=== PATIENT | male | born 1950 | race Caucasian/White ===

== ENCOUNTER 2016-09-24 11:54 | Inpatient (IN) ==
[2016-09-24] MEDS ORDERED: ACETAMINOPHEN 325 MG TABLET PO PRN (12:59)
[2016-09-24] MEDS ORDERED: MAGNESIUM HYDROXIDE SUSP 30 ML UDCUP PO PRN (12:59)
[2016-09-24] MEDS ORDERED: ONDANSETRON 4 MG/2 ML VIAL IV PRN (12:59)
--- NOTE | 2016-09-24 12:59 | Internal Med History&Physical ---
Assessment and Plan (1) COPD (chronic obstructive pulmonary disease) Status: Chronic Current Visit: Yes (2) Dyspnea Status: Acute Current Visit: Yes Qualifiers: Dyspnea type: dyspnea on exertion Qualified Code(s): R06.09 - Other forms of dyspnea (3) Hypertension Status: Chronic Current Visit: Yes Qualifiers: Hypertension type: essential hypertension Qualified Code(s): I10 - Essential (primary) hypertension (4) Chronic fatigue Status: Chronic Current Visit: Yes (5) Hyperlipidemia Status: Chronic Current Visit: Yes Qualifiers: Hyperlipidemia type: mixed hyperlipidemia Qualified Code(s): E78.2 - Mixed hyperlipidemia (6) Status post abdominal aortic aneurysm (AAA) repair Status: Chronic Current Visit: No History of Present Illness Chief complaint: shortness of breath; abdominal pain History of present illness: Mr. Otto is a 66 year old male with history of COPD on albuterol rescue inhaler, Stiolto, zyrtec, HTN, smoking history and quit 5 years ago, sinus tachycardia controlled on propranolol, AAA with surgical repair per Dr. Qunin at [place] but has now changed over to Dr. Fowler, chronic fatigue, Vit D deficiency, dyslipidemia, who presented to clinic with persistent shortness of breath. He reports shortness of breath for two years ever since his AAA surgical repair , and has experienced worsening since Thursday. He reports staying in bed over the weekend and has no energy. He denies sweats but feels cold all the time. He also complains of stomach pain/abdominal pain since the surgical repair, and has noticed distention since then. He denies significant alcohol history. An incisor tooth has broken off during the weekend and is inflamed. He does not feel well and will be admitted and worked up for pneumonia. Also, the abdominal pain has become an issue. Home Medications Medication Instructions Recorded Confirmed Type Albuterol Sulfate [Ventolin HFA] 2 puffs PO Q6HR PRN 09/24/16 09/24/16 History Cetirizine Tab [ZyrTEC Tab] 10 mg PO DAILY 09/24/16 09/24/16 History Cyanocobalamin (Vitamin B-12) 1 tablet PO DAILY 09/24/16 09/24/16 History [Vitamin B-12] Meloxicam 7.5 mg PO DAILY 09/24/16 09/24/16 History Omeprazole 40 mg PO DAILY 09/24/16 09/24/16 History Propranolol HCl [Propranolol Tab] 40 mg PO TID 09/24/16 09/24/16 History Ranitidine Tab [Zantac Tab] 150 mg PO DAILY 09/24/16 09/24/16 History Tiotropium Br/Olodaterol HCl 2.5 mcg INH BEDTIME 09/24/16 09/24/16 History [Stiolto Respimat Inhal [place]] amLODIPine [Norvasc] 10 mg PO DAILY 09/24/16 09/24/16 History Allergies Allergy/AdvReac Type Severity Reaction Status Date / Time No Known Allergies Allergy Verified 09/24/16 16:18 Medical,Surgical,& Family Hx - Medical History Cardio: History of: Cardiac Dysrhythmia (sinus tachycardia), Hypertension HEENT: History of: HEENT Problems (sinus drainage; hx nosebleeds) Endocrine: History of: Dyslipidemia Respiratory: History of: COPD, Respiratory Problems (chronic shortness of breath ) Gastrointestinal: History of: GERD - Surgical History Abdominal Surgeries: Surgical HX of: Appendectomy, Colonoscopy (Dr. Alvarado), EGD (dilatation) Additional Surgical History: Bronchoscopy per Dr. Dilip Wyatt; AAA surgical repair per Dr. Quinn - Family History Family History: Reports;: Family Cancer - Social History Smoking Status: Former smoker Frequency of Alcohol Use: Occasionally Type of Drug Use: None Marital Status: Lives With:: Children Functional capacity: independent ambulation - Constitutional Constitutional: Present: fatigue, lethargy - Respiratory Respiratory: Present: cough, dyspnea, dyspnea on exertion - Gastrointestinal Gastrointestinal: Present: abdominal pain, bloating, dyspepsia - Neurological Neurological: Present: dizziness, syncope (history of syncope) Exam - Constitutional General appearance: no acute distress (appears fatigued) - Head Head exam: Present: normocephalic - Eye Eye exam: Present: EOMI - ENT ENT exam: Present: normal oropharynx - Neck Neck exam: Absent: lymphadenopathy - Respiratory Respiratory exam: Present: clear to auscultation bilaterally, decreased breath sounds. Absent: rales, rhonchi, wheezes - Cardiovascular Cardiovascular exam: Present: regular rate and rhythm - GI/Abdominal GI/Abdominal exam: Present: normal bowel sounds, distended, tenderness, soft - Extremities Exam Extremities exam: Absent: edema - Neurological Exam Neurological exam: Present: alert, oriented X3, CN II-XII intact - Psychiatric Psychiatric exam: Present: normal affect, normal mood - Skin Skin exam: Present: warm, dry Results - Diagnostic Findings Procedure: Abdominal x-ray: report reviewed by me, Chest x-ray: image reviewed by me, report reviewed by me
[2016-09-24] MEDS ORDERED: SODIUM CHLORIDE 0.45% 1,000 ML IV SCH (13:00)
--- NOTE | 2016-09-24 16:38 | XRay Report ---
XR chest 2V Indication: Shortness of breath Comparison: None available Findings: The heart and mediastinum are normal in size and configuration. Moderate amount of aorta calcifications present. The pulmonary vascularity is normal in caliber. Lung volumes are increased with prominent bronchial markings. No lung infiltrates, effusions, pneumothorax or other abnormality is demonstrated. Impression: Chronic lung changes. No acute process. PROCEDURE INTERPRETED AT [facility] DEPARTMENT OF RADIOLOGY Final Report Signed by: Dr. Johnie Chacon
--- NOTE | 2016-09-24 16:47 | XRay Report ---
XR abdomen 2V Indication: Abdominal pain Comparison: None available Findings: No free fluid or free air seen. The bowel gas pattern appears within normal limits. Aortic stent graft and calcified iliac arteries are present. No other abnormal calcifications are present. No other abnormality is identified. Impression: No evidence of acute process demonstrated. PROCEDURE INTERPRETED AT [facility] DEPARTMENT OF RADIOLOGY Final Report Signed by: Dr. Johnie Chacon
--- NOTE | 2016-09-24 16:54 | Pulmonology Consult Note ---
Assessment and Plan (1) COPD exacerbation Status: Acute Assessment and plan: The patient has been having worsening shortness of breath and looks like he may have significant COPD. Will review the old records. Will continue with steroids and bronchodilators for now. Current Visit: Yes (2) Status post abdominal aortic aneurysm (AAA) repair Status: Acute Assessment and plan: The patient has had a previous abdominal aortic aneurysm repair. He does have some abdominal discomfort and bloating at present. Current Visit: Yes (3) Hyperlipidemia Status: Acute Assessment and plan: He will continue his present medicines. Current Visit: Yes History of Present Illness Chief complaint: Shortness of breath History of present illness: Mr. Otto is a 66 year old white male that was admitted today to the office because of shortness of breath. He has a history of having COPD and uses bronchodilators at home. He says lately he has been having much more trouble getting around. He has been having trouble coughing secretions at times. He is a former smoker and does have some problems with vascular disease. He said that several years ago we did a therapeutic bronchoscopy at [facility] and he felt better for a while. He is having some chest discomfort from his coughing. He says the secretions at times are very thick. He has not had any definite fever or other systemic symptoms. Allergies Allergy/AdvReac Type Severity Reaction Status Date / Time No Known Allergies Allergy Verified 09/24/16 16:18 - Constitutional Constitutional: Present: fatigue, weakness, weight gain. Absent: chills, fever( s) - EENT Eyes: Absent: loss of vision Ears: Absent: decreased hearing Nose, mouth and throat: Absent: dysphagia, headache(s), sinus pressure - Cardiovascular Cardiovascular: Absent: chest pain with activity, edema, orthopnea, palpitations - Respiratory Respiratory: Present: cough, dyspnea, wheezing, change in phlegm color. Absent : hemoptysis, pain on inspiration - Gastrointestinal Gastrointestinal: Present: abdominal pain. Absent: change in bowel habits, dysphagia, nausea, vomiting - Genitourinary Genitourinary: Absent: difficulty urinating, hematuria, urinary frequency - Musculoskeletal Musculoskeletal: Absent: arthralgias, muscle weakness - Neurological Neurological: Absent: abnormal speech, focal weakness, paresthesias - Psychiatric Psychiatric: Present: anxiety Exam (Pulmonay) H&P - Constitutional General appearance: no acute distress (He looks comfortable sitting up in his bed.), over weight - Head Head exam: Present: normal inspection, normocephalic - Eye Eye exam: Present: EOMI. Absent: scleral icterus Pupils: Present: SERA - ENT ENT exam: Present: normal exam - Neck Neck exam: Present: normal inspection. Absent: lymphadenopathy, thyromegaly - Respiratory Respiratory exam: Present: decreased breath sounds, prolonged expiratory phase, wheezes (He has very minimal wheezing.). Absent: accessory muscle use - Cardiovascular Cardiovascular exam: Present: regular rate and rhythm. Absent: gallop, systolic murmur - GI/Abdominal GI/Abdominal exam: Present: distended, hypoactive bowel sounds, soft. Absent: organomegaly, tenderness - Extremities Exam Extremities exam: Absent: calf tenderness, edema - Neurological Exam Neurological exam: Present: alert, oriented X3, CN II-XII intact. Absent: motor sensory deficit - Psychiatric Psychiatric exam: Present: normal affect - Skin Skin exam: Present: warm, dry Medical,Surgical,& Family Hx - Medical History Cardio: History of: Aneurysm (aortic aneurysm), Cardiovascular Problems (syncope ) Psychological: History of: Depression No history of: Anxiety Disorders, ADHD, Behavior Problems, Bipolar Disorder, Previous Suicide Attempt, Schizophrenia, Violent Behavior, Psychiatric Problems - Surgical History Cardiac Surgeries: Sugical HX of: Cardiac Surgery (aortic aneurysm repair surger ) Neurologic Surgeries: Patient denies: Neurologic Surgery HEENT Surgeries: Patient denies: Thyroid Surgery Abdominal Surgeries: Surgical HX of: Appendectomy Reproductive Surgeries: Patient denies;: Genitourinary Surgery - Social History Smoking Status: Former smoker Frequency of Alcohol Use: None Type of Drug Use: None Results - Diagnostic Findings Procedure: Chest x-ray: image reviewed by me, report reviewed by me (Chest x- ray suggests significant COPD changes.)
[2016-09-24] MEDS: methylPREDNISolone SOD SUC 40 MG/1 ML VIAL IV SCH (17:53)
[2016-09-24] MEDS: PIPERACILLIN/TAZOBACTAM 3,375 MG in SODIUM CHLORIDE 0.9% 100 ML IV SCH (17:54)
[2016-09-24] MEDS ORDERED: KETOROLAC 30 MG/1 ML VIAL IV PRN (18:00)
[2016-09-24 18:15] LABS: Basophils % 0.5 % (0.0-0.8); Eosinophils # 0.7 10*3/uL (0.0-0.87); Eosinophils % 9.2 % (0.00-10.9); Hematocrit 45.3 VOL% (42.0-52.0); Hemoglobin 15.7 GM/DL (14.0-18.0); Immature Granulocytes % 0.4 %; Immature Granulocytes Absolute 0.03 #; Lymphocytes # 2.2 10*3/uL (1.4-4.0); Lymphocytes % 28.9 % (21.2-54.2); Mean Corpuscular HGB Conc 34.7 GM/DL (32-36); Mean Corpuscular Hemoglobin 32 PG (27-34); Mean Corpuscular Volume 91.3 FL (87-102); Mean Platelet Volume 9.6 FL (9.6-12.0); Monocytes # 1.2 10*3/uL (0.11-0.8); Monocytes % 15.4 % (1.7-12.7); Neutrophils # 3.4 10*3/uL (1.4-7.4); Neutrophils % 45.6 % (38.7-73.9); Platelet Count 211 T/CUMM (130-400); Red Blood Count 4.96 MC/CUMM (3.8-5.5); White Blood Count 7.5 T/CUMM (4-12)
[2016-09-24 18:15] LABS: Apearance,Urine Slightly Hazy (Clear); Blood, Urine Negative (Negative); Glucose,Urine (UA) Negative (Negative); Ketones,Urine 5 mg/dL (Negative); Mucus,Urine Few /LPF (Occasional); Nitrite,Urine Negative (Negative); Protein,Urine >=500 MG/DL; RBC,Urine 4 /HPF (0-4); Squamous Epithelial Cell,Urine Occasional /HPF (0-10); Urine Color Amber (Yellow); Urine Specific Gravity 1.029 (1.001-1.035); Urine Urobilinogen < 2.0 EU/DL (0.2-1.0); WBC,Urine 2 /HPF (0-6)
[2016-09-24 18:16] LABS: Bilirubin,Urine Moderate mg/dL (Negative)
[2016-09-24 18:30] LABS: Albumin 3.5 G/DL (3.4-5.0); Bilirubin,Total 0.7 MG/DL (0.2-1.0); Calcium 8.7 MG/DL (8.5-10.1); Magnesium 2.1 MG/DL (1.8-2.4); Osmolality,Calculated 276.8 MOS/KG (273-304); Potassium 3.3 MMOL/L (3.5-5.1); Total Protein 7.1 G/DL (6.4-8.3)
[2016-09-24] MEDS ORDERED: POTASSIUM CHLORIDE 20 MEQ TABLET PO ONE (18:37)
--- NOTE | 2016-09-24 18:49 | CT Report ---
Referring physician: Laila Wyatt Exam: CT brain without contrast Date: September 24, 2016 Comparison: None Reason: Persistent headache The patient is an inpatient who was admitted on September 24, 2016. Technique: Axial images of the head were obtained without the use of contrast. Total DLP was 1103.6 mGy*cm. Findings: There is mild generalized cerebral and cerebellar atrophy/volume loss and probable chronic microvascular ischemic change. No hydrocephalus or midline shift is present. There is no evidence of recent intracranial hemorrhage, abnormal mass effect or an acute infarction. No acute osseous process is seen. There is fluid within the inferior left mastoid air cells. The visualized paranasal sinuses and right mastoid air cells appear clear. Impression: 1. No acute intracranial process is identified. 2. Mild generalized cerebral and cerebellar atrophy/volume loss and probable chronic microvascular ischemic change. 3. There is fluid within the left mastoid air cells, which may reflect mastoiditis. The CT exam was performed using one or more of the following dose reduction techniques: Automated exposure control and adjustment of the mA and/or kV according to patient size. PROCEDURE INTERPRETED AT [facility] DEPARTMENT OF RADIOLOGY Final Report Signed by: Dr. Felicitas Reinoso
[2016-09-24] MEDS: ALBUTEROL/IPRATROPIUM 3 ML NEB RESP TX SCH (19:23)
[2016-09-24] MEDS: SODIUM CHLORIDE 0.9% 1,000 ML IV SCH (19:44)
[2016-09-24] MEDS: FAMOTIDINE 20 MG TABLET PO SCH (22:15)
[2016-09-24] MEDS: PROPRANOLOL 40 MG TABLET PO SCH (22:15)
[2016-09-24] MEDS: POTASSIUM CHLORIDE 20 MEQ TABLET PO SCH (22:16)
[2016-09-24] MEDS: DOCUSATE SODIUM 100 MG CAPSULE PO SCH (22:16)
[2016-09-24] MEDS: ENOXAPARIN 40 MG/0.4 ML SYRINGE SUBCUT SCH (22:17)
[2016-09-25] MEDS: ALBUTEROL/IPRATROPIUM 3 ML NEB RESP TX SCH ×4 (00:43→19:17)
[2016-09-25] MEDS: methylPREDNISolone SOD SUC 40 MG/1 ML VIAL IV SCH ×3 (02:31→17:22)
[2016-09-25] MEDS: PIPERACILLIN/TAZOBACTAM 3,375 MG in SODIUM CHLORIDE 0.9% 100 ML IV SCH ×3 (02:37→17:21)
[2016-09-25 08:08] LABS: Calcium 8.2 MG/DL (8.5-10.1); Osmolality,Calculated 282.8 MOS/KG (273-304); Potassium 4.1 MMOL/L (3.5-5.1); Risk Ratio 5.27; VLDL CHOLESTEROL 22.6 MG/DL
--- NOTE | 2016-09-25 09:01 | Pulmonology Progress Note ---
Pulmonary - PN: Subj Interval history: Patient is a 66-year-old white man that has significant COPD and came in with worsening shortness of breath. He said he feels like he is a little better today. He is starting to cough up thick yellow purulent secretions. He has some abdominal soreness that is probably from coughing. He says he is very hungry today. He is not having any nausea or vomiting or other GI symptoms. He is walking around and feels like his breathing is a little better. His chest x-ray does look like significant COPD. Exam (Progress Note) - Constitutional Vitals: Period Temp Pulse Resp BP Sys/Peace Pulse Ox Last 24 Hr 97.4 F-97.9 F 69-74 16-18 125-130/71-79 97-99 Exam: - Constitutional General appearance: no acute distress (He is walking around and looks reasonably comfortable.) - Head Head exam: Present: normal inspection, normocephalic - Eye Eye exam: Present: EOMI. Absent: scleral icterus Pupils: Present: SERA - ENT ENT exam: Present: normal exam - Neck Neck exam: Present: normal inspection. Absent: lymphadenopathy, thyromegaly - Respiratory Respiratory exam: Present: The patient has very distant breath sounds but he has a fairly quiet chest. He has some minimal rhonchi on forced expiration. He has no signs of consolidation. - Cardiovascular Cardiovascular exam: Present: regular rate and rhythm. Absent: gallop, systolic murmur - GI/Abdominal GI/Abdominal exam: Present: distended, hypoactive bowel sounds, soft. He does not have any tenderness. - Extremities Exam Extremities exam: Absent: calf tenderness, edema - Neurological Exam Neurological exam: Present: alert, oriented X3, CN II-XII intact. Absent: motor sensory deficit - Psychiatric Psychiatric exam: Present: normal affect - Skin Skin exam: Present: warm, dry Results - Labs CBC & BMP: 09/24/16 17:19 09/25/16 07:09 Assessment and Plan (1) COPD exacerbation Status: Acute Assessment and plan: The patient has been having worsening shortness of breath and looks like he may have significant COPD. He is starting to cough up some purulent secretions. He is tolerating his medicines fairly well so far. Current Visit: Yes (2) Status post abdominal aortic aneurysm (AAA) repair Status: Chronic Assessment and plan: The patient has had a previous abdominal aortic aneurysm repair. His abdomen is distended but is not tender. He says he is hungry today. Current Visit: No (3) Hyperlipidemia Status: Chronic Assessment and plan: He will continue his present medicines. Current Visit: Yes Qualifiers: Hyperlipidemia type: mixed hyperlipidemia Qualified Code(s): E78.2 - Mixed hyperlipidemia
--- NOTE | 2016-09-25 09:07 | Gastrointestinal Consult Note ---
Assessment and Plan (1) Abdominal pain Status: Acute Assessment and plan: 09/25-reports of generalized abdominal pain, after AAA repair 2 years ago, with palpation to abdomen or coughing spells. No associated GI symptoms with this. Reports 30 pound unwarranted weight gain. CTA of abdomen findings in May noted to be negative. Obtain endoscopy records from [place]. Plan an addendum to followed by Dr. Gray. Current Visit: Yes History of Present Illness Chief complaint: Abdominal pain History of present illness: Mr. Otto is a 66 year old male who was admitted to the hospital on yesterday as a direct admit from Dr Laila Sharp office with complaints of ongoing abdominal pain as well as SOB. Pt has a history of COPD, HTN and AAA repair by DR Quinn at [facility] 2 years ago. Pt states that following the surgery he initially did well however shortly after this he began having some vague abdominal pain and discomfort. Pt states that the pain is localized to her entire abdomen and is not precipitated by any factors other than coughing and if someone pushes on his stomach. He states he has gained 30 pounds over the last 3 months, all of which he feels is in his abdomen. He has had an increase in bloating after he eats and states he has a large amount of flatus that he cannot control. Pt states there have been no changes in his bowel habits, caliber of stool or reports of melena or hematochezia. He states that he has no fever, chills or night sweats. His appetite nor his food intake have increased per patient to account for the weight gain. Denies any nausea or vomiting associated with this. He does have reflux but takes OTC Prilosec and Zantac which controls his symptoms most of the time. Denies NSAID use. He does have some dysphagia at times to solids and pills and states he has had this dilated in the past at [facility] in which he has seen Dr Alvarado for. He recalls he had a colonoscopy recently as well, presumably at [facility]. He is followed by Dr Fowler post AAA repair now with CTA of abdomen done in May with findings of stable appearance of endovascular stent graft without endoleak as well as 3.9x3.1 cm aneurysm sac with no increase in size. Abdominal xray was negative on yesterday. He also had a negative head CT for some dizziness and headaches he reported. Home Medications Medication Instructions Recorded Confirmed Type Albuterol Sulfate [Ventolin HFA] 2 puffs PO Q6HR PRN 09/24/16 09/24/16 History Cetirizine Tab [ZyrTEC Tab] 10 mg PO DAILY 09/24/16 09/24/16 History Cyanocobalamin (Vitamin B-12) 1 tablet PO DAILY 09/24/16 09/24/16 History [Vitamin B-12] Meloxicam 7.5 mg PO DAILY 09/24/16 09/24/16 History Omeprazole 40 mg PO DAILY 09/24/16 09/24/16 History Propranolol HCl [Propranolol Tab] 40 mg PO TID 09/24/16 09/24/16 History Ranitidine Tab [Zantac Tab] 150 mg PO DAILY 09/24/16 09/24/16 History Tiotropium Br/Olodaterol HCl 2.5 mcg INH BEDTIME 09/24/16 09/24/16 History [Stiolto Respimat Inhal [place]] amLODIPine [Norvasc] 10 mg PO DAILY 09/24/16 09/24/16 History Allergies Allergy/AdvReac Type Severity Reaction Status Date / Time No Known Allergies Allergy Verified 09/24/16 16:18 Medical,Surgical,& Family Hx - Medical History Cardio: History of: Aneurysm (aortic aneurysm), Cardiac Dysrhythmia (sinus tachycardia), Hypertension, Cardiovascular Problems (syncope) Psychological: History of: Depression No history of: Anxiety Disorders, ADHD, Behavior Problems, Bipolar Disorder, Previous Suicide Attempt, Schizophrenia, Violent Behavior, Psychiatric Problems HEENT: History of: HEENT Problems (sinus drainage; hx nosebleeds) Endocrine: History of: Dyslipidemia Respiratory: History of: COPD, Respiratory Problems (chronic shortness of breath ) Gastrointestinal: History of: GERD - Surgical History Cardiac Surgeries: Sugical HX of: Cardiac Surgery (aortic aneurysm repair surger ) Neurologic Surgeries: Patient denies: Neurologic Surgery HEENT Surgeries: Patient denies: Thyroid Surgery Abdominal Surgeries: Surgical HX of: Appendectomy, Colonoscopy (Dr. Alvarado), EGD (dilatation) Reproductive Surgeries: Patient denies;: Genitourinary Surgery - Family History Family History: Reports;: Family Cancer - Social History Smoking Status: Former smoker Frequency of Alcohol Use: Occasionally Type of Drug Use: None 12 point system: reviewed and no additional remarkable complaints except as stated - Constitutional Constitutional: Present: as per HPI - EENT Eyes: Present: as per HPI Ears: Present: as per HPI Nose, mouth and throat: Present: as per HPI, dysphagia - Cardiovascular Cardiovascular: Present: as per HPI, dyspnea - Respiratory Respiratory: Present: as per HPI - Gastrointestinal Gastrointestinal: Present: as per HPI, abdominal pain, bloating, dysphagia - Genitourinary Genitourinary: Present: as per HPI - Musculoskeletal Musculoskeletal: Present: as per HPI - Neurological Neurological: Present: as per HPI - Psychiatric Psychiatric: Present: as per HPI - Endocrine Endocrine: Present: as per HPI - Hematologic/Lymphatic Hematologic/Lymphatic: Present: as per HPI Exam - Constitutional Vitals: Period Temp Pulse Resp BP Sys/Peace Pulse Ox Last 24 Hr 97.4 F-97.9 F 69-74 16-18 125-130/71-79 97-99 General appearance: normal weight, no acute distress - Head Head exam: Present: normal inspection, normocephalic - Eye Eye exam: Present: other (Lids and conjunctive are unremarkable). Absent: scleral icterus - ENT ENT exam: Present: normal exam, normal oropharynx - Neck Neck exam: Present: normal inspection - Respiratory Respiratory exam: Present: clear to auscultation bilaterally. Absent: rales, rhonchi, wheezes - Cardiovascular Cardiovascular exam: Present: regular rate and rhythm. Absent: diastolic murmur , JVD, systolic murmur - GI/Abdominal GI/Abdominal exam: Present: normal bowel sounds, tenderness (With deep palpation ), soft. Absent: ascites, distended, mass, organomegaly - Extremities Exam Extremities exam: Present: normal inspection, full ROM - Back Exam Back exam: Present: normal inspection - Neurological Exam Neurological exam: Present: alert, oriented X3 - Psychiatric Psychiatric exam: Present: normal affect, normal mood - Skin Skin exam: Present: normal color, warm, dry Results - Labs CBC & BMP: 09/24/16 17:19 09/25/16 07:09 Lab Results: I have reviewed the past 24 hour labs - Diagnostic Findings Procedure: Abdominal x-ray: report reviewed by me, Chest x-ray: report reviewed by me
[2016-09-25] MEDS: amLODIPine 10 MG TABLET PO SCH (09:40)
[2016-09-25] MEDS: FAMOTIDINE 20 MG TABLET PO SCH ×2 (09:40→21:57)
[2016-09-25] MEDS: PROPRANOLOL 40 MG TABLET PO SCH ×2 (09:40→21:56)
[2016-09-25] MEDS: DOCUSATE SODIUM 100 MG CAPSULE PO SCH ×2 (09:40→21:56)
[2016-09-25] MEDS: POTASSIUM CHLORIDE 20 MEQ TABLET PO SCH ×2 (09:40→21:56)
[2016-09-25] MEDS ORDERED: GLUCAGON 1 MG VIAL IM PRN (10:33)
[2016-09-25] MEDS ORDERED: DEXTROSE 50% 25 GM/50 ML VIAL IV PRN (10:33)
[2016-09-25] MEDS: CETIRIZINE 10 MG TABLET PO SCH (11:51)
[2016-09-25] MEDS: CYANOCOBALAMIN 500 MCG TABLET PO SCH (11:51)
[2016-09-25] MEDS: INSULIN REGULAR 100 UNIT/ML SUBCUT SCH ×3 (11:52→22:00)
--- NOTE | 2016-09-25 16:33 | Sleep Medicine Consult ---
Assessment and Plan (1) Unspecified sleep apnea Status: Acute Assessment and plan: This patient does have symptoms certainly concerning for sleep apnea. He had evidence of sleep apnea though did not meet criteria for CPAP on his prior study at [facility] sleep center over 2 years ago. We will set him up for outpatient diagnostic sleep study. Thank you for this consult and the opportunity to participate in his care. Current Visit: Yes (2) Hypertension Status: Chronic Assessment and plan: The prevalence rate for obstructive sleep apnea patients with hypertension is 35 %. That rate can be as high as 80% in patients who require 4 or more medications for blood pressure control. Current Visit: Yes Qualifiers: Hypertension type: essential hypertension Qualified Code(s): I10 - Essential (primary) hypertension (3) COPD (chronic obstructive pulmonary disease) Status: Chronic Assessment and plan: Patients with underlying COPD are more likely to have greater propensity for oxygen desaturation and worse respiratory events with sleep apnea. With his sleep disruption and sleepiness, polysomnography is indicated. Current Visit: Yes History of Present Illness Chief complaint: Sleep apnea History of present illness: Mr. Otto is a 66 year old male known to me from previous sleep evaluation in May 2014. He had a negative sleep study at that time with an AHI of 3.9 overall but did have a severe REM component with an AHI of 40 and REM sleep. Patient was admitted with shortness of breath and does have a history of very disturbed sleep. He does snore and awakens from sleep short of breath. He has difficulty maintaining sleep with multiple trips to the bathroom related to urination. He estimates that he gets up 6-8 times to urinate. He also is bothered by discomfort of his legs. He has an [place] sleepiness score of 13. Home Medications Medication Instructions Recorded Confirmed Type Albuterol Sulfate [Ventolin HFA] 2 puffs PO Q6HR PRN 09/24/16 09/24/16 History Cetirizine Tab [ZyrTEC Tab] 10 mg PO DAILY 09/24/16 09/24/16 History Cyanocobalamin (Vitamin B-12) 1 tablet PO DAILY 09/24/16 09/24/16 History [Vitamin B-12] Meloxicam 7.5 mg PO DAILY 09/24/16 09/24/16 History Omeprazole 40 mg PO DAILY 09/24/16 09/24/16 History Propranolol HCl [Propranolol Tab] 40 mg PO TID 09/24/16 09/24/16 History Ranitidine Tab [Zantac Tab] 150 mg PO DAILY 09/24/16 09/24/16 History Tiotropium Br/Olodaterol HCl 2.5 mcg INH BEDTIME 09/24/16 09/24/16 History [Stiolto Respimat Inhal [place]] amLODIPine [Norvasc] 10 mg PO DAILY 09/24/16 09/24/16 History Allergies Allergy/AdvReac Type Severity Reaction Status Date / Time No Known Allergies Allergy Verified 09/24/16 16:18 Review of systems: Notable for exercise intolerance, dyspnea on exertion, and disrupted restless sleep. Exam (Pulmonay) H&P - Constitutional Vitals: Period Temp Pulse Resp BP Sys/Peace Pulse Ox Last 24 Hr 97.2 F-97.9 F 69-79 16-20 125-134/70-79 97-100 Exam: He is alert and responsive in no acute distress. Pupils equal round reactive to light and accommodation. Extraocular movements intact. Oropharynx with a class III Mallampati exam. Neck is 17 inches in circumference. It is supple without adenopathy or thyromegaly. No supraclavicular adenopathy is noted. Chest with good breath sounds and without focal wheeze, rhonchi, or rales. Cardiac exam reveals a regular rhythm without murmur or gallop. Abdomen soft nontender without palpable hepatosplenomegaly or mass. Extremities are without clubbing, cyanosis, or edema. Neurologically, he is grossly intact. He moves all extremities with good strength. Medical,Surgical,& Family Hx - Medical History Cardio: History of: Aneurysm (aortic aneurysm), Cardiac Dysrhythmia (sinus tachycardia), Hypertension, Cardiovascular Problems (syncope) Psychological: History of: Depression No history of: Anxiety Disorders, ADHD, Behavior Problems, Bipolar Disorder, Previous Suicide Attempt, Schizophrenia, Violent Behavior, Psychiatric Problems HEENT: History of: HEENT Problems (sinus drainage; hx nosebleeds) Endocrine: History of: Dyslipidemia Respiratory: History of: COPD, Respiratory Problems (chronic shortness of breath ) Gastrointestinal: History of: GERD - Surgical History Cardiac Surgeries: Sugical HX of: Cardiac Surgery (aortic aneurysm repair surger ) Neurologic Surgeries: Patient denies: Neurologic Surgery HEENT Surgeries: Patient denies: Thyroid Surgery Abdominal Surgeries: Surgical HX of: Appendectomy, Colonoscopy (Dr. Alvarado), EGD (dilatation) Reproductive Surgeries: Patient denies;: Genitourinary Surgery - Family History Family History: Reports;: Family Cancer - Social History Smoking Status: Former smoker Frequency of Alcohol Use: Occasionally Type of Drug Use: None Results - Labs CBC & BMP: 09/24/16 17:19 09/25/16 07:09 Lab Results: I have reviewed the past 24 hour labs
[2016-09-25] MEDS: SODIUM CHLORIDE 0.9% 1,000 ML IV SCH ×2 (17:28→22:01)
--- NOTE | 2016-09-25 18:12 | ECHO Report ---
Fabian Otto Exam Date: 09/25/2016 09:44 Referring Physician: Technologist: Age: 66 Ht (in): 66 Wt (lb): 174 Gender: M Exam Location: [facility] Echo Indications: hyperlipidemia, status AAA, COPD, Dyspnea, chronic Dyspnea, lung disease, R/o pul HTN BP: 128 / 71 HR: 69 Rhythm: Sinus Technical Quality: IMPRESSIONS 1+ left atrial enlargement 2+ concentric LVH Normal LV systolic function with ejection fraction estimated at 60% without segmental wall motion abnormality Aortic sclerosis without stenosis 2-3+ aortic regurgitation with borderline aortic root dilation Trace to 1+ tricuspid regurgitation with RVSP estimated at 10 mmHg plus RAP MEASUREMENTS (Male / Female) Normal Values 2D ECHO LV Diastolic Diameter PLAX 3.6 cm 4.2 - 5.9 / 3.9 - 5.3 cm LV Systolic Diameter PLAX 2.1 cm LV Fractional Shortening PLAX 41.3 % IVS Diastolic Thickness 1.8 cm 0.6 - 1.0 / 0.6 - 0.9 cm IVS Systolic Thickness 2.2 cm LVPW Diastolic Thickness 1.4 cm 0.6 - 1.0 / 0.6 - 0.9 cm LVPW Systolic Thickness 1.9 cm LV Relative Wall Thickness 0.9 RV Internal Dim ED PLAX 2.8 cm LVOT Diameter 2.1 cm Aortic Root Diameter 3.3 cm LA Systolic Diameter LX 4.1 cm 3.0 - 4.0 / 2.7 - 3.8 cm LA Ao Ratio 1.2 DOPPLER TR Peak Velocity 156.0 cm/s TR Peak Gradient 9.7 mmHg FINDINGS Left Ventricle Severely increased septal wall thickness. Mild concentric left ventricular hypertrophy with diastolic dysfunction. Left ventricular ejection fraction is estimated Right Ventricle Normal right ventricular size. Right Atrium Normal right atrial size. Left Atrium Normal left atrial size. Mitral Valve Mildly thickened mitral valve with mild mitral regurgitation. Aortic Valve Aortic valve sclerosis. Mild aortic valve regurgitation. Tricuspid Valve Tricuspid valve sclerosis. Trace to mild tricuspid valve regurgitation. Pulmonic Valve Pulmonic valve sclerosis. Mild pulmonary valve regurgitation. Pericardium No pericardial effusion. Aorta Normal size aortic root and proximal ascending aorta. Reuben Swanson (Electronically Signed) Final Date: 25 Sep 2016 18:10
--- NOTE | 2016-09-25 21:07 | Internal Med Progress Note ---
Assessment and Plan (1) COPD (chronic obstructive pulmonary disease) Status: Chronic Current Visit: Yes (2) Dyspnea Status: Chronic Current Visit: Yes Qualifiers: Dyspnea type: dyspnea on exertion Qualified Code(s): R06.09 - Other forms of dyspnea (3) Hypertension Status: Chronic Current Visit: Yes Qualifiers: Hypertension type: essential hypertension Qualified Code(s): I10 - Essential (primary) hypertension (4) Chronic fatigue Status: Chronic Current Visit: Yes (5) Hyperlipidemia Status: Chronic Current Visit: Yes Qualifiers: Hyperlipidemia type: mixed hyperlipidemia Qualified Code(s): E78.2 - Mixed hyperlipidemia (6) Status post abdominal aortic aneurysm (AAA) repair Status: Chronic Current Visit: No Internal Medicine - PN: Subj Interval history: Mr. Otto is a 66 year old male with history of COPD on albuterol rescue inhaler, Stiolto, zyrtec, HTN, smoking history and quit 5 years ago, sinus tachycardia controlled on propranolol, AAA with surgical repair per Dr. Quinn at [facility] but has now changed over to Dr. Fowler, chronic fatigue, Vit D deficiency, dyslipidemia, who presented to clinic with persistent shortness of breath. He reports shortness of breath for two years ever since his AAA surgical repair , and has experienced worsening since Thursday. He reports staying in bed over the weekend and has no energy. He denies sweats but feels cold all the time. He also complains of stomach pain/abdominal pain since the surgical repair, and has noticed distention since then. He denies significant alcohol history. An incisor tooth has broken off during the weekend and is inflamed. He does not feel well and will be admitted and worked up for pneumonia. Also, the abdominal pain has become an issue. , overall feeling better, but abdomen bothering him. Also, solumedrol induced hyperglycemia. He now has sliding scale coverage with regular insulin. Exam (Progress Note) - Constitutional Vitals: Period Temp Pulse Resp BP Sys/Peace Pulse Ox Last 24 Hr 97.2 F-97.8 F 69-79 16-20 125-134/70-76 97-100 Exam: - Constitutional General appearance: no acute distress - Respiratory Respiratory exam: Present: clear to auscultation bilaterally, decreased breath sounds - Cardiovascular Cardiovascular exam: Present: regular rate and rhythm - GI/Abdominal GI/Abdominal exam: Present: normal bowel sounds, distended, tenderness, soft - Extremities Exam Extremities exam: Absent: edema Results - Labs CBC & BMP: 09/24/16 17:19 09/25/16 07:09
[2016-09-25] MEDS: ENOXAPARIN 40 MG/0.4 ML SYRINGE SUBCUT SCH (21:57)
[2016-09-25] MEDS: SODIUM CHLORIDE 0.45% 1,000 ML IV SCH (21:58)
[2016-09-26] MEDS: ALBUTEROL/IPRATROPIUM 3 ML NEB RESP TX SCH ×4 (01:36→20:15)
[2016-09-26] MEDS: methylPREDNISolone SOD SUC 40 MG/1 ML VIAL IV SCH ×3 (03:19→18:25)
[2016-09-26] MEDS: PIPERACILLIN/TAZOBACTAM 3,375 MG in SODIUM CHLORIDE 0.9% 100 ML IV SCH ×3 (03:19→18:25)
[2016-09-26 06:41] LABS: Basophils % 0.1 % (0.0-0.8); Hematocrit 42.7 VOL% (42.0-52.0); Immature Granulocytes % 0.6 %; Immature Granulocytes Absolute 0.11 #; Lymphocytes # 1.7 10*3/uL (1.4-4.0); Lymphocytes % 9.9 % (21.2-54.2); Mean Corpuscular HGB Conc 35.1 GM/DL (32-36); Mean Corpuscular Hemoglobin 32 PG (27-34); Mean Corpuscular Volume 91.6 FL (87-102); Mean Platelet Volume 9.3 FL (9.6-12.0); Monocytes # 1.5 10*3/uL (0.11-0.8); Monocytes % 8.4 % (1.7-12.7); Neutrophils # 14.2 10*3/uL (1.4-7.4); Platelet Count 233 T/CUMM (130-400); Red Blood Count 4.66 MC/CUMM (3.8-5.5); Red Cell Distribution Width 14.2 % (9.3-17.3); White Blood Count 17.6 T/CUMM (4-12)
[2016-09-26 07:11] LABS: Calcium 8.6 MG/DL (8.5-10.1); Osmolality,Calculated 284.5 MOS/KG (273-304); Potassium 4.4 MMOL/L (3.5-5.1)
--- NOTE | 2016-09-26 08:12 | Ultrasound Report ---
US abdomen Indication: Abdominal swelling and discomfort Comparison: CT abdomen pelvis dated January 30, 2016 Technique: Multiple longitudinal and transverse real-time sonographic images of the abdomen are obtained. Findings: The liver measures 16.4 cm and demonstrates increased echogenicity without focal abnormality on submitted images. Gallbladder is partially contracted with wall thickness appears upper limits of normal. Sonographic [place] sign reportedly negative. The common bile duct measures 0.6 cm in diameter. There is no evidence of intrahepatic ductal dilatation. The right and left kidneys measure 8.4 cm and 10.2 cm, respectively. No evidence of hydronephrosis. Simple appearing cyst within the left kidney measuring up to 3.1 cm. Renal parenchyma is hyperechoic suggestive of medical renal disease. The spleen appears normal in size without focal abnormality. Evaluation of the pancreas limited secondary to bowel gas.. IVC and aorta: Poorly visualized secondary to bowel gas. No evidence of ascites. IMPRESSION: Hepatic steatosis. Left renal cyst. Medical renal disease without evidence of hydronephrosis. Detailed findings as above. PROCEDURE INTERPRETED AT [facility] DEPARTMENT OF RADIOLOGY Final Report Signed by: Dr Cristiano Lao
[2016-09-26] MEDS: CYANOCOBALAMIN 500 MCG TABLET PO SCH (09:09)
[2016-09-26] MEDS: amLODIPine 10 MG TABLET PO SCH (09:09)
[2016-09-26] MEDS: FAMOTIDINE 20 MG TABLET PO SCH ×2 (09:09→20:49)
[2016-09-26] MEDS: PROPRANOLOL 40 MG TABLET PO SCH ×2 (09:09→20:49)
[2016-09-26] MEDS: CETIRIZINE 10 MG TABLET PO SCH (09:09)
[2016-09-26] MEDS: POTASSIUM CHLORIDE 20 MEQ TABLET PO SCH ×2 (09:09→20:49)
[2016-09-26] MEDS: DOCUSATE SODIUM 100 MG CAPSULE PO SCH ×2 (09:09→20:49)
[2016-09-26] MEDS: INSULIN REGULAR 100 UNIT/ML SUBCUT SCH ×4 (09:11→20:49)
--- NOTE | 2016-09-26 09:42 | Gastrointestinal Progress Note ---
Assessment and Plan (1) Abdominal pain Status: Acute Assessment and plan: 09/26-abdominal pain improved, having normal bowel movements and good appetite. Ultrasound results noted. Plan an addendum to follow by Dr. Gray. 09/25-reports of generalized abdominal pain, after AAA repair 2 years ago, with palpation to abdomen or coughing spells. No associated GI symptoms with this. Reports 30 pound unwarranted weight gain. CTA of abdomen findings in May noted to be negative. Obtain endoscopy records from [place]. Plan an addendum to followed by Dr. Gray. Current Visit: Yes Gastroenterology - PN: Subj Interval history: CC: Abdominal pain Patient is seen awake and alert sitting on side of bed eating breakfast with family at bedside. States he is feeling much better today. He is denying any abdominal pain this morning other than with some of his coughing episodes. Denies nausea or vomiting and has a very good appetite with 100% of his diet eaten. He continues to be concerned about the distention of his abdomen. Records from [facility] are still pending this morning. Abdominal ultrasound done this morning shows hepatic steatosis with partially contracted gallbladder with wall thickness in the upper limits of normal without ductal dilatation and a normal common bile duct. No evidence of ascites seen. Abdomen is soft, protuberant with bowel sounds noted. Reports having normal bowel movements yesterday and this morning. Exam (Progress Note) - Constitutional Vitals: Period Temp Pulse Resp BP Sys/Peace Pulse Ox Last 24 Hr 97.2 F-98.1 F 69-80 18-20 125-152/70-79 97-100 - Other Additional findings: General appearance: normal weight, no acute distress - Head Head exam: Present: normal inspection, normocephalic - Eye Eye exam: Present: other (Lids and conjunctive are unremarkable). Absent: scleral icterus - ENT ENT exam: Present: normal exam, normal oropharynx - Neck Neck exam: Present: normal inspection - Respiratory Respiratory exam: Present: clear to auscultation bilaterally. Absent: rales, rhonchi, wheezes - Cardiovascular Cardiovascular exam: Present: regular rate and rhythm. Absent: diastolic murmur , JVD, systolic murmur - GI/Abdominal GI/Abdominal exam: Present: normal bowel sounds, tenderness (With deep palpation ), soft. Absent: ascites, distended, mass, organomegaly - Extremities Exam Extremities exam: Present: normal inspection, full ROM - Back Exam Back exam: Present: normal inspection - Neurological Exam Neurological exam: Present: alert, oriented X3 - Psychiatric Psychiatric exam: Present: normal affect, normal mood - Skin Skin exam: Present: normal color, warm, dry Results - Labs CBC & BMP: 09/26/16 06:12 09/26/16 06:12 Lab Results: I have reviewed the past 24 hour labs - Diagnostic Findings Procedure: Ultrasound: report reviewed by me
--- NOTE | 2016-09-26 10:58 | Pulmonology Progress Note ---
Pulmonary - PN: Subj Interval history: Patient is a 66-year-old white man that has significant COPD and came in with worsening shortness of breath. He said he feels like he is a little better today. He is starting to cough up thick yellow purulent secretions. He has some abdominal soreness that is probably from coughing. He says he is feeling a little better and his abdomen is better. He is still coughing up some thick secretions. His breathing seems to be a little better. Overall he is slowly improving. Exam (Progress Note) - Constitutional Vitals: Period Temp Pulse Resp BP Sys/Peace Pulse Ox Last 24 Hr 97.2 F-98.1 F 69-80 18-20 125-152/70-79 97-100 Exam: - Constitutional General appearance: no acute distress (He is walking around and looks reasonably comfortable.) - Head Head exam: Present: normal inspection, normocephalic - Eye Eye exam: Present: EOMI. Absent: scleral icterus Pupils: Present: SERA - ENT ENT exam: Present: normal exam - Neck Neck exam: Present: normal inspection. Absent: lymphadenopathy, thyromegaly - Respiratory Respiratory exam: Present: The patient has very distant breath sounds but he has a fairly quiet chest. He really does not move much air and is hard to hear much wheezing at present. He does seem to be breathing comfortably. - Cardiovascular Cardiovascular exam: Present: regular rate and rhythm. Absent: gallop, systolic murmur - GI/Abdominal GI/Abdominal exam: Present: distended, hypoactive bowel sounds, soft. He does not have any tenderness. His abdomen is feeling better. - Extremities Exam Extremities exam: Absent: calf tenderness, edema - Neurological Exam Neurological exam: Present: alert, oriented X3, CN II-XII intact. Absent: motor sensory deficit - Psychiatric Psychiatric exam: Present: normal affect - Skin Skin exam: Present: warm, dry Results - Labs CBC & BMP: 09/26/16 06:12 09/26/16 06:12 Assessment and Plan (1) COPD exacerbation Status: Acute Assessment and plan: The patient has been having worsening shortness of breath and he has significant COPD with poor air movement. He has some bronchitis and is getting a little better. He thinks he may want to try another therapeutic bronchoscopy. If he is not better over the weekend will try this [place]. He is tolerating his steroids and bronchodilator therapy fairly well. He is getting some antibiotics. Current Visit: Yes (2) Status post abdominal aortic aneurysm (AAA) repair Status: Chronic Assessment and plan: The patient has had a previous abdominal aortic aneurysm repair. His abdomen is distended but is not tender. He is eating well and having bowel movements. The ultrasound of his abdomen is noted. Current Visit: No (3) Hyperlipidemia Status: Chronic Assessment and plan: He will continue his present medicines. He does have some fatty liver. Current Visit: Yes Qualifiers: Hyperlipidemia type: mixed hyperlipidemia Qualified Code(s): E78.2 - Mixed hyperlipidemia
--- NOTE | 2016-09-26 12:18 | Sleep Medicine Progress Note ---
Assessment and Plan (1) Unspecified sleep apnea Status: Acute Assessment and plan: Patient will be set up for outpatient sleep study and follow-up in the sleep clinic. Thank you for this consult. Current Visit: Yes (2) Hypertension Status: Chronic Current Visit: Yes Qualifiers: Hypertension type: essential hypertension Qualified Code(s): I10 - Essential (primary) hypertension (3) COPD (chronic obstructive pulmonary disease) Status: Chronic Current Visit: Yes Sleep Medicine Subjective Interval history: Patient states that he is breathing comfortably. I did review his prior sleep study from [place]. He had a significant REM component to his sleep apnea but had an overall normal AHI. We will set him up for outpatient sleep study after discharge. Exam (Progress Note) - Constitutional Vitals: Period Temp Pulse Resp BP Sys/Peace Pulse Ox Last 24 Hr 97.3 F-98.1 F 69-80 18-20 134-152/70-79 97-100 Exam: He is alert and responsive in no acute distress. Chest with good air movement and no focal wheeze, rhonchi, or rales. Cardiac exam reveals a regular rhythm without murmur or gallop. Abdomen soft nontender without palpable hepatosplenomegaly or mass. Extremities are without clubbing, cyanosis, or edema. Neurologically, he is grossly intact. Results - Labs CBC & BMP: 09/26/16 06:12 09/26/16 06:12 Lab Results: I have reviewed the past 24 hour labs Specialty Discharge - Follow Up or Referrals Follow up with: Kristie Ledezma MD [Physician] - 10/08/16 7:15 pm (SLEEP STUDY)
[2016-09-26] MEDS: SODIUM CHLORIDE 0.45% 1,000 ML IV SCH (12:40)
--- NOTE | 2016-09-26 16:38 | Internal Med Progress Note ---
Assessment and Plan (1) COPD (chronic obstructive pulmonary disease) Status: Chronic Current Visit: Yes (2) Dyspnea Status: Chronic Current Visit: Yes Qualifiers: Dyspnea type: dyspnea on exertion Qualified Code(s): R06.09 - Other forms of dyspnea (3) Hypertension Status: Chronic Current Visit: Yes Qualifiers: Hypertension type: essential hypertension Qualified Code(s): I10 - Essential (primary) hypertension (4) Chronic fatigue Status: Chronic Current Visit: Yes (5) Hyperlipidemia Status: Chronic Current Visit: Yes Qualifiers: Hyperlipidemia type: mixed hyperlipidemia Qualified Code(s): E78.2 - Mixed hyperlipidemia (6) Status post abdominal aortic aneurysm (AAA) repair Status: Chronic Current Visit: No (7) Abdominal pain Status: Acute Current Visit: Yes Qualifiers: Abdominal location: periumbilical Qualified Code(s): R10.33 - Periumbilical pain Internal Medicine - PN: Subj Interval history: Mr. Otto is a 66 year old male with history of COPD on albuterol rescue inhaler, Stiolto, zyrtec, HTN, smoking history and quit 5 years ago, sinus tachycardia controlled on propranolol, AAA with surgical repair per Dr. Quinn at [facility] but has now changed over to Dr. Fowler, chronic fatigue, Vit D deficiency, dyslipidemia, who presented to clinic with persistent shortness of breath. He reports shortness of breath for two years ever since his AAA surgical repair , and has experienced worsening since Thursday. He reports staying in bed over the weekend and has no energy. He denies sweats but feels cold all the time. He also complains of stomach pain/abdominal pain since the surgical repair, and has noticed distention since then. He denies significant alcohol history. An incisor tooth has broken off during the weekend and is inflamed. He does not feel well and will be admitted and worked up for pneumonia. Also, the abdominal pain has become an issue. , overall feeling better, but abdomen bothering him. Also, solumedrol induced hyperglycemia. He now has sliding scale coverage with regular insulin. Thursday, he is feeling better except for abdominal pain. Consulting surgeon to further evaluate. Exam (Progress Note) - Constitutional Vitals: Period Temp Pulse Resp BP Sys/Peace Pulse Ox Last 24 Hr 97.2 F-98.1 F 65-80 18-20 134-152/74-83 97-100 Exam: - Constitutional General appearance: no acute distress - Respiratory Respiratory exam: Present: clear to auscultation bilaterally, decreased breath sounds - Cardiovascular Cardiovascular exam: Present: regular rate and rhythm - GI/Abdominal GI/Abdominal exam: Present: normal bowel sounds, distended, tenderness, soft - Extremities Exam Extremities exam: Absent: edema Results - Labs CBC & BMP: 09/26/16 06:12 09/26/16 06:12 Specialty Discharge - Follow Up or Referrals Follow up with: Kristie Ledezma MD [Physician] - 10/08/16 7:15 pm (SLEEP STUDY)
[2016-09-26] MEDS: ENOXAPARIN 40 MG/0.4 ML SYRINGE SUBCUT SCH (20:49)
[2016-09-27] MEDS: SODIUM CHLORIDE 0.45% 1,000 ML IV SCH ×2 (00:25→14:38)
[2016-09-27] MEDS: ALBUTEROL/IPRATROPIUM 3 ML NEB RESP TX SCH ×4 (00:55→19:17)
[2016-09-27] MEDS: PIPERACILLIN/TAZOBACTAM 3,375 MG in SODIUM CHLORIDE 0.9% 100 ML IV SCH ×3 (02:25→17:23)
[2016-09-27] MEDS: methylPREDNISolone SOD SUC 40 MG/1 ML VIAL IV SCH ×3 (02:26→17:22)
[2016-09-27 07:14] LABS: Basophils % 0.1 % (0.0-0.8); Hematocrit 45.9 VOL% (42.0-52.0); Hemoglobin 15.8 GM/DL (14.0-18.0); Immature Granulocytes % 0.7 %; Lymphocytes # 1.6 10*3/uL (1.4-4.0); Lymphocytes % 11.7 % (21.2-54.2); Mean Corpuscular HGB Conc 34.4 GM/DL (32-36); Mean Corpuscular Hemoglobin 32 PG (27-34); Mean Corpuscular Volume 92.5 FL (87-102); Mean Platelet Volume 9.3 FL (9.6-12.0); Monocytes # 0.3 10*3/uL (0.11-0.8); Monocytes % 2.5 % (1.7-12.7); Neutrophils # 11.4 10*3/uL (1.4-7.4); Platelet Count 243 T/CUMM (130-400); Red Blood Count 4.96 MC/CUMM (3.8-5.5); White Blood Count 13.4 T/CUMM (4-12)
[2016-09-27 07:43] LABS: Albumin 3.7 G/DL (3.4-5.0); Bilirubin,Total 1.1 MG/DL (0.2-1.0); Potassium 4.5 MMOL/L (3.5-5.1); Total Protein 7.6 G/DL (6.4-8.3)
[2016-09-27] MEDS: FAMOTIDINE 20 MG TABLET PO SCH ×2 (10:11→20:34)
[2016-09-27] MEDS: CETIRIZINE 10 MG TABLET PO SCH (10:11)
[2016-09-27] MEDS: PROPRANOLOL 40 MG TABLET PO SCH ×2 (10:11→20:34)
[2016-09-27] MEDS: DOCUSATE SODIUM 100 MG CAPSULE PO SCH ×2 (10:11→20:34)
[2016-09-27] MEDS: INSULIN REGULAR 100 UNIT/ML SUBCUT SCH ×4 (10:11→20:34)
[2016-09-27] MEDS: amLODIPine 10 MG TABLET PO SCH (10:11)
[2016-09-27] MEDS: POTASSIUM CHLORIDE 20 MEQ TABLET PO SCH ×2 (10:11→20:34)
[2016-09-27] MEDS: CYANOCOBALAMIN 500 MCG TABLET PO SCH (10:11)
--- NOTE | 2016-09-27 15:57 | Internal Med Progress Note ---
Assessment and Plan (1) COPD (chronic obstructive pulmonary disease) Status: Chronic Current Visit: Yes (2) Dyspnea Status: Chronic Current Visit: Yes Qualifiers: Dyspnea type: dyspnea on exertion Qualified Code(s): R06.09 - Other forms of dyspnea (3) Hypertension Status: Chronic Current Visit: Yes Qualifiers: Hypertension type: essential hypertension Qualified Code(s): I10 - Essential (primary) hypertension (4) Chronic fatigue Problem details: improved Status: Chronic Current Visit: Yes (5) Status post abdominal aortic aneurysm (AAA) repair Status: Chronic Current Visit: No (6) Abdominal pain Problem details: abdominal gas Status: Chronic Current Visit: Yes Qualifiers: Abdominal location: periumbilical Qualified Code(s): R10.33 - Periumbilical pain Internal Medicine - PN: Subj Interval history: Mr. Otto is a 66 year old male with history of COPD on albuterol rescue inhaler, Stiolto, zyrtec, HTN, smoking history and quit 5 years ago, sinus tachycardia controlled on propranolol, AAA with surgical repair per Dr. Quinn at [facility] but has now changed over to Dr. Fowler, chronic fatigue, Vit D deficiency, dyslipidemia, who presented to clinic with persistent shortness of breath. He reports shortness of breath for two years ever since his AAA surgical repair , and has experienced worsening since Thursday. He reports staying in bed over the weekend and has no energy. He denies sweats but feels cold all the time. He also complains of stomach pain/abdominal pain since the surgical repair, and has noticed distention since then. He denies significant alcohol history. An incisor tooth has broken off during the weekend and is inflamed. He does not feel well and will be admitted and worked up for pneumonia. Also, the abdominal pain has become an issue. , overall feeling better, but abdomen bothering him. Also, solumedrol induced hyperglycemia. He now has sliding scale coverage with regular insulin. Thursday, he is feeling better except for abdominal pain. Consulting surgeon to further evaluate. Thursday, still complaining of abdominal gas pain, but otherwise doing better. Exam (Progress Note) - Constitutional Vitals: Period Temp Pulse Resp BP Sys/Peace Pulse Ox Last 24 Hr 97.2 F-97.7 F 61-79 18-20 123-159/71-87 96-100 Exam: - Constitutional General appearance: no acute distress - Respiratory Respiratory exam: Present: clear to auscultation bilaterally, improved air flow - Cardiovascular Cardiovascular exam: Present: regular rate and rhythm - GI/Abdominal GI/Abdominal exam: Present: normal bowel sounds, distended - Extremities Exam Extremities exam: Absent: edema Results - Labs CBC & BMP: 09/28/16 07:11 09/28/16 07:11 Specialty Discharge - Follow Up or Referrals Follow up with: Kristie Ledezma MD [Physician] - 10/08/16 7:15 pm (SLEEP STUDY)
--- NOTE | 2016-09-27 17:05 | General Surgery Consult Note ---
Assessment and Plan (1) Abdominal pain Status: Acute Assessment and plan: Impression: Intermittent abdominal distention associated with pain Plan: We will check a CT scan with oral contrast to evaluate the bowel. This is a patient of Dr. Finn's and will get his opinion on Thursday. Current Visit: Yes Qualifiers: Abdominal location: periumbilical Qualified Code(s): R10.33 - Periumbilical pain History of Present Illness Chief complaint: Abdominal distention History of present illness: Mr. Otto is a 66 year old male who underwent EVAR approximately 2 years ago was admitted for pneumonia. Patient states he has had waxing and waning abdominal distention ever since the procedure. He states that if he eats or drinks hardly anything his abdomen will "blow up". He has not had any bloody bowel movements and his bowel movements were soft and normal up until about a week ago when he began to have some diarrhea. He has no nausea or vomiting. He has mild abdominal pain along the lateral border of the rectus muscles bilaterally when he experiences the distention. Previous CTA in May was reviewed and his bowel appeared normal at that time. Of note the SEKOU was occluded as expected. The patient's surgery was done by Dr. Quinn at [facility] and he now follows up with Dr. Finn whom he saw a couple of months ago. He has no evidence of an endoleak. Home Medications Medication Instructions Recorded Confirmed Type Albuterol Sulfate [Ventolin HFA] 2 puffs PO Q6HR PRN 09/24/16 09/24/16 History Cetirizine Tab [ZyrTEC Tab] 10 mg PO DAILY 09/24/16 09/24/16 History Cyanocobalamin (Vitamin B-12) 1 tablet PO DAILY 09/24/16 09/24/16 History [Vitamin B-12] Meloxicam 7.5 mg PO DAILY 09/24/16 09/24/16 History Omeprazole 40 mg PO DAILY 09/24/16 09/24/16 History Propranolol HCl [Propranolol Tab] 40 mg PO TID 09/24/16 09/24/16 History Ranitidine Tab [Zantac Tab] 150 mg PO DAILY 09/24/16 09/24/16 History Tiotropium Br/Olodaterol HCl 2.5 mcg INH BEDTIME 09/24/16 09/24/16 History [Stiolto Respimat Inhal [place]] amLODIPine [Norvasc] 10 mg PO DAILY 09/24/16 09/24/16 History Allergies Allergy/AdvReac Type Severity Reaction Status Date / Time No Known Allergies Allergy Verified 09/24/16 16:18 Medical,Surgical,& Family Hx - Medical History Cardio: History of: Aneurysm (aortic aneurysm), Cardiac Dysrhythmia (sinus tachycardia), Hypertension, Cardiovascular Problems (syncope) Psychological: History of: Depression No history of: Anxiety Disorders, ADHD, Behavior Problems, Bipolar Disorder, Previous Suicide Attempt, Schizophrenia, Violent Behavior, Psychiatric Problems HEENT: History of: HEENT Problems (sinus drainage; hx nosebleeds) Endocrine: History of: Dyslipidemia Respiratory: History of: COPD, Respiratory Problems (chronic shortness of breath ) Gastrointestinal: History of: GERD - Surgical History Cardiac Surgeries: Sugical HX of: Cardiac Surgery (aortic aneurysm repair surger ) Neurologic Surgeries: Patient denies: Neurologic Surgery HEENT Surgeries: Patient denies: Thyroid Surgery Abdominal Surgeries: Surgical HX of: Appendectomy, Colonoscopy (Dr. Alvarado), EGD (dilatation) Reproductive Surgeries: Patient denies;: Genitourinary Surgery - Family History Family History: Reports;: Family Cancer - Social History Smoking Status: Former smoker Frequency of Alcohol Use: Occasionally Type of Drug Use: None 12 point system: reviewed and no additional remarkable complaints except as stated Exam - Constitutional Vitals: Period Temp Pulse Resp BP Sys/Peace Pulse Ox Last 24 Hr 97.3 F-97.7 F 61-79 18-20 123-159/71-87 96-100 General appearance: no acute distress - Head Head exam: Present: normocephalic - Cardiovascular Cardiovascular exam: Present: RRR - GI/Abdominal GI/Abdominal exam: Present: soft (Protuberant abdomen. Difficult to tell if he has actual distention versus his normal body habitus. He says he feels a little bit distended today but that it gets much larger. He is minimally tender laterally on each side.) - Extremities Exam Extremities exam: Present: normal inspection - Back Exam Back exam: Present: normal inspection - Neurological Exam Neurological exam: Present: alert, oriented X3 Speech: Present: normal - Skin Skin exam: Present: normal color Results - Labs CBC & BMP: 09/27/16 06:55 09/27/16 06:55 Lab Results: I have reviewed the past 24 hour labs Specialty Discharge - Follow Up or Referrals Follow up with: Kristie Ledezma MD [Physician] - 10/08/16 7:15 pm (SLEEP STUDY)
--- NOTE | 2016-09-27 18:56 | Pulmonology Progress Note ---
Pulmonary - PN: Subj Interval history: 66-year-old male admitted for COPD exacerbation. Today patient states his breathing is feeling a little bit better. His continued complaint is of abdominal bloating, for which she has been seen by general surgery and will undergo a CT abdomen and pelvis tomorrow morning. No other concerns at this point. Exam (Progress Note) - Constitutional Vitals: Period Temp Pulse Resp BP Sys/Peace Pulse Ox Last 24 Hr 97.3 F-98.0 F 61-79 18-20 123-159/71-87 95-100 General appearance: over weight - Head Head exam: Present: normal inspection - Eye Eye exam: Present: EOMI Pupils: Present: SERA - Respiratory Respiratory exam: Present: clear to auscultation bilaterally. Absent: rales, rhonchi, wheezes - Cardiovascular Cardiovascular exam: Present: regular rate and rhythm - GI/Abdominal GI/Abdominal exam: Present: normal bowel sounds, distended, soft. Absent: guarding, tenderness, rebound - Extremities Exam Extremities exam: Present: normal inspection - Neurological Exam Neurological exam: Present: alert, oriented X3 - Skin Skin exam: Present: warm, dry Results - Labs CBC & BMP: 09/27/16 06:55 09/27/16 06:55 Assessment and Plan (1) COPD exacerbation Status: Acute Assessment and plan: Slow continued improvement; continue current therapy. Current Visit: Yes (2) Abdominal pain Status: Acute Assessment and plan: Patient being evaluated by general surgery with plans for CT abdomen and pelvis tomorrow. Current Visit: Yes Qualifiers: Abdominal location: periumbilical Qualified Code(s): R10.33 - Periumbilical pain (3) Unspecified sleep apnea Status: Acute Assessment and plan: Patient being seen by sleep medicine with plans for outpatient sleep study. Current Visit: Yes Specialty Discharge - Follow Up or Referrals Follow up with: Kristie Ledezma MD [Physician] - 10/08/16 7:15 pm (SLEEP STUDY)
[2016-09-27] MEDS: ENOXAPARIN 40 MG/0.4 ML SYRINGE SUBCUT SCH (20:34)
[2016-09-28] MEDS: ALBUTEROL/IPRATROPIUM 3 ML NEB RESP TX SCH ×4 (01:41→18:48)
[2016-09-28] MEDS: methylPREDNISolone SOD SUC 40 MG/1 ML VIAL IV SCH ×3 (03:10→18:17)
[2016-09-28] MEDS: SODIUM CHLORIDE 0.45% 1,000 ML IV SCH ×2 (05:55→17:54)
[2016-09-28 07:24] LABS: Basophils % 0.2 % (0.0-0.8); Hematocrit 48.4 VOL% (42.0-52.0); Hemoglobin 16.8 GM/DL (14.0-18.0); Immature Granulocytes Absolute 0.27 #; Lymphocytes # 1.8 10*3/uL (1.4-4.0); Lymphocytes % 13.2 % (21.2-54.2); Mean Corpuscular HGB Conc 34.7 GM/DL (32-36); Mean Corpuscular Hemoglobin 32 PG (27-34); Mean Corpuscular Volume 91.3 FL (87-102); Mean Platelet Volume 9.1 FL (9.6-12.0); Monocytes # 0.5 10*3/uL (0.11-0.8); Neutrophils % 80.6 % (38.7-73.9); Platelet Count 276 T/CUMM (130-400); Red Cell Distribution Width 14.1 % (9.3-17.3); White Blood Count 13.7 T/CUMM (4-12)
[2016-09-28 07:50] LABS: Albumin 3.8 G/DL (3.4-5.0); Bilirubin,Total 0.5 MG/DL (0.2-1.0); Calcium 9.3 MG/DL (8.5-10.1); Potassium 4.2 MMOL/L (3.5-5.1); Total Protein 8.2 G/DL (6.4-8.3)
[2016-09-28] MEDS: INSULIN REGULAR 100 UNIT/ML SUBCUT SCH ×4 (07:56→21:52)
[2016-09-28] MEDS: CYANOCOBALAMIN 500 MCG TABLET PO SCH (08:53)
[2016-09-28] MEDS: DOCUSATE SODIUM 100 MG CAPSULE PO SCH ×2 (08:53→21:51)
[2016-09-28] MEDS: INSULIN GLARGINE 100 UNIT/ML SUBCUT SCH (08:53)
[2016-09-28] MEDS: amLODIPine 10 MG TABLET PO SCH (08:53)
[2016-09-28] MEDS: POTASSIUM CHLORIDE 20 MEQ TABLET PO SCH ×2 (08:53→21:51)
[2016-09-28] MEDS: PROPRANOLOL 40 MG TABLET PO SCH ×2 (08:54→21:51)
[2016-09-28] MEDS: CETIRIZINE 10 MG TABLET PO SCH (08:54)
[2016-09-28] MEDS: FAMOTIDINE 20 MG TABLET PO SCH ×2 (08:54→21:50)
[2016-09-28] MEDS ORDERED: PIPERACILLIN/TAZOBACTAM 3,375 MG in SODIUM CHLORIDE 0.9% 100 ML IV SCH (09:00)
--- NOTE | 2016-09-28 09:35 | CT Report ---
CT abdomen pelvis Indication: Abdominal distention Comparison: 30 January 2016 Technique: Axial CT imaging of the abdomen and pelvis is performed without intravenous contrast. Oral contrast was used Findings: Cardiac and lung bases are within normal limits CT abdomen: The liver spleen pancreas and adrenal glands are normal in size and density. No evidence of focal lesion is demonstrated in these solid organs. Kidneys are normal in size. A cyst is present in left kidney similar to previous exams. No evidence of hydronephrosis or nephrolithiasis is seen. Small bowel and colon are slightly prominent diffusely. Otherwise the bowel caliber is normal and no wall thickening or adjacent inflammatory change is seen. No evidence of free fluid or free air is present. Aortic stent graft is present, appears within normal limits for noncontrasted study. CT pelvis: The bowel and bladder appear within normal limits. The pelvic organs show no evidence of abnormality Impression: Slightly prominent small and large bowel diffusely, may indicate enterocolitis. No other acute findings or significant change. This CT exam was performed using one or more the following dose reduction techniques: Automated exposure control, adjustment of the MA and/or KV according to patient size, or use of iterative reconstruction technique. PROCEDURE INTERPRETED AT [facility] DEPARTMENT OF RADIOLOGY Final Report Signed by: Dr. Johnie Chacon
--- NOTE | 2016-09-28 12:13 | General Surgery Progress Note ---
Assessment and Plan (1) Abdominal pain Status: Acute Assessment and plan: Impression: Intermittent abdominal distention associated with pain Plan: CT scan images and report reviewed. Possible mild enterocolitis. No surgical issues. We will have Dr. Finn resume care tomorrow but I do not see any surgical issues at this time. Current Visit: Yes Qualifiers: Abdominal location: periumbilical Qualified Code(s): R10.33 - Periumbilical pain Subjective Patient reports: Present: no new complaints Narrative: No significant changes. Exam - Constitutional Vitals: Period Temp Pulse Resp BP Sys/Peace Pulse Ox Last 24 Hr 96.3 F-98.0 F 61-79 16-20 123-164/76-100 94-100 General appearance: no acute distress - Neck Neck exam: Present: normal inspection - Respiratory Respiratory exam: Present: clear to auscultation bilaterally - Cardiovascular Cardiovascular exam: Present: RRR - GI/Abdominal GI/Abdominal exam: Present: soft (Nontender, protuberant) - Neurological Exam Neurological exam: Present: alert, oriented X3 Speech: Present: normal - Skin Skin exam: Present: normal color Results - Labs CBC & BMP: 09/28/16 07:11 09/28/16 07:11 Lab Results: I have reviewed the past 24 hour labs Specialty Discharge - Follow Up or Referrals Follow up with: Kristie Ledezma MD [Physician] - 10/08/16 7:15 pm (SLEEP STUDY)
[2016-09-28] MEDS ORDERED: SIMETHICONE CHEW 80 MG TABLET PO PRN (13:55)
--- NOTE | 2016-09-28 15:37 | Internal Med Progress Note ---
Assessment and Plan (1) COPD (chronic obstructive pulmonary disease) Status: Chronic Current Visit: Yes (2) Dyspnea Status: Chronic Current Visit: Yes Qualifiers: Dyspnea type: dyspnea on exertion Qualified Code(s): R06.09 - Other forms of dyspnea (3) Hypertension Status: Chronic Current Visit: Yes Qualifiers: Hypertension type: essential hypertension Qualified Code(s): I10 - Essential (primary) hypertension (4) Chronic fatigue Problem details: improved Status: Chronic Current Visit: Yes (5) Status post abdominal aortic aneurysm (AAA) repair Status: Chronic Current Visit: No (6) Abdominal pain Problem details: abdominal gas Status: Chronic Current Visit: Yes Qualifiers: Abdominal location: periumbilical Qualified Code(s): R10.33 - Periumbilical pain Internal Medicine - PN: Subj Interval history: Mr. Otto is a 66 year old male with history of COPD on albuterol rescue inhaler, Stiolto, zyrtec, HTN, smoking history and quit 5 years ago, sinus tachycardia controlled on propranolol, AAA with surgical repair per Dr. Quinn at [facility] but has now changed over to Dr. Fowler, chronic fatigue, Vit D deficiency, dyslipidemia, who presented to clinic with persistent shortness of breath. He reports shortness of breath for two years ever since his AAA surgical repair , and has experienced worsening since Thursday. He reports staying in bed over the weekend and has no energy. He denies sweats but feels cold all the time. He also complains of stomach pain/abdominal pain since the surgical repair, and has noticed distention since then. He denies significant alcohol history. An incisor tooth has broken off during the weekend and is inflamed. He does not feel well and will be admitted and worked up for pneumonia. Also, the abdominal pain has become an issue. , overall feeling better, but abdomen bothering him. Also, solumedrol induced hyperglycemia. He now has sliding scale coverage with regular insulin. Thursday, he is feeling better except for abdominal pain. Consulting surgeon to further evaluate. Thursday, still complaining of abdominal gas pain, but otherwise doing better. Thursday, continues to improve except for abdominal gas. Exam (Progress Note) - Constitutional Vitals: Period Temp Pulse Resp BP Sys/Peace Pulse Ox Last 24 Hr 96.3 F-98.0 F 61-76 16-20 123-164/76-100 94-100 Exam: - Constitutional General appearance: no acute distress - Respiratory Respiratory exam: Present: clear to auscultation bilaterally, improved air flow - Cardiovascular Cardiovascular exam: Present: regular rate and rhythm - GI/Abdominal GI/Abdominal exam: Present: active bowel sounds, distended - Extremities Exam Extremities exam: Absent: edema Results - Labs CBC & BMP: 09/28/16 07:11 09/28/16 07:11 Specialty Discharge - Follow Up or Referrals Follow up with: Kristie Ledezma MD [Physician] - 10/08/16 7:15 pm (SLEEP STUDY)
--- NOTE | 2016-09-28 17:50 | Pulmonology Progress Note ---
Pulmonary - PN: Subj Interval history: 66-year-old male admitted for COPD exacerbation. Today patient states his breathing continues to improve and is almost back to his baseline. His continued complaint is of abdominal bloating, for which she has been seen by general surgery and has undergone a CT abdomen and pelvis showing no need for surgical intervention. No other concerns at this point. Exam (Progress Note) - Constitutional Vitals: Period Temp Pulse Resp BP Sys/Peace Pulse Ox Last 24 Hr 96.3 F-98.0 F 61-76 16-20 135-164/77-100 94-100 General appearance: normal weight - Head Head exam: Present: normal inspection - Eye Eye exam: Present: EOMI Pupils: Present: SERA - Neck Neck exam: Present: normal inspection - Respiratory Respiratory exam: Present: clear to auscultation bilaterally. Absent: accessory muscle use, rales, rhonchi, wheezes - Cardiovascular Cardiovascular exam: Present: regular rate and rhythm - GI/Abdominal GI/Abdominal exam: Present: normal bowel sounds, distended, soft. Absent: tenderness - Extremities Exam Extremities exam: Present: normal inspection - Neurological Exam Neurological exam: Present: alert, oriented X3 - Skin Skin exam: Present: warm, dry Results - Labs CBC & BMP: 09/28/16 07:11 09/28/16 07:11 - Diagnostic Findings Procedure: CT Abdomen and Pelvis: report reviewed by me Assessment and Plan (1) COPD exacerbation Status: Acute Assessment and plan: Significant improvement; continue current therapy. Current Visit: Yes (2) Unspecified sleep apnea Status: Acute Assessment and plan: Patient being seen by sleep medicine with plans for outpatient sleep study. Current Visit: Yes (3) Abdominal pain Status: Acute Current Visit: Yes Qualifiers: Abdominal location: periumbilical Qualified Code(s): R10.33 - Periumbilical pain Specialty Discharge - Follow Up or Referrals Follow up with: Kristie Ledezma MD [Physician] - 10/08/16 7:15 pm (SLEEP STUDY)
[2016-09-28] MEDS: metroNIDAZOLE INJ 250 MG in IV BAG 1 EACH IV SCH (18:55)
[2016-09-28] MEDS: CIPROFLOXACIN 500 MG TABLET PO SCH (21:50)
[2016-09-28] MEDS: ENOXAPARIN 40 MG/0.4 ML SYRINGE SUBCUT SCH (21:51)
[2016-09-29] MEDS: ALBUTEROL/IPRATROPIUM 3 ML NEB RESP TX SCH ×4 (00:32→19:08)
[2016-09-29] MEDS: methylPREDNISolone SOD SUC 40 MG/1 ML VIAL IV SCH ×3 (02:58→17:29)
[2016-09-29] MEDS: metroNIDAZOLE INJ 250 MG in IV BAG 1 EACH IV SCH ×3 (02:58→17:28)
[2016-09-29] MEDS: SODIUM CHLORIDE 0.45% 1,000 ML IV SCH (06:21)
[2016-09-29 07:26] LABS: Basophils % 0.2 % (0.0-0.8); Eosinophils % 0.2 % (0.00-10.9); Hematocrit 45.4 VOL% (42.0-52.0); Hemoglobin 15.9 GM/DL (14.0-18.0); Immature Granulocytes % 2.8 %; Immature Granulocytes Absolute 0.37 #; Lymphocytes # 1.6 10*3/uL (1.4-4.0); Lymphocytes % 12.3 % (21.2-54.2); Mean Corpuscular Hemoglobin 32 PG (27-34); Mean Corpuscular Volume 91.3 FL (87-102); Mean Platelet Volume 9.6 FL (9.6-12.0); Monocytes # 0.7 10*3/uL (0.11-0.8); Monocytes % 5.1 % (1.7-12.7); NRBC # 0.03 10*3/uL; Neutrophils # 10.4 10*3/uL (1.4-7.4); Neutrophils % 79.4 % (38.7-73.9); Platelet Count 188 T/CUMM (130-400); Red Blood Count 4.97 MC/CUMM (3.8-5.5); White Blood Count 13.1 T/CUMM (4-12)
[2016-09-29 07:50] LABS: Calcium 8.8 MG/DL (8.5-10.1); Osmolality,Calculated 278.7 MOS/KG (273-304); Potassium 4.8 MMOL/L (3.5-5.1)
[2016-09-29] MEDS: amLODIPine 10 MG TABLET PO SCH (09:04)
[2016-09-29] MEDS: CIPROFLOXACIN 500 MG TABLET PO SCH ×2 (09:04→20:41)
[2016-09-29] MEDS: CETIRIZINE 10 MG TABLET PO SCH (09:04)
[2016-09-29] MEDS: POTASSIUM CHLORIDE 20 MEQ TABLET PO SCH ×2 (09:04→20:41)
[2016-09-29] MEDS: DOCUSATE SODIUM 100 MG CAPSULE PO SCH ×2 (09:04→20:41)
[2016-09-29] MEDS: FAMOTIDINE 20 MG TABLET PO SCH ×2 (09:04→20:41)
[2016-09-29] MEDS: CYANOCOBALAMIN 500 MCG TABLET PO SCH (09:04)
[2016-09-29] MEDS: PROPRANOLOL 40 MG TABLET PO SCH ×2 (09:04→20:41)
[2016-09-29] MEDS: INSULIN GLARGINE 100 UNIT/ML SUBCUT SCH ×2 (09:04→17:29)
[2016-09-29] MEDS: INSULIN REGULAR 100 UNIT/ML SUBCUT SCH ×4 (09:05→21:24)
--- NOTE | 2016-09-29 09:44 | Pulmonology Progress Note ---
Pulmonary - PN: Subj Interval history: Patient is a 66-year-old white man that has significant COPD and came in with worsening shortness of breath. He said he feels like he is a little better today. He is starting to cough up thick yellow purulent secretions. He says he had a fairly good weekend and is feeling better. He says he still coughing and short of breath however and does want to proceed with a therapeutic bronchoscopy. He says his abdominal pain is better and he is having bowel movements. His CT suggested some possible enterocolitis but otherwise was negative. Overall he has been reasonably stable. Exam (Progress Note) - Constitutional Vitals: Period Temp Pulse Resp BP Sys/Peace Pulse Ox Last 24 Hr 97.3 F-99.4 F 63-91 12-18 119-146/75-87 92-100 Exam: - Constitutional General appearance: no acute distress (He is walking around and looks reasonably comfortable. He is not having any significant distress.) - Head Head exam: Present: normal inspection, normocephalic - Eye Eye exam: Present: EOMI. Absent: scleral icterus Pupils: Present: SERA - ENT ENT exam: Present: normal exam - Neck Neck exam: Present: normal inspection. Absent: lymphadenopathy, thyromegaly - Respiratory Respiratory exam: Present: The patient has very distant breath sounds but he has a fairly quiet chest. He really does not move much air and is hard to hear much wheezing at present. He still has a productive cough. He does seem to be breathing comfortably. - Cardiovascular Cardiovascular exam: Present: regular rate and rhythm. Absent: gallop, systolic murmur - GI/Abdominal GI/Abdominal exam: Present: distended, hypoactive bowel sounds, soft. He does not have any tenderness. His abdomen is feeling better. - Extremities Exam Extremities exam: Absent: calf tenderness, edema - Neurological Exam Neurological exam: Present: alert, oriented X3, CN II-XII intact. Absent: motor sensory deficit - Psychiatric Psychiatric exam: Present: normal affect - Skin Skin exam: Present: warm, dry Results - Labs CBC & BMP: 09/29/16 07:08 09/29/16 07:08 Assessment and Plan (1) COPD exacerbation Status: Acute Assessment and plan: The patient has been having worsening shortness of breath and he has significant COPD with poor air movement. He has some bronchitis and is getting a little better. He feels like he is doing better over the weekend but still has trouble clearing secretions. Will check PFTs and proceed with a therapeutic bronchoscopy tomorrow. Current Visit: Yes (2) Status post abdominal aortic aneurysm (AAA) repair Status: Chronic Assessment and plan: The patient has had a previous abdominal aortic aneurysm repair. His abdomen is distended but is not tender. He is eating well and having bowel movements. His CT of his abdomen was noted. He says he is feeling better. Current Visit: No (3) Hyperlipidemia Status: Chronic Assessment and plan: He will continue his present medicines. He does have some fatty liver. Current Visit: Yes Qualifiers: Hyperlipidemia type: mixed hyperlipidemia Qualified Code(s): E78.2 - Mixed hyperlipidemia Specialty Discharge - Follow Up or Referrals Follow up with: Kristie Ledezma MD [Physician] - 10/08/16 7:15 pm (SLEEP STUDY)
--- NOTE | 2016-09-29 11:36 | Vascular Surgery Consult Note ---
History of Present Illness Chief complaint: abdominal pain post AAA repair History of present illness: Mr. Otto is a 66 year old male Mr. Fabian Otto a 66-year-old man is admitted with exacerbation of COPD but also with abdominal pain. Patient reports a history of abdominal bloating and discomfort particularly postprandial since his aneurysm repair approximately 2 years ago. Significantly this was an endovascular abdominal aortic aneurysm repair so there was no laparotomy or an involvement of the bowel at that time. He does state he had a colonoscopy by Dr. Alvarado approximately 2 years shortly after the end of vascular repair and apparently no findings were noted then. With this admission he has had an abdominal ultrasound and a CT neither of which show any clear-cut pathology but does suggest possible wall thickening of the gallbladder. His liver enzymes are normal. Impression and discussing the symptoms with Mr. Otto I have some concern that this may be biliary dyskinesia or even a mild acalculous cholecystitis. To his knowledge he has not had a HIDA scan I will go ahead and order one just on the possibility that that is the source of a large amount of his abdominal complaints. Home Medications Medication Instructions Recorded Confirmed Type Albuterol Sulfate [Ventolin HFA] 2 puffs PO Q6HR PRN 09/24/16 09/24/16 History Cetirizine Tab [ZyrTEC Tab] 10 mg PO DAILY 09/24/16 09/24/16 History Cyanocobalamin (Vitamin B-12) 1 tablet PO DAILY 09/24/16 09/24/16 History [Vitamin B-12] Meloxicam 7.5 mg PO DAILY 09/24/16 09/24/16 History Omeprazole 40 mg PO DAILY 09/24/16 09/24/16 History Propranolol HCl [Propranolol Tab] 40 mg PO TID 09/24/16 09/24/16 History Ranitidine Tab [Zantac Tab] 150 mg PO DAILY 09/24/16 09/24/16 History Tiotropium Br/Olodaterol HCl 2.5 mcg INH BEDTIME 09/24/16 09/24/16 History [Stiolto Respimat Inhal [place]] amLODIPine [Norvasc] 10 mg PO DAILY 09/24/16 09/24/16 History Allergies Allergy/AdvReac Type Severity Reaction Status Date / Time No Known Allergies Allergy Verified 09/24/16 16:18 Medical,Surgical,& Family Hx - Medical History Cardio: History of: Aneurysm (aortic aneurysm), Cardiac Dysrhythmia (sinus tachycardia), Hypertension, Cardiovascular Problems (syncope) Psychological: History of: Depression No history of: Anxiety Disorders, ADHD, Behavior Problems, Bipolar Disorder, Previous Suicide Attempt, Schizophrenia, Violent Behavior, Psychiatric Problems HEENT: History of: HEENT Problems (sinus drainage; hx nosebleeds) Endocrine: History of: Dyslipidemia Respiratory: History of: COPD, Respiratory Problems (chronic shortness of breath ) Gastrointestinal: History of: GERD - Surgical History Cardiac Surgeries: Sugical HX of: Cardiac Surgery (aortic aneurysm repair surger ) Neurologic Surgeries: Patient denies: Neurologic Surgery HEENT Surgeries: Patient denies: Thyroid Surgery Abdominal Surgeries: Surgical HX of: Appendectomy, Colonoscopy (Dr. Alvarado), EGD (dilatation) Reproductive Surgeries: Patient denies;: Genitourinary Surgery - Family History Family History: Reports;: Family Cancer - Social History Smoking Status: Former smoker Frequency of Alcohol Use: Occasionally Type of Drug Use: None Exam - Constitutional Vitals: Period Temp Pulse Resp BP Sys/Peace Pulse Ox Last 24 Hr 97.6 F-99.4 F 63-91 12-18 119-146/75-87 92-100 Results - Labs CBC & BMP: 09/29/16 07:08 09/29/16 07:08 Specialty Discharge - Follow Up or Referrals Follow up with: Kristie Ledezma MD [Physician] - 10/08/16 7:15 pm (SLEEP STUDY)
--- NOTE | 2016-09-29 14:24 | Nuclear Medicine Report ---
Nuclear medicine hepatobiliary scan Indication: Biliary dyskinesia Findings: The patient was injected with 5.0 mCi of 90 9M technetium Choletec intravenously. There is prompt hepatic uptake and excretion into the biliary system. Gallbladder fills normally. The patient was given 8 oz. of Ensure. Gallbladder ejection fraction is estimated at 81 %. Impression: Normal nuclear medicine hepatobiliary scan. PROCEDURE INTERPRETED AT [facility] DEPARTMENT OF RADIOLOGY Final Report Signed by: Dr. Johnie Chacon
--- NOTE | 2016-09-29 16:55 | Internal Med Progress Note ---
Assessment and Plan (1) COPD (chronic obstructive pulmonary disease) Status: Chronic Current Visit: Yes (2) Dyspnea Status: Chronic Current Visit: Yes Qualifiers: Dyspnea type: dyspnea on exertion Qualified Code(s): R06.09 - Other forms of dyspnea (3) Hypertension Status: Chronic Current Visit: Yes Qualifiers: Hypertension type: essential hypertension Qualified Code(s): I10 - Essential (primary) hypertension (4) Chronic fatigue Problem details: improved Status: Chronic Current Visit: Yes (5) Status post abdominal aortic aneurysm (AAA) repair Status: Chronic Current Visit: No (6) Abdominal pain Problem details: abdominal gas Status: Chronic Current Visit: Yes Qualifiers: Abdominal location: periumbilical Qualified Code(s): R10.33 - Periumbilical pain Internal Medicine - PN: Subj Interval history: Mr. Otto is a 66 year old male with history of COPD on albuterol rescue inhaler, Stiolto, zyrtec, HTN, smoking history and quit 5 years ago, sinus tachycardia controlled on propranolol, AAA with surgical repair per Dr. Quinn at [place] but has now changed over to Dr. Fowler, chronic fatigue, Vit D deficiency, dyslipidemia, who presented to clinic with persistent shortness of breath. He reports shortness of breath for two years ever since his AAA surgical repair , and has experienced worsening since Thursday. He reports staying in bed over the weekend and has no energy. He denies sweats but feels cold all the time. He also complains of stomach pain/abdominal pain since the surgical repair, and has noticed distention since then. He denies significant alcohol history. An incisor tooth has broken off during the weekend and is inflamed. He does not feel well and will be admitted and worked up for pneumonia. Also, the abdominal pain has become an issue. , overall feeling better, but abdomen bothering him. Also, solumedrol induced hyperglycemia. He now has sliding scale coverage with regular insulin. Thursday, he is feeling better except for abdominal pain. Consulting surgeon to further evaluate. Thursday, still complaining of abdominal gas pain, but otherwise doing better. Thursday, continues to improve except for abdominal gas. Thursday, will have bronchoscopy for pulmonary mucus plugs; abdominal workup continuing. Exam (Progress Note) - Constitutional Vitals: Period Temp Pulse Resp BP Sys/Peace Pulse Ox Last 24 Hr 97.6 F-99.4 F 63-91 12-18 119-146/75-87 92-100 Exam: - Constitutional General appearance: no acute distress - Respiratory Respiratory exam: Present: clear to auscultation bilaterally - Cardiovascular Cardiovascular exam: Present: regular rate and rhythm - GI/Abdominal GI/Abdominal exam: Present: active bowel sounds, distended - Extremities Exam Extremities exam: Absent: edema Results - Labs CBC & BMP: 09/30/16 04:18 09/30/16 04:18 Specialty Discharge - Follow Up or Referrals Follow up with: Kristie Ledezma MD [Physician] - 10/08/16 7:15 pm (SLEEP STUDY)
[2016-09-29] MEDS: ENOXAPARIN 40 MG/0.4 ML SYRINGE SUBCUT SCH (20:41)
[2016-09-30] MEDS: ALBUTEROL/IPRATROPIUM 3 ML NEB RESP TX SCH ×4 (00:30→19:12)
[2016-09-30] MEDS: methylPREDNISolone SOD SUC 40 MG/1 ML VIAL IV SCH ×3 (01:21→17:35)
[2016-09-30] MEDS: metroNIDAZOLE INJ 250 MG in IV BAG 1 EACH IV SCH ×3 (01:23→17:35)
[2016-09-30] MEDS: SODIUM CHLORIDE 0.45% 1,000 ML IV SCH ×3 (01:23→16:59)
[2016-09-30 04:57] LABS: Basophils % 0.2 % (0.0-0.8); Hematocrit 41.8 VOL% (42.0-52.0); Hemoglobin 14.4 GM/DL (14.0-18.0); Immature Granulocytes % 2.2 %; Lymphocytes # 1.3 10*3/uL (1.4-4.0); Lymphocytes % 14.4 % (21.2-54.2); Mean Corpuscular HGB Conc 34.4 GM/DL (32-36); Mean Corpuscular Hemoglobin 31 PG (27-34); Mean Corpuscular Volume 91.1 FL (87-102); Mean Platelet Volume 9.6 FL (9.6-12.0); Monocytes # 0.9 10*3/uL (0.11-0.8); Monocytes % 9.3 % (1.7-12.7); Neutrophils # 6.8 10*3/uL (1.4-7.4); Neutrophils % 73.9 % (38.7-73.9); Platelet Count 247 T/CUMM (130-400); Red Blood Count 4.59 MC/CUMM (3.8-5.5); Red Cell Distribution Width 13.8 % (9.3-17.3); White Blood Count 9.2 T/CUMM (4-12)
[2016-09-30 05:24] LABS: Calcium 8.7 MG/DL (8.5-10.1); Osmolality,Calculated 283.7 MOS/KG (273-304); Potassium 4.4 MMOL/L (3.5-5.1)
[2016-09-30] MEDS ORDERED: PROMETHAZINE 25 MG/1 ML VIAL IM ONE (07:00)
[2016-09-30] MEDS ORDERED: MEPERIDINE 50 MG/1 ML VIAL IM ONE (07:00)
[2016-09-30] MEDS ORDERED: MIDAZOLAM 2 MG/2 ML VIAL ONE (07:06)
[2016-09-30] MEDS ORDERED: LIDOCAINE 2% VISCOUS 100 ML BOTTLE SWISH/SPIT ONE (07:30)
[2016-09-30] MEDS ORDERED: LIDOCAINE 1% 20 ML VIAL MISC INJ ONE (07:30)
[2016-09-30] MEDS ORDERED: MIDAZOLAM 2 MG/2 ML VIAL IV ONE (07:30)
[2016-09-30] MEDS ORDERED: LIDOCAINE 4% TOP SOLN 50 ML BOTTLE RESP TX ONE (07:30)
--- NOTE | 2016-09-30 07:36 | Pulmonology Progress Note ---
Pulmonary - PN: Subj Interval history: Patient is a 66-year-old white man that has significant COPD and came in with worsening shortness of breath. He said he feels like he is a little better today. He is starting to cough up thick yellow purulent secretions. He says he had a fairly good weekend and is feeling better. He says he still coughing and short of breath however and does want to proceed with a therapeutic bronchoscopy. He did have fairly good night last night and is breathing a little better. He did have a HIDA scan that was negative. Overall he is doing a little better. Exam (Progress Note) - Constitutional Vitals: Period Temp Pulse Resp BP Sys/Peace Pulse Ox Last 24 Hr 97.5 F-98.0 F 69-79 12-21 129-154/73-92 95-100 Exam: - Constitutional General appearance: no acute distress (He is comfortable and not have any significant distress.) - Head Head exam: Present: normal inspection, normocephalic - Eye Eye exam: Present: EOMI. Absent: scleral icterus Pupils: Present: SERA - ENT ENT exam: Present: normal exam - Neck Neck exam: Present: normal inspection. Absent: lymphadenopathy, thyromegaly - Respiratory Respiratory exam: Present: The patient has very distant breath sounds but he has a fairly quiet chest. He is not having any wheezing at present. - Cardiovascular Cardiovascular exam: Present: regular rate and rhythm. Absent: gallop, systolic murmur - GI/Abdominal GI/Abdominal exam: Present: distended, hypoactive bowel sounds, soft. He does not have any tenderness. His abdomen is feeling better. - Extremities Exam Extremities exam: Absent: calf tenderness, edema - Neurological Exam Neurological exam: Present: alert, oriented X3, CN II-XII intact. Absent: motor sensory deficit - Psychiatric Psychiatric exam: Present: normal affect - Skin Skin exam: Present: warm, dry Results - Labs CBC & BMP: 09/30/16 04:18 09/30/16 04:18 Assessment and Plan (1) COPD exacerbation Status: Acute Assessment and plan: The patient has been having worsening shortness of breath and he has significant COPD with poor air movement. He has some bronchitis and is getting a little better. Yesterday he did PFTs and his FEV1 is 1.18 L or 45% predicted. His PFTs are consistent with marked COPD. Today will do a therapeutic bronchoscopy and clear his airways. Current Visit: Yes (2) Status post abdominal aortic aneurysm (AAA) repair Status: Chronic Assessment and plan: The patient has had a previous abdominal aortic aneurysm repair. His abdomen is distended but is not tender. He is eating well and having bowel movements. His CT of his abdomen was noted. He says he is feeling better. Current Visit: No (3) Hyperlipidemia Status: Chronic Assessment and plan: He will continue his present medicines. He does have some fatty liver. His HIDA scan was negative today. Current Visit: Yes Qualifiers: Hyperlipidemia type: mixed hyperlipidemia Qualified Code(s): E78.2 - Mixed hyperlipidemia Specialty Discharge - Follow Up or Referrals Follow up with: Kristie Ledezma MD [Physician] - 10/08/16 7:15 pm (SLEEP STUDY)
--- NOTE | 2016-09-30 07:39 | Operative Note ---
Date of procedure: 09/30/16 Pre-op diagnosis: COPD with retained secretions Post-op diagnosis: other (Bronchitis with only a minimal amount of plugging.) Procedure: The patient is a 66-year-old who is having difficult time clearing secretions. He has COPD and bronchitis. I bronchoscopy will be done to assess airways and clear airways. Timeout was performed to identify the patient. The patient is in the bronchoscopy lab. Preop: Demerol 50 mg, Phenergan 25 mg IM Anesthesia: Versed 2 mg IVP, topical lidocaine. Procedure: The fiberoptic bronchoscope was passed transnasally through the vocal cords into the lungs. The bronchopulmonary segments were identified and specimens were obtained. Findings: The vocal cords, trachea, and elo are unremarkable. The right upper lobe, right middle lobe, and right lower lobe are open. The left upper lobe, lingula, and left lower lobe are open. There is considerable bronchitis present and some thick white secretions seen bilaterally. There is only small amount of mucus plugging present. There are no endobronchial lesions seen. Both lungs were irrigated with saline and secretions cleared. Washings were sent for culture. Once the airways were cleared, the procedure was stopped. He tolerated the procedure quite well without any problems. Impression: Bronchitis with mild mucous plugging. Plan: We will continue treating COPD Anesthesia: conscious sedation Surgeon / Physician: Kamaljit Wyatt Estimated blood loss: none Specimens: other (Washings were sent for culture) Condition: stable Disposition: floor Results - Labs CBC & BMP: 09/30/16 04:18 09/30/16 04:18 Discharge Plan - Discharge Medications No Action amLODIPine [Norvasc] 10 mg PO DAILY Tiotropium Br/Olodaterol HCl [Stiolto Respimat Inhal [place]] 2.5 mcg INH BEDTIME Ranitidine Tab [Zantac Tab] 150 mg PO DAILY Omeprazole 40 mg PO DAILY Meloxicam 7.5 mg PO DAILY Cetirizine Tab [ZyrTEC Tab] 10 mg PO DAILY Albuterol Sulfate [Ventolin HFA] 2 puffs PO Q6HR PRN PRN Reason: Shortness Of Breath Propranolol HCl [Propranolol Tab] 40 mg PO TID Cyanocobalamin (Vitamin B-12) [Vitamin B-12] 1 tablet PO DAILY - Follow Up or Referral Follow Up: Kristie Ledezma MD [Physician] - 10/08/16 7:15 pm (SLEEP STUDY) - Forms/Instructions
[2016-09-30] MEDS: INSULIN REGULAR 100 UNIT/ML SUBCUT SCH ×4 (08:53→21:47)
[2016-09-30] MEDS: amLODIPine 10 MG TABLET PO SCH (09:13)
[2016-09-30] MEDS: DOCUSATE SODIUM 100 MG CAPSULE PO SCH ×2 (09:13→20:21)
[2016-09-30] MEDS: CETIRIZINE 10 MG TABLET PO SCH (09:13)
[2016-09-30] MEDS: CIPROFLOXACIN 500 MG TABLET PO SCH ×2 (09:13→20:21)
[2016-09-30] MEDS: PROPRANOLOL 40 MG TABLET PO SCH ×2 (09:13→20:21)
[2016-09-30] MEDS: CYANOCOBALAMIN 500 MCG TABLET PO SCH (09:13)
[2016-09-30] MEDS: POTASSIUM CHLORIDE 20 MEQ TABLET PO SCH ×2 (09:13→20:22)
[2016-09-30] MEDS: INSULIN GLARGINE 100 UNIT/ML SUBCUT SCH ×2 (09:13→16:57)
[2016-09-30] MEDS: FAMOTIDINE 20 MG TABLET PO SCH ×2 (09:13→20:22)
--- NOTE | 2016-09-30 16:35 | Event Note ---
Note Mr. Otto's had a scan was indeed normal so it is unlikely that biliary colic is the source of his abdominal complaints. Also cannot see anything in his endovascular aneurysm repair that would be a source of the complaints that he.
--- NOTE | 2016-09-30 19:50 | Internal Med Progress Note ---
Assessment and Plan (1) COPD (chronic obstructive pulmonary disease) Status: Chronic Current Visit: Yes (2) Dyspnea Status: Chronic Current Visit: Yes Qualifiers: Dyspnea type: dyspnea on exertion Qualified Code(s): R06.09 - Other forms of dyspnea (3) Hypertension Status: Chronic Current Visit: Yes Qualifiers: Hypertension type: essential hypertension Qualified Code(s): I10 - Essential (primary) hypertension (4) Chronic fatigue Problem details: improved Status: Chronic Current Visit: Yes (5) Status post abdominal aortic aneurysm (AAA) repair Status: Chronic Current Visit: No (6) Abdominal pain Problem details: abdominal gas Status: Chronic Current Visit: Yes Qualifiers: Abdominal location: periumbilical Qualified Code(s): R10.33 - Periumbilical pain Internal Medicine - PN: Subj Interval history: Mr. Otto is a 66 year old male with history of COPD on albuterol rescue inhaler, Stiolto, zyrtec, HTN, smoking history and quit 5 years ago, sinus tachycardia controlled on propranolol, AAA with surgical repair per Dr. Quinn at [place] but has now changed over to Dr. Fowler, chronic fatigue, Vit D deficiency, dyslipidemia, who presented to clinic with persistent shortness of breath. He reports shortness of breath for two years ever since his AAA surgical repair , and has experienced worsening since Thursday. He reports staying in bed over the weekend and has no energy. He denies sweats but feels cold all the time. He also complains of stomach pain/abdominal pain since the surgical repair, and has noticed distention since then. He denies significant alcohol history. An incisor tooth has broken off during the weekend and is inflamed. He does not feel well and will be admitted and worked up for pneumonia. Also, the abdominal pain has become an issue. , overall feeling better, but abdomen bothering him. Also, solumedrol induced hyperglycemia. He now has sliding scale coverage with regular insulin. Thursday, he is feeling better except for abdominal pain. Consulting surgeon to further evaluate. Thursday, still complaining of abdominal gas pain, but otherwise doing better. Thursday, continues to improve except for abdominal gas. Thursday, will have bronchoscopy for pulmonary mucus plugs; abdominal workup continuing. Thursday, feeling better status post bronchoscopy. Have re-consulted Dr. Gray to further evaluate abdominal gas. Exam (Progress Note) - Constitutional Vitals: Period Temp Pulse Resp BP Sys/Peace Pulse Ox Last 24 Hr 97.4 F-98.0 F 52-75 10-21 111-159/75-92 83-100 Exam: - Constitutional General appearance: no acute distress - Respiratory Respiratory exam: Present: clear to auscultation bilaterally - Cardiovascular Cardiovascular exam: Present: regular rate and rhythm - GI/Abdominal GI/Abdominal exam: Present: active bowel sounds, distended - Extremities Exam Extremities exam: Absent: edema Results - Labs CBC & BMP: 09/30/16 04:18 09/30/16 04:18 Specialty Discharge - Follow Up or Referrals Follow up with: Kristie Ledezma MD [Physician] - 10/08/16 7:15 pm (SLEEP STUDY)
[2016-09-30] MEDS: ENOXAPARIN 40 MG/0.4 ML SYRINGE SUBCUT SCH (20:22)
[2016-10-01] MEDS: ALBUTEROL/IPRATROPIUM 3 ML NEB RESP TX SCH ×4 (00:32→18:59)
[2016-10-01] MEDS: methylPREDNISolone SOD SUC 40 MG/1 ML VIAL IV SCH ×3 (01:02→17:01)
[2016-10-01] MEDS: metroNIDAZOLE INJ 250 MG in IV BAG 1 EACH IV SCH ×3 (01:02→17:01)
[2016-10-01] MEDS: SODIUM CHLORIDE 0.45% 1,000 ML IV SCH ×2 (06:02→21:50)
--- NOTE | 2016-10-01 08:50 | Pulmonology Progress Note ---
Pulmonary - PN: Subj Interval history: Patient is a 66-year-old white man that has significant COPD and came in with worsening shortness of breath. He has been getting treatment for COPD and yesterday had a therapeutic bronchoscopy. He feels like his breathing is much better and is more comfortable. His main problem now is with his GI tract. He is still quite distended but is having some bowel movements. He may need a C scope. His breathing is stable at present Exam (Progress Note) - Constitutional Vitals: Period Temp Pulse Resp BP Sys/Peace Pulse Ox Last 24 Hr 97.4 F-98.7 F 52-78 18-20 111-146/55-85 83-100 Exam: - Constitutional General appearance: no acute distress (He is comfortable and not have any significant distress. He looks like he is breathing better now.) - Head Head exam: Present: normal inspection, normocephalic - Eye Eye exam: Present: EOMI. Absent: scleral icterus Pupils: Present: SERA - ENT ENT exam: Present: normal exam - Neck Neck exam: Present: normal inspection. Absent: lymphadenopathy, thyromegaly - Respiratory Respiratory exam: Present: The patient has very distant breath sounds but he has a fairly quiet chest. He is not having any wheezing at present. I seem to be moving air okay today. - Cardiovascular Cardiovascular exam: Present: regular rate and rhythm. Absent: gallop, systolic murmur - GI/Abdominal GI/Abdominal exam: Present: His abdomen is still very distended but is nontender. - Extremities Exam Extremities exam: Absent: calf tenderness, edema - Neurological Exam Neurological exam: Present: alert, oriented X3, CN II-XII intact. Absent: motor sensory deficit - Psychiatric Psychiatric exam: Present: normal affect - Skin Skin exam: Present: warm, dry Results - Labs CBC & BMP: 09/30/16 04:18 09/30/16 04:18 Assessment and Plan (1) COPD exacerbation Status: Acute Assessment and plan: The patient is doing better today and his breathing is better. He can probably go home and taper steroids as an outpatient. Current Visit: Yes (2) Status post abdominal aortic aneurysm (AAA) repair Status: Chronic Assessment and plan: The patient has had a previous abdominal aortic aneurysm repair. His abdomen is distended but is not tender. He is eating well and having bowel movements. His CT of his abdomen was noted. He may need a C scope at some point. Current Visit: No (3) Hyperlipidemia Status: Chronic Assessment and plan: He will continue his present medicines. He does have some fatty liver. His HIDA scan was negative today. Current Visit: Yes Qualifiers: Hyperlipidemia type: mixed hyperlipidemia Qualified Code(s): E78.2 - Mixed hyperlipidemia Specialty Discharge - Follow Up or Referrals Follow up with: Kristie Ledezma MD [Physician] - 10/08/16 7:15 pm (SLEEP STUDY)
[2016-10-01] MEDS: CIPROFLOXACIN 500 MG TABLET PO SCH ×2 (09:24→21:51)
[2016-10-01] MEDS: POTASSIUM CHLORIDE 20 MEQ TABLET PO SCH ×2 (09:24→21:51)
[2016-10-01] MEDS: CETIRIZINE 10 MG TABLET PO SCH (09:24)
[2016-10-01] MEDS: DOCUSATE SODIUM 100 MG CAPSULE PO SCH ×2 (09:25→21:51)
[2016-10-01] MEDS: FAMOTIDINE 20 MG TABLET PO SCH ×2 (09:25→21:52)
[2016-10-01] MEDS: PROPRANOLOL 40 MG TABLET PO SCH ×2 (09:25→21:52)
[2016-10-01] MEDS: CYANOCOBALAMIN 500 MCG TABLET PO SCH (09:25)
[2016-10-01] MEDS: INSULIN GLARGINE 100 UNIT/ML SUBCUT SCH ×2 (09:25→16:55)
[2016-10-01] MEDS: INSULIN REGULAR 100 UNIT/ML SUBCUT SCH ×4 (09:25→21:51)
[2016-10-01] MEDS: amLODIPine 10 MG TABLET PO SCH (09:25)
--- NOTE | 2016-10-01 13:13 | Gastrointestinal Progress Note ---
<BraxtonsamiMary Anton - Last Filed: 10/01/16 13:10> Assessment and Plan (1) Abdominal pain Problem details: abdominal gas Status: Chronic Assessment and plan: 10/01-Continued abd distention, no c/o pain, N/V per patient. Tolerating diet. Changes in stool noted. No biliary/vascular source of pain noted at this time. Plan and addendum to follow by Dr Gray. 09/26-abdominal pain improved, having normal bowel movements and good appetite. Ultrasound results noted. Plan an addendum to follow by Dr. Gray. 09/25-reports of generalized abdominal pain, after AAA repair 2 years ago, with palpation to abdomen or coughing spells. No associated GI symptoms with this. Reports 30 pound unwarranted weight gain. CTA of abdomen findings in May noted to be negative. Obtain endoscopy records from [place]. Plan an addendum to followed by Dr. Gray. Current Visit: Yes Qualifiers: Abdominal location: periumbilical Qualified Code(s): R10.33 - Periumbilical pain Gastroenterology - PN: Subj Interval history: CC: Abd distention Pt is seen, awake and alert sitting up in bed. He states he feels fairly well but still complains of abdominal distention. He is tolerating his diet well with good intake but states that his stools have changed since admission to a small caliber stool green in color. He denies any rectal bleeding. Denies any abdominal pain, nausea or vomiting. Dr Fowler and Dr Skaggs have both consulted with the patient with no biliary source noted for his abdominal discomfort nor vascular etiology found at this time. Abdomen is soft, protuberant, good bowel sounds noted. ROS: Denies SOB or chest pain Exam (Progress Note) - Constitutional Vitals: Period Temp Pulse Resp BP Sys/Peace Pulse Ox Last 24 Hr 97.4 F-98.7 F 60-78 18-20 111-158/55-91 92-99 General appearance: normal weight, no acute distress - Head Head exam: Present: normal inspection, normocephalic - Eye Eye exam: Present: other (lids and conjunctiva unremarkable). Absent: scleral icterus - ENT ENT exam: Present: normal exam, normal oropharynx - Neck Neck exam: Present: normal inspection - Respiratory Respiratory exam: Present: clear to auscultation bilaterally. Absent: rales, rhonchi, wheezes - Cardiovascular Cardiovascular exam: Present: regular rate and rhythm. Absent: diastolic murmur , JVD, systolic murmur - GI/Abdominal GI/Abdominal exam: Present: normal bowel sounds, distended, soft. Absent: ascites, mass, organomegaly, tenderness - Extremities Exam Extremities exam: Present: normal inspection, full ROM - Back Exam Back exam: Present: normal inspection - Neurological Exam Neurological exam: Present: alert, oriented X3 - Psychiatric Psychiatric exam: Present: normal affect, normal mood - Skin Skin exam: Present: normal color, warm, dry Results - Labs CBC & BMP: 09/30/16 04:18 09/30/16 04:18 Lab Results: I have reviewed the past 24 hour labs Specialty Discharge - Follow Up or Referrals Follow up with: Kristie Ledezma MD [Physician] - 10/08/16 7:15 pm (SLEEP STUDY) <Miguelangel Gray - Last Filed: 10/01/16 13:51> Exam (Progress Note) - Constitutional Vitals: Period Temp Pulse Resp BP Sys/Peace Pulse Ox Last 24 Hr 97.4 F-98.7 F 60-78 18-20 111-158/55-91 98-99 Results - Labs CBC & BMP: 09/30/16 04:18 09/30/16 04:18
[2016-10-01] MEDS ORDERED: POLYETHYLENE GLYCOL POWDER 255 GM BOTTLE PO ONE (17:00)
--- NOTE | 2016-10-01 21:04 | Internal Med Progress Note ---
Assessment and Plan (1) COPD (chronic obstructive pulmonary disease) Status: Chronic Current Visit: Yes (2) Dyspnea Status: Chronic Current Visit: Yes Qualifiers: Dyspnea type: dyspnea on exertion Qualified Code(s): R06.09 - Other forms of dyspnea (3) Hypertension Status: Chronic Current Visit: Yes Qualifiers: Hypertension type: essential hypertension Qualified Code(s): I10 - Essential (primary) hypertension (4) Chronic fatigue Problem details: improved Status: Chronic Current Visit: Yes (5) Status post abdominal aortic aneurysm (AAA) repair Status: Chronic Current Visit: No (6) Abdominal pain Problem details: abdominal gas Status: Chronic Current Visit: Yes Qualifiers: Abdominal location: periumbilical Qualified Code(s): R10.33 - Periumbilical pain Internal Medicine - PN: Subj Interval history: Mr. Otto is a 66 year old male with history of COPD on albuterol rescue inhaler, Stiolto, zyrtec, HTN, smoking history and quit 5 years ago, sinus tachycardia controlled on propranolol, AAA with surgical repair per Dr. Quinn at [place] but has now changed over to Dr. Fowler, chronic fatigue, Vit D deficiency, dyslipidemia, who presented to clinic with persistent shortness of breath. He reports shortness of breath for two years ever since his AAA surgical repair , and has experienced worsening since Thursday. He reports staying in bed over the weekend and has no energy. He denies sweats but feels cold all the time. He also complains of stomach pain/abdominal pain since the surgical repair, and has noticed distention since then. He denies significant alcohol history. An incisor tooth has broken off during the weekend and is inflamed. He does not feel well and will be admitted and worked up for pneumonia. Also, the abdominal pain has become an issue. , overall feeling better, but abdomen bothering him. Also, solumedrol induced hyperglycemia. He now has sliding scale coverage with regular insulin. Thursday, he is feeling better except for abdominal pain. Consulting surgeon to further evaluate. Thursday, still complaining of abdominal gas pain, but otherwise doing better. Thursday, continues to improve except for abdominal gas. Thursday, will have bronchoscopy for pulmonary mucus plugs; abdominal workup continuing. Thursday, feeling better status post bronchoscopy. Have re-consulted Dr. Gray to further evaluate abdominal gas. Thursday, colonoscopy scheduled for tomorrow, which may can decompress abdomen. Unclear etiology of gas production. Exam (Progress Note) - Constitutional Vitals: Period Temp Pulse Resp BP Sys/Peace Pulse Ox Last 24 Hr 97.3 F-97.7 F 58-78 18-20 138-158/81-91 97-99 Exam: - Constitutional General appearance: no acute distress - Respiratory Respiratory exam: Present: clear to auscultation bilaterally - Cardiovascular Cardiovascular exam: Present: regular rate and rhythm - GI/Abdominal GI/Abdominal exam: Present: active bowel sounds, distended - Extremities Exam Extremities exam: Absent: edema Results - Labs CBC & BMP: 09/30/16 04:18 09/30/16 04:18 Specialty Discharge - Follow Up or Referrals Follow up with: Kristie Ledezma MD [Physician] - 10/08/16 7:15 pm (SLEEP STUDY)
[2016-10-01] MEDS: ENOXAPARIN 40 MG/0.4 ML SYRINGE SUBCUT SCH (21:52)
[2016-10-02] MEDS: ALBUTEROL/IPRATROPIUM 3 ML NEB RESP TX SCH ×4 (00:05→20:00)
[2016-10-02] MEDS: methylPREDNISolone SOD SUC 40 MG/1 ML VIAL IV SCH ×3 (02:01→17:24)
[2016-10-02] MEDS: metroNIDAZOLE INJ 250 MG in IV BAG 1 EACH IV SCH ×3 (02:02→17:24)
[2016-10-02 05:08] LABS: Basophils % 0.2 % (0.0-0.8); Hematocrit 44.2 VOL% (42.0-52.0); Hemoglobin 15.4 GM/DL (14.0-18.0); Immature Granulocytes % 2.1 %; Lymphocytes # 1.2 10*3/uL (1.4-4.0); Lymphocytes % 12.6 % (21.2-54.2); Mean Corpuscular HGB Conc 34.8 GM/DL (32-36); Mean Corpuscular Hemoglobin 32 PG (27-34); Mean Corpuscular Volume 91.9 FL (87-102); Mean Platelet Volume 9.3 FL (9.6-12.0); Monocytes # 0.8 10*3/uL (0.11-0.8); Neutrophils # 7.3 10*3/uL (1.4-7.4); Neutrophils % 77.1 % (38.7-73.9); Platelet Count 254 T/CUMM (130-400); Red Blood Count 4.81 MC/CUMM (3.8-5.5); Red Cell Distribution Width 14.1 % (9.3-17.3); White Blood Count 9.4 T/CUMM (4-12)
[2016-10-02 06:29] LABS: Calcium 8.7 MG/DL (8.5-10.1); Osmolality,Calculated 282.5 MOS/KG (273-304); Potassium 4.7 MMOL/L (3.5-5.1)
[2016-10-02] MEDS: INSULIN REGULAR 100 UNIT/ML SUBCUT SCH ×4 (07:30→21:31)
[2016-10-02] MEDS: INSULIN GLARGINE 100 UNIT/ML SUBCUT SCH ×2 (08:00→16:29)
--- NOTE | 2016-10-02 08:42 | Pulmonology Progress Note ---
Pulmonary - PN: Subj Interval history: Patient is a 66-year-old white man that has significant COPD and came in with worsening shortness of breath. He has done fairly well with treatment and his breathing is better. He says he is not coughing much now and feels like his shortness of breath is much better. He has had some GI problems and is going for a colon scope today. After that he can probably go home. Exam (Progress Note) - Constitutional Vitals: Period Temp Pulse Resp BP Sys/Peace Pulse Ox Last 24 Hr 97.3 F-99 F 58-76 16-18 122-167/81-89 94-99 Exam: - Constitutional General appearance: no acute distress (He is comfortable walking around and does not look short of breath now.) - Head Head exam: Present: normal inspection, normocephalic - Eye Eye exam: Present: EOMI. Absent: scleral icterus Pupils: Present: SERA - ENT ENT exam: Present: normal exam - Neck Neck exam: Present: normal inspection. Absent: lymphadenopathy, thyromegaly - Respiratory Respiratory exam: Present: The patient has very distant breath sounds but he did not have any wheezing or rales now. - Cardiovascular Cardiovascular exam: Present: regular rate and rhythm. Absent: gallop, systolic murmur - GI/Abdominal GI/Abdominal exam: Present: His abdomen is still distended but feels softer. He said he did well with the preop yesterday. - Extremities Exam Extremities exam: Absent: calf tenderness, edema - Neurological Exam Neurological exam: Present: alert, oriented X3, CN II-XII intact. Absent: motor sensory deficit - Psychiatric Psychiatric exam: Present: normal affect - Skin Skin exam: Present: warm, dry Results - Labs CBC & BMP: 10/02/16 03:59 10/02/16 03:59 Assessment and Plan (1) COPD exacerbation Status: Acute Assessment and plan: The patient is doing better today and his breathing is better. His lungs sound much clearer. He can probably go home after his colonoscopy. Current Visit: Yes (2) Status post abdominal aortic aneurysm (AAA) repair Status: Chronic Assessment and plan: The patient has had a previous abdominal aortic aneurysm repair. His abdomen is distended but is not tender. He is eating well and having bowel movements. His CT of his abdomen was noted. He is having a C scope today. Current Visit: No (3) Hyperlipidemia Status: Chronic Assessment and plan: He will continue his present medicines. He does have some fatty liver. His HIDA scan was negative today. Current Visit: Yes Qualifiers: Hyperlipidemia type: mixed hyperlipidemia Qualified Code(s): E78.2 - Mixed hyperlipidemia Specialty Discharge - Follow Up or Referrals Follow up with: Kristie Ledezma MD [Physician] - 10/08/16 7:15 pm (SLEEP STUDY)
--- NOTE | 2016-10-02 12:50 | History and Physical Update ---
History and Physical Update - History and Physical H&P was reviewed, the patient examined and there: are no changes in the patients condition since last H&P was completed. - Physical Exam Mental Status: alert and oriented Heart: regular rate and rhythm Lung: clear to auscultation Abdomen: other (Soft, distended, nontender)
--- NOTE | 2016-10-02 13:16 | Operative Note ---
Date of procedure: 10/02/16 Pre-op diagnosis: Colon cancer screening, abdominal swelling Procedure: Procedure note: Colonoscopy with snare polypectomy Physician: Dr. Josh Gray Brief clinical abstract: Patient is a 66-year-old male who is had vague abdominal complaint of swelling. This apparently has been present for several months. He has gained around 30 pounds weight in the last 6 months. Imaging with ultrasound and CT showed no clear etiology for this. Endoscopic findings: After informed consent was obtained, the patient was placed in the left lateral decubitus position. Digital rectal exam was performed with no palpable abnormalities felt. Pediatric videocolonoscope was inserted into the rectum and advanced to the cecum without difficulty. Retroflex view within the cecum was performed back to the level of the hepatic flexure. The endoscope was advanced back to the cecum and on withdrawal colonic mucosa was carefully examined. Bowel prep was of good quality. Withdrawal time was over 6 minutes duration. On withdrawal there was an approximately 5 mm polyp in the mid descending colon removed with snare using coag was current. 2 other similar polyps were noted just distal to this and removed similarly. Another 5-6 mm polyp in the proximal rectum was also removed with snare using coagulation current. There were scattered diverticuli in the left colon. The endoscope was withdrawn in the rectum with retroflex view showing large internal hemorrhoids. The endoscope was then removed. He appeared to tolerate the procedure well. Impression: #1 left colon polyps #2 left colon diverticulosis #3 large internal hemorrhoids Plan: Advance diet. If polyps adenomatous, repeat colonoscopy in 5 years. Anesthesia: MAC Surgeon / Physician: Miguelangel Gray Estimated blood loss: none Specimens: other (Left colon polyps) Condition: stable Disposition: post procedure unit Results - Labs CBC & BMP: 10/02/16 03:59 10/02/16 03:59 Discharge Plan - Discharge Medications No Action amLODIPine [Norvasc] 10 mg PO DAILY Tiotropium Br/Olodaterol HCl [Stiolto Respimat Inhal [place]] 2.5 mcg INH BEDTIME Ranitidine Tab [Zantac Tab] 150 mg PO DAILY Omeprazole 40 mg PO DAILY Meloxicam 7.5 mg PO DAILY Cetirizine Tab [ZyrTEC Tab] 10 mg PO DAILY Albuterol Sulfate [Ventolin HFA] 2 puffs PO Q6HR PRN PRN Reason: Shortness Of Breath Propranolol HCl [Propranolol Tab] 40 mg PO TID Cyanocobalamin (Vitamin B-12) [Vitamin B-12] 1 tablet PO DAILY - Follow Up or Referral Follow Up: Kristie Ledezma MD [Physician] - 10/08/16 7:15 pm (SLEEP STUDY) - Forms/Instructions
--- NOTE | 2016-10-02 13:49 | Anesthesia Post-Op ---
Anesthesia Post OP - Post Ansesthetic Evaluation Patient seen in post op: Yes Resp: within normal limits CV: within normal limits Mental: within normal limits Temp: within normal limits [id number]: within normal limits Nausea and Vomiting: within normal limits Pain: within normal limits
[2016-10-02] MEDS: CYANOCOBALAMIN 500 MCG TABLET PO SCH (14:13)
[2016-10-02] MEDS: FAMOTIDINE 20 MG TABLET PO SCH ×2 (14:13→21:31)
[2016-10-02] MEDS: amLODIPine 10 MG TABLET PO SCH (14:13)
[2016-10-02] MEDS: POTASSIUM CHLORIDE 20 MEQ TABLET PO SCH ×2 (14:13→21:20)
[2016-10-02] MEDS: PROPRANOLOL 40 MG TABLET PO SCH ×2 (14:13→21:20)
[2016-10-02] MEDS: DOCUSATE SODIUM 100 MG CAPSULE PO SCH ×2 (14:13→21:19)
[2016-10-02] MEDS: CIPROFLOXACIN 500 MG TABLET PO SCH ×2 (14:13→21:20)
[2016-10-02] MEDS: CETIRIZINE 10 MG TABLET PO SCH (14:14)
[2016-10-02] MEDS: SODIUM CHLORIDE 0.45% 1,000 ML IV SCH ×2 (14:31→16:09)
[2016-10-02] MEDS ORDERED: SIMETHICONE CHEW 80 MG TABLET PO ONE (17:59)
[2016-10-02] MEDS ORDERED: FLUCONAZOLE INJ 200 MG in PREMIX 1 EACH IV ONE (18:01)
--- NOTE | 2016-10-02 18:28 | Internal Med Progress Note ---
Assessment and Plan (1) COPD (chronic obstructive pulmonary disease) Status: Chronic Current Visit: Yes Qualifiers: COPD type: chronic bronchitis Chronic bronchitis type: mucopurulent Qualified Code(s): J41.1 - Mucopurulent chronic bronchitis (2) Dyspnea Status: Chronic Current Visit: Yes Qualifiers: Dyspnea type: dyspnea on exertion Qualified Code(s): R06.09 - Other forms of dyspnea (3) Hypertension Status: Chronic Current Visit: Yes Qualifiers: Hypertension type: essential hypertension Qualified Code(s): I10 - Essential (primary) hypertension (4) Chronic fatigue Problem details: improved Status: Chronic Current Visit: Yes (5) Status post abdominal aortic aneurysm (AAA) repair Status: Resolved Current Visit: No (6) Abdominal pain Problem details: abdominal gas Status: Chronic Current Visit: Yes Qualifiers: Abdominal location: periumbilical Qualified Code(s): R10.33 - Periumbilical pain Internal Medicine - PN: Subj Interval history: Mr. Otto is a 66 year old male with history of COPD on albuterol rescue inhaler, Stiolto, zyrtec, HTN, smoking history and quit 5 years ago, sinus tachycardia controlled on propranolol, AAA with surgical repair per Dr. Quinn at [place] but has now changed over to Dr. Fowler, chronic fatigue, Vit D deficiency, dyslipidemia, who presented to clinic with persistent shortness of breath. He reports shortness of breath for two years ever since his AAA surgical repair , and has experienced worsening since Thursday. He reports staying in bed over the weekend and has no energy. He denies sweats but feels cold all the time. He also complains of stomach pain/abdominal pain since the surgical repair, and has noticed distention since then. He denies significant alcohol history. An incisor tooth has broken off during the weekend and is inflamed. He has spent the last few days in abdominal gas and pain workup with unremarkable findings. He has history of constipation and felt better after bowel prep for colonoscopy. Polyps were noted on endoscopy. There was minimal decompression of gas. This patient has abdominal obesity as well, and weight loss was discussed. He will be discharged tomorrow after trying probiotic and Gas-x tonight. Exam (Progress Note) - Constitutional Vitals: Period Temp Pulse Resp BP Sys/Peace Pulse Ox Last 24 Hr 97.3 F-99 F 58-78 14-18 122-167/62-094 94-100 Exam: - Constitutional General appearance: no acute distress - Respiratory Respiratory exam: Present: clear to auscultation bilaterally - Cardiovascular Cardiovascular exam: Present: regular rate and rhythm - GI/Abdominal GI/Abdominal exam: Present: active bowel sounds, distended - Extremities Exam Extremities exam: Absent: edema Results - Labs CBC & BMP: 10/02/16 03:59 10/02/16 03:59 Specialty Discharge - Follow Up or Referrals Follow up with: Kristie Ledezma MD [Physician] - 10/08/16 7:15 pm (SLEEP STUDY)
[2016-10-02] MEDS ORDERED: MAGNESIUM CITRATE 300 ML BOTTLE PO ONE (20:20)
[2016-10-02] MEDS: LACTOBACILLUS RHAMNOSUS GG CAPSULE PO SCH (21:20)
[2016-10-02] MEDS: SIMETHICONE CHEW 80 MG TABLET PO SCH (21:20)
[2016-10-02] MEDS: ENOXAPARIN 40 MG/0.4 ML SYRINGE SUBCUT SCH (21:20)
[2016-10-03] MEDS: ALBUTEROL/IPRATROPIUM 3 ML NEB RESP TX SCH ×3 (00:12→13:48)
[2016-10-03] MEDS: metroNIDAZOLE INJ 250 MG in IV BAG 1 EACH IV SCH ×2 (01:55→09:21)
[2016-10-03] MEDS: methylPREDNISolone SOD SUC 40 MG/1 ML VIAL IV SCH ×2 (01:55→09:21)
[2016-10-03] MEDS: SODIUM CHLORIDE 0.45% 1,000 ML IV SCH (05:40)
[2016-10-03] MEDS: INSULIN REGULAR 100 UNIT/ML SUBCUT SCH ×3 (07:55→17:03)
[2016-10-03] MEDS: SIMETHICONE CHEW 80 MG TABLET PO SCH ×3 (08:21→17:04)
[2016-10-03] MEDS: PROPRANOLOL 40 MG TABLET PO SCH (08:21)
[2016-10-03] MEDS: CETIRIZINE 10 MG TABLET PO SCH (08:21)
[2016-10-03] MEDS: POTASSIUM CHLORIDE 20 MEQ TABLET PO SCH (08:21)
[2016-10-03] MEDS: DOCUSATE SODIUM 100 MG CAPSULE PO SCH (08:22)
[2016-10-03] MEDS: CYANOCOBALAMIN 500 MCG TABLET PO SCH (08:22)
[2016-10-03] MEDS: LACTOBACILLUS RHAMNOSUS GG CAPSULE PO SCH (08:22)
[2016-10-03] MEDS: FAMOTIDINE 20 MG TABLET PO SCH (08:22)
[2016-10-03] MEDS: amLODIPine 10 MG TABLET PO SCH (08:22)
[2016-10-03] MEDS: INSULIN GLARGINE 100 UNIT/ML SUBCUT SCH ×2 (08:22→17:04)
[2016-10-03] MEDS: CIPROFLOXACIN 500 MG TABLET PO SCH (08:22)
--- NOTE | 2016-10-03 08:40 | Gastrointestinal Progress Note ---
Assessment and Plan (1) Abdominal pain Problem details: abdominal gas Status: Chronic Assessment and plan: 10/03-C-scope report noted. No c/o pain, N/V. Tolerating diet. Plan and addendum to follow by Dr Gray. 10/01-Continued abd distention, no c/o pain, N/V per patient. Tolerating diet. Changes in stool noted. No biliary/vascular source of pain noted at this time. Plan and addendum to follow by Dr Gray. 09/26-abdominal pain improved, having normal bowel movements and good appetite. Ultrasound results noted. Plan an addendum to follow by Dr. Gray. 09/25-reports of generalized abdominal pain, after AAA repair 2 years ago, with palpation to abdomen or coughing spells. No associated GI symptoms with this. Reports 30 pound unwarranted weight gain. CTA of abdomen findings in May noted to be negative. Obtain endoscopy records from [facility]. Plan an addendum to followed by Dr. Gray. Current Visit: Yes Qualifiers: Abdominal location: periumbilical Qualified Code(s): R10.33 - Periumbilical pain Gastroenterology - PN: Subj Interval history: CC: Abd swelling Pt is seen awake and alert ambulating around room. States he is feeling about the same. He states after the colon prep and clearing out his bowels he felt better but as soon as he ate yesterday afternoon the abdominal swelling returned. He denies any nausea, vomiting or pain. He has a good appetite. His colonoscopy noted with left colon polyps and diverticulosis as well as hemmorhoids. Pathology pending. Abdomen is soft, protuberant. ROS: Denies SOB or chest pain Exam (Progress Note) - Constitutional Vitals: Period Temp Pulse Resp BP Sys/Peace Pulse Ox Last 24 Hr 97.2 F-98.1 F 62-83 14-20 124-156/62-094 94-100 - Other Additional findings: General appearance: normal weight, no acute distress - Head Head exam: Present: normal inspection, normocephalic - Eye Eye exam: Present: other (lids and conjunctiva unremarkable). Absent: scleral icterus - ENT ENT exam: Present: normal exam, normal oropharynx - Neck Neck exam: Present: normal inspection - Respiratory Respiratory exam: Present: clear to auscultation bilaterally. Absent: rales, rhonchi, wheezes - Cardiovascular Cardiovascular exam: Present: regular rate and rhythm. Absent: diastolic murmur , JVD, systolic murmur - GI/Abdominal GI/Abdominal exam: Present: normal bowel sounds, distended, soft. Absent: ascites, mass, organomegaly, tenderness - Extremities Exam Extremities exam: Present: normal inspection, full ROM - Back Exam Back exam: Present: normal inspection - Neurological Exam Neurological exam: Present: alert, oriented X3 - Psychiatric Psychiatric exam: Present: normal affect, normal mood - Skin Skin exam: Present: normal color, warm, dry Results - Labs CBC & BMP: 10/02/16 03:59 10/02/16 03:59 Lab Results: I have reviewed the past 24 hour labs Specialty Discharge - Follow Up or Referrals Follow up with: Kristie Ledezma MD [Physician] - 10/08/16 7:15 pm (SLEEP STUDY)
--- NOTE | 2016-10-03 08:57 | Pulmonology Progress Note ---
Pulmonary - PN: Subj Interval history: Patient is a 66-year-old white man that has significant COPD and came in with worsening shortness of breath. He has cleared up fairly well and his breathing is doing well. He did okay with a colonoscopy yesterday. He still has a little bit of abdominal bloating but otherwise is stable. His breathing overall is much better. Exam (Progress Note) - Constitutional Vitals: Period Temp Pulse Resp BP Sys/Peace Pulse Ox Last 24 Hr 97.2 F-98.1 F 62-83 14-20 124-156/62-094 94-100 Exam: - Constitutional General appearance: no acute distress (He is comfortable walking around and does not look short of breath now. He is getting around well now.) - Head Head exam: Present: normal inspection, normocephalic - Eye Eye exam: Present: EOMI. Absent: scleral icterus Pupils: Present: SERA - ENT ENT exam: Present: normal exam - Neck Neck exam: Present: normal inspection. Absent: lymphadenopathy, thyromegaly - Respiratory Respiratory exam: Present: The patient has very distant breath sounds but he did not have any wheezing or rales now. His lungs still sound reasonably clear. - Cardiovascular Cardiovascular exam: Present: regular rate and rhythm. Absent: gallop, systolic murmur - GI/Abdominal GI/Abdominal exam: Present: His abdomen is still distended but feels softer. He is still having some gas pains. - Extremities Exam Extremities exam: Absent: calf tenderness, edema - Neurological Exam Neurological exam: Present: alert, oriented X3, CN II-XII intact. Absent: motor sensory deficit - Psychiatric Psychiatric exam: Present: normal affect - Skin Skin exam: Present: warm, dry Results - Labs CBC & BMP: 10/02/16 03:59 10/02/16 03:59 Assessment and Plan (1) COPD exacerbation Status: Acute Assessment and plan: The patient is doing better today and his breathing is better. His lungs sound much clearer. He will need to continue with bronchodilator therapy and taper his steroids at home. He can go home from a pulmonary standpoint. We can follow up in the office and check PFTs. Current Visit: Yes (2) Status post abdominal aortic aneurysm (AAA) repair Status: Chronic Assessment and plan: The patient has had a previous abdominal aortic aneurysm repair. His abdomen is distended but is not tender. He is eating well and having bowel movements. His CT of his abdomen was noted. He had some polyps removed yesterday. Overall he is stable. Current Visit: No (3) Hyperlipidemia Status: Chronic Assessment and plan: He will continue his present medicines. He does have some fatty liver. His HIDA scan was negative today. Current Visit: Yes Qualifiers: Hyperlipidemia type: mixed hyperlipidemia Qualified Code(s): E78.2 - Mixed hyperlipidemia Specialty Discharge - Follow Up or Referrals Follow up with: Kristie Ledezma MD [Physician] - 10/08/16 7:15 pm (SLEEP STUDY)
[2016-10-03] MEDS ORDERED: HALOPERIDOL 5 MG/ML AMP ONE (15:55)
--- NOTE | 2016-10-03 16:40 | Discharge Summary ---
Hospital Course - Hospital Course Hospital Course: Mr. Otto is a 66 year old male with history of COPD on albuterol rescue inhaler, Stiolto, zyrtec, HTN, smoking history and quit 5 years ago, sinus tachycardia controlled on propranolol, AAA with surgical repair per Dr. Quinn at [place] but has now changed over to Dr. Fowler, chronic fatigue, Vit D deficiency, dyslipidemia, who presented to clinic with persistent shortness of breath. He reports shortness of breath for two years ever since his AAA surgical repair , and has experienced worsening since Thursday. He reports staying in bed over the weekend and has no energy. He denies sweats but feels cold all the time. He also complains of stomach pain/abdominal pain since the surgical repair, and has noticed distention since then. He denies significant alcohol history. An incisor tooth has broken off during the weekend and is inflamed. He has spent the last few days in abdominal gas and pain workup with unremarkable findings. He has history of constipation and felt better after bowel prep for colonoscopy. Polyps were noted on endoscopy. There was minimal decompression of gas. This patient has abdominal obesity as well, and weight loss was discussed. He will continue Gas-x and probiotic. Discussed avoidance of constipation. Diagnosis - Discharge Diagnosis (1) COPD (chronic obstructive pulmonary disease) Status: Chronic (2) Dyspnea Status: Chronic (3) Hypertension Status: Chronic (4) Chronic fatigue Status: Chronic (5) Abdominal pain Status: Chronic (6) History of constipation Status: Chronic (7) COPD exacerbation Status: Resolved (8) Unspecified sleep apnea Status: Chronic Specialty Discharge - Follow Up or Referrals Follow up with: Kristie Ledezma MD [Physician] - 10/08/16 7:15 pm (SLEEP STUDY) Discharge Plan - Discharge Data Disposition: Disch To Home/Self Care Condition at Discharge: Stable Discharge Diet: low fat, low cholesterol Activity: increase activity as tolerated - Discharge Medications No Action amLODIPine [Norvasc] 10 mg PO DAILY Tiotropium Br/Olodaterol HCl [Stiolto Respimat Inhal [place]] 2.5 mcg INH BEDTIME Ranitidine Tab [Zantac Tab] 150 mg PO DAILY Omeprazole 40 mg PO DAILY Meloxicam 7.5 mg PO DAILY Cetirizine Tab [ZyrTEC Tab] 10 mg PO DAILY Albuterol Sulfate [Ventolin HFA] 2 puffs PO Q6HR PRN PRN Reason: Shortness Of Breath Propranolol HCl [Propranolol Tab] 40 mg PO TID Cyanocobalamin (Vitamin B-12) [Vitamin B-12] 1 tablet PO DAILY - Follow Up or Referral Follow Up: Kristie Ledezma MD [Physician] - 10/08/16 7:15 pm (SLEEP STUDY) Laila Wyatt DO [Primary Care Provider] - Miguelangel Gray MD [Physician] - - Forms/Instructions Instructions: Chronic Obstructive Pulmonary Disease (DC), Dyspnea (GEN) Additional Discharge Instructions: Follow up with Dr. Gray within 2 weeks. Follow up with Dr. Becki Wyatt within 2-3 weeks. Follow up with Dr. Ledezma per appointment already set for outpatient sleep study. Exam - Constitutional Vitals: Period Temp Pulse Resp BP Sys/Peace Pulse Ox Last 24 Hr 97.8 F-98.1 F 67-83 16-20 128-144/70-80 94-100 Exam: - Constitutional General appearance: no acute distress - Respiratory Respiratory exam: Present: clear to auscultation bilaterally - Cardiovascular Cardiovascular exam: Present: regular rate and rhythm - GI/Abdominal GI/Abdominal exam: Present: active bowel sounds, distended - Extremities Exam Extremities exam: Absent: edema Discharge Results Procedures and tests throughout hospitalization: Pending Orders 09/30/16 07:52 AFB Culture/Smears Routine Fungal Culture w/ Prep Routine Labs on day of discharge: Labs from last 24 hours 10/03/16 10/03/16 10/03/16 15:54 11:12 07:09 POC Glucose 157 H 208 H 142 H 10/02/16 10/02/16 19:57 16:08 POC Glucose 201 H 170 H Preliminary micro results at discharge 09/30/16 07:52 Fungal Culture - Preliminary Bronchial Washings Angy albicans DS: Provider Date of admission: 09/24/16 13:38 Primary care physician: Laila Wyatt DO Attending physician on admission: Laila Wyatt DO Consults: 09/24/16 12:59 Consult to Case Mgmt/Social Srvs [CONS] Routine Reason for Case Mgmt/Social Srvs: Discharge Planning Consult Comment: home health; [facility] Consult to Physician [CONS] Routine Comment: persistent abdominal pain since AAA repair Consulting Provider: Miguelangel Gray Person Notified: Wally Date Notified: 09/24/16 Time Notified: 16:27 Consult Notification Comment: left message on Raquel Swenson's am at 1623. 09/24/16 13:07 Consult to Occupational Therapy [CONS] Routine Reason for Occupational Therapy: Weakness Consult to Physical Therapy [CONS] Routine Reason for Physical Therapy: Weakness Consult to Physician [CONS] Routine Comment: persistent shortness of breath Consulting Provider: Kamaljit Wyatt Person Notified: [place] Date Notified: 09/24/16 Time Notified: 16:26 Consult Notification Comment: left message at 1619 with [place] 09/24/16 18:12 Consult to Physician [CONS] Routine Comment: worsening shortness breath; rule out KAMARI Consulting Provider: Kristie Ledezma Person Notified: aware Date Notified: 09/25/16 Time Notified: 11:23 09/26/16 16:24 Consult to Physician [CONS] Routine Comment: abd pain, distention Consulting Provider: Marc Skaggs When should Consulting Provider be notified: Now Person Notified: md aware Date Notified: 09/27/16 Time Notified: 15:30 09/28/16 14:29 Consult to Physician [CONS] Routine Comment: pt known to you Consulting Provider: Conner Fowler When should Consulting Provider be notified: In am Person Notified: BLAYNE Date Notified: 09/29/16 Time Notified: 09:32 Discharging clinician: Laila Wyatt DO Expected date of discharge: 10/03/16
[2016-10-03 16:50] VITALS: BP 129/71
--- NOTE | 2016-10-03 17:04 | Discharge Summary ---
Diagnosis - Discharge Diagnosis (1) COPD (chronic obstructive pulmonary disease) Status: Chronic (2) Dyspnea Status: Chronic (3) Hypertension Status: Chronic (4) Chronic fatigue Status: Chronic (5) Abdominal pain Status: Chronic (6) History of constipation Status: Chronic (7) COPD exacerbation Status: Resolved (8) Unspecified sleep apnea Status: Chronic Specialty Discharge - Follow Up or Referrals Follow up with: Miguelangel Gray MD [Physician] - Kristie Ledezma MD [Physician] - 10/08/16 7:15 pm (SLEEP STUDY) Laila Wyatt DO [Primary Care Provider] - Discharge Plan - Discharge Data Disposition: Disch To Home/Self Care - Discharge Medications New Albuterol/Ipratropium Neb [Duoneb] 3 ml RESP TX RT Q6H #120 Docusate Sodium Cap [Colace Cap] 100 mg PO BID capsule Fluconazole Tab [Diflucan Tab] 100 mg PO DAILY #14 tablet Lactobacillus Rhamnosus GG [Culturelle] 1 capsule PO BID #60 capsule Magnesium Hydroxide Susp [Milk of Magnesia] 30 ml PO DAILY PRN #0 PRN Reason: Constipation Propranolol Tab [Inderal Tab] 40 mg PO BID #60 tablet Simethicone Chew Tab [Mylicon Chew Tab] 80 mg PO QID #120 tablet Acetaminophen Tab [Tylenol Tab] 650 mg PO Q6H PRN #0 tablet PRN Reason: Fever > 100.4 Or Headache Famotidine Tab [Pepcid Tab] 20 mg PO BID #60 tablet Potassium Chloride Cap/Tab [K Dur] 20 meq PO BID #60 tablet Continue amLODIPine [Norvasc] 10 mg PO DAILY Tiotropium Br/Olodaterol HCl [Stiolto Respimat Inhal [place]] 2.5 mcg INH BEDTIME Meloxicam 7.5 mg PO DAILY Cetirizine Tab [ZyrTEC Tab] 10 mg PO DAILY Albuterol Sulfate [Ventolin HFA] 2 puffs PO Q6HR PRN PRN Reason: Shortness Of Breath Cyanocobalamin (Vitamin B-12) [Vitamin B-12] 1 tablet PO DAILY Discontinued Ranitidine Tab [Zantac Tab] 150 mg PO DAILY Omeprazole 40 mg PO DAILY Propranolol HCl [Propranolol Tab] 40 mg PO TID - Follow Up or Referral Follow Up: Miguelangel Gray MD [Physician] - Kristie Ledezma MD [Physician] - 10/08/16 7:15 pm (SLEEP STUDY) Laila Wyatt DO [Primary Care Provider] - - Forms/Instructions Instructions: Constipation (DC), High Fiber Diet (DC), Chronic Obstructive Pulmonary Disease (DC), Dyspnea (GEN) Exam - Constitutional Vitals: Period Temp Pulse Resp BP Sys/Peace Pulse Ox Last 24 Hr 97.8 F-98.6 F 67-83 16-20 128-144/70-80 94-100 Discharge Results Procedures and tests throughout hospitalization: Pending Orders 09/30/16 07:52 AFB Culture/Smears Routine Fungal Culture w/ Prep Routine Labs on day of discharge: Labs from last 24 hours 10/03/16 10/03/16 10/03/16 15:54 11:12 07:09 POC Glucose 157 H 208 H 142 H 10/02/16 19:57 POC Glucose 201 H Preliminary micro results at discharge 09/30/16 07:52 Fungal Culture - Preliminary Bronchial Washings Angy albicans DS: Provider Date of admission: 09/24/16 13:38 Primary care physician: Laila Wyatt DO Attending physician on admission: Laila Wyatt DO Consults: 09/24/16 12:59 Consult to Case Mgmt/Social Srvs [CONS] Routine Reason for Case Mgmt/Social Srvs: Discharge Planning Consult Comment: home health; [facility] Consult to Physician [CONS] Routine Comment: persistent abdominal pain since AAA repair Consulting Provider: Miguelangel Gray Person Notified: Wally Date Notified: 09/24/16 Time Notified: 16:27 Consult Notification Comment: left message on Raquel Messi's am at 1623. 09/24/16 13:07 Consult to Occupational Therapy [CONS] Routine Reason for Occupational Therapy: Weakness Consult to Physical Therapy [CONS] Routine Reason for Physical Therapy: Weakness Consult to Physician [CONS] Routine Comment: persistent shortness of breath Consulting Provider: Kamaljit Wyatt Person Notified: [place] Date Notified: 09/24/16 Time Notified: 16:26 Consult Notification Comment: left message at 1619 with [place] 09/24/16 18:12 Consult to Physician [CONS] Routine Comment: worsening shortness breath; rule out KAMARI Consulting Provider: Kristie Ledezma Person Notified: md fuentes Date Notified: 09/25/16 Time Notified: 11:23 09/26/16 16:24 Consult to Physician [CONS] Routine Comment: abd pain, distention Consulting Provider: Marc Skaggs When should Consulting Provider be notified: Now Person Notified: md fuentes Date Notified: 09/27/16 Time Notified: 15:30 09/28/16 14:29 Consult to Physician [CONS] Routine Comment: pt known to you Consulting Provider: Conner Fowler When should Consulting Provider be notified: In am Person Notified: BLAYNE Date Notified: 09/29/16 Time Notified: 09:32 Discharging clinician: Laila Wyatt DO
[2016-10-03] MEDS ORDERED: FLUCONAZOLE INJ 100 MG in IV BAG 1 EACH IV SCH (18:00)
--- NOTE | 2016-11-03 16:26 | Physician Query Form ---
CLICK EDIT DOCUMENT TO SELECT QUERY ANSWER --> OK --> SIGN Chyna Strong RN Clinical Manufacturing Engineering Intern W) [phone] (f) [phone] [email or web address]: Make your selection(s) from the choices in EACH section by typing an "x" and enter comments in the comment section. Please use your independent medical judgment in providing your response. This request does not imply that any particular answer is desired or expected. CLINICAL INDICATORS: (Providers should not edit this section) Based on documentation of "Complains fo stomach pain / abdominal pain since the surgical repair, and has noticed distention since then." Colonoscopy shows left colon diverticulosis and large internal hemorrhoids. Treated with NS infusion, IV antibiotics, and had Colonoscopy. Based on the above, could you clarify the appropriate diagnosis, if significant , that supports the above abnormalities and additional evaluation, monitoring, and/or treatment rendered: ( ) Abdominal pain due to tubular adenoma ( ) Abdominal pain due to constipation ( ) Abdominal pain due to diverticulitis (x ) Other, please specify: intestinal ulceration ( ) Clinically unable to determine COMMENTS: PLEASE ALSO DOCUMENT RESPONSE IN PROGRESS NOTES AND/OR DISCHARGE SUMMARY Use of terms such as suspected, likely, or probable (associated with a specific diagnosis that is being evaluated, monitored, or treated as if it exists) are acceptable and can be restated in the discharge summary if not ruled out. MTDD
--- NOTE | 2016-11-03 16:29 | Physician Query Form ---
CLICK EDIT DOCUMENT TO SELECT QUERY ANSWER --> OK --> SIGN Chyna Strong RN Clinical [employer] W) [phone] (f) [phone] [email or web address] PROVIDERS: Make your selection(s) from the choices in EACH section by typing an "x" and enter comments in the comment section. Please use your independent medical judgment in providing your response. This request does not imply that any particular answer is desired or expected. CLINICAL INDICATORS: (Providers should not edit this section) Based o documentation of "Chronic COPD" "Acute COPD Exacerbation" "Acute dyspnea " Treated with IV Solu Medrol, IV Antibiotics, Oxygen at 2L/NC. Had bronchoscope and both lungs were irrigated with saline and secretions cleared. Based on the above, could you clarify the appropriate diagnosis, if significant , that supports the above abnormalities and additional evaluation, monitoring, and/or treatment rendered: ( ) Acute COPD with exacerbation ( x) Chronic COPD (x ) Other, please specify: acute exacerbation ( ) Clinically unable to determine COMMENTS: PLEASE ALSO DOCUMENT RESPONSE IN PROGRESS NOTES AND/OR DISCHARGE SUMMARY Use of terms such as suspected, likely, or probable (associated with a specific diagnosis that is being evaluated, monitored, or treated as if it exists) are acceptable and can be restated in the discharge summary if not ruled out. MTDD
== END 2016-10-03 17:40 | disposition home health service (06) | DRG 192 ==
LOC: N.5E 13:38
PROVIDERS: ADMIT Internal Medicine; ATTEND Internal Medicine

== ENCOUNTER 2016-10-22 14:38 | Inpatient (IN) ==
[2016-10-22] MEDS ORDERED: PANTOPRAZOLE 40 MG VIAL IV STA (15:06)
[2016-10-22] MEDS ORDERED: ONDANSETRON 4 MG/2 ML VIAL IV STA (15:06)
[2016-10-22] MEDS ORDERED: HYDROmorphone 2 MG/1 ML VIAL IV STA ×2 (15:06→16:27)
[2016-10-22] MEDS ORDERED: HYDROmorphone 2 MG/1 ML VIAL ONE ×2 (15:27→16:29)
[2016-10-22] MEDS ORDERED: PANTOPRAZOLE 40 MG VIAL IV ONE (15:27)
[2016-10-22] MEDS ORDERED: ONDANSETRON 4 MG/2 ML VIAL ONE (15:27)
[2016-10-22 15:29] LABS: Basophils % 0.2 % (0.0-0.8); Eosinophils # 0.1 10*3/uL (0.0-0.87); Eosinophils % 0.9 % (0.00-10.9); Hematocrit 41.2 VOL% (42.0-52.0); Hemoglobin 14.5 GM/DL (14.0-18.0); Immature Granulocytes Absolute 0.14 #; Lymphocytes # 2.6 10*3/uL (1.4-4.0); Lymphocytes % 18.7 % (21.2-54.2); Mean Corpuscular HGB Conc 35.2 GM/DL (32-36); Mean Corpuscular Hemoglobin 32 PG (27-34); Mean Corpuscular Volume 89.6 FL (87-102); Mean Platelet Volume 8.5 FL (9.6-12.0); Monocytes # 1.1 10*3/uL (0.11-0.8); Neutrophils # 9.7 10*3/uL (1.4-7.4); Neutrophils % 71.2 % (38.7-73.9); Platelet Count 418 T/CUMM (130-400); Red Cell Distribution Width 12.5 % (9.3-17.3); White Blood Count 13.6 T/CUMM (4-12)
[2016-10-22 15:52] LABS: Albumin 3.4 G/DL (3.4-5.0); Bilirubin,Total 0.7 MG/DL (0.2-1.0); Calcium 9.2 MG/DL (8.5-10.1); Magnesium 3.2 MG/DL (1.8-2.4); Potassium 4.4 MMOL/L (3.5-5.1); Total Protein 7.3 G/DL (6.4-8.3)
--- NOTE | 2016-10-22 16:07 | XRay Report ---
Referring Physician: Leonard Crowe Exam: XR chest 1V portable Date: October 22, 2016 at 3:38 PM Reason: Generalized abdominal pain Comparison: Chest 2 views September 24, 2016 Findings: The cardiac silhouette is normal in size. There is minimal scattered scarring within both lungs and emphysema. No focal consolidation, pneumothorax or pleural effusion is identified. No acute osseous process is seen. Impression: Chronic changes are present, but no acute pulmonary process is identified. PROCEDURE INTERPRETED AT [facility] DEPARTMENT OF RADIOLOGY Final Report Signed by: Dr. Felicitas Reinoso
[2016-10-22 16:27] LABS: Apearance,Urine CLEAR (Clear); Bilirubin,Urine Negative (Negative); Blood, Urine Negative (Negative); Glucose,Urine (UA) Negative (Negative); Ketones,Urine 5 mg/dL (Negative); Mucus,Urine Occasional /LPF (Occasional); Nitrite,Urine Negative (Negative); Protein,Urine >=500 MG/DL; RBC,Urine 2 /HPF (0-4); Urine Color Yellow (Yellow); Urine Specific Gravity 1.019 (1.001-1.035); Urine Urobilinogen < 2.0 EU/DL (0.2-1.0); WBC,Urine 1 /HPF (0-6)
--- NOTE | 2016-10-22 16:35 | CT Report ---
CT of the abdomen and pelvis without intravenous or oral contrast. Indication: Abdominal distention and pain. Comparison: September 28, 2016. There are interstitial fibrotic changes and emphysematous changes noted within the lung bases. The heart is normal in size. There is extensive coronary artery calcification. There is heavy atherosclerotic plaque within a dilated and tortuous abdominal aorta which has undergone grafting. There is rather extensive free air present within the peritoneal cavity. The patient has not undergone surgery. This is situated more prominently in the upper abdomen. There is moderate fluid around the liver. There is wall thickening seen involving the gastric antrum, pylorus, and first portion of the duodenum, there is stranding in the surrounding fat. This makes gastric or duodenal ulcer perforation a source to consider for the bowel perforation. The loops of small intestine are not significantly dilated. The colon is not dilated. The terminal ileum and appendix present a normal appearance. There is no free fluid in the peripheral pelvis. The urinary bladder presents a normal appearance. The pancreas is somewhat atrophic. The spleen is normal in size. A medium sized left renal cyst is present. No hydronephrosis. The osseous structures are diffusely demineralized. Degenerative changes are present within the spinal column. Healed rib fractures on the left. Bridging osteophytes are noted within the spinal column which may indicate DISH. There is a chronic compression fracture of L1. Impression: 1. Free air within the peritoneal cavity consistent with bowel perforation. 2. Wall thickening and stranding in the surrounding fat around the gastric antrum and duodenum, suggesting perforation of a gastric or duodenal ulcer as a source for this. 3. Free fluid in the upper abdomen, around the liver. 4. Previous aortic surgery. 5. Chronic lung changes. These findings were discussed with Dr. Crowe before dictation. The CT exam was performed using one or more of the following dose reduction techniques: Automated exposure control, adjustment of the mA and/or kV according to patient size, or use of iterative reconstruction technique. PROCEDURE INTERPRETED AT [facility] DEPARTMENT OF RADIOLOGY Final Report Signed by: Dr. Sofie Guerra
[2016-10-22] MEDS ORDERED: PIPERACILLIN/TAZOBACTAM 2,250 MG in SODIUM CHLORIDE 0.9% 100 ML IV STA (16:52)
--- NOTE | 2016-10-22 16:54 | General Surg History&Physical ---
Assessment and Plan (1) Perforated viscus Status: Acute Assessment and plan: Impression: Perforated viscus, probable duodenal or gastric ulcer next Plan: I reviewed the CT images and lab work. Plan for emergent exploratory laparotomy. He is being given IV fluid bolus and antibiotics. He has multiple medical problems and I suspect he will have a prolonged hospital course. He will likely require continued intubation after surgery. I suspect his medical problems will complicate his hospital course. This is all been discussed with him and his family member present. We discussed the procedure habits performed and anticipated recovery. Risk of the procedure including bleeding, infection, damage to surrounding structures, need for further surgery, failure of the repair were all discussed in detail and they agree to proceed. Current Visit: Yes History of Present Illness Chief complaint: Abdominal pain History of present illness: Mr. Otto is a 66 year old male with multiple comorbidities and extensive surgical history presents with acute worsening of abdominal pain. Patient was here about a month ago and at that time also had complained of intermittent abdominal bloating. He had sharp onset of pain. CT scan shows free air. Home Medications Medication Instructions Recorded Confirmed Type Albuterol Sulfate [Ventolin HFA] 2 puffs PO Q6HR PRN 09/24/16 09/24/16 History Cetirizine Tab [ZyrTEC Tab] 10 mg PO DAILY 09/24/16 09/24/16 History Cyanocobalamin (Vitamin B-12) 1 tablet PO DAILY 09/24/16 09/24/16 History [Vitamin B-12] Meloxicam 7.5 mg PO DAILY 09/24/16 09/24/16 History Tiotropium Br/Olodaterol HCl 2.5 mcg INH BEDTIME 09/24/16 09/24/16 History [Stiolto Respimat Inhal [place]] amLODIPine [Norvasc] 10 mg PO DAILY 09/24/16 09/24/16 History Acetaminophen Tab [Tylenol Tab] 650 mg PO Q6H PRN #0 tablet 10/03/16 Rx Albuterol/Ipratropium Neb [Duoneb] 3 ml RESP TX RT Q6H #120 10/03/16 Rx Docusate Sodium Cap [Colace Cap] 100 mg PO BID capsule 10/03/16 Rx Famotidine Tab [Pepcid Tab] 20 mg PO BID #60 tablet 10/03/16 Rx Fluconazole Tab [Diflucan Tab] 100 mg PO DAILY #14 tablet 10/03/16 Rx Lactobacillus Rhamnosus GG 1 capsule PO BID #60 capsule 10/03/16 Rx [Culturelle] Magnesium Hydroxide Susp [Milk of 30 ml PO DAILY PRN #0 10/03/16 Rx Magnesia] Potassium Chloride Cap/Tab [K Dur] 20 meq PO BID #60 tablet 10/03/16 Rx Propranolol Tab [Inderal Tab] 40 mg PO BID #60 tablet 10/03/16 Rx Simethicone Chew Tab [Mylicon Chew 80 mg PO QID #120 tablet 10/03/16 Rx Tab] Allergies Allergy/AdvReac Type Severity Reaction Status Date / Time No Known Allergies Allergy Verified 10/22/16 14:48 Medical,Surgical,& Family Hx - Medical History Cardio: History of: Aneurysm (aortic aneurysm), Cardiac Dysrhythmia (sinus tachycardia), Hypertension, Cardiovascular Problems (syncope) Psychological: History of: Depression No history of: Anxiety Disorders, ADHD, Behavior Problems, Bipolar Disorder, Previous Suicide Attempt, Schizophrenia, Violent Behavior, Psychiatric Problems HEENT: History of: HEENT Problems (sinus drainage; hx nosebleeds) Endocrine: History of: Dyslipidemia Respiratory: History of: COPD, Respiratory Problems (chronic shortness of breath ) Gastrointestinal: History of: GERD - Surgical History Cardiac Surgeries: Sugical HX of: Cardiac Surgery (aortic aneurysm repair surger ) Neurologic Surgeries: Patient denies: Neurologic Surgery HEENT Surgeries: Patient denies: Thyroid Surgery Abdominal Surgeries: Surgical HX of: Appendectomy, Colonoscopy (Dr. Alvarado), EGD (dilatation) Reproductive Surgeries: Patient denies;: Genitourinary Surgery - Family History Family History: Reports;: Family Cancer - Social History Smoking Status: Never smoker Frequency of Alcohol Use: None Type of Drug Use: None Exam - Constitutional Vitals: Period Temp Pulse Resp BP Sys/Peace Pulse Ox Last 24 Hr 96.1 F-96.8 F 95-96 18-26 158-158/83-83 95-98 General appearance: no acute distress - Head Head exam: Present: normocephalic - Neck Neck exam: Present: normal inspection - Respiratory Respiratory exam: Present: other (Chest is clear but he is mildly short of breath) - Cardiovascular Cardiovascular exam: Present: tachycardia - GI/Abdominal GI/Abdominal exam: Present: soft (Very distended. Diffuse tenderness with peritonitis) - Neurological Exam Neurological exam: Present: alert, oriented X3 Speech: Present: normal - Skin Skin exam: Present: normal color 12 point system: reviewed and no additional remarkable complaints except as stated Results - Labs CBC & BMP: 10/22/16 15:22 10/22/16 15:22 Lab Results: I have reviewed the past 24 hour labs
--- NOTE | 2016-10-22 16:54 | Emergency Department Note ---
Kalen Thompson Gwan, am scribing for, and in the presence of, Leonard Crowe MD 15:12. Amrita Thompson Phillip K, MD, personally performed the services described in this documentation, ascribed by Evan Higuera in my presence, and it is both accurate and complete [id number] . Arrival - Arrival Chief Complaint: Abdominal / Flank Pain Stated Complaint: abd pain/distention ED Nursing Triage Note: pt c/o severe generalized abd pain that he describes as "tearing." onset 1300 today. Pt reports not feeling well and diarrhea x1 week. abd is distended and tender to palpation. Mode of Arrival: Stretcher Limitations: No Limitations Source: Patient, Family (Daughter ), Old Records Reviewed, RN Notes Reviewed Time Seen by Provider: 10/22/16 14:56 - History of Present Illness HPI Narrative: Patient is a 66 y/o white male who presents to the ED with generalized abd pain with an onset 1300 today. Patient stated that he was hospitalized 11 days ago for same reason and received colon scope performed by Dr. Gray with negative results. His associated sxs have been N/D. He describes his diarrhea as watery in consistency. Patient denies vomiting or any ETOH use. Patient is followed by Dr. Laila Wyatt. During exam, pt displayed obvious signs of discomfort but was not in distress. Onset (ago): week(s) Consistency: constant Severity: moderate Allergies/Adverse Reactions: Allergies Allergy/AdvReac Type Severity Reaction Status Date / Time No Known Allergies Allergy Verified 10/22/16 14:48 Home Medications: Home Medications Medication Instructions Recorded Confirmed Type Albuterol Sulfate [Ventolin HFA] 2 puffs PO Q6HR PRN 09/24/16 09/24/16 History Cetirizine Tab [ZyrTEC Tab] 10 mg PO DAILY 09/24/16 09/24/16 History Cyanocobalamin (Vitamin B-12) 1 tablet PO DAILY 09/24/16 09/24/16 History [Vitamin B-12] Meloxicam 7.5 mg PO DAILY 09/24/16 09/24/16 History Tiotropium Br/Olodaterol HCl 2.5 mcg INH BEDTIME 09/24/16 09/24/16 History [Stiolto Respimat Inhal [place]] amLODIPine [Norvasc] 10 mg PO DAILY 09/24/16 09/24/16 History Acetaminophen Tab [Tylenol Tab] 650 mg PO Q6H PRN #0 tablet 10/03/16 Rx Albuterol/Ipratropium Neb [Duoneb] 3 ml RESP TX RT Q6H #120 10/03/16 Rx Docusate Sodium Cap [Colace Cap] 100 mg PO BID capsule 10/03/16 Rx Famotidine Tab [Pepcid Tab] 20 mg PO BID #60 tablet 10/03/16 Rx Fluconazole Tab [Diflucan Tab] 100 mg PO DAILY #14 tablet 10/03/16 Rx Lactobacillus Rhamnosus GG 1 capsule PO BID #60 capsule 10/03/16 Rx [Culturelle] Magnesium Hydroxide Susp [Milk of 30 ml PO DAILY PRN #0 10/03/16 Rx Magnesia] Potassium Chloride Cap/Tab [K Dur] 20 meq PO BID #60 tablet 10/03/16 Rx Propranolol Tab [Inderal Tab] 40 mg PO BID #60 tablet 10/03/16 Rx Simethicone Chew Tab [Mylicon Chew 80 mg PO QID #120 tablet 10/03/16 Rx Tab] Review of System - Review of System 12 point system: reviewed and no additional remarkable complaints except as stated - Review of System Constitutional: Absent: chills, fever Eyes: Absent: discharge Head/Ears/Nose/Throat: Absent: earache Respiratory: Absent: cough Cardiovascular: Absent: chest pain Gastrointestinal: Present: as per HPI, abdominal pain, nausea, diarrhea. Absent : vomiting Genitourinary male: Absent: dysuria Musculoskeletal: Absent: arm pain, back pain, lower back pain, neck pain Skin: Absent: rash, lesions Psychiatric: Absent: anxiety Medical,Surgical,& Family Hx - Medical History Cardio: History of: Aneurysm (aortic aneurysm), Cardiac Dysrhythmia (sinus tachycardia), Hypertension, Cardiovascular Problems (syncope) Psychological: History of: Depression No history of: Anxiety Disorders, ADHD, Behavior Problems, Bipolar Disorder, Previous Suicide Attempt, Schizophrenia, Violent Behavior, Psychiatric Problems HEENT: History of: HEENT Problems (sinus drainage; hx nosebleeds) Endocrine: History of: Dyslipidemia Respiratory: History of: COPD, Respiratory Problems (chronic shortness of breath ) Gastrointestinal: History of: GERD - Surgical History Cardiac Surgeries: Sugical HX of: Cardiac Surgery (aortic aneurysm repair surger ) Neurologic Surgeries: Patient denies: Neurologic Surgery HEENT Surgeries: Patient denies: Thyroid Surgery Abdominal Surgeries: Surgical HX of: Appendectomy, Colonoscopy (Dr. Alvarado), EGD (dilatation) Reproductive Surgeries: Patient denies;: Genitourinary Surgery - Family History Family History: Reports;: Family Cancer - Social History Smoking Status: Never smoker Frequency of Alcohol Use: None Type of Drug Use: None Exam Vital Signs: Vital Signs Temperature 96.1 F L 10/22/16 14:50 Pulse Rate 95 H 10/22/16 14:50 Respiratory Rate 26 H 10/22/16 14:50 Blood Pressure 158/83 10/22/16 14:50 O2 Sat by Pulse Oximetry 98 10/22/16 14:50 - General General appearance: alert, in no apparent distress - Head Head exam: Present: atraumatic, normocephalic - Eye Eye exam: Present: normal appearance, PERRL, EOMI - ENT ENT exam: Present: mucous membranes dry, normal external ear exam - Neck Neck exam: Present: full ROM, trachea midline. Absent: tenderness - Chest Chest inspection: Present: symmetric chest wall rise. Absent: tenderness - Respiratory Respiratory exam: Present: normal lung sounds bilaterally. Absent: respiratory distress - Cardiovascular Cardiovascular exam: Present: regular rate, normal rhythm, normal heart sounds. Absent: murmur, rubs - Abdominal Exam Abdominal exam: Present: distention, other (very little to no bowel sounds ) - Extremities Exam Extremities exam: Present: full ROM. Absent: tenderness - Back Exam Back exam: Present: full ROM. Absent: tenderness - Neurological Exam Neurological exam: Present: alert, oriented X3, CN II-XII intact. Absent: motor sensory deficit - Psychiatric Psychiatric exam: Present: normal affect, normal mood - Skin Skin exam: Present: warm, dry, intact, normal color Course Course Narrative: Patient discussed with Dr. Yanes who will see in the emergency department. Results - Labs CBC & BMP: 10/22/16 15:22 10/22/16 15:22 Lab Results: I have reviewed the patients labs Labs: Laboratory Tests 10/22/16 10/22/16 10/22/16 15:17 15:22 15:22 WBC 13.6 H RBC 4.60 Hgb 14.5 Hct 41.2 L Plt Count 418 H MPV 8.5 L Lymph % (Auto) 18.7 L Neut # (Auto) 9.7 H [place] # (Auto) 1.1 H Sodium 136 Potassium 4.4 Chloride 98 Carbon Dioxide 29 BUN 36 H Creatinine 2.00 H POC Creatinine 1.58 H Glucose 198 H Globulin 3.9 H Albumin/Globulin Ratio 0.8 L Lipase 330.0 Laboratory Tests 10/22/16 16:14 Urine pH 7.0 Ur Specific [place] 1.019 Urine Protein >=500 Urine Ketones 5 Urine Urobilinogen < 2.0 H Urine RBC 2 Urine WBC 1 - Diagnostic Findings Procedure: Chest x-ray: report reviewed by me (Chronic changes are present, but no acute pulmonary process is identifed.), CT Abdomen and Pelvis: report reviewed by me (1. Free air within the peritoneal cavity consistent with bowel perforation. 2. Wall thickening and stranding in the surrounding fat around the gastric antrum and duodenum, suggesting perforation of a gastric or duodenal ulcer as a source for this. 3. Free fluid in the upper abdomen, around the liver. 4. Previous aortic surgery. 5. Chronic lung changes. ) Disposition Clinical Impression: Surgical pneumoperitoneum, Probable perforated ulcer Case discussed with: patient, patient's family Disposition: Still a Patient Condition: Critical Additional Instructions: Admit to Dr. Yanes.
[2016-10-22] MEDS ORDERED: HYDROmorphone 2 MG/1 ML VIAL IV PRN ×2 (19:09)
[2016-10-22] MEDS ORDERED: ACETAMINOPHEN 325 MG TABLET PO PRN (19:09)
--- NOTE | 2016-10-22 19:18 | Anesthesia Post-Op ---
Anesthesia Post OP - Post Ansesthetic Evaluation Patient seen in post op: Yes Resp: within normal limits CV: within normal limits Mental: within normal limits Temp: within normal limits [id number]: within normal limits Nausea and Vomiting: within normal limits Pain: within normal limits
--- NOTE | 2016-10-22 19:18 | Operative Note ---
Date of procedure: 10/22/16 Pre-op diagnosis: Perforated viscus Post-op diagnosis: same Procedure: Procedure performed: Exploratory laparotomy with Nain patch repair of perforated duodenal ulcer Procedure in detail: After informed consent was obtained, patient was taken operating suite lights upon the operating table. After general anesthesia was induced abdomen was prepped and draped in usual sterile fashion. After procedural pause midline laparotomy incision was made and dissection carried down through skin and soft tissue. The fascia was opened and the abdomen was entered. There was dirty dishwater colored fluid throughout the abdomen which was all suctioned. There appeared to be an inflammatory process in the left upper quadrant with some omentum gathered in that area. Identified the stomach and the NG tube was confirmed in good position. Followed the stomach down to the pylorus and just distal to the pylorus there was a perforated ulcer on the anterior surface. It was approximately a centimeter. There did not appear to be a mass associated with it or any suspicion of cancer. The ulcer was closed using 2-0 silk interrupted suture. A tongue of omentum brought up and used to buttress the repair and secured there with 2-0 silk suture. The abdomen was irrigated and suctioned. There was no further leaking of fluid present. There was good hemostasis. A 10 Telugu flat Edwin drain was placed posterior to the duodenum. It was secured in place with 2-0 silk suture. Midline fascia closed with #1 running looped PDS. Wound is thoroughly irrigated and suctioned and closed with taniya. Sterile dressings applied. The patient was left intubated and taken to the ICU in guarded condition. Anesthesia: DEANGELOA Surgeon / Physician: Marc Skaggs Estimated blood loss: other (Less than 10 cc) Specimens: none sent Condition: other (Guarded) Disposition: ICU Results - Labs CBC & BMP: 10/22/16 15:22 10/22/16 15:22 Discharge Plan - Discharge Medications No Action amLODIPine [Norvasc] 10 mg PO DAILY Tiotropium Br/Olodaterol HCl [Stiolto Respimat Inhal [place]] 2.5 mcg INH BEDTIME Meloxicam 7.5 mg PO DAILY Cetirizine Tab [ZyrTEC Tab] 10 mg PO DAILY Albuterol Sulfate [Ventolin HFA] 2 puffs PO Q6HR PRN PRN Reason: Shortness Of Breath Albuterol/Ipratropium Neb [Duoneb] 3 ml RESP TX RT Q6H #120 Docusate Sodium Cap [Colace Cap] 100 mg PO BID capsule Fluconazole Tab [Diflucan Tab] 100 mg PO DAILY #14 tablet Lactobacillus Rhamnosus GG [Culturelle] 1 capsule PO BID #60 capsule Magnesium Hydroxide Susp [Milk of Magnesia] 30 ml PO DAILY PRN #0 PRN Reason: Constipation Propranolol Tab [Inderal Tab] 40 mg PO BID #60 tablet Simethicone Chew Tab [Mylicon Chew Tab] 80 mg PO QID #120 tablet Cyanocobalamin (Vitamin B-12) [Vitamin B-12] 1 tablet PO DAILY Acetaminophen Tab [Tylenol Tab] 650 mg PO Q6H PRN #0 tablet PRN Reason: Fever > 100.4 Or Headache Famotidine Tab [Pepcid Tab] 20 mg PO BID #60 tablet Potassium Chloride Cap/Tab [K Dur] 20 meq PO BID #60 tablet - Follow Up or Referral - Forms/Instructions
[2016-10-22] MEDS ORDERED: ALBUMIN 5% 12.5 GM/250 ML VIAL IV ONE (19:22)
[2016-10-22] MEDS ORDERED: SEVOFLURANE 1 UNIT/15 MINUTE INH ONE (19:22)
[2016-10-22] MEDS ORDERED: MIDAZOLAM 2 MG/2 ML VIAL ONE (19:23)
[2016-10-22] MEDS ORDERED: LACTATED RINGERS 3,000 ML IV ONE (19:23)
[2016-10-22 19:26] LABS: Apearance,Urine Slightly Hazy (Clear); Bilirubin,Urine Negative (Negative); Blood, Urine Large mg/dL (Negative); Glucose,Urine (UA) 50 mg/dL (Negative); Hyaline Casts,Urine 4 /LPF (0-3); Ketones,Urine 20 mg/dL (Negative); Mucus,Urine Few /LPF (Occasional); Nitrite,Urine Negative (Negative); Protein,Urine >=500 MG/DL; RBC,Urine 325 /HPF (0-4); Squamous Epithelial Cell,Urine Occasional /HPF (0-10); Urine Color Yellow (Yellow); Urine Specific Gravity 1.027 (1.001-1.035); Urine Urobilinogen < 2.0 EU/DL (0.2-1.0); WBC,Urine 34 /HPF (0-6)
--- NOTE | 2016-10-22 19:27 | XRay Report ---
Portable chest. Indication: Intubated patient. Comparison: Exam from earlier today. The heart is normal in size. An endotracheal tube and nasogastric tube are in satisfactory position. Atelectasis is developing at the left lung base. No pneumothorax. No pleural effusion. Degenerative changes of the spinal column and shoulders. Impression: Satisfactory tube placement. Mild left basilar atelectasis. PROCEDURE INTERPRETED AT [facility] DEPARTMENT OF RADIOLOGY Final Report Signed by: Dr. Sofie Guerra
[2016-10-22] MEDS: PHENYLEPHRINE DRIP 40 MG/250 ML PREMIX IV SCH (19:52)
[2016-10-22 19:53] LABS: ABG Base Excess 2.4 MMOL/L (-2.5-2.5); ABG HCO3 26.6 MMOL/L (20-26); ABG Oxygen Saturation 99.9 % (95-100); ABG PCO2 35.3 MM HG (35-48); ABG PH 7.471 (7.35-7.45); ABG TCO2 22.3 MMOL/L (23-27); Allen Test Positive; Pt O2 Delivery Device Ventilator
[2016-10-22] MEDS: PROPOFOL 1,000 MG/100 ML BOTTLE IV SCH (19:58)
[2016-10-22] MEDS ORDERED: hydrALAZINE 20 MG/1 ML VIAL IV PRN (20:15)
[2016-10-22] MEDS: metroNIDAZOLE INJ 500 MG in PREMIX 1 EACH IV SCH (21:27)
[2016-10-22] MEDS: LACTATED RINGERS 1,000 ML IV SCH (21:27)
[2016-10-23] MEDS: ALBUTEROL/IPRATROPIUM 3 ML NEB RESP TX SCH ×7 (00:13→23:30)
[2016-10-23] MEDS: HYDROmorphone 2 MG/1 ML VIAL IV PRN ×6 (00:30→19:57)
[2016-10-23] MEDS: LACTATED RINGERS 1,000 ML IV SCH ×4 (02:23→23:25)
[2016-10-23] MEDS: PHENYLEPHRINE DRIP 40 MG/250 ML PREMIX IV SCH (02:23)
[2016-10-23] MEDS: PIPERACILLIN/TAZOBACTAM 3,375 MG in SODIUM CHLORIDE 0.9% 100 ML IV SCH ×3 (02:50→18:17)
[2016-10-23] MEDS: metroNIDAZOLE INJ 500 MG in PREMIX 1 EACH IV SCH ×3 (02:51→19:55)
[2016-10-23 04:25] LABS: ABG Base Excess 2.2 MMOL/L (-2.5-2.5); ABG HCO3 26.4 MMOL/L (20-26); ABG PH 7.394 (7.35-7.45); ABG TCO2 24.5 MMOL/L (23-27); Allen Test Positive; Pt O2 Delivery Device Ventilator
--- NOTE | 2016-10-23 04:47 | EKG Report ---
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
[2016-10-23] MEDS: PROPOFOL 1,000 MG/100 ML BOTTLE IV SCH (05:10)
[2016-10-23] MEDS ORDERED: LACTATED RINGERS 1,000 ML IV ONE (05:39)
[2016-10-23] MEDS ORDERED: ALBUMIN 25% 25 GM in PREMIX 1 EACH IV ONE (05:53)
[2016-10-23 06:06] LABS: Basophils % 0.1 % (0.0-0.8); Hematocrit 32.8 VOL% (42.0-52.0); Hemoglobin 11.3 GM/DL (14.0-18.0); Immature Granulocytes % 0.6 %; Immature Granulocytes Absolute 0.07 #; Lymphocytes # 1.7 10*3/uL (1.4-4.0); Lymphocytes % 13.1 % (21.2-54.2); Mean Corpuscular HGB Conc 34.5 GM/DL (32-36); Mean Corpuscular Hemoglobin 32 PG (27-34); Mean Corpuscular Volume 93.7 FL (87-102); Mean Platelet Volume 8.3 FL (9.6-12.0); Monocytes % 7.7 % (1.7-12.7); Neutrophils # 9.9 10*3/uL (1.4-7.4); Neutrophils % 78.5 % (38.7-73.9); Platelet Count 272 T/CUMM (130-400); Red Cell Distribution Width 12.8 % (9.3-17.3); White Blood Count 12.6 T/CUMM (4-12)
--- NOTE | 2016-10-23 06:18 | Event Note ---
Afebrile. Hypotensive. David-Synephrine at 40 mics per minute. Urine output adequate overnight but has dropped off in the last 2 hours to about 20 cc/h. He has had some pain. His dipper Van is being held for his hypotension currently. On exam his abdomen is soft mildly distended and moderately tender. Incision looks okay. MAXIMINO drain with moderate serosanguineous fluid but there is nothing that appears bilious tinged or succus in nature. White blood cell count improved to 12.8. H&H lower, likely secondary to dilution. No evidence of active bleeding. There was minimal blood loss the time of surgery. His BMP is pending. We will give him some albumin and an IV fluid bolus and continue antibiotics and resuscitation. Hopefully will be able to begin weaning the David- Synephrine. Remains in guarded condition. Family was updated after surgery but I am not sure they grasped just how sick he is.
[2016-10-23 06:27] LABS: Hypochromasia Slight; Microcytosis 1+; Platelet Estimate Adequate
[2016-10-23 06:40] LABS: Osmolality,Calculated 283.5 MOS/KG (273-304); Potassium 5.7 MMOL/L (3.5-5.1)
[2016-10-23] MEDS ORDERED: ALBUMIN 25% 12.5 GM in PREMIX 1 EACH IV ONE (07:00)
--- NOTE | 2016-10-23 07:33 | Pulmonology Consult Note ---
Assessment and Plan (1) Status post abdominal aortic aneurysm (AAA) repair Status: Resolved Assessment and plan: The patient has had previous abdominal surgery. Current Visit: No (2) COPD (chronic obstructive pulmonary disease) Status: Chronic Assessment and plan: The patient has significant COPD and will continue with bronchodilator therapy. Current Visit: No Qualifiers: COPD type: chronic bronchitis Chronic bronchitis type: mucopurulent Qualified Code(s): J41.1 - Mucopurulent chronic bronchitis (3) Hypertension Status: Chronic Assessment and plan: The patient's blood pressures been on the low side and is getting low-dose pressors. Current Visit: No Qualifiers: Hypertension type: essential hypertension Qualified Code(s): I10 - Essential (primary) hypertension (4) Unspecified sleep apnea Status: Chronic Assessment and plan: The patient may need CPAP after being extubated. Current Visit: No (5) Perforated viscus Status: Acute Assessment and plan: Patient came in with a perforated ulcer. He is fairly stable postop. Current Visit: Yes (6) Surgical pneumoperitoneum Status: Acute Assessment and plan: The patient has free air in his abdomen and was found to have a perforated ulcer. Current Visit: Yes History of Present Illness Chief complaint: Ventilator management History of present illness: Mr. Otto is a 66 year old white male that apparently came in last night with significant abdominal pain. He had free air on his CT and went to surgery last night for exploratory lap. He was found to have a perforated peptic ulcer that was repaired. He has been on the ventilator postop. The patient does have significant COPD. He was in the hospital in September with an exacerbation of his COPD and was somewhat difficult to clear up. During that admission he had some abdominal bloating and discomfort and had a C scope. He did go home on tapering steroids but has been off the steroids for a little while. He does use bronchodilator therapy. He is a former smoker. He is stable on the ventilator at present. Home Medications Medication Instructions Recorded Confirmed Type Albuterol Sulfate [Ventolin HFA] 2 puffs PO Q6HR PRN 09/24/16 09/24/16 History Cetirizine Tab [ZyrTEC Tab] 10 mg PO DAILY 09/24/16 09/24/16 History Cyanocobalamin (Vitamin B-12) 1 tablet PO DAILY 09/24/16 09/24/16 History [Vitamin B-12] Meloxicam 7.5 mg PO DAILY 09/24/16 09/24/16 History Tiotropium Br/Olodaterol HCl 2.5 mcg INH BEDTIME 09/24/16 09/24/16 History [Stiolto Respimat Inhal [place]] amLODIPine [Norvasc] 10 mg PO DAILY 09/24/16 09/24/16 History Acetaminophen Tab [Tylenol Tab] 650 mg PO Q6H PRN #0 tablet 10/03/16 Rx Albuterol/Ipratropium Neb [Duoneb] 3 ml RESP TX RT Q6H #120 10/03/16 Rx Docusate Sodium Cap [Colace Cap] 100 mg PO BID capsule 10/03/16 Rx Famotidine Tab [Pepcid Tab] 20 mg PO BID #60 tablet 10/03/16 Rx Fluconazole Tab [Diflucan Tab] 100 mg PO DAILY #14 tablet 10/03/16 Rx Lactobacillus Rhamnosus GG 1 capsule PO BID #60 capsule 10/03/16 Rx [Culturelle] Magnesium Hydroxide Susp [Milk of 30 ml PO DAILY PRN #0 10/03/16 Rx Magnesia] Potassium Chloride Cap/Tab [K Dur] 20 meq PO BID #60 tablet 10/03/16 Rx Propranolol Tab [Inderal Tab] 40 mg PO BID #60 tablet 10/03/16 Rx Simethicone Chew Tab [Mylicon Chew 80 mg PO QID #120 tablet 10/03/16 Rx Tab] Allergies Allergy/AdvReac Type Severity Reaction Status Date / Time No Known Allergies Allergy Verified 10/22/16 14:48 ROS unobtainable: due to endotracheal tube (He is unable to give any history since he is on the ventilator.) Exam (Pulmonay) H&P - Constitutional Vitals: Period Temp Pulse Resp BP Sys/Peace Pulse Ox Last 24 Hr 96.1 F-98.4 F 73-127 10-27 71-172/50-110 92-100 General appearance: normal weight, no acute distress (He is stable on the ventilator at present.) - Head Head exam: Present: normal inspection, normocephalic - Eye Eye exam: Present: EOMI. Absent: scleral icterus Pupils: Present: SERA - ENT ENT exam: Present: other (ET tube is in good position) - Neck Neck exam: Present: normal inspection. Absent: lymphadenopathy, thyromegaly - Respiratory Respiratory exam: Present: decreased breath sounds. Absent: wheezes (He is moving air fairly well on the ventilator) - Cardiovascular Cardiovascular exam: Present: regular rate and rhythm. Absent: gallop, systolic murmur - GI/Abdominal GI/Abdominal exam: Present: distended, tenderness (His abdomen is postop with some drains present), soft - Extremities Exam Extremities exam: Absent: calf tenderness, edema - Neurological Exam Neurological exam: Present: other (He is sedated on the ventilator.) - Skin Skin exam: Present: warm, dry Medical,Surgical,& Family Hx - Medical History Cardio: History of: Aneurysm (aortic aneurysm), Cardiac Dysrhythmia (sinus tachycardia), Hypertension, Cardiovascular Problems (syncope) Psychological: History of: Depression No history of: Anxiety Disorders, ADHD, Behavior Problems, Bipolar Disorder, Previous Suicide Attempt, Schizophrenia, Violent Behavior, Psychiatric Problems HEENT: History of: HEENT Problems (sinus drainage; hx nosebleeds) Endocrine: History of: Dyslipidemia Respiratory: History of: COPD, Respiratory Problems (chronic shortness of breath ) Gastrointestinal: History of: GERD - Surgical History Cardiac Surgeries: Sugical HX of: Cardiac Surgery (aortic aneurysm repair surger ) Neurologic Surgeries: Patient denies: Neurologic Surgery HEENT Surgeries: Patient denies: Thyroid Surgery Abdominal Surgeries: Surgical HX of: Appendectomy, Colonoscopy (Dr. Alvarado), EGD (dilatation) Reproductive Surgeries: Patient denies;: Genitourinary Surgery - Family History Family History: Reports;: Family Cancer - Social History Smoking Status: Former smoker Frequency of Alcohol Use: None Type of Drug Use: None Results - Labs CBC & BMP: 10/23/16 05:57 10/23/16 05:57 Labs: His PO2 is 145 with a PCO2 of 45 and a pH of 7.39 - Diagnostic Findings Procedure: Chest x-ray: image reviewed by me, report reviewed by me (Chest x- ray shows COPD changes but no infiltrates.) Quality Measures - VTE Contraindication to Pharmacological VTE Prophylaxis: High Risk of Bleeding
--- NOTE | 2016-10-23 08:07 | Physician Query Form ---
CLICK EDIT DOCUMENT TO SELECT QUERY ANSWER --> OK --> SIGN Maegan East RN, CCDS Certified Clinical Conference Services Coordinator W) [phone] (f) [phone] [email or web address] PROVIDERS: Make your selection(s) from the choices in EACH section by typing an "x" and enter comments in the comment section. Please use your independent medical judgment in providing your response. This request does not imply that any particular answer is desired or expected. CLINICAL INDICATORS: (Providers should not edit this section) The medical record indicates that the patient was admitted for a Perforated Viscus Ulcer, had surgery, creatinine of 2.00 on the 7th that has increased to 2.20 on the 8th, GFR of 36 on the that has decreased to 32# on the 8th and the patient was placed on LR/ David. Clarify which of the following most accurately represents the patient's renal status: ( ) Acute kidney injury (non-traumatic) ( ) Acute renal failure ( ) Acute renal failure with underlying Chronic Kidney Disease (CKD) - please provide stage below ( ) Acute renal failure with pathological renal lesion ( ) Acute renal failure with necrosis ( ) tubular ( ) medullary ( ) cortical ( ) CKD - please provide stage below ( ) End Stage Renal Disease ( ) Acute interstitial nephritis ( ) Hepatorenal syndrome ( ) Other, please specify: ( ) Clinically unable to determine Chronic Kidney Disease Stages Source: National Kidney Disease Foundation ( ) Stage I (eGFR > or = 90) ( ) Stage II (eGFR 60 - 89) ( ) Stage III (eGFR 30 - 59) ( ) Stage IV (eGFR 15 - 29) ( ) Stage V (eGFR < 15 or dialysis) COMMENTS: PLEASE ALSO DOCUMENT RESPONSE IN PROGRESS NOTES AND/OR DISCHARGE SUMMARY Use of terms such as suspected, likely, or probable (associated with a specific diagnosis that is being evaluated, monitored, or treated as if it exists) are acceptable and can be restated in the discharge summary if not ruled out. MTDD
--- NOTE | 2016-10-23 08:11 | XRay Report ---
XR chest 1V portable Indication: Ventilator Comparison: Chest x-ray dated October 22, 2016 Technique: Single frontal view of the chest. Findings: Endotracheal tube stable in positioning. Mild scattered opacities within the right suprahilar region and left lung base suspicious for infectious/inflammatory process. These appear similar to comparison study. Visualized osseous and surrounding soft tissue structures appear grossly unchanged. IMPRESSION: As above. PROCEDURE INTERPRETED AT [facility] DEPARTMENT OF RADIOLOGY Final Report Signed by: Dr Cristiano Lao
--- NOTE | 2016-10-23 08:15 | Physician Query Form ---
CLICK EDIT DOCUMENT TO SELECT QUERY ANSWER --> OK --> SIGN Maegan East RN, CCDS Certified Clinical Automatic Fabric Cutter W) [phone] (f) [phone] [email or web address] PROVIDERS: Make your selection(s) from the choices in EACH section by typing an "x" and enter comments in the comment section. Please use your independent medical judgment in providing your response. This request does not imply that any particular answer is desired or expected. CLINICAL INDICATORS: (Providers should not edit this section) The medical record indicates that the patient was admitted for a Perforated Viscus Ulcer, had surgery, creatinine of 2.00 on the 7th that has increased to 2.20 on the 8th, GFR of 36 on the 7that has decreased to 32# on the 8th and the patient was placed on LR/ David. Clarify which of the following most accurately represents the patient's renal status: ( ) Acute kidney injury (non-traumatic) ( ) Acute renal failure ( ) Acute renal failure with underlying Chronic Kidney Disease (CKD) - please provide stage below ( ) Acute renal failure with pathological renal lesion ( ) Acute renal failure with necrosis ( ) tubular ( ) medullary ( ) cortical ( ) CKD - please provide stage below ( ) End Stage Renal Disease ( ) Acute interstitial nephritis ( ) Hepatorenal syndrome ( ) Other, please specify: ( ) Clinically unable to determine Chronic Kidney Disease Stages Source: National Kidney Disease Foundation ( ) Stage I (eGFR > or = 90) ( ) Stage II (eGFR 60 - 89) ( ) Stage III (eGFR 30 - 59) ( ) Stage IV (eGFR 15 - 29) ( ) Stage V (eGFR < 15 or dialysis) COMMENTS: PLEASE ALSO DOCUMENT RESPONSE IN PROGRESS NOTES AND/OR DISCHARGE SUMMARY Use of terms such as suspected, likely, or probable (associated with a specific diagnosis that is being evaluated, monitored, or treated as if it exists) are acceptable and can be restated in the discharge summary if not ruled out. MTDD
[2016-10-23 09:41] LABS: Pt O2 Delivery Device Ventilator
[2016-10-23 09:42] LABS: ABG Base Excess 1.6 MMOL/L (-2.5-2.5); ABG HCO3 25.8 MMOL/L (20-26); ABG PCO2 48.4 MM HG (35-48); ABG PH 7.364 (7.35-7.45); ABG PO2 79.2 MM HG (80-95)
[2016-10-23] MEDS: PANTOPRAZOLE 40 MG VIAL IV SCH (10:46)
[2016-10-23] MEDS ORDERED: PHENYLEPHRINE 1 MG/10 ML SYRINGE IV ONE (17:35)
[2016-10-23] MEDS ORDERED: PROPOFOL 200 MG/20 ML VIAL IV ONE (17:35)
[2016-10-23] MEDS ORDERED: LIDOCAINE 100 MG/5 ML SYRINGE ONE (17:35)
[2016-10-23] MEDS ORDERED: ONDANSETRON 4 MG/2 ML VIAL ONE (17:35)
[2016-10-23] MEDS ORDERED: SUCCINYLCHOLINE 200 MG/10 ML VIAL ONE (17:35)
[2016-10-23] MEDS ORDERED: ROCURONIUM 100 MG/10 ML VIAL IV ONE (17:35)
--- NOTE | 2016-10-23 17:54 | Internal Medicine Consult Note ---
Assessment and Plan (1) Perforated viscus Status: Acute Current Visit: Yes (2) Surgical pneumoperitoneum Status: Acute Current Visit: Yes (3) Abdominal pain Problem details: abdominal gas Status: Chronic Current Visit: Yes Qualifiers: Abdominal location: periumbilical Qualified Code(s): R10.33 - Periumbilical pain (4) COPD (chronic obstructive pulmonary disease) Status: Chronic Current Visit: Yes Qualifiers: COPD type: chronic bronchitis Chronic bronchitis type: mucopurulent Qualified Code(s): J41.1 - Mucopurulent chronic bronchitis (5) Chronic fatigue Problem details: improved Status: Chronic Current Visit: Yes (6) History of constipation Status: Chronic Current Visit: Yes (7) Hypertension Status: Chronic Current Visit: Yes Qualifiers: Hypertension type: essential hypertension Qualified Code(s): I10 - Essential (primary) hypertension (8) Unspecified sleep apnea Status: Chronic Current Visit: No Qualifiers: Sleep apnea type: obstructive Qualified Code(s): G47.33 - Obstructive sleep apnea (adult) (pediatric) History of Present Illness - Data of Consult Patient: known to practice within the last 3 years Consult date: 10/23/16 Requesting Physician: Marc Skaggs Primary care physician: Laila Wyatt - Consult Narrative Reason for consult: medicine History of present illness: Mr. Otto is a 66 year old male with history of HTN, acid reflux, essential tremors controlled on propranolol, COPD with recurrent bronchitis, suspected obstructive sleep apnea, who is here in hospital with perforated duodenal ulcer and status post surgical repair per Dr. Skaggs. He tolerated surgery well. He recently was hospitalized for extensive workup of abdominal distention/gas and bloating without revealing etiology. He underwent outpatient colonoscopy and perforated bowel was noted. He is having what may be rebound tachycardia from sudden cessation of beta katie, propranolol. Low dose Metoprolol IV has been added to help until post surgical ileus has resolved that he can have home meds back again. Otherwise he is reasonably comfortable. He is breathing shallow to avoid abdominal pain at surgical site. Obtaining breathing treatments to help with oxygen saturation. CC: Marc Skaggs MD - Home Medications and Allergies Home Medications: Home Medications Medication Instructions Recorded Confirmed Type Albuterol Sulfate [Ventolin HFA] 2 puffs PO Q6HR PRN 09/24/16 10/23/16 History Cetirizine Tab [ZyrTEC Tab] 10 mg PO DAILY 09/24/16 10/23/16 History Cyanocobalamin (Vitamin B-12) 1 tablet PO DAILY 09/24/16 10/23/16 History [Vitamin B-12] Meloxicam 7.5 mg PO DAILY 09/24/16 10/23/16 History Tiotropium Br/Olodaterol HCl 2.5 mcg INH BEDTIME 09/24/16 10/23/16 History [Stiolto Respimat Inhal [place]] amLODIPine [Norvasc] 10 mg PO DAILY 09/24/16 10/23/16 History Acetaminophen Tab [Tylenol Tab] 650 mg PO Q6H PRN #0 tablet 10/03/16 10/23/16 Rx Albuterol/Ipratropium Neb [Duoneb] 3 ml RESP TX RT Q6H #120 10/03/16 10/23/16 Rx Docusate Sodium Cap [Colace Cap] 100 mg PO BID capsule 10/03/16 10/23/16 Rx Famotidine Tab [Pepcid Tab] 20 mg PO BID #60 tablet 10/03/16 10/23/16 Rx Lactobacillus Rhamnosus GG 1 capsule PO BID #60 capsule 10/03/16 10/23/16 Rx [Culturelle] Magnesium Hydroxide Susp [Milk of 30 ml PO DAILY PRN #0 10/03/16 10/23/16 Rx Magnesia] Potassium Chloride Cap/Tab [K Dur] 20 meq PO BID #60 tablet 10/03/16 10/23/16 Rx Propranolol Tab [Inderal Tab] 40 mg PO BID #60 tablet 10/03/16 10/23/16 Rx Simethicone Chew Tab [Mylicon Chew 80 mg PO QID #120 tablet 10/03/16 10/23/16 Rx Tab] Allergies/Adverse Reactions: Allergies Allergy/AdvReac Type Severity Reaction Status Date / Time No Known Allergies Allergy Verified 10/22/16 14:48 - Constitutional Constitutional: Present: fatigue - Cardiovascular Cardiovascular: Absent: chest pain at rest - Respiratory Respiratory: Present: pain on inspiration (abdominal pain) - Gastrointestinal Gastrointestinal: Present: abdominal pain - Neurological Neurological: Present: tremor(s) Medical,Surgical,& Family Hx - Medical History Cardio: History of: Aneurysm (aortic aneurysm), Cardiac Dysrhythmia (sinus tachycardia), Hypertension, Cardiovascular Problems (syncope) Psychological: History of: Depression No history of: Anxiety Disorders, ADHD, Behavior Problems, Bipolar Disorder, Previous Suicide Attempt, Schizophrenia, Violent Behavior, Psychiatric Problems Neurology: History of: Neurological Problems (tremors right hand/arm) HEENT: History of: HEENT Problems (sinus drainage; hx nosebleeds) Endocrine: History of: Dyslipidemia Respiratory: History of: COPD, Respiratory Problems (chronic shortness of breath ) Gastrointestinal: History of: GERD, GI Problems (recent bloating) Hematology: History of: Anemia - Surgical History Cardiac Surgeries: Sugical HX of: Cardiac Surgery (aortic aneurysm repair surger ) Neurologic Surgeries: Patient denies: Neurologic Surgery HEENT Surgeries: Patient denies: Thyroid Surgery Abdominal Surgeries: Surgical HX of: Appendectomy, Colonoscopy (Dr. Alvarado), EGD (dilatation) Reproductive Surgeries: Patient denies;: Genitourinary Surgery - Family History Family History: Reports;: Family Cancer - Social History Smoking Status: Former smoker Frequency of Alcohol Use: None Type of Drug Use: None Marital Status: Lives With:: Children (daughter) Functional capacity: independent ambulation Exam (Progress Note) - Constitutional Vitals: Period Temp Pulse Resp BP Sys/Peace Pulse Ox Last 24 Hr 97.0 F-99.9 F 73-118 10-25 71-167/50-91 87-100 General appearance: no acute distress - Head Head exam: Present: normocephalic - Eye Eye exam: Present: EOMI - Respiratory Respiratory exam: Present: clear to auscultation bilaterally - Cardiovascular Cardiovascular exam: Present: tachycardia - GI/Abdominal GI/Abdominal exam: Present: tenderness, other (no bowel sounds) - Extremities Exam Extremities exam: Absent: edema - Neurological Exam Neurological exam: Present: alert - Psychiatric Psychiatric exam: Present: normal mood - Skin Skin exam: Present: warm, dry Results - Labs CBC & BMP: 10/23/16 05:57 10/23/16 05:57 - EKG EKG shows: tachycardia - Diagnostic Findings Procedure: CT Abdomen and Pelvis: report reviewed by me
[2016-10-23] MEDS ORDERED: METOPROLOL TARTRATE 5 MG/5 ML VIAL IV ONE (18:03)
[2016-10-23] MEDS ORDERED: ACETAMINOPHEN 650 MG SUPP RECTAL PRN (20:34)
[2016-10-23] MEDS ORDERED: METOPROLOL TARTRATE 5 MG/5 ML VIAL IV SCH (22:00)
[2016-10-24] MEDS: HYDROmorphone 2 MG/1 ML VIAL IV PRN ×6 (00:02→21:38)
[2016-10-24] MEDS: METOPROLOL TARTRATE 5 MG/5 ML VIAL IV SCH ×4 (01:18→23:11)
[2016-10-24] MEDS: ALBUTEROL/IPRATROPIUM 3 ML NEB RESP TX SCH ×7 (02:48→23:33)
[2016-10-24 03:38] LABS: ABG Base Excess 0.4 MMOL/L (-2.5-2.5); ABG HCO3 24.6 MMOL/L (20-26); ABG Oxygen Saturation 89.2 % (95-100); ABG PCO2 44.5 MM HG (35-48); ABG PH 7.373 (7.35-7.45); ABG TCO2 23.3 MMOL/L (23-27); Allen Test Positive
[2016-10-24] MEDS: metroNIDAZOLE INJ 500 MG in PREMIX 1 EACH IV SCH ×3 (03:51→20:01)
[2016-10-24] MEDS: PIPERACILLIN/TAZOBACTAM 3,375 MG in SODIUM CHLORIDE 0.9% 100 ML IV SCH ×3 (03:52→17:17)
[2016-10-24 05:17] LABS: Basophils % 0.2 % (0.0-0.8); Eosinophils # 0.1 10*3/uL (0.0-0.87); Eosinophils % 0.6 % (0.00-10.9); Hematocrit 35.6 VOL% (42.0-52.0); Hemoglobin 11.7 GM/DL (14.0-18.0); Immature Granulocytes % 0.9 %; Immature Granulocytes Absolute 0.12 #; Lymphocytes # 2.2 10*3/uL (1.4-4.0); Lymphocytes % 16.6 % (21.2-54.2); Mean Corpuscular HGB Conc 32.9 GM/DL (32-36); Mean Corpuscular Hemoglobin 31 PG (27-34); Mean Corpuscular Volume 95.4 FL (87-102); Mean Platelet Volume 9.2 FL (9.6-12.0); Monocytes # 1.4 10*3/uL (0.11-0.8); Monocytes % 10.5 % (1.7-12.7); Neutrophils # 9.4 10*3/uL (1.4-7.4); Neutrophils % 71.2 % (38.7-73.9); Platelet Count 238 T/CUMM (130-400); Red Blood Count 3.73 MC/CUMM (3.8-5.5); Red Cell Distribution Width 13.1 % (9.3-17.3); White Blood Count 13.2 T/CUMM (4-12)
[2016-10-24] MEDS ORDERED: PANTOPRAZOLE 40 MG VIAL IV ONE (05:19)
[2016-10-24] MEDS ORDERED: FAMOTIDINE 20 MG/2 ML VIAL IV ONE (05:19)
--- NOTE | 2016-10-24 05:36 | EKG Report ---
Stationary ECG Study [facility] Test Date: 10/24/2016 5:02 AM Pat Name: IMELDA CRUZ Department: Room: 115 Gender: M Coagulating Operator: RAMÓN LEA : [id number] Requested by: Marc Skaggs Order Number: [id number] Reading MD: AMANUEL ERVIN Intervals [place] Rate: 115 P: 56 [place]: 144 QRS: 18 QRSD: 85 T: 33 QT: 294 QTc: 362 Interpretive Statements SINUS TACHYCARDIA ABNORMAL RHYTHM ECG Electronically Signed On 10-26-16 15:09:55 CDT by AMANUEL ERVIN [email or web address]
[2016-10-24] MEDS: LACTATED RINGERS 1,000 ML IV SCH ×4 (05:45→23:56)
[2016-10-24 05:52] LABS: Calcium 8.1 MG/DL (8.5-10.1); Osmolality,Calculated 277.7 MOS/KG (273-304); Potassium 4.2 MMOL/L (3.5-5.1)
[2016-10-24 06:03] LABS: Hypochromasia Slight; Lymphocytes 16 % (20-55); Platelet Estimate Adequate; Segmented Neutrophils 73 % (50-85); Total Cells Counted 100
--- NOTE | 2016-10-24 08:01 | XRay Report ---
XR chest 1V portable Indication: SOB Comparison: Chest x-ray dated October 23, 2016 Technique: Single frontal view of the chest. Findings: The cardiomediastinal silhouette is stable in configuration. Mildly increased bibasilar and left midlung atelectasis/consolidation suspicious for pneumonia. Continued small left pleural fluid. Visualized osseous and surrounding soft tissue structures appear grossly unchanged. IMPRESSION: As above. PROCEDURE INTERPRETED AT [facility] DEPARTMENT OF RADIOLOGY Final Report Signed by: Dr Cristiano Lao
--- NOTE | 2016-10-24 08:06 | Pulmonology Progress Note ---
Pulmonary - PN: Subj Interval history: The patient is a 66 year white man that came in with abdominal pain and was found to have a perforated ulcer. He is status post exploratory lap. He does have fairly significant COPD but came off the ventilator fairly well yesterday. He was somewhat dehydrated with elevated renal insufficiency but this is improving with fluids. He has been on a beta-katie in the past and his heart rate was a little elevated. It is better at the present time. He has not been having any flatus and he still has considerable abdominal bloating. He said he had a very uncomfortable night. He is still requiring NG suctioning. He feels like his breathing is doing reasonably well although he is mildly hypoxemic. His chest x-ray stable at present. Exam (Progress Note) - Constitutional Vitals: Period Temp Pulse Resp BP Sys/Peace Pulse Ox Last 24 Hr 98.6 F-101.4 F 79-119 12-27 104-150/56-78 87-100 Exam: General appearance: normal weight, no acute distress (He is alert and talking and looks reasonably stable.) - Head Head exam: Present: normal inspection, normocephalic - Eye Eye exam: Present: EOMI. Absent: scleral icterus Pupils: Present: SERA - ENT ENT exam: Present: Unremarkable, he does have an NG tube in place. - Neck Neck exam: Present: normal inspection. Absent: lymphadenopathy, thyromegaly - Respiratory Respiratory exam: Present: decreased breath sounds. He is moving air okay without a lot of wheezing. - Cardiovascular Cardiovascular exam: Present: regular rate and rhythm. He has some mild tachycardia. Absent: gallop, systolic murmur - GI/Abdominal GI/Abdominal exam: Present: His abdomen is still quite distended and fairly tight with hypoactive bowel sounds. - Extremities Exam Extremities exam: Absent: calf tenderness, edema - Neurological Exam Neurological exam: Present: He is alert and talking and moving his extremities well. - Skin Skin exam: Present: warm, dry Results - Labs CBC & BMP: 10/24/16 03:50 10/24/16 03:50 Labs: The PO2 is 58 with a PCO2 of 44 and a pH of 7.37 - Diagnostic Findings Procedure: Chest x-ray: image reviewed by me, report reviewed by me (Chest x- ray shows COPD changes but no infiltrates.) Assessment and Plan (1) COPD (chronic obstructive pulmonary disease) Status: Chronic Assessment and plan: The patient has significant COPD and will continue with bronchodilator therapy. He is breathing reasonably comfortable at present although he is mildly hypoxemic. Will try to avoid steroids for now. He will continue with vigorous respiratory therapy. Current Visit: Yes Qualifiers: COPD type: chronic bronchitis Chronic bronchitis type: mucopurulent Qualified Code(s): J41.1 - Mucopurulent chronic bronchitis (2) Hypertension Status: Chronic Assessment and plan: The patient's blood pressure has improved and his blood pressure is better. His renal function is also better. Current Visit: Yes Qualifiers: Hypertension type: essential hypertension Qualified Code(s): I10 - Essential (primary) hypertension (3) Unspecified sleep apnea Status: Chronic Assessment and plan: The patient may need CPAP after being extubated. He is breathing comfortably at present. Current Visit: No Qualifiers: Sleep apnea type: obstructive Qualified Code(s): G47.33 - Obstructive sleep apnea (adult) (pediatric) (4) Perforated viscus Status: Acute Assessment and plan: Patient came in with a perforated ulcer. He is fairly stable postop. He does have a postop ileus. Current Visit: Yes (5) Surgical pneumoperitoneum Status: Acute Assessment and plan: The patient has free air in his abdomen and was found to have a perforated ulcer. He is status post repair of the gastric ulcer. Current Visit: Yes
[2016-10-24] MEDS: PANTOPRAZOLE 40 MG VIAL IV SCH (09:12)
--- NOTE | 2016-10-24 11:46 | Event Note ---
Postop day 2 status post repair of perforated duodenal ulcer. Febrile overnight 201.4, now afebrile. Vital signs stable with some tachycardia thought to be rebound from his propanolol therapy. Dr. Laila Wyatt is treating this. Urine output about 150 cc/h over the last several hours. He has been extubated. He states he had a rough night last night but today feels much better. Says he feels 100 times better than when he came in. He looks pretty comfortable. On exam he still pretty tender globally with a protuberant abdomen is similar to when he came in. NG tube has had minimal output. MAXIMINO drains with minimal serosanguineous output. White blood cell count slightly elevated today to 13,000. Creatinine improved 1.7. Plan: Decrease IV fluids. Continue NG tube suction. Continue antibiotics.
[2016-10-24] MEDS ORDERED: METOPROLOL TARTRATE 5 MG/5 ML VIAL IV SCH ×2 (14:24→18:00)
--- NOTE | 2016-10-24 14:37 | Internal Med Progress Note ---
Assessment and Plan (1) Perforated viscus Status: Acute Current Visit: Yes (2) Surgical pneumoperitoneum Status: Acute Current Visit: Yes (3) Abdominal pain Problem details: abdominal gas Status: Chronic Current Visit: Yes Qualifiers: Abdominal location: periumbilical Qualified Code(s): R10.33 - Periumbilical pain (4) COPD (chronic obstructive pulmonary disease) Status: Chronic Current Visit: Yes Qualifiers: COPD type: chronic bronchitis Chronic bronchitis type: mucopurulent Qualified Code(s): J41.1 - Mucopurulent chronic bronchitis (5) Chronic fatigue Problem details: improved Status: Chronic Current Visit: Yes (6) History of constipation Status: Chronic Current Visit: Yes (7) Hypertension Status: Chronic Current Visit: Yes Qualifiers: Hypertension type: essential hypertension Qualified Code(s): I10 - Essential (primary) hypertension (8) Unspecified sleep apnea Status: Chronic Current Visit: No Qualifiers: Sleep apnea type: obstructive Qualified Code(s): G47.33 - Obstructive sleep apnea (adult) (pediatric) Internal Medicine - PN: Subj Interval history: Mr. Otto is a 66 year old male with history of HTN, acid reflux, essential tremors controlled on propranolol, COPD with recurrent bronchitis, suspected obstructive sleep apnea, who is here in hospital with perforated duodenal ulcer and status post surgical repair per Dr. Skaggs. He tolerated surgery well. He recently was hospitalized for extensive workup of abdominal distention/gas and bloating without revealing etiology. He underwent outpatient colonoscopy and perforated bowel was noted. He is having what may be rebound tachycardia from sudden cessation of beta katie, propranolol. Low dose Metoprolol IV has been added to help until post surgical ileus has resolved that he can have home meds back again. Otherwise he is reasonably comfortable. He is breathing shallow to avoid abdominal pain at surgical site. Obtaining breathing treatments to help with oxygen saturation. He is still in sinus tachycardia. Increasing metoprolol IV frequency. Otherwise, he still complains of abdominal pain at surgical site. He is not wanting to take deep breaths because of abdominal pain. Exam (Progress Note) - Constitutional Vitals: Period Temp Pulse Resp BP Sys/Peace Pulse Ox Last 24 Hr 98.6 F-101.4 F 97-122 11-27 107-150/56-84 87-100 General appearance: no acute distress - Respiratory Respiratory exam: Present: clear to auscultation bilaterally - Cardiovascular Cardiovascular exam: Present: tachycardia - GI/Abdominal GI/Abdominal exam: Present: other (no bowel sounds) - Extremities Exam Extremities exam: Absent: edema - Neurological Exam Neurological exam: Present: alert - Psychiatric Psychiatric exam: Present: normal mood - Skin Skin exam: Present: warm, dry Results - Labs CBC & BMP: 10/24/16 03:50 10/24/16 03:50 Quality Measures - VTE Contraindication to Pharmacological VTE Prophylaxis: High Risk of Bleeding
[2016-10-24] MEDS: ONDANSETRON 4 MG/2 ML VIAL IV PRN (19:22)
[2016-10-25] MEDS: LACTATED RINGERS 1,000 ML IV SCH (00:51)
[2016-10-25] MEDS: PIPERACILLIN/TAZOBACTAM 3,375 MG in SODIUM CHLORIDE 0.9% 100 ML IV SCH ×3 (02:44→17:16)
[2016-10-25 02:47] LABS: Basophils % 0.2 % (0.0-0.8); Eosinophils # 0.1 10*3/uL (0.0-0.87); Eosinophils % 0.7 % (0.00-10.9); Hematocrit 35.8 VOL% (42.0-52.0); Hemoglobin 11.9 GM/DL (14.0-18.0); Immature Granulocytes % 1.2 %; Immature Granulocytes Absolute 0.18 #; Lymphocytes # 1.8 10*3/uL (1.4-4.0); Lymphocytes % 12.1 % (21.2-54.2); Mean Corpuscular HGB Conc 33.2 GM/DL (32-36); Mean Corpuscular Hemoglobin 31 PG (27-34); Mean Corpuscular Volume 93.2 FL (87-102); Mean Platelet Volume 9.1 FL (9.6-12.0); Monocytes # 1.5 10*3/uL (0.11-0.8); Monocytes % 10.3 % (1.7-12.7); Neutrophils # 11.1 10*3/uL (1.4-7.4); Neutrophils % 75.5 % (38.7-73.9); Platelet Count 269 T/CUMM (130-400); Red Blood Count 3.84 MC/CUMM (3.8-5.5); Red Cell Distribution Width 12.9 % (9.3-17.3); White Blood Count 14.7 T/CUMM (4-12)
[2016-10-25 03:13] LABS: Calcium 8.2 MG/DL (8.5-10.1); Osmolality,Calculated 273.8 MOS/KG (273-304); Potassium 4.2 MMOL/L (3.5-5.1)
[2016-10-25] MEDS: METOPROLOL TARTRATE 5 MG/5 ML VIAL IV SCH ×6 (03:16→22:36)
[2016-10-25] MEDS: ALBUTEROL/IPRATROPIUM 3 ML NEB RESP TX SCH ×6 (03:18→23:34)
[2016-10-25] MEDS: metroNIDAZOLE INJ 500 MG in PREMIX 1 EACH IV SCH ×3 (04:14→20:05)
[2016-10-25] MEDS: HYDROmorphone 2 MG/1 ML VIAL IV PRN ×5 (04:17→20:06)
--- NOTE | 2016-10-25 07:32 | Pulmonology Progress Note ---
Pulmonary - PN: Subj Interval history: This 66-year-old man had a perforated ulcer and went to surgery. He still has an ileus and has an NG tube to suction. He was able to be extubated postop. Oxygen saturations have been marginal but this morning he is alert and not complaining of shortness of breath. He did not tolerate the BiPAP last night and we will discontinue that. I am afraid his stomach may get hyperinflated with that. Exam (Progress Note) - Constitutional Vitals: Period Temp Pulse Resp BP Sys/Peace Pulse Ox Last 24 Hr 98.8 F-100.1 F 97-709 10 108-165/61-102 86-100 Exam: Patient is alert and responsive. Wearing 3 L nasal oxygen with O2 sat 91-92%. NG tube to wall suction. Vital signs normal. Pupils react to light. Throat clear. Neck supple no bruits. Chest sounds clear. Equal breath sounds. Heart normal rate rhythm no murmurs. Abdomen is soft there is some mild tenderness on the right side. He has a few bowel sounds. Extremities no clubbing cyanosis or edema. Calves nontender. Results - Labs CBC & BMP: 10/25/16 01:56 10/25/16 01:56 Lab Results: I have reviewed the past 24 hour labs Assessment and Plan (1) COPD (chronic obstructive pulmonary disease) Status: Chronic Assessment and plan: He is not actively wheezing. Continuing with bronchodilators. Adjust oxygen to try to get his O2 sat 92% or above. Current Visit: Yes Qualifiers: COPD type: chronic bronchitis Chronic bronchitis type: mucopurulent Qualified Code(s): J41.1 - Mucopurulent chronic bronchitis (2) Perforated viscus Status: Acute Assessment and plan: Perforated duodenal ulcer. Now status post laparotomy with Nain patch. Some postop ileus. Current Visit: Yes
[2016-10-25] MEDS: PANTOPRAZOLE 40 MG VIAL IV SCH ×2 (09:13→20:05)
--- NOTE | 2016-10-25 11:36 | Event Note ---
General Surgery Progress Note Chief complaint This patient is a 66-year-old man with a history of COPD admitted with a perforated duodenal ulcer treated with exploratory laparotomy with Nain patch closure of the duodenum by Dr. Skaggs on 10/22/2016 Interval history The patient did not tolerate BiPAP last night and he became bloated and refused treatment. His breathing is at baseline and his opinion and Dr. Fernandez is planning on discontinuing BiPAP. His Mccormack catheter still in place but his kidney function is improving. Has not passed gas or had a bowel movement yet. He has about 300 cc of bilious fluid in his NG canister and his MAXIMINO drain is serous fluid. He says he feels better each day but is still having some abdominal pain. Physical exam The patient is afebrile with slight tachycardia and his oxygen saturations were above 90% on 2 L Chest is clear Heart is regular but tachycardic with no murmurs Abdomen is soft nondistended with a clean incision. MAXIMINO drain is serous. Hypoactive bowel sounds. Expected postoperative tenderness. Labs Reviewed. Hemoglobin is stable. White blood cell count is slightly increased but the patient is on steroids Imaging Reviewed Assessment and plan We will transfer the patient to a floor bed today. Continue current respiratory therapy. Continue NG tube decompression of the stomach and monitor MAXIMINO drain output Repeat labs tomorrow Increase activity once on the floor Continue incentive spirometry SCDs and subcuteneous heparin for DVT prophylaxis
[2016-10-25] MEDS: DEXT 5% NACL 0.45% KCL 40 MEQ 40 MEQ/1,000 ML BAG IV SCH (12:52)
[2016-10-25] MEDS: HEPARIN 5,000 UNIT/1 ML VIAL SUBCUT SCH ×2 (13:02→20:05)
[2016-10-25] MEDS: PROPRANOLOL 40 MG TABLET PO SCH ×2 (15:54→20:06)
--- NOTE | 2016-10-25 15:55 | Family Practice Progress Note ---
Family Practice - PN: Subj Interval history: Patient is stable since arriving on the floor. Complaining of significant pain. Does not feel the present pain medicines are controlling his level of pain. He has been up in the room and sat in a chair. He denies any significant dyspnea. His a.m. labs are stable. Physical examination is stable at present. We will continue present treatment plan. Hopefully will continue to improve Exam (Progress Note) - Constitutional Vitals: Period Temp Pulse Resp BP Sys/Peace Pulse Ox Last 24 Hr 98.3 F-100.1 F 87-709 10- 108-165/62-102 86-106 Results - Labs CBC & BMP: 10/25/16 01:56 10/25/16 01:56 Quality Measures - VTE Contraindication to Pharmacological VTE Prophylaxis: High Risk of Bleeding
[2016-10-26] MEDS: HYDROmorphone 2 MG/1 ML VIAL IV PRN ×6 (00:21→21:50)
[2016-10-26] MEDS: PIPERACILLIN/TAZOBACTAM 3,375 MG in SODIUM CHLORIDE 0.9% 100 ML IV SCH ×3 (01:00→17:29)
[2016-10-26] MEDS: METOPROLOL TARTRATE 5 MG/5 ML VIAL IV SCH ×6 (02:23→21:05)
[2016-10-26] MEDS: DEXT 5% NACL 0.45% KCL 40 MEQ 40 MEQ/1,000 ML BAG IV SCH ×2 (02:24→15:39)
[2016-10-26] MEDS: ALBUTEROL/IPRATROPIUM 3 ML NEB RESP TX SCH ×5 (02:38→19:41)
[2016-10-26] MEDS: HEPARIN 5,000 UNIT/1 ML VIAL SUBCUT SCH ×3 (04:25→21:01)
[2016-10-26] MEDS: metroNIDAZOLE INJ 500 MG in PREMIX 1 EACH IV SCH ×3 (05:08→21:05)
[2016-10-26 06:09] LABS: Basophils % 0.3 % (0.0-0.8); Eosinophils # 0.1 10*3/uL (0.0-0.87); Eosinophils % 1.5 % (0.00-10.9); Hematocrit 33.7 VOL% (42.0-52.0); Hemoglobin 11.2 GM/DL (14.0-18.0); Immature Granulocytes % 1.4 %; Immature Granulocytes Absolute 0.13 #; Lymphocytes # 1.2 10*3/uL (1.4-4.0); Lymphocytes % 12.8 % (21.2-54.2); Mean Corpuscular HGB Conc 33.2 GM/DL (32-36); Mean Corpuscular Hemoglobin 31 PG (27-34); Mean Corpuscular Volume 92.8 FL (87-102); Mean Platelet Volume 9.6 FL (9.6-12.0); Monocytes # 1.1 10*3/uL (0.11-0.8); Monocytes % 12.2 % (1.7-12.7); Neutrophils # 6.7 10*3/uL (1.4-7.4); Neutrophils % 71.8 % (38.7-73.9); Platelet Count 230 T/CUMM (130-400); Red Blood Count 3.63 MC/CUMM (3.8-5.5); Red Cell Distribution Width 12.6 % (9.3-17.3); White Blood Count 9.4 T/CUMM (4-12)
[2016-10-26 06:39] LABS: Calcium 8.5 MG/DL (8.5-10.1); Magnesium 1.9 MG/DL (1.8-2.4); Osmolality,Calculated 278.4 MOS/KG (273-304)
[2016-10-26] MEDS: CETIRIZINE 10 MG TABLET PO SCH (09:34)
[2016-10-26] MEDS: amLODIPine 10 MG TABLET PO SCH (09:34)
[2016-10-26] MEDS: PANTOPRAZOLE 40 MG VIAL IV SCH ×2 (09:34→21:04)
[2016-10-26] MEDS: PROPRANOLOL 40 MG TABLET PO SCH ×2 (09:34→20:14)
--- NOTE | 2016-10-26 10:57 | Pulmonology Progress Note ---
Pulmonary - PN: Subj Interval history: This 66-year-old man had a perforated ulcer and went to surgery. He still has an ileus and has an NG tube to suction. He was able to be extubated postop. Oxygen saturations have been marginal but this morning he is alert and not complaining of shortness of breath. He did not tolerate the BiPAP last night and we will discontinue that. I am afraid his stomach may get hyperinflated with that. 10/26/2016 patient's breathing is better. Tolerating nasal biprong's. No new complaints Exam (Progress Note) - Constitutional Vitals: Period Temp Pulse Resp BP Sys/Peace Pulse Ox Last 24 Hr 98.3 F-99.3 F 87-110 11-20 114-149/67-80 90-106 Exam: Patient is alert and responsive. Wearing 3 L nasal oxygen with O2 sat 91-92%. NG tube to wall suction. Vital signs normal. Pupils react to light. Throat clear. Neck supple no bruits. Chest sounds clear. Equal breath sounds. Heart normal rate rhythm no murmurs. Abdomen is soft there is some mild tenderness on the right side. He has a few bowel sounds. Extremities no clubbing cyanosis or edema. Calves nontender. Little change from yesterday's exam Results - Labs CBC & BMP: 10/26/16 04:38 10/26/16 04:38 Lab Results: I have reviewed the past 24 hour labs Assessment and Plan (1) COPD (chronic obstructive pulmonary disease) Status: Chronic Assessment and plan: He is not actively wheezing. Continuing with bronchodilators. Adjust oxygen to try to get his O2 sat 92% or above. 10/26/2016 no bronchospasm. Continuing nasal oxygen and bronchodilators. Oxygen saturation 95% on 3 L. Current Visit: Yes Qualifiers: COPD type: chronic bronchitis Chronic bronchitis type: mucopurulent Qualified Code(s): J41.1 - Mucopurulent chronic bronchitis (2) Perforated viscus Status: Acute Assessment and plan: Perforated duodenal ulcer. Now status post laparotomy with Anin patch. Some postop ileus. 10/26/2016 status post laparotomy. No abdominal pain. Current Visit: Yes
--- NOTE | 2016-10-26 11:51 | Family Practice Progress Note ---
Family Practice - PN: Subj Interval history: Patient remained stable. Vitals are stable this a.m. He is still on nasal O2 at 3 L with an oxygen saturation of 95%. Patient has persistent NG tube present. His abdomen is soft with some diffuse tenderness occasional bowel sounds present. We will continue present treatment plan Exam (Progress Note) - Constitutional Vitals: Period Temp Pulse Resp BP Sys/Peace Pulse Ox Last 24 Hr 98.3 F-99.3 F 87-110 11-20 114-149/67-80 90-106 Results - Labs CBC & BMP: 10/26/16 04:38 10/26/16 04:38 Quality Measures - VTE Contraindication to Pharmacological VTE Prophylaxis: High Risk of Bleeding
--- NOTE | 2016-10-26 12:20 | Event Note ---
General Surgery Progress Note Chief complaint This patient is a 66-year-old man with a history of COPD admitted with a perforated duodenal ulcer treated with exploratory laparotomy with Nain patch closure of the duodenum by Dr. Skaggs on 10/22/2016 Interval history Patient transferred to floor yesterday. He is doing well. He states he has chronic abdominal distention even before he got sick recently with his ulcer and his perforation. Physical exam The patient is afebrile with normal vital signs Chest is clear Heart is regular with no murmurs Abdomen is soft but appears distended with a clean incision. MAXIMINO drain is serous. Normal bowel sounds Labs Reviewed. Hemoglobin is stable. White blood cell count is normal Imaging Reviewed Assessment and plan Clamp NG tube today Continue IV fluids Increase activity
[2016-10-27] MEDS: ALBUTEROL/IPRATROPIUM 3 ML NEB RESP TX SCH ×7 (00:52→23:46)
[2016-10-27] MEDS: DEXT 5% NACL 0.45% KCL 40 MEQ 40 MEQ/1,000 ML BAG IV SCH (01:00)
[2016-10-27] MEDS: HYDROmorphone 2 MG/1 ML VIAL IV PRN ×6 (01:00→21:36)
[2016-10-27] MEDS: PIPERACILLIN/TAZOBACTAM 3,375 MG in SODIUM CHLORIDE 0.9% 100 ML IV SCH ×3 (01:14→17:32)
[2016-10-27] MEDS: METOPROLOL TARTRATE 5 MG/5 ML VIAL IV SCH ×6 (01:14→21:41)
[2016-10-27] MEDS: HEPARIN 5,000 UNIT/1 ML VIAL SUBCUT SCH ×3 (05:20→21:50)
[2016-10-27] MEDS: metroNIDAZOLE INJ 500 MG in PREMIX 1 EACH IV SCH ×3 (05:20→21:55)
[2016-10-27 06:58] LABS: Osmolality,Calculated 283.1 MOS/KG (273-304); Potassium 3.9 MMOL/L (3.5-5.1)
--- NOTE | 2016-10-27 07:25 | Physician Query Form ---
CLICK EDIT DOCUMENT TO SELECT QUERY ANSWER --> OK --> SIGN Maegan East RN, CCDS Certified Clinical Oil Expeller Operator W) [phone] (f) [phone] [email or web address] PROVIDERS: Make your selection(s) from the choices in EACH section by typing an "x" and enter comments in the comment section. Please use your independent medical judgment in providing your response. This request does not imply that any particular answer is desired or expected. CLINICAL INDICATORS: (Providers should not edit this section) The medical record indicates that the patient was admitted for a Perforated Viscus Ulcer, had surgery, creatinine of 2.00 on the 7th that has increased to 2.20 on the 8th, GFR of 36 on the 7that has decreased to 32# on the 8th and the patient was placed on LR/ David. Clarify which of the following most accurately represents the patient's renal status: (x ) Acute kidney injury (non-traumatic) ( ) Acute renal failure ( ) Acute renal failure with underlying Chronic Kidney Disease (CKD) - please provide stage below ( ) Acute renal failure with pathological renal lesion ( ) Acute renal failure with necrosis ( ) tubular ( ) medullary ( ) cortical ( ) CKD - please provide stage below ( ) End Stage Renal Disease ( ) Acute interstitial nephritis ( ) Hepatorenal syndrome ( ) Other, please specify: ( ) Clinically unable to determine Chronic Kidney Disease Stages Source: National Kidney Disease Foundation ( ) Stage I (eGFR > or = 90) ( ) Stage II (eGFR 60 - 89) ( ) Stage III (eGFR 30 - 59) ( ) Stage IV (eGFR 15 - 29) ( ) Stage V (eGFR < 15 or dialysis) COMMENTS: PLEASE ALSO DOCUMENT RESPONSE IN PROGRESS NOTES AND/OR DISCHARGE SUMMARY Use of terms such as suspected, likely, or probable (associated with a specific diagnosis that is being evaluated, monitored, or treated as if it exists) are acceptable and can be restated in the discharge summary if not ruled out. MTDD
[2016-10-27] MEDS: PANTOPRAZOLE 40 MG VIAL IV SCH ×2 (08:52→21:33)
[2016-10-27] MEDS: PROPRANOLOL 40 MG TABLET PO SCH ×2 (08:53→21:59)
[2016-10-27] MEDS: amLODIPine 10 MG TABLET PO SCH (08:53)
[2016-10-27] MEDS: CETIRIZINE 10 MG TABLET PO SCH (08:53)
--- NOTE | 2016-10-27 09:11 | Pulmonology Progress Note ---
Pulmonary - PN: Subj Interval history: The patient is a 66 year white man that came in with abdominal pain and was found to have a perforated ulcer. He is status post exploratory lap. He does have fairly significant COPD but came off the ventilator fairly well yesterday. He was somewhat dehydrated with elevated renal insufficiency but this is improving with fluids. The patient came off the ventilator okay and is breathing comfortably. He was moved to a regular room over the weekend. He still has an NG tube in place but he says he has had some bowel movements. He is walking around and his breathing is okay. His abdomen is still very bloated but better. Exam (Progress Note) - Constitutional Vitals: Period Temp Pulse Resp BP Sys/Peace Pulse Ox Last 24 Hr 97.4 F-98.6 F 73-106 17-25 121-131/70-74 88-99 Exam: General appearance: normal weight, no acute distress (He is alert and moving around in his room.) - Head Head exam: Present: normal inspection, normocephalic - Eye Eye exam: Present: EOMI. Absent: scleral icterus Pupils: Present: SERA - ENT ENT exam: Present: Unremarkable, he does have an NG tube in place. - Neck Neck exam: Present: normal inspection. Absent: lymphadenopathy, thyromegaly - Respiratory Respiratory exam: Present: decreased breath sounds. He is moving air okay without a lot of wheezing. - Cardiovascular Cardiovascular exam: Present: regular rate and rhythm. His heart rate is better overall. - GI/Abdominal GI/Abdominal exam: Present: His abdomen is still quite distended and fairly tight with hypoactive bowel sounds. He is having some bowel activity. - Extremities Exam Extremities exam: Absent: calf tenderness, edema - Neurological Exam Neurological exam: Present: He is alert and talking and moving his extremities well. - Skin Skin exam: Present: warm, dry Results - Labs CBC & BMP: 10/26/16 04:38 10/27/16 05:20 Assessment and Plan (1) COPD (chronic obstructive pulmonary disease) Status: Chronic Assessment and plan: The patient has significant COPD and will continue with bronchodilator therapy. He is moving around and breathing much better without any significant wheezing. Current Visit: Yes Qualifiers: COPD type: chronic bronchitis Chronic bronchitis type: mucopurulent Qualified Code(s): J41.1 - Mucopurulent chronic bronchitis (2) Hypertension Status: Chronic Assessment and plan: The patient's blood pressure has improved and his renal function is stable. Current Visit: Yes Qualifiers: Hypertension type: essential hypertension Qualified Code(s): I10 - Essential (primary) hypertension (3) Unspecified sleep apnea Status: Chronic Assessment and plan: The patient may need CPAP after being extubated. He is breathing comfortably at present. Current Visit: No Qualifiers: Sleep apnea type: obstructive Qualified Code(s): G47.33 - Obstructive sleep apnea (adult) (pediatric) (4) Perforated viscus Status: Acute Assessment and plan: Patient came in with a perforated ulcer. He is fairly stable postop. He says his abdomen is a little better. He would like to have the NG tube out. Current Visit: Yes (5) Surgical pneumoperitoneum Status: Acute Assessment and plan: The patient has free air in his abdomen and was found to have a perforated ulcer. He is status post repair of the gastric ulcer. He is still bloated but feels like his abdomen is a little better. Current Visit: Yes
[2016-10-27] MEDS: ONDANSETRON 4 MG/2 ML VIAL IV PRN ×2 (09:34→21:39)
--- NOTE | 2016-10-27 10:35 | Event Note ---
Chief complaint This patient is a 66-year-old man with a history of COPD admitted with a perforated duodenal ulcer treated with exploratory laparotomy with Nain patch closure of the duodenum on 10/22/2016 Interval history NG tube clamped yesterday. Patient was doing well, but he reports he began to have increased abdominal pain and distention overnight in the morning. He took 2 oral medications with water this morning after which he had significant nausea refractory to Zofran. Afebrile overnight. He had a small bowel movement yesterday. Voiding without difficulty. Physical exam The patient is afebrile with normal vital signs Chest is clear Heart is regular with no murmurs Abdomen soft, distended, and mild diffuse tenderness. Surgical incision is clean, dry and intact. MAXIMINO drain is serous -output recorded 15 cc since midnight ; 55 cc yesterday. Hypoactive bowel sounds. Labs Reviewed. Creatinine 1.4 Imaging None Assessment and plan Postop day #5 With increased abdominal distention pain and nausea refractory to Zofran, we will plan to assess the output. Continue MAXIMINO drain. Continue IV fluids. Continue Zosyn and Flagyl. Increase activity as tolerated Continue incentive spirometer Repeat BMP in am. DVT prophylaxis: Heparin and SCDs GI prophylaxis PPI daily Appreciate input from consultants in medical management.
--- NOTE | 2016-10-27 20:03 | Internal Med Progress Note ---
Assessment and Plan (1) Perforated viscus Status: Acute Current Visit: Yes (2) Surgical pneumoperitoneum Status: Acute Current Visit: Yes (3) Abdominal pain Problem details: abdominal gas Status: Chronic Current Visit: Yes Qualifiers: Abdominal location: periumbilical Qualified Code(s): R10.33 - Periumbilical pain (4) COPD (chronic obstructive pulmonary disease) Status: Chronic Current Visit: Yes Qualifiers: COPD type: chronic bronchitis Chronic bronchitis type: mucopurulent Qualified Code(s): J41.1 - Mucopurulent chronic bronchitis (5) Chronic fatigue Problem details: improved Status: Chronic Current Visit: Yes (6) History of constipation Status: Chronic Current Visit: Yes (7) Hypertension Status: Chronic Current Visit: Yes Qualifiers: Hypertension type: essential hypertension Qualified Code(s): I10 - Essential (primary) hypertension (8) Unspecified sleep apnea Status: Chronic Current Visit: No Qualifiers: Sleep apnea type: obstructive Qualified Code(s): G47.33 - Obstructive sleep apnea (adult) (pediatric) Internal Medicine - PN: Subj Interval history: Mr. Otto is a 66 year old male with history of HTN, acid reflux, essential tremors controlled on propranolol, COPD with recurrent bronchitis, suspected obstructive sleep apnea, who is here in hospital with perforated duodenal ulcer and status post surgical repair per Dr. Skaggs. He tolerated surgery well. He recently was hospitalized for extensive workup of abdominal distention/gas and bloating without revealing etiology. He underwent outpatient colonoscopy and perforated bowel was noted. He is having what may be rebound tachycardia from sudden cessation of beta katie, propranolol. Low dose Metoprolol IV has been added to help until post surgical ileus has resolved that he can have home meds back again. Otherwise he is reasonably comfortable. He is breathing shallow to avoid abdominal pain at surgical site. Obtaining breathing treatments to help with oxygen saturation. He is still in sinus tachycardia. Increasing metoprolol IV frequency. Otherwise, he still complains of abdominal pain at surgical site. He is not wanting to take deep breaths because of abdominal pain. Thursday, October 27, he is overall feeling better, but still requiring NG tube to suction. Still having ileus. Still abdominal distension which may be somewhat smaller since last week. Exam (Progress Note) - Constitutional Vitals: Period Temp Pulse Resp BP Sys/Peace Pulse Ox Last 24 Hr 97.4 F-98.7 F 77-106 18-25 121-131/60-74 88-99 Exam: General appearance: no acute distress - Respiratory Respiratory exam: Present: clear to auscultation bilaterally - Cardiovascular Cardiovascular exam: Present: regular rate and rhythm - GI/Abdominal GI/Abdominal exam: Present: abdominal distension - Extremities Exam Extremities exam: Absent: edema - Neurological Exam Neurological exam: Present: alert - Psychiatric Psychiatric exam: Present: normal mood - Skin Skin exam: Present: warm, dry Results - Labs CBC & BMP: 10/26/16 04:38 10/27/16 05:20 Quality Measures - VTE Contraindication to Pharmacological VTE Prophylaxis: High Risk of Bleeding
[2016-10-28] MEDS: METOPROLOL TARTRATE 5 MG/5 ML VIAL IV SCH ×6 (01:28→23:29)
[2016-10-28] MEDS: PIPERACILLIN/TAZOBACTAM 3,375 MG in SODIUM CHLORIDE 0.9% 100 ML IV SCH ×3 (01:28→18:37)
[2016-10-28] MEDS: HYDROmorphone 2 MG/1 ML VIAL IV PRN ×7 (01:28→23:27)
[2016-10-28] MEDS: ALBUTEROL/IPRATROPIUM 3 ML NEB RESP TX SCH ×6 (03:21→23:32)
[2016-10-28] MEDS: metroNIDAZOLE INJ 500 MG in PREMIX 1 EACH IV SCH ×3 (03:23→23:25)
[2016-10-28] MEDS: HEPARIN 5,000 UNIT/1 ML VIAL SUBCUT SCH ×3 (03:24→20:23)
[2016-10-28] MEDS: DEXT 5% NACL 0.45% KCL 40 MEQ 40 MEQ/1,000 ML BAG IV SCH (04:48)
[2016-10-28 05:49] LABS: Calcium 8.1 MG/DL (8.5-10.1); Potassium 3.9 MMOL/L (3.5-5.1)
--- NOTE | 2016-10-28 07:57 | XRay Report ---
Referring Physician: DEMOND Abreu Exam: XR abdomen 2V Date: October 28, 2016 at 7:40 AM Reason: Abdominal distention Comparison: Abdomen 2 views September 24, 2016 Findings: There is a surgical drain at the right abdomen. A feeding tube is also present with its distal tip within the gastric fundus. Surgical clips are seen within the abdomen near midline, and there is an aortoiliac stent graft. There is mild air within the bowel, mainly within the colon. Air-fluid levels are also seen at the bowel. This could represent mild ileus or enteritis. However, there is no evidence of high-grade bowel obstruction. No free air is identified. The renal shadows are largely obscured. The osseous structures appear stable. Prominent calcified plaque is noted at the arteries. Impression: There is surgical change at the abdomen. There is also mild air within the colon with a few air-fluid levels present. This could represent mild ileus or enteritis. There is no evidence of high-grade bowel obstruction. PROCEDURE INTERPRETED AT [facility] DEPARTMENT OF RADIOLOGY Final Report Signed by: Dr. Felicitas Reinoso
[2016-10-28] MEDS: PANTOPRAZOLE 40 MG VIAL IV SCH ×2 (09:17→20:09)
[2016-10-28] MEDS: PROPRANOLOL 40 MG TABLET PO SCH ×2 (09:18→20:17)
[2016-10-28] MEDS: CETIRIZINE 10 MG TABLET PO SCH (09:18)
[2016-10-28] MEDS: amLODIPine 10 MG TABLET PO SCH (09:18)
--- NOTE | 2016-10-28 10:40 | Pulmonology Progress Note ---
Pulmonary - PN: Subj Interval history: The patient is a 66 year white man that came in with abdominal pain and was found to have a perforated ulcer. He is status post exploratory lap. He does have fairly significant COPD . He has done fairly well with his breathing. He still has an NG tube in place but he is starting to have some bowel activity. He is sitting up and moving around a little better and overall looks better. He denies increased shortness of breath now. Exam (Progress Note) - Constitutional Vitals: Period Temp Pulse Resp BP Sys/Peace Pulse Ox Last 24 Hr 97.6 F-98.7 F 71-99 12-20 114-143/60-80 89-99 Exam: General appearance: normal weight, no acute distress (He is alert and moving around in his room.) - Head Head exam: Present: normal inspection, normocephalic - Eye Eye exam: Present: EOMI. Absent: scleral icterus Pupils: Present: SERA - ENT ENT exam: Present: Unremarkable, he does have an NG tube in place. - Neck Neck exam: Present: normal inspection. Absent: lymphadenopathy, thyromegaly - Respiratory Respiratory exam: Present: decreased breath sounds. I do not hear any rales or wheezing at present. - Cardiovascular Cardiovascular exam: Present: regular rate and rhythm. His heart rate is better overall. - GI/Abdominal GI/Abdominal exam: Present: His abdomen is still distended but is softer and he does have some bowel sounds present. - Extremities Exam Extremities exam: Absent: calf tenderness, edema - Neurological Exam Neurological exam: Present: He is alert and talking and moving his extremities well. - Skin Skin exam: Present: warm, dry Results - Labs CBC & BMP: 10/26/16 04:38 10/28/16 04:47 Assessment and Plan (1) COPD (chronic obstructive pulmonary disease) Status: Chronic Assessment and plan: The patient has significant COPD and will continue with bronchodilator therapy. He is moving around and breathing much better without any significant wheezing. He continues to do well with his respiratory therapy. Current Visit: Yes Qualifiers: COPD type: chronic bronchitis Chronic bronchitis type: mucopurulent Qualified Code(s): J41.1 - Mucopurulent chronic bronchitis (2) Hypertension Status: Chronic Assessment and plan: The patient's blood pressure has improved and his renal function is stable. His creatinine is down to 1.2. Current Visit: Yes Qualifiers: Hypertension type: essential hypertension Qualified Code(s): I10 - Essential (primary) hypertension (3) Unspecified sleep apnea Status: Chronic Assessment and plan: The patient may need CPAP after being extubated. He is breathing comfortably at present. Current Visit: No Qualifiers: Sleep apnea type: obstructive Qualified Code(s): G47.33 - Obstructive sleep apnea (adult) (pediatric) (4) Perforated viscus Status: Acute Assessment and plan: Patient came in with a perforated duodenal ulcer. He is fairly stable postop. He says his abdomen is a little better. He is still on bowel rest. Current Visit: Yes (5) Surgical pneumoperitoneum Status: Acute Assessment and plan: The patient has free air in his abdomen and was found to have a perforated ulcer. He is status post repair of the duodenal ulcer. He is still bloated but feels like his abdomen is a little better. Overall he is reasonably stable. Current Visit: Yes
--- NOTE | 2016-10-28 14:02 | Event Note ---
Chief complaint This patient is a 66-year-old man with a history of COPD admitted with a perforated duodenal ulcer treated with exploratory laparotomy with Nain patch closure of the duodenum on 10/22/2016 Interval history Patient noted to have full BM yesterday morning and then again this morning. NG tube was placed back to suction yesterday which the patient received significant relief. It is poorly documented, but by report the patient had 500 cc of bilious output from the NG tube yesterday and then 25 cc from midnight to 4 mm which time the NG tube was clamped. The patient reports no increase in abdominal pain, nausea or abdominal distention. No oral intake at this time. He is sitting up in a chair this morning and appears to feel improved. Physical exam The patient is afebrile with normal vital signs Chest is clear Heart is regular with no murmurs Abdomen soft, distended, and mild diffuse tenderness. Surgical incision is clean, dry and intact. MAXIMINO drain is serous -output recorded 40 cc since midnight ; 75 cc total yesterday; this is slightly increased from previous days. Output is serosanguineous. Hypoactive bowel sounds. Labs Reviewed. Creatinine decreased 1.2 Imaging Abdominal x-ray flat and erect demonstrate nonspecific gas pattern Assessment and plan Postop day #6 NG tube clamped. Remain n.p.o. and monitor symptoms. Hopeful to start advancing diet soon Continue MAXIMINO drain. Continue IV fluids. Continue Zosyn and Flagyl. Increase activity as tolerated Continue incentive spirometer Repeat BMP in am. -Creatinine improving DVT prophylaxis: Heparin and SCDs GI prophylaxis PPI daily Appreciate input from consultants in medical management.
--- NOTE | 2016-10-28 21:08 | Internal Med Progress Note ---
Assessment and Plan (1) Perforated viscus Status: Acute Current Visit: Yes (2) COPD (chronic obstructive pulmonary disease) Status: Chronic Current Visit: Yes Qualifiers: COPD type: chronic bronchitis Chronic bronchitis type: mucopurulent Qualified Code(s): J41.1 - Mucopurulent chronic bronchitis (3) Chronic fatigue Problem details: improved Status: Chronic Current Visit: Yes (4) Hypertension Status: Chronic Current Visit: Yes Qualifiers: Hypertension type: essential hypertension Qualified Code(s): I10 - Essential (primary) hypertension (5) Ileus following gastrointestinal surgery Problem details: improving Status: Acute Current Visit: Yes Internal Medicine - PN: Subj Interval history: Mr. Otto is a 66 year old male with history of HTN, acid reflux, essential tremors controlled on propranolol, COPD with recurrent bronchitis, suspected obstructive sleep apnea, who is here in hospital with perforated duodenal ulcer and status post surgical repair per Dr. Skaggs. He tolerated surgery well. He recently was hospitalized for extensive workup of abdominal distention/gas and bloating without revealing etiology. He underwent outpatient colonoscopy and perforated bowel was noted. He is having what may be rebound tachycardia from sudden cessation of beta katie, propranolol. Low dose Metoprolol IV has been added to help until post surgical ileus has resolved that he can have home meds back again. Otherwise he is reasonably comfortable. He is breathing shallow to avoid abdominal pain at surgical site. Obtaining breathing treatments to help with oxygen saturation. He is still in sinus tachycardia. Increasing metoprolol IV frequency. Otherwise, he still complains of abdominal pain at surgical site. He is not wanting to take deep breaths because of abdominal pain. Thursday, October 27, he is overall feeling better, but still requiring NG tube to suction. Still having ileus. Still abdominal distension which may be somewhat smaller since last week. Thursday, he is sitting up eating soft solids, feeling better after NG tube pulled. Abdomen still distended, but improved and softer. Exam (Progress Note) - Constitutional Vitals: Period Temp Pulse Resp BP Sys/Peace Pulse Ox Last 24 Hr 97.5 F-98.1 F 70-98 12-20 114-143/60-80 90-99 Exam: General appearance: no acute distress - Respiratory Respiratory exam: Present: clear to auscultation bilaterally - Cardiovascular Cardiovascular exam: Present: regular rate and rhythm - GI/Abdominal GI/Abdominal exam: Present: abdominal distension - Extremities Exam Extremities exam: Absent: edema - Neurological Exam Neurological exam: Present: alert - Psychiatric Psychiatric exam: Present: normal mood - Skin Skin exam: Present: warm, dry Results - Labs CBC & BMP: 10/26/16 04:38 10/29/16 04:57 Quality Measures - VTE Contraindication to Pharmacological VTE Prophylaxis: High Risk of Bleeding
[2016-10-29] MEDS ORDERED: METOPROLOL TARTRATE 5 MG/5 ML VIAL IV PRN (00:26)
[2016-10-29] MEDS: DEXT 5% NACL 0.45% KCL 40 MEQ 40 MEQ/1,000 ML BAG IV SCH ×3 (01:15→09:34)
[2016-10-29] MEDS: PIPERACILLIN/TAZOBACTAM 3,375 MG in SODIUM CHLORIDE 0.9% 100 ML IV SCH ×3 (01:58→17:29)
[2016-10-29] MEDS: ALBUTEROL/IPRATROPIUM 3 ML NEB RESP TX SCH ×6 (02:55→23:57)
[2016-10-29] MEDS: HEPARIN 5,000 UNIT/1 ML VIAL SUBCUT SCH ×3 (03:02→20:51)
[2016-10-29] MEDS: metroNIDAZOLE INJ 500 MG in PREMIX 1 EACH IV SCH ×3 (05:13→20:50)
[2016-10-29 05:51] LABS: Calcium 7.8 MG/DL (8.5-10.1); Osmolality,Calculated 285.1 MOS/KG (273-304); Potassium 3.7 MMOL/L (3.5-5.1)
--- NOTE | 2016-10-29 08:21 | Pulmonology Progress Note ---
Pulmonary - PN: Subj Interval history: The patient is a 66 year white man that came in with abdominal pain and was found to have a perforated ulcer. He is status post exploratory lap. He does have fairly significant COPD . Today he is feeling much better. His NG tube is out and he is taking liquids. His abdomen is much better and he is passing some bowel movements. He is not having any trouble with his breathing. He says he feels much better today. Exam (Progress Note) - Constitutional Vitals: Period Temp Pulse Resp BP Sys/Peace Pulse Ox Last 24 Hr 97.5 F-98.6 F 69-96 14-20 120-133/68-76 90-99 Exam: General appearance: normal weight, no acute distress (He looks much more comfortable today.) - Head Head exam: Present: normal inspection, normocephalic - Eye Eye exam: Present: EOMI. Absent: scleral icterus Pupils: Present: SERA - ENT ENT exam: Present: Unremarkable - Neck Neck exam: Present: normal inspection. Absent: lymphadenopathy, thyromegaly - Respiratory Respiratory exam: Present: decreased breath sounds. I do not hear any rales or wheezing at present. He seems to be breathing comfortably. - Cardiovascular Cardiovascular exam: Present: regular rate and rhythm. His heart rate is better overall. - GI/Abdominal GI/Abdominal exam: Present: His abdomen is softer and much less distended. - Extremities Exam Extremities exam: Absent: calf tenderness, edema - Neurological Exam Neurological exam: Present: He is alert and talking and moving his extremities well. - Skin Skin exam: Present: warm, dry Results - Labs CBC & BMP: 10/26/16 04:38 10/29/16 04:57 Assessment and Plan (1) COPD (chronic obstructive pulmonary disease) Status: Chronic Assessment and plan: The patient has significant COPD and will continue with bronchodilator therapy. He is moving around and breathing much better without any significant wheezing. He continues to do well with his respiratory therapy. His respiratory status is stable. Current Visit: Yes Qualifiers: COPD type: chronic bronchitis Chronic bronchitis type: mucopurulent Qualified Code(s): J41.1 - Mucopurulent chronic bronchitis (2) Hypertension Status: Chronic Assessment and plan: The patient's blood pressure has improved and his renal function is stable. His creatinine is down to 1.2. Current Visit: Yes Qualifiers: Hypertension type: essential hypertension Qualified Code(s): I10 - Essential (primary) hypertension (3) Unspecified sleep apnea Status: Chronic Assessment and plan: The patient may need CPAP after being extubated. He is breathing comfortably at present. Current Visit: No Qualifiers: Sleep apnea type: obstructive Qualified Code(s): G47.33 - Obstructive sleep apnea (adult) (pediatric) (4) Perforated viscus Status: Acute Assessment and plan: Patient came in with a perforated duodenal ulcer. He is fairly stable postop. His abdomen is softer and he feels better. He is starting to take liquids. Current Visit: Yes (5) Surgical pneumoperitoneum Status: Acute Assessment and plan: The patient has free air in his abdomen and was found to have a perforated ulcer. He is status post repair of the duodenal ulcer. He continues to do well postop. Current Visit: Yes
[2016-10-29] MEDS: amLODIPine 10 MG TABLET PO SCH (08:43)
[2016-10-29] MEDS: CETIRIZINE 10 MG TABLET PO SCH (08:43)
[2016-10-29] MEDS: PROPRANOLOL 40 MG TABLET PO SCH ×2 (08:43→20:52)
[2016-10-29] MEDS: PANTOPRAZOLE 40 MG VIAL IV SCH ×2 (08:43→20:52)
[2016-10-29] MEDS: HYDROmorphone 2 MG/1 ML VIAL IV PRN ×3 (11:12→21:02)
--- NOTE | 2016-10-29 12:01 | Event Note ---
Chief complaint This patient is a 66-year-old man with a history of COPD admitted with a perforated duodenal ulcer treated with exploratory laparotomy with Nain patch closure of the duodenum on 10/22/2016 Interval history The patient reports tolerance of clear liquid diet without difficulty. He also reports 3-4 bowel movements this morning which were "jet black." He denies nausea or vomiting. No chest pain, shortness breath, wheeze, cough or weakness. Abdominal pain and distention are improved. Physical exam The patient is afebrile with normal vital signs Chest is clear Heart is regular with no murmurs Abdomen soft, decreased distention, and decreased tenderness. Surgical incision is clean, dry and intact. MAXIMINO drain is serous -output recorded 60 cc total yesterday-decreasing. Output is serosanguineous. Hypoactive bowel sounds. Labs Reviewed. Creatinine stable at 1.2 Imaging None Assessment and plan Postop day #7 Patient tolerating clear liquid diet. Advance to full liquids. Continue MAXIMINO drain. Continue IV fluids. Continue Zosyn and Flagyl. With report of black stool we will check fecal occult blood tests and check H& H. Hold heparin. Increase activity as tolerated Continue incentive spirometer Renal function is stable. DVT prophylaxis: SCDs and mobility. Hold heparin. GI prophylaxis PPI BID Appreciate input from consultants in medical management.
[2016-10-29 12:40] LABS: Hematocrit 34.8 VOL% (42.0-52.0); Hemoglobin 11.8 GM/DL (14.0-18.0)
[2016-10-29] MEDS: POTASSIUM CHLORIDE INJ 40 MEQ in DEXTROSE 5% NACL 0.45% 1,000 ML IV SCH (13:37)
--- NOTE | 2016-10-29 19:31 | Internal Med Progress Note ---
Assessment and Plan (1) Perforated viscus Status: Acute Current Visit: Yes (2) COPD (chronic obstructive pulmonary disease) Status: Chronic Current Visit: Yes Qualifiers: COPD type: chronic bronchitis Chronic bronchitis type: mucopurulent Qualified Code(s): J41.1 - Mucopurulent chronic bronchitis (3) Chronic fatigue Problem details: improved Status: Chronic Current Visit: Yes (4) Hypertension Status: Chronic Current Visit: Yes Qualifiers: Hypertension type: essential hypertension Qualified Code(s): I10 - Essential (primary) hypertension (5) Ileus following gastrointestinal surgery Problem details: improving Status: Acute Current Visit: Yes Internal Medicine - PN: Subj Interval history: Mr. Otto is a 66 year old male with history of HTN, acid reflux, essential tremors controlled on propranolol, COPD with recurrent bronchitis, suspected obstructive sleep apnea, who is here in hospital with perforated duodenal ulcer and status post surgical repair per Dr. Skaggs. He tolerated surgery well. He recently was hospitalized for extensive workup of abdominal distention/gas and bloating without revealing etiology. He underwent outpatient colonoscopy and perforated bowel was noted. He is having what may be rebound tachycardia from sudden cessation of beta katie, propranolol. Low dose Metoprolol IV has been added to help until post surgical ileus has resolved that he can have home meds back again. Otherwise he is reasonably comfortable. He is breathing shallow to avoid abdominal pain at surgical site. Obtaining breathing treatments to help with oxygen saturation. He is still in sinus tachycardia. Increasing metoprolol IV frequency. Otherwise, he still complains of abdominal pain at surgical site. He is not wanting to take deep breaths because of abdominal pain. Thursday, October 27, he is overall feeling better, but still requiring NG tube to suction. Still having ileus. Still abdominal distension which may be somewhat smaller since last week. Thursday, he is sitting up eating soft solids, feeling better after NG tube pulled. Abdomen still distended, but improved and softer. Thursday, he is complaining of abdominal pain with solid food. Will try mechanical soft diet. Exam (Progress Note) - Constitutional Vitals: Period Temp Pulse Resp BP Sys/Peace Pulse Ox Last 24 Hr 97.9 F-98.7 F 69-96 16-20 120-133/67-73 91-99 Exam: General appearance: no acute distress - Respiratory Respiratory exam: Present: clear to auscultation bilaterally - Cardiovascular Cardiovascular exam: Present: regular rate and rhythm - GI/Abdominal GI/Abdominal exam: Present: abdominal distension - Extremities Exam Extremities exam: Absent: edema - Neurological Exam Neurological exam: Present: alert - Psychiatric Psychiatric exam: Present: normal mood - Skin Skin exam: Present: warm, dry Results - Labs CBC & BMP: 10/30/16 04:21 10/29/16 04:57 Quality Measures - VTE Contraindication to Pharmacological VTE Prophylaxis: High Risk of Bleeding
[2016-10-30] MEDS: HYDROmorphone 2 MG/1 ML VIAL IV PRN ×3 (01:19→10:07)
[2016-10-30] MEDS: PIPERACILLIN/TAZOBACTAM 3,375 MG in SODIUM CHLORIDE 0.9% 100 ML IV SCH ×3 (01:20→17:37)
[2016-10-30] MEDS: metroNIDAZOLE INJ 500 MG in PREMIX 1 EACH IV SCH ×3 (03:14→21:53)
[2016-10-30] MEDS: ALBUTEROL/IPRATROPIUM 3 ML NEB RESP TX SCH ×5 (03:39→20:32)
[2016-10-30] MEDS: POTASSIUM CHLORIDE INJ 40 MEQ in DEXTROSE 5% NACL 0.45% 1,000 ML IV SCH (05:47)
[2016-10-30] MEDS: HEPARIN 5,000 UNIT/1 ML VIAL SUBCUT SCH ×3 (05:48→20:05)
[2016-10-30 06:44] LABS: Basophils % 0.3 % (0.0-0.8); Eosinophils # 0.1 10*3/uL (0.0-0.87); Eosinophils % 1.3 % (0.00-10.9); Hematocrit 31.3 VOL% (42.0-52.0); Hemoglobin 10.6 GM/DL (14.0-18.0); Immature Granulocytes Absolute 0.08 #; Lymphocytes # 1.7 10*3/uL (1.4-4.0); Lymphocytes % 21.7 % (21.2-54.2); Mean Corpuscular HGB Conc 33.9 GM/DL (32-36); Mean Corpuscular Hemoglobin 32 PG (27-34); Mean Corpuscular Volume 92.9 FL (87-102); Mean Platelet Volume 9.9 FL (9.6-12.0); Monocytes # 1.1 10*3/uL (0.11-0.8); Monocytes % 14.7 % (1.7-12.7); Neutrophils # 4.7 10*3/uL (1.4-7.4); Platelet Count 249 T/CUMM (130-400); Red Blood Count 3.37 MC/CUMM (3.8-5.5); Red Cell Distribution Width 13.2 % (9.3-17.3); White Blood Count 7.7 T/CUMM (4-12)
[2016-10-30 07:17] LABS: Lymphocytes 19 % (20-55); Segmented Neutrophils 66 % (50-85); Total Cells Counted 100
[2016-10-30 07:18] LABS: Hypochromasia 1+; Microcytosis Slight; Platelet Estimate Adequate
[2016-10-30] MEDS: PROPRANOLOL 40 MG TABLET PO SCH ×2 (08:27→20:03)
[2016-10-30] MEDS: PANTOPRAZOLE 40 MG VIAL IV SCH ×2 (08:27→20:04)
[2016-10-30] MEDS: CETIRIZINE 10 MG TABLET PO SCH (08:27)
[2016-10-30] MEDS: amLODIPine 10 MG TABLET PO SCH (08:27)
--- NOTE | 2016-10-30 10:27 | Pulmonology Progress Note ---
Pulmonary - PN: Subj Interval history: The patient is a 66 year white man that came in with abdominal pain and was found to have a perforated ulcer. He is status post exploratory lap. He does have fairly significant COPD . Today he is not feeling quite as good as he did yesterday. He still is not having much bowel movement. He is eating some solid food however. He denies being nauseated. He says his breathing is doing okay. Exam (Progress Note) - Constitutional Vitals: Period Temp Pulse Resp BP Sys/Peace Pulse Ox Last 24 Hr 97.7 F-98.7 F 74-87 17-20 114-142/66-76 94-98 Exam: General appearance: normal weight, no acute distress (He is sitting up eating but still has some abdominal discomfort.) - Head Head exam: Present: normal inspection, normocephalic - Eye Eye exam: Present: EOMI. Absent: scleral icterus Pupils: Present: SERA - ENT ENT exam: Present: Unremarkable - Neck Neck exam: Present: normal inspection. Absent: lymphadenopathy, thyromegaly - Respiratory Respiratory exam: Present: decreased breath sounds. I do not hear any rales or wheezing at present. He seems to be breathing comfortably. - Cardiovascular Cardiovascular exam: Present: regular rate and rhythm. His heart rate is better overall. - GI/Abdominal GI/Abdominal exam: Present: His abdomen is a little more distended today but does have bowel sounds. - Extremities Exam Extremities exam: Absent: calf tenderness, edema - Neurological Exam Neurological exam: Present: He is alert and talking and moving his extremities well. - Skin Skin exam: Present: warm, dry Results - Labs CBC & BMP: 10/30/16 04:21 10/29/16 04:57 Assessment and Plan (1) COPD (chronic obstructive pulmonary disease) Status: Chronic Assessment and plan: The patient has significant COPD and will continue with bronchodilator therapy. He is not having any respiratory distress and is moving air okay. He will try to do some walking today. Current Visit: Yes Qualifiers: COPD type: chronic bronchitis Chronic bronchitis type: mucopurulent Qualified Code(s): J41.1 - Mucopurulent chronic bronchitis (2) Hypertension Status: Chronic Assessment and plan: The patient's blood pressure has improved and his renal function is stable. His creatinine is down to 1.2. Current Visit: Yes Qualifiers: Hypertension type: essential hypertension Qualified Code(s): I10 - Essential (primary) hypertension (3) Unspecified sleep apnea Status: Chronic Assessment and plan: The patient needs to use his CPAP at night. Current Visit: No Qualifiers: Sleep apnea type: obstructive Qualified Code(s): G47.33 - Obstructive sleep apnea (adult) (pediatric) (4) Perforated viscus Status: Acute Assessment and plan: Patient came in with a perforated duodenal ulcer. He is fairly stable postop. He is eating some and not having any nausea. Current Visit: Yes (5) Surgical pneumoperitoneum Status: Acute Assessment and plan: The patient has free air in his abdomen and was found to have a perforated ulcer. He is status post repair of the duodenal ulcer. He still has some abdominal bloating and maybe a little bit of ileus. He will try to walk home and hopefully this will increase his bowel activity. Current Visit: Yes
--- NOTE | 2016-10-30 13:46 | Event Note ---
This patient is a 66-year-old man with a history of COPD admitted with a perforated duodenal ulcer treated with exploratory laparotomy with Nain patch closure of the duodenum on 10/22/2016 Interval history the patient reports some increased abdominal pain and distention associated with advancement of diet to soft. He states he feels like he is "full again." He has not had a bowel movement since yesterday and states that he has not passed flatus either. He reports nausea without vomiting associated. Physical exam The patient is afebrile with normal vital signs Chest is clear Heart is regular with no murmurs Abdomen is distended. Surgical incision is clean, dry and intact with taniya intact. MAXIMINO drain with serosanguineous drainage 70 cc output over the past 24 hours include 20 cc output since midnight. Patient with hypoactive bowel sounds. Peritoneal signs absent. Labs Hemoglobin 10.6 hematocrit 31.3 Imaging None Assessment and plan Postop day #8 Patient is not tolerating advancement of his diet. We will refer to clear to see if he is able to tolerate this. The same IV fluids. Check morning labs. Continue MAXIMINO drain. Continue IV fluids. Continue Zosyn and Flagyl. Increase activity as tolerated. Continue incentive spirometer Renal function is stable. DVT prophylaxis: SCDs and mobility. Heparin. GI prophylaxis PPI BID Appreciate input from consultants in medical management.
[2016-10-30] MEDS: MORPHINE 2 MG/1 ML SYRINGE IV PRN ×2 (14:36→20:05)
[2016-10-30] MEDS: DEXT 5% NACL 0.45% KCL 40 MEQ 40 MEQ/1,000 ML BAG IV SCH (16:13)
--- NOTE | 2016-10-30 19:12 | Internal Med Progress Note ---
Assessment and Plan (1) Perforated viscus Status: Acute Current Visit: Yes (2) COPD (chronic obstructive pulmonary disease) Status: Chronic Current Visit: Yes Qualifiers: COPD type: chronic bronchitis Chronic bronchitis type: mucopurulent Qualified Code(s): J41.1 - Mucopurulent chronic bronchitis (3) Chronic fatigue Problem details: improved Status: Chronic Current Visit: Yes (4) Hypertension Status: Chronic Current Visit: Yes Qualifiers: Hypertension type: essential hypertension Qualified Code(s): I10 - Essential (primary) hypertension (5) Ileus following gastrointestinal surgery Problem details: improving Status: Acute Current Visit: Yes (6) Sinus tachycardia Status: Resolved Current Visit: Yes Internal Medicine - PN: Subj Interval history: Mr. Otto is a 66 year old male with history of HTN, acid reflux, essential tremors controlled on propranolol, COPD with recurrent bronchitis, suspected obstructive sleep apnea, who is here in hospital with perforated duodenal ulcer and status post surgical repair per Dr. Skaggs. He tolerated surgery well. He recently was hospitalized for extensive workup of abdominal distention/gas and bloating without revealing etiology. He underwent outpatient colonoscopy and perforated bowel was noted. He is having what may be rebound tachycardia from sudden cessation of beta katie, propranolol. Low dose Metoprolol IV has been added to help until post surgical ileus has resolved that he can have home meds back again. Otherwise he is reasonably comfortable. He is breathing shallow to avoid abdominal pain at surgical site. Obtaining breathing treatments to help with oxygen saturation. He is still in sinus tachycardia. Increasing metoprolol IV frequency. Otherwise, he still complains of abdominal pain at surgical site. He is not wanting to take deep breaths because of abdominal pain. Thursday, October 27, he is overall feeling better, but still requiring NG tube to suction. Still having ileus. Still abdominal distension which may be somewhat smaller since last week. Thursday, he is sitting up eating soft solids, feeling better after NG tube pulled. Abdomen still distended, but improved and softer. Thursday, he is complaining of abdominal pain with solid food. Will try mechanical soft diet. , he is still complaining of abdominal pain with any food. Back on clear liquids. Exam (Progress Note) - Constitutional Vitals: Period Temp Pulse Resp BP Sys/Peace Pulse Ox Last 24 Hr 97.7 F-98.4 F 74-90 16-20 114-142/66-78 95-99 Exam: General appearance: no acute distress - Respiratory Respiratory exam: Present: clear to auscultation bilaterally - Cardiovascular Cardiovascular exam: Present: regular rhythm controlled rate - GI/Abdominal GI/Abdominal exam: Present: abdominal distension - Extremities Exam Extremities exam: Absent: edema - Neurological Exam Neurological exam: Present: alert - Psychiatric Psychiatric exam: Present: normal mood - Skin Skin exam: Present: warm, dry Results - Labs CBC & BMP: 10/30/16 04:21 10/29/16 04:57 Quality Measures - VTE Contraindication to Pharmacological VTE Prophylaxis: High Risk of Bleeding
[2016-10-31] MEDS: ALBUTEROL/IPRATROPIUM 3 ML NEB RESP TX SCH ×7 (00:25→23:20)
[2016-10-31] MEDS: MORPHINE 2 MG/1 ML SYRINGE IV PRN ×3 (00:32→20:21)
[2016-10-31] MEDS: PIPERACILLIN/TAZOBACTAM 3,375 MG in SODIUM CHLORIDE 0.9% 100 ML IV SCH ×3 (01:55→17:58)
[2016-10-31] MEDS: HEPARIN 5,000 UNIT/1 ML VIAL SUBCUT SCH ×3 (04:32→20:14)
[2016-10-31] MEDS: metroNIDAZOLE INJ 500 MG in PREMIX 1 EACH IV SCH ×3 (06:10→22:04)
[2016-10-31] MEDS: DEXT 5% NACL 0.45% KCL 40 MEQ 40 MEQ/1,000 ML BAG IV SCH (06:51)
[2016-10-31 07:13] LABS: Calcium 7.9 MG/DL (8.5-10.1); Osmolality,Calculated 277.4 MOS/KG (273-304); Potassium 3.6 MMOL/L (3.5-5.1)
[2016-10-31] MEDS: amLODIPine 10 MG TABLET PO SCH (08:28)
[2016-10-31] MEDS: PROPRANOLOL 40 MG TABLET PO SCH ×2 (08:28→20:15)
[2016-10-31] MEDS: CETIRIZINE 10 MG TABLET PO SCH (08:29)
[2016-10-31] MEDS: PANTOPRAZOLE 40 MG VIAL IV SCH ×2 (08:30→20:15)
--- NOTE | 2016-10-31 09:12 | Pulmonology Progress Note ---
Pulmonary - PN: Subj Interval history: The patient is a 66 year white man that came in with abdominal pain and was found to have a perforated ulcer. He is status post exploratory lap. He does have fairly significant COPD . He says his abdomen is still bloated and he has not really had any further bowel movements. He says he is only been able to take in some liquids. He said he did walk around yesterday and felt a little better. He is not having any trouble with his breathing at present. Exam (Progress Note) - Constitutional Vitals: Period Temp Pulse Resp BP Sys/Peace Pulse Ox Last 24 Hr 97.9 F-99.1 F 72-90 16-20 121-143/62-79 93-99 Exam: General appearance: normal weight, no acute distress (He is comfortable lying in bed.) - Head Head exam: Present: normal inspection, normocephalic - Eye Eye exam: Present: EOMI. Absent: scleral icterus Pupils: Present: SERA - ENT ENT exam: Present: Unremarkable - Neck Neck exam: Present: normal inspection. Absent: lymphadenopathy, thyromegaly - Respiratory Respiratory exam: Present: decreased breath sounds. I do not hear any rales or wheezing at present. He seems to be breathing comfortably. - Cardiovascular Cardiovascular exam: Present: regular rate and rhythm. His heart rate is better overall. - GI/Abdominal GI/Abdominal exam: Present: His abdomen is softer today although still a little distended. - Extremities Exam Extremities exam: Absent: calf tenderness, edema - Neurological Exam Neurological exam: Present: He is alert and talking and moving his extremities well. - Skin Skin exam: Present: warm, dry Results - Labs CBC & BMP: 10/30/16 04:21 10/31/16 05:20 Assessment and Plan (1) COPD (chronic obstructive pulmonary disease) Status: Chronic Assessment and plan: The patient has significant COPD and will continue with bronchodilator therapy. He is not having any respiratory distress and is moving air okay. He will try to do some walking today. He is tolerating his respiratory therapy. Current Visit: Yes Qualifiers: COPD type: chronic bronchitis Chronic bronchitis type: mucopurulent Qualified Code(s): J41.1 - Mucopurulent chronic bronchitis (2) Hypertension Status: Chronic Assessment and plan: The patient's blood pressure has improved and his renal function is stable. His creatinine is down to 1.0. Current Visit: Yes Qualifiers: Hypertension type: essential hypertension Qualified Code(s): I10 - Essential (primary) hypertension (3) Unspecified sleep apnea Status: Chronic Assessment and plan: The patient needs to use his CPAP at night. Current Visit: No Qualifiers: Sleep apnea type: obstructive Qualified Code(s): G47.33 - Obstructive sleep apnea (adult) (pediatric) (4) Perforated viscus Status: Acute Assessment and plan: Patient came in with a perforated duodenal ulcer. He is fairly stable postop. He still has some abdominal bloating and mild ileus. He says he feels a little better today. Current Visit: Yes (5) Surgical pneumoperitoneum Status: Acute Assessment and plan: The patient is postop perforated duodenal ulcer and he has some abdominal bloating and mild ileus still. He has had problems like this for quite a while and probably has irritable bowel syndrome. He will continue present therapy. Current Visit: Yes
--- NOTE | 2016-10-31 10:30 | Event Note ---
This patient is a 66-year-old man with a history of COPD admitted with a perforated duodenal ulcer treated with exploratory laparotomy with Nain patch closure of the duodenum on 10/22/2016 Interval history Patient was seen and examined with Dr. Garcia at bedside. The patient tolerating clears yesterday, but his abdomen still distended all is slightly softer. He has had mild nausea without vomiting. He states he still has not had any flatus or passed his bowels. He denies chest pain, palpitations, shortness breath, wheeze or cough. Physical exam The patient is afebrile with normal vital signs Chest is clear Heart is regular with no murmurs Abdomen is distended. Surgical incision is clean, dry and intact with taniya intact. MAXIMINO drain with serosanguineous drainage 70 cc in last 24 hours. Patient with hypoactive bowel sounds. Peritoneal signs absent. Labs BMP unremarkable Imaging None Assessment and plan Postop day #9 Patient is tolerating clears, but he still has abdominal distention without passing of flatus or bowel movement. Will obtain CT scan with IV and oral contrast today to rule out intra-abdominal postoperative complication. Check morning labs. Continue IV fluids. Continue MAXIMINO drain. Continue IV fluids. Continue Zosyn and Flagyl. Increase activity as tolerated. Continue incentive spirometer Renal function is stable. DVT prophylaxis: SCDs and mobility. Heparin. GI prophylaxis PPI BID Appreciate input from consultants in medical management.
--- NOTE | 2016-10-31 13:55 | CT Report ---
Referring physician: Marc Skaggs EXAM: CT abdomen and pelvis with contrast DATE: October 31, 2016 COMPARISON: CT abdomen and pelvis without contrast October 22, 2016 REASON: Generalized abdominal pain, abdominal distention TECHNIQUE: Axial images of the abdomen and pelvis were obtained after administration of 100 cc of Omnipaque 350 IV contrast. Oral contrast was also administered. Coronal and sagittal reformatted images were also provided. Total DLP is 918.6 mGy*cm. FINDINGS: Lower thorax: There are calcified right hilar lymph nodes and calcified plaque at the coronary arteries. Mild to moderate right pleural fluid and minimal left pleural fluid are also present. There is prominent emphysema at the lower lung zones and mild atelectasis and probable scarring within both lower lung zones. ABDOMEN: Liver: Unremarkable. Gallbladder and bile ducts: The gallbladder is unremarkable. No biliary duct dilatation is present. Pancreas: Unremarkable. Spleen: Unremarkable. Adrenals: Unremarkable. Kidneys and ureters: No hydronephrosis is present. There is a 3.2 cm cyst at the lower pole of the left kidney. Small cysts are also suspected at the right kidney but are too small to well characterize. The ureters are unremarkable as visualized. PELVIS: Bladder: Unremarkable. Reproductive: The prostate is mildly prominent. ABDOMEN AND PELVIS: Bowel: The stomach is poorly distended and difficult to evaluate. There is diffuse wall thickening at the duodenum. This could represent an inflammatory or infectious process. Similar findings are seen on the previous study. There is mild air and fluid within the transverse colon and descending colon. This could represent mild ileus or a diarrhea illness. There is no convincing evidence of high-grade obstruction. Appendix: The appendix is not identified, but there are no secondary signs of appendicitis. Vasculature: There is an aneurysm of the infrarenal aorta, measuring 3.9 x 3.4 cm on image 70. This is stable when considering differences in measuring technique. Prominent calcified plaque is seen at the arteries, and there is mild narrowing of the mid SMA secondary to soft plaque. Surgical change is seen at the left groin and possibly at the right groin. Peritoneum/retroperitoneum: A surgical drain is in place with its distal tip within the right upper quadrant, just inferior to the gallbladder near the duodenum. There is minimal fluid/fat stranding within the right abdomen. No free air is identified today. Lymph nodes: There are a few mildly calcified upper normal-sized lymph nodes within the upper abdomen near the daysi hepatis region. No suspicious adenopathy is identified. Abdominal/pelvic wall: There is surgical change at the anterior abdominal wall and mild to moderate anasarca. Bones: There is multilevel degenerative change at the lumbar spine and a remote compression fracture of L1. Note is made of calcification of the anterior longitudinal ligament at the visualized thoracic spine and upper lumbar spine. IMPRESSION: 1. There has been interval placement of a surgical drain within the right upper quadrant with its distal tip near the duodenum. Mild fat stranding/minimal fluid is seen within the right abdomen. 2. There is diffuse thickening of the wall of the duodenum as before. This could represent an infectious or inflammatory process. No free air is seen today. 3. Mild to moderate right pleural fluid and minimal left pleural fluid. This is new since the previous study. There is also mild atelectasis and probable scarring within both lower lung zones as well as emphysema. 4. The ascending colon and transverse colon are mildly distended with air and fluid. This could represent mild ileus or a diarrheal illness. 5. Stable aneurysmal dilatation of the infrarenal aorta. An aortoiliac stent graft is again in place. 6. Bilateral renal cysts. 7. Mild to moderate anasarca. The CT exam was performed using one or more of the following dose reduction techniques: Automated exposure control and adjustment of the mA and/or kV according to patient size. PROCEDURE INTERPRETED AT [facility] DEPARTMENT OF RADIOLOGY Final Report Signed by: Dr. Felicitas Reinoso
--- NOTE | 2016-10-31 20:20 | Internal Med Progress Note ---
Assessment and Plan (1) Perforated viscus Status: Acute Current Visit: Yes (2) COPD (chronic obstructive pulmonary disease) Status: Chronic Current Visit: Yes Qualifiers: COPD type: chronic bronchitis Chronic bronchitis type: mucopurulent Qualified Code(s): J41.1 - Mucopurulent chronic bronchitis (3) Chronic fatigue Problem details: improved Status: Chronic Current Visit: Yes (4) Hypertension Status: Chronic Current Visit: Yes Qualifiers: Hypertension type: essential hypertension Qualified Code(s): I10 - Essential (primary) hypertension (5) Ileus following gastrointestinal surgery Problem details: improving Status: Acute Current Visit: Yes (6) Sinus tachycardia Status: Resolved Current Visit: Yes Internal Medicine - PN: Subj Interval history: Mr. Otto is a 66 year old male with history of HTN, acid reflux, essential tremors controlled on propranolol, COPD with recurrent bronchitis, suspected obstructive sleep apnea, who is here in hospital with perforated duodenal ulcer and status post surgical repair per Dr. Skaggs. He tolerated surgery well. He recently was hospitalized for extensive workup of abdominal distention/gas and bloating without revealing etiology. He underwent outpatient colonoscopy and perforated bowel was noted. He is having what may be rebound tachycardia from sudden cessation of beta katie, propranolol. Low dose Metoprolol IV has been added to help until post surgical ileus has resolved that he can have home meds back again. Otherwise he is reasonably comfortable. He is breathing shallow to avoid abdominal pain at surgical site. Obtaining breathing treatments to help with oxygen saturation. He is still in sinus tachycardia. Increasing metoprolol IV frequency. Otherwise, he still complains of abdominal pain at surgical site. He is not wanting to take deep breaths because of abdominal pain. Thursday, October 27, he is overall feeling better, but still requiring NG tube to suction. Still having ileus. Still abdominal distension which may be somewhat smaller since last week. Thursday, he is sitting up eating soft solids, feeling better after NG tube pulled. Abdomen still distended, but improved and softer. Thursday, he is complaining of abdominal pain with solid food. Will try mechanical soft diet. , he is still complaining of abdominal pain with any food. Back on clear liquids. Thursday, CT abdomen indicates infection/inflammation at intestinal surgical site. Ileus is also suggested by CT. Dr. Garcia, III on for the weekend to follow. Flagyl is already ordered. Also, pleural effusions. Exam (Progress Note) - Constitutional Vitals: Period Temp Pulse Resp BP Sys/Peace Pulse Ox Last 24 Hr 97.8 F-99.1 F 67-89 16-22 119-143/65-79 94-99 Exam: General appearance: no acute distress - Respiratory Respiratory exam: Present: clear to auscultation bilaterally - Cardiovascular Cardiovascular exam: Present: regular rhythm controlled rate - GI/Abdominal GI/Abdominal exam: Present: abdominal distension; tenderness - Extremities Exam Extremities exam: Absent: edema - Neurological Exam Neurological exam: Present: alert - Psychiatric Psychiatric exam: Present: normal mood - Skin Skin exam: Present: warm, dry Results - Labs CBC & BMP: 10/30/16 04:21 10/31/16 05:20 - Diagnostic Findings Procedure: CT Abdomen and Pelvis: report reviewed by me Quality Measures - VTE Contraindication to Pharmacological VTE Prophylaxis: High Risk of Bleeding
[2016-10-31] MEDS ORDERED: FUROSEMIDE 20 MG/2 ML VIAL IV ONE (20:31)
[2016-10-31] MEDS ORDERED: POTASSIUM CHLORIDE 20 MEQ/15 ML UDCUP PO ONE (20:35)
[2016-11-01] MEDS: DEXT 5% NACL 0.45% KCL 40 MEQ 40 MEQ/1,000 ML BAG IV SCH ×2 (00:58→06:07)
[2016-11-01] MEDS: MORPHINE 2 MG/1 ML SYRINGE IV PRN (01:39)
[2016-11-01] MEDS: PIPERACILLIN/TAZOBACTAM 3,375 MG in SODIUM CHLORIDE 0.9% 100 ML IV SCH ×3 (01:53→18:17)
[2016-11-01] MEDS: ALBUTEROL/IPRATROPIUM 3 ML NEB RESP TX SCH ×5 (03:42→19:58)
[2016-11-01] MEDS: HEPARIN 5,000 UNIT/1 ML VIAL SUBCUT SCH ×3 (03:44→20:04)
[2016-11-01 05:30] LABS: Basophils % 0.3 % (0.0-0.8); Eosinophils # 0.1 10*3/uL (0.0-0.87); Eosinophils % 1.6 % (0.00-10.9); Hematocrit 33.9 VOL% (42.0-52.0); Hemoglobin 11.6 GM/DL (14.0-18.0); Immature Granulocytes % 1.6 %; Lymphocytes # 1.2 10*3/uL (1.4-4.0); Mean Corpuscular HGB Conc 34.2 GM/DL (32-36); Mean Corpuscular Hemoglobin 31 PG (27-34); Mean Corpuscular Volume 91.4 FL (87-102); Mean Platelet Volume 9.8 FL (9.6-12.0); Neutrophils # 4.1 10*3/uL (1.4-7.4); Neutrophils % 63.5 % (38.7-73.9); Platelet Count 268 T/CUMM (130-400); Red Blood Count 3.71 MC/CUMM (3.8-5.5); Red Cell Distribution Width 13.5 % (9.3-17.3); White Blood Count 6.4 T/CUMM (4-12)
[2016-11-01] MEDS: metroNIDAZOLE INJ 500 MG in PREMIX 1 EACH IV SCH ×3 (06:00→22:40)
[2016-11-01 06:07] LABS: Calcium 7.3 MG/DL (8.5-10.1); Osmolality,Calculated 276.7 MOS/KG (273-304); Potassium 3.2 MMOL/L (3.5-5.1)
--- NOTE | 2016-11-01 09:01 | Event Note ---
I saw patient yesterday. I ordered an abdominal CT which does not show an intra -abdominal abscess. The patient is not in his room this morning. I did review the findings of the CT scan and it appears that he is afebrile and has a normal white blood cell count this morning. I will try to get back to see him later.
[2016-11-01] MEDS: CETIRIZINE 10 MG TABLET PO SCH (10:02)
[2016-11-01] MEDS: PROPRANOLOL 40 MG TABLET PO SCH ×2 (10:03→20:04)
[2016-11-01] MEDS: amLODIPine 10 MG TABLET PO SCH (10:03)
[2016-11-01] MEDS: PANTOPRAZOLE 40 MG VIAL IV SCH ×2 (10:04→20:04)
--- NOTE | 2016-11-01 11:31 | Family Practice Progress Note ---
Family Practice - PN: Subj Interval history: Patient was seen and examined. The patient tolerating clear liquids, but his abdomen still distended he states that it is must smaller than previous days. He has had mild nausea without vomiting. He states he still has not had any flatus but states he did have a bowel movement yesterday.. He denies chest pain , palpitations, shortness breath, wheeze or cough, and he is walking the halls for activity. Exam (Progress Note) - Constitutional Vitals: Period Temp Pulse Resp BP Sys/Peace Pulse Ox Last 24 Hr 97.5 F-98.6 F 67-89 17-22 119-145/65-77 95-99 Exam: The patient is afebrile with normal vital signs Chest is clear Heart is regular with no murmurs Abdomen is distended. Surgical incision is clean, dry and intact with taniya intact. MAXIMINO drain with serosanguineous drainage. Patient with hypoactive bowel sounds. Peritoneal signs absent. Results - Labs CBC & BMP: 11/01/16 04:39 11/01/16 04:39 Quality Measures - VTE Contraindication to Pharmacological VTE Prophylaxis: High Risk of Bleeding
--- NOTE | 2016-11-01 20:06 | Pulmonology Progress Note ---
Pulmonary - PN: Subj Interval history: 66-year-old male with COPD admitted for abdominal pain and subsequently found to have perforated ulcer. He is now status post ex lap and slowly improving. He had an event of respiratory difficulty overnight which was treated with Lasix with interval improvement. He denies significant respiratory complaints at this time, and is overall feeling at his baseline respiratory status. Exam (Progress Note) - Constitutional Vitals: Period Temp Pulse Resp BP Sys/Peace Pulse Ox Last 24 Hr 98.2 F-99.0 F 68-86 17-20 115-138/65-77 96-99 General appearance: over weight - Head Head exam: Present: normal inspection - Eye Eye exam: Present: EOMI Pupils: Present: SERA - Respiratory Respiratory exam: Present: clear to auscultation bilaterally. Absent: rales, rhonchi, wheezes - Cardiovascular Cardiovascular exam: Present: regular rate and rhythm - GI/Abdominal GI/Abdominal exam: Present: normal bowel sounds, soft, other (Healing abdominal incision) - Extremities Exam Extremities exam: Present: normal inspection - Neurological Exam Neurological exam: Present: alert, oriented X3 - Skin Skin exam: Present: normal color, warm, dry Results - Labs CBC & BMP: 11/01/16 04:39 11/01/16 04:39 Assessment and Plan (1) COPD (chronic obstructive pulmonary disease) Status: Chronic Assessment and plan: No current evidence of exacerbation. Continue current management with bronchodilators. Current Visit: Yes Qualifiers: COPD type: chronic bronchitis Chronic bronchitis type: mucopurulent Qualified Code(s): J41.1 - Mucopurulent chronic bronchitis (2) Perforated viscus Status: Acute Assessment and plan: Slowly improving status post repair. Surgery following Current Visit: Yes
[2016-11-02] MEDS: ALBUTEROL/IPRATROPIUM 3 ML NEB RESP TX SCH ×6 (00:06→19:10)
[2016-11-02] MEDS: PIPERACILLIN/TAZOBACTAM 3,375 MG in SODIUM CHLORIDE 0.9% 100 ML IV SCH ×3 (01:13→17:20)
[2016-11-02] MEDS: HEPARIN 5,000 UNIT/1 ML VIAL SUBCUT SCH ×3 (04:39→21:06)
[2016-11-02] MEDS: metroNIDAZOLE INJ 500 MG in PREMIX 1 EACH IV SCH ×4 (05:54→21:13)
[2016-11-02] MEDS: PANTOPRAZOLE 40 MG VIAL IV SCH ×2 (09:01→21:10)
[2016-11-02] MEDS: amLODIPine 10 MG TABLET PO SCH (09:01)
[2016-11-02] MEDS: PROPRANOLOL 40 MG TABLET PO SCH ×2 (09:01→21:12)
[2016-11-02] MEDS: CETIRIZINE 10 MG TABLET PO SCH (09:02)
--- NOTE | 2016-11-02 10:12 | Family Practice Progress Note ---
Family Practice - PN: Subj Interval history: Patient seen this morning. He states that he has had to large bowel movements this morning. Yesterday he said his bowel movements were watery and I did do a rectal exam on him just to make sure that he did have an impaction and was going around this. He did not. He is less distended this morning than yesterday. In no acute distress at present. He is walking around as well Exam (Progress Note) - Constitutional Vitals: Period Temp Pulse Resp BP Sys/Peace Pulse Ox Last 24 Hr 97.8 F-99.0 F 68-84 18-20 113-134/65-81 95-99 Exam: The patient is afebrile with normal vital signs Chest is clear Heart is regular with no murmurs Abdomen is distended, but less so. Surgical incision is clean, dry and intact with taniya intact. . Patient with hypoactive bowel sounds. No peritoneal signs Results - Labs CBC & BMP: 11/01/16 04:39 11/01/16 04:39 Quality Measures - VTE Contraindication to Pharmacological VTE Prophylaxis: High Risk of Bleeding
--- NOTE | 2016-11-02 10:31 | Event Note ---
He feels much better. He is tolerating liquids without problems. He is having bowel movements. He is afebrile with stable vital signs and his abdomen appears benign. Is much less distended and is now nontender. His incision looks good. We will advance his diet today. He is having bowel movements.
[2016-11-02] MEDS: MORPHINE 2 MG/1 ML SYRINGE IV PRN (21:04)
[2016-11-02] MEDS: DEXT 5% NACL 0.45% KCL 40 MEQ 40 MEQ/1,000 ML BAG IV SCH (23:37)
[2016-11-03] MEDS: ALBUTEROL/IPRATROPIUM 3 ML NEB RESP TX SCH ×5 (00:14→15:08)
[2016-11-03] MEDS: MORPHINE 2 MG/1 ML SYRINGE IV PRN ×2 (02:56→09:23)
[2016-11-03] MEDS: PIPERACILLIN/TAZOBACTAM 3,375 MG in SODIUM CHLORIDE 0.9% 100 ML IV SCH ×2 (02:58→10:34)
[2016-11-03] MEDS: HEPARIN 5,000 UNIT/1 ML VIAL SUBCUT SCH ×2 (04:50→13:02)
[2016-11-03] MEDS: metroNIDAZOLE INJ 500 MG in PREMIX 1 EACH IV SCH ×2 (04:52→13:02)
--- NOTE | 2016-11-03 08:41 | Pulmonology Progress Note ---
Pulmonary - PN: Subj Interval history: The patient is a 66 year white man that came in with abdominal pain and was found to have a perforated ulcer. He is status post exploratory lap. He does have fairly significant COPD . Over the weekend his abdomen has done better. He is having bowel movements and is eating soft food. He still has occasional abdominal pain. He says he is a little short of breath moving around. He has not been coughing or wheezing that much. Overall he is doing a little better. Exam (Progress Note) - Constitutional Vitals: Period Temp Pulse Resp BP Sys/Peace Pulse Ox Last 24 Hr 97.0 F-98.6 F 74-116 16-20 112-130/54-82 88-100 Exam: General appearance: normal weight, no acute distress (He is comfortable sitting up in a chair. ) - Head Head exam: Present: normal inspection, normocephalic - Eye Eye exam: Present: EOMI. Absent: scleral icterus Pupils: Present: SERA - ENT ENT exam: Present: Unremarkable - Neck Neck exam: Present: normal inspection. Absent: lymphadenopathy, thyromegaly - Respiratory Respiratory exam: Present: decreased breath sounds. He has fairly good air movement without any definite wheezing. He does have some crackles in the bases. - Cardiovascular Cardiovascular exam: Present: regular rate and rhythm. His heart rate is better overall. - GI/Abdominal GI/Abdominal exam: Present: His abdomen is softer today although still a little distended. He has bowel sounds and less tenderness. - Extremities Exam Extremities exam: Absent: calf tenderness, edema - Neurological Exam Neurological exam: Present: He is alert and talking and moving his extremities well. - Skin Skin exam: Present: warm, dry Results - Labs CBC & BMP: 11/01/16 04:39 11/01/16 04:39 Assessment and Plan (1) COPD (chronic obstructive pulmonary disease) Status: Chronic Assessment and plan: The patient has significant COPD and will continue with bronchodilator therapy. He says he is a little short of breath but he is not wheezing. Will continue with respiratory therapy. Current Visit: Yes Qualifiers: COPD type: chronic bronchitis Chronic bronchitis type: mucopurulent Qualified Code(s): J41.1 - Mucopurulent chronic bronchitis (2) Hypertension Status: Chronic Assessment and plan: The patient's blood pressure has improved and his renal function is stable. His creatinine is 1.2 today. Current Visit: Yes Qualifiers: Hypertension type: essential hypertension Qualified Code(s): I10 - Essential (primary) hypertension (3) Unspecified sleep apnea Status: Chronic Assessment and plan: The patient needs to use his CPAP at night. Current Visit: No Qualifiers: Sleep apnea type: obstructive Qualified Code(s): G47.33 - Obstructive sleep apnea (adult) (pediatric) (4) Perforated viscus Status: Acute Assessment and plan: Patient came in with a perforated duodenal ulcer. He is fairly stable postop. He is having bowel movements now and is eating a little better. We will stop his IV fluids. Current Visit: Yes (5) Surgical pneumoperitoneum Status: Acute Assessment and plan: The patient is postop perforated duodenal ulcer and he has some abdominal bloating and mild ileus. He is eating better and having bowel movements now and his abdomen is much better. Current Visit: Yes
[2016-11-03] MEDS: PANTOPRAZOLE 40 MG VIAL IV SCH (09:13)
[2016-11-03] MEDS: PROPRANOLOL 40 MG TABLET PO SCH (09:16)
[2016-11-03] MEDS: CETIRIZINE 10 MG TABLET PO SCH (09:16)
[2016-11-03] MEDS: amLODIPine 10 MG TABLET PO SCH (09:16)
--- NOTE | 2016-11-03 09:21 | Event Note ---
He feels much better. He is eating a regular diet without nausea or vomiting. His abdominal distention has resolved. He is afebrile now with normal vital signs and the tachycardia the had before is completely resolved. His abdomen looks good and his incision looks good with no signs of wound infection. He has small amount of serous drainage in his MAXIMINO drain and we will discontinue his drain. I think we are at a point we can look at discharge. He and his family are trying to decide whether he wants to go directly home or whether he wants to go to a swing bed.
--- NOTE | 2016-11-03 12:14 | Discharge Summary ---
Hospital Course - Hospital Course Hospital Course: Patient is a 66-year-old male who presented with perforated ulcer of the anterior surface of the stomach requiring Nain patch repair. Postoperatively he required care in the ICU as he initially presented with acute kidney injury and hypotension as well. He initially required pressor support was but was able to be weaned appropriately after volume expansion. His kidney injury responded well to IV hydration with return of normal kidney function. Patient had known COPD was ultimately weaned from the ventilator with assist from pulmonology which was appreciated. Was transferred to the floor his diet was slowly advanced. He developed a postoperative ileus which ultimately resolved as well with passing of normal bowel movements. His H&H were stable and he did not require blood transfusion. He was discharged to LTAC facility [facility] for continued care. Per instruction from Dr. Skaggs , he will require a 2 week course of PPI therapy. Follow with Dr. Skaggs or partner in 1 week. Diagnosis - Discharge Diagnosis (1) Perforated viscus Status: Acute (2) Hypotension Status: Resolved (3) Acute renal failure Status: Resolved (4) Ileus following gastrointestinal surgery Status: Resolved (5) COPD (chronic obstructive pulmonary disease) Status: Chronic (6) Sinus tachycardia Status: Resolved Specialty Discharge - Follow Up or Referrals Follow up with: Chadd Garcia III., MD [Physician] - 11/11/16 2:00 pm Discharge Plan - Discharge Data Disposition: Disch/Xfer-Ip Rehab Fac Condition at Discharge: Stable Discharge Diet: advance to your usual diet Activity: no lifting (> 10 lb) Hygiene: may shower (Do not soak or submerge wounds. ) Driving: not until seen by doctor Contact your physician if you experience:: fever over 101, Difficulty voiding, Redness or swelling, Nausea/Vomiting, Shortness of breath, Bleeding, pain uncontrolled by pain medications Wound / Dressing Care Instructions: Keep surgical incision clean and dry. Cover MAXIMINO drain site x 72 hours then can leave open to air. - Discharge Medications New Clarithromycin 500 mg PO BID #28 tablet HYDROcodone/ACETAMIN 7.5-325 [[place] 7.5-325] 1 tablet PO Q4H PRN #40 tablet PRN Reason: Pain Moderate To Severe (4-10) Amoxicillin 2 tablet PO BID #56 tablet Pantoprazole Tab [Protonix Tab] 40 mg PO BID #60 tablet Continue amLODIPine [Norvasc] 10 mg PO DAILY Tiotropium Br/Olodaterol HCl [Stiolto Respimat Inhal [place]] 2 puffs INH BEDTIME Cetirizine Tab [ZyrTEC Tab] 10 mg PO DAILY Albuterol Sulfate [Ventolin HFA] 2 puffs PO Q6HR PRN PRN Reason: Shortness Of Breath Albuterol/Ipratropium Neb [Duoneb] 3 ml RESP TX RT Q6H #120 Docusate Sodium Cap [Colace Cap] 100 mg PO BID capsule Lactobacillus Rhamnosus GG [Culturelle] 1 capsule PO BID #60 capsule Magnesium Hydroxide Susp [Milk of Magnesia] 30 ml PO DAILY PRN #0 PRN Reason: Constipation Propranolol Tab [Inderal Tab] 40 mg PO BID #60 tablet Simethicone Chew Tab [Mylicon Chew Tab] 80 mg PO QID #120 tablet Cyanocobalamin (Vitamin B-12) [Vitamin B-12] 1 tablet PO DAILY Acetaminophen Tab [Tylenol Tab] 650 mg PO Q6H PRN #0 tablet PRN Reason: Fever > 100.4 Or Headache Famotidine Tab [Pepcid Tab] 20 mg PO BID #60 tablet Potassium Chloride Cap/Tab [K Dur] 20 meq PO BID #60 tablet Discontinued Meloxicam 7.5 mg PO DAILY - Follow Up or Referral Follow Up: Chadd Garcia III., MD [Physician] - 11/11/16 2:00 pm - Forms/Instructions Instructions: Peptic Ulcer (DC), Gastrectomy (DC) Additional Discharge Instructions: Follow up PCP appx 1 wk after discharge from [facility] for hospital follow-up. Exam - Constitutional Vitals: Period Temp Pulse Resp BP Sys/Peace Pulse Ox Last 24 Hr 97.0 F-98.6 F 77-116 16-20 112-132/54-82 88-100 General appearance: no acute distress - Head Head exam: Present: normal inspection, normocephalic - Eye Eye exam: Absent: conjunctival injection, periorbital swelling - Respiratory Respiratory exam: Present: clear to auscultation bilaterally - Cardiovascular Cardiovascular exam: Present: regular rate and rhythm - GI/Abdominal GI/Abdominal exam: Present: normal bowel sounds, tenderness (Minimal residual tenderness; no perineal signs. Mild distention but soft. Midline surgical incision was clean, dry and intact with taniya intact. No local evidence of infection. MAXIMINO drain with serosanguineous output which was minimal; no local evidence of infection around the MAXIMINO drain site.), soft - Extremities Exam Extremities exam: Absent: calf tenderness, edema - Neurological Exam Neurological exam: Present: alert, oriented X3 - Skin Skin exam: Present: normal color, warm Discharge Results Procedures and tests throughout hospitalization: Pending Orders 11/04/16 04:00 Basic Metabolic Panel IN AM CBC [Comp Blood Count Auto Diff] IN AM Exploratory laparotomy with Nain patch procedure - Imaging and Cardiology Procedure: Chest x-ray: image reviewed by me, report reviewed by me (Serial), KUB x-ray: image reviewed by me, report reviewed by me, CT Abdomen and Pelvis: image reviewed by me, report reviewed by me DS: Provider Date of admission: 10/22/16 17:35 Primary care physician: Laila Wyatt DO Attending physician on admission: Marc Skaggs MD Consults: 10/22/16 18:20 Consult to Physician [CONS] Routine Comment: Consulting Provider: Kamaljit Wyatt Consulting Provider Notified: No When should Consulting Provider be notified: Now Person Notified: Dr. Wyatt Date Notified: 10/22/16 Time Notified: 20:13 Consult Notification Comment: spoke with Dr. Wyatt via telephone about consult 10/22/16 20:14 Consult to Physician [CONS] Routine Comment: Consulting Provider: Laila Wyatt Consulting Provider Notified: Yes When should Consulting Provider be notified: In am Consult to Specialist Group: Internal Medicine Person Notified: LUIS Date Notified: 10/23/16 Time Notified: 08:40 10/22/16 20:18 Consult to Physician [CONS] Routine Comment: Consulting Provider: 10/31/16 10:50 Consult to Case Mgmt/Social Srvs [CONS] Routine Reason for Case Mgmt/Social Srvs: LTAC Discharge Planning Consult Comment: Referral for [facility] Inpatient Placement. Discharging clinician: Saritha Abreu PA-C
[2016-11-03 16:24] VITALS: BP 123/69
== END 2016-11-03 16:24 | DRG 329 ==
LOC: EDBD → EDUNIT# → N.ED 14:38 → N.ICU 17:31 → N.EDINP 17:35 → N.ICU 17:53 → N.3E 10-25 12:38
PROVIDERS: ADMIT Surgery; ATTEND Surgery

== ENCOUNTER 2016-12-20 06:47 | Inpatient (IN) ==
[2016-12-20 07:49] LABS: Basophils % 0.3 % (0.0-0.8); Eosinophils # 0.2 10*3/uL (0.0-0.87); Eosinophils % 1.9 % (0.00-10.9); Hematocrit 35.6 VOL% (42.0-52.0); Hemoglobin 12.8 GM/DL (14.0-18.0); Immature Granulocytes % 0.4 %; Immature Granulocytes Absolute 0.05 #; Lymphocytes # 2.1 10*3/uL (1.4-4.0); Lymphocytes % 18.9 % (21.2-54.2); Mean Corpuscular Hemoglobin 32 PG (27-34); Mean Corpuscular Volume 89.9 FL (87-102); Mean Platelet Volume 8.8 FL (9.6-12.0); Monocytes # 1.4 10*3/uL (0.11-0.8); Monocytes % 12.5 % (1.7-12.7); Neutrophils # 7.5 10*3/uL (1.4-7.4); Platelet Count 220 T/CUMM (130-400); Red Blood Count 3.96 MC/CUMM (3.8-5.5); Red Cell Distribution Width 14.4 % (9.3-17.3); White Blood Count 11.3 T/CUMM (4-12)
[2016-12-20 08:06] LABS: INR 1.1; PT Patient Result 11.5 SECS; Partial Thromboplastin Time 33.1 SECS (0-40)
[2016-12-20 08:18] LABS: Alanine Aminotransferase 14 U/L (16-61); Alkaline Phosphatase 65 U/L (45-117); Aspartate Amino Transferase 15 U/L (0-37); Blood Urea Nitrogen 10 MG/DL (7-18); Calcium 8.4 MG/DL (8.5-10.1); Glucose 117 MG/DL (74-106); Osmolality,Calculated 263.5 MOS/KG (273-304); Potassium 3.6 MMOL/L (3.5-5.1); Sodium 132 MMOL/L (136-145); Total Protein 6.9 G/DL (6.4-8.3); Troponin I Only < 0.015 NG/ML (0.00-0.045)
--- NOTE | 2016-12-20 08:19 | XRay Report ---
History: Shortness of breath Date: 12/20/2016 Study: Chest x-ray AP portable Comparison exam: November 06, 2016 The cardiac silhouette is not enlarged. The mediastinal contours are unchanged. There is moderate aortic arch calcification. The pulmonary vasculature is not engorged. There is no gross pleural effusion. The lungs are well-expanded and clear. There are some scattered emphysematous changes. There is no confluent infiltrate. There is osteopenia and mild thoracic spondylosis. Impression: No acute cardiopulmonary process. Emphysematous changes PROCEDURE INTERPRETED AT [facility] DEPARTMENT OF RADIOLOGY Final Report Signed by: Dr. Steph Gray
--- NOTE | 2016-12-20 08:20 | XRay Report ---
History: Knee pain and swelling Date: 12/20/2016 Study: Left knee 2 views Comparison exam: No previous similar study There is no fracture, dislocation, or focal destructive osseous abnormality. There is some moderate regional arterial vascular calcification overlying the region of the popliteal artery. Impression: No acute bony abnormality PROCEDURE INTERPRETED AT [facility] DEPARTMENT OF RADIOLOGY Final Report Signed by: Dr. Steph Gray
[2016-12-20 09:11] LABS: Amorphous Crystals,Urine Occasional /HPF (Few); Apearance,Urine CLEAR (Clear); Bilirubin,Urine Negative (Negative); Blood, Urine Small mg/dL (Negative); Glucose,Urine (UA) Negative (Negative); Hyaline Casts,Urine 1 /LPF (0-3); Ketones,Urine 20 mg/dL (Negative); Mucus,Urine Occasional /LPF (Occasional); Nitrite,Urine Negative (Negative); Protein,Urine >=500 MG/DL; RBC,Urine <1 /HPF (0-4); Squamous Epithelial Cell,Urine Occasional /HPF (0-10); Urine Color Yellow (Yellow); Urine Urobilinogen < 2.0 EU/DL (0.2-1.0); WBC,Urine 1 /HPF (0-6)
[2016-12-20] MEDS ORDERED: RIVAROXABAN 15 MG TABLET PO STA (09:35)
--- NOTE | 2016-12-20 09:37 | CT Report ---
History: Dyspnea Date: 12/20/2016 Study: CT chest with IV contrast with pulmonary embolus technique Comparison exam: No previous chest CT available Critical test result: Finding of acute pulmonary embolus discussed with nurse Duran by telephone at 9:[address] sections were obtained through the lungs following the IV administration of 80 mL of Omnipaque 350 without immediate complication. Multiplanar reconstruction images are also evaluated. The CT exam was performed using one or more of the following dose reduction techniques: Automated exposure control, adjustment of the mA and/or kV according to patient size, or use of iterative reconstruction technique. There is cylindrical filling defect compatible with acute pulmonary embolus involving the distal aspect of the main right branch of the pulmonary artery with extension into the right upper lobe pulmonary artery branch. There is also opacification of the lateral segment right middle lobe pulmonary arterial tributary. There is no reflux of contrast into the inferior vena cava. The right ventricle to left ventricle ratio measures 1.15. There is no pleural or pericardial effusion. There is no mediastinal lymphadenopathy by short axis diameter criteria. There is no thoracic aortic aneurysm or dissection. There is moderate or greater coronary artery calcification with involvement of the left circumflex and left anterior descending coronary arteries. There are moderate changes of centrilobular emphysema with a mild component of paraseptal emphysema as well. There is no carlyn consolidated pneumonia. There is no definite acute abnormality of the partially visualized upper abdomen. There is moderate thoracic spondylosis. There is chronic wedge compression of the lowest thoracic vertebral body Impression: There is evidence of acute pulmonary embolic disease as discussed above Centrilobular emphysema Coronary artery calcification Impression: PROCEDURE INTERPRETED AT [facility] DEPARTMENT OF RADIOLOGY Final Report Signed by: Dr. Steph Gray
[2016-12-20] MEDS ORDERED: ONDANSETRON 4 MG/2 ML VIAL IV PRN (09:38)
[2016-12-20] MEDS ORDERED: ACETAMINOPHEN 325 MG TABLET PO PRN (09:38)
[2016-12-20] MEDS ORDERED: RIVAROXABAN 15 MG TABLET ONE (09:39)
--- NOTE | 2016-12-20 09:39 | Emergency Department Note ---
IHany Brittany, am scribing for, and in the presence of, Carlin Arshad MD 07:27. Jeancarlos Thompson Doug C, MD, personally performed the services described in this documentation, ascribed by Zaria Leach in my presence, and it is both accurate and complete 753 . Arrival - Arrival Chief Complaint: Shortness of Breath ED Nursing Triage Note: Pt arrives via ems from home with complaints of sob that worsened this morning. PT states that he wears home O2 and states that he just has not gotten any relief. + productive cough. States he thinks he has had a low temp at home. Complains of back pain at time of triage r/t installing a washer and dryer over the last two days. Mode of Arrival: Stretcher Limitations: No Limitations Source: Patient, Family Time Seen by Provider: 12/20/16 07:19 - History of Present Illness HPI Narrative: Patient comes to the emergency room this morning with complaint of shortness of breath that started this morning. Patient states he has a history of COPD and has home oxygen but got more short of breath this morning than his usual. He states is feeling much better when he arrived to the emergency room. Is not having any fever or chills associated with this. Has not had any increased cough or sputum production. He has 100 pack year history of tobacco abuse. Patient is also having some left knee swelling. Patient states she was just in the hospital a month ago for a perforated ulcer requiring laparotomy. He denies any history of congestive heart failure in the past. He states his been hurting all over the last 2 years and no one can determine the cause of this. Onset (ago): hour(s) (Started this morning) Consistency: constant Severity: moderate Allergies/Adverse Reactions: Allergies Allergy/AdvReac Type Severity Reaction Status Date / Time No Known Allergies Allergy Verified 10/22/16 14:48 Home Medications: Home Medications Medication Instructions Recorded Confirmed Type Albuterol Sulfate [Ventolin HFA] 2 puffs PO Q6HR PRN 09/24/16 12/20/16 History Cetirizine Tab [ZyrTEC Tab] 10 mg PO DAILY 09/24/16 12/20/16 History Cyanocobalamin (Vitamin B-12) 1 tablet PO DAILY 09/24/16 12/20/16 History [Vitamin B-12] Tiotropium Br/Olodaterol HCl 2 puffs INH BEDTIME 09/24/16 12/20/16 History [Stiolto Respimat Inhal [place]] amLODIPine [Norvasc] 10 mg PO DAILY 09/24/16 12/20/16 History Acetaminophen Tab [Tylenol Tab] 650 mg PO Q6H PRN #0 tablet 10/03/16 12/20/16 Rx Albuterol/Ipratropium Neb [Duoneb] 3 ml RESP TX RT Q6H #120 10/03/16 12/20/16 Rx Docusate Sodium Cap [Colace Cap] 100 mg PO BID capsule 10/03/16 12/20/16 Rx Famotidine Tab [Pepcid Tab] 20 mg PO BID #60 tablet 10/03/16 12/20/16 Rx Lactobacillus Rhamnosus GG 1 capsule PO BID #60 capsule 10/03/16 12/20/16 Rx [Culturelle] Magnesium Hydroxide Susp [Milk of 30 ml PO DAILY PRN #0 10/03/16 12/20/16 Rx Magnesia] Potassium Chloride Cap/Tab [K Dur] 20 meq PO BID #60 tablet 10/03/16 12/20/16 Rx Propranolol Tab [Inderal Tab] 40 mg PO BID #60 tablet 10/03/16 12/20/16 Rx Simethicone Chew Tab [Mylicon Chew 80 mg PO QID #120 tablet 10/03/16 12/20/16 Rx Tab] Amoxicillin 2 tablet PO BID #56 tablet 11/03/16 12/20/16 Rx Clarithromycin 500 mg PO BID #28 tablet 11/03/16 12/20/16 Rx HYDROcodone/ACETAMIN 7.5-325 1 tablet PO Q4H PRN #40 tablet 11/03/16 12/20/16 Rx [[place] 7.5-325] Pantoprazole Tab [Protonix Tab] 40 mg PO BID #60 tablet 11/03/16 12/20/16 Rx Review of System - Review of System 12 point system: reviewed and no additional remarkable complaints except as stated - Review of System Review of Systems: Decreased appetite Constitutional: Present: weakness (Chronic generalized weak for the past 2 years ). Absent: fever Cardiovascular: Present: dyspnea on exertion, orthopnea Musculoskeletal: Present: as per HPI, leg pain Skin: Absent: rash, lesions Psychiatric: Absent: anxiety Endocrine: Present: fatigue. Absent: polydipsia, polyuria Hematological/Lymphatic: Absent: easy bleeding, easy bruising Medical,Surgical,& Family Hx - Medical History Cardio: History of: Aneurysm (aortic aneurysm), Cardiac Dysrhythmia (sinus tachycardia), Hypertension, Cardiovascular Problems (syncope) Psychological: History of: Depression No history of: Anxiety Disorders, ADHD, Behavior Problems, Bipolar Disorder, Previous Suicide Attempt, Schizophrenia, Violent Behavior, Psychiatric Problems Neurology: History of: Neurological Problems (tremors right hand/arm) No history of: Seizures HEENT: History of: HEENT Problems (sinus drainage; hx nosebleeds) Endocrine: History of: Dyslipidemia Respiratory: History of: COPD, Respiratory Problems (chronic shortness of breath ) Gastrointestinal: History of: GERD, GI Problems (recent bloating) Hematology: History of: Anemia - Surgical History Cardiac Surgeries: Sugical HX of: Cardiac Surgery (aortic aneurysm repair surger ) Neurologic Surgeries: Patient denies: Neurologic Surgery HEENT Surgeries: Patient denies: Thyroid Surgery Abdominal Surgeries: Surgical HX of: Appendectomy, Colonoscopy (Dr. Alvarado), EGD (dilatation) Reproductive Surgeries: Patient denies;: Genitourinary Surgery - Family History Family History: Reports;: Family Cancer - Social History Smoking Status: Former smoker Frequency of Alcohol Use: None Type of Drug Use: None Exam Vital Signs: Vital Signs Temperature 98.3 F 12/20/16 06:47 Pulse Rate 92 H 12/20/16 09:15 Respiratory Rate 18 12/20/16 09:15 Blood Pressure 162/77 12/20/16 09:15 O2 Sat by Pulse Oximetry 100 12/20/16 09:15 - General General appearance: alert, in no apparent distress - Head Head exam: Present: atraumatic, normocephalic, normal inspection - Eye Eye exam: Present: normal appearance, PERRL, EOMI. Absent: scleral icterus, conjunctival injection, nystagmus, miosis, mydriasis - ENT ENT exam: Present: normal exam, normal oropharynx, mucous membranes moist, normal external ear exam - Neck Neck exam: Present: normal inspection, full ROM, trachea midline. Absent: tenderness, meningismus, lymphadenopathy, thyromegaly - Chest Chest inspection: Present: normal inspection, symmetric chest wall rise. Absent : tenderness, rash, abscess - Respiratory Respiratory exam: Present: normal lung sounds bilaterally. Absent: prolonged expiratory phase, rales, respiratory distress, rhonchi, stridor, wheezes - Cardiovascular Cardiovascular exam: Present: regular rate, normal rhythm, normal heart sounds. Absent: murmur, rubs, gallop, clicks, JVD - Abdominal Exam Abdominal exam: Present: soft, normal bowel sounds. Absent: distention, tenderness, guarding, rebound, rigidity - Rectal Exam Rectal exam: Present: deferred - Extremities Exam Extremities exam: Present: full ROM, normal capillary refill. Absent: normal inspection (Left knee tenderness, small effusion), tenderness, pedal edema, joint swelling, calf tenderness - Back Exam Back exam: Present: normal inspection, full ROM. Absent: tenderness, muscle spasm, rashes - Neurological Exam Neurological exam: Present: alert, oriented X3, CN II-XII intact. Absent: motor sensory deficit - Psychiatric Psychiatric exam: Present: normal affect, normal mood. Absent: depressed, agitated, anxious, flat affect, manic - Skin Skin exam: Present: warm, dry, intact, normal color. Absent: rash, cyanosis, diaphoresis, erythema, pallor, mottled Course Course Narrative: Patient's clinical presentation, laboratory radiograph findings were discussed with Dr. Laila Wyatt who is his regular physician. She asked that we start him on Xarelto and admit him to her services to a monitored bed. Orders were written. Results - Labs CBC & BMP: 12/20/16 07:36 12/20/16 07:36 Lab Results: I have reviewed the patients labs Labs: Laboratory Tests 12/20/16 07:36 WBC 11.3 RBC 3.96 Hgb 12.8 L Hct 35.6 L MCV 89.9 MCH 32 MCHC 36.0 RDW 14.4 Plt Count 220 MPV 8.8 L Neut % (Auto) 66.0 Lymph % (Auto) 18.9 L [place] % (Auto) 12.5 Eos % (Auto) 1.9 Baso % (Auto) 0.3 Neut # (Auto) 7.5 H Lymph # (Auto) 2.1 [place] # (Auto) 1.4 H Eos # (Auto) 0.2 Baso # (Auto) 0.0 Immature Gran % 0.4 Nucleated RBC % 0.0 Immature Gran # 0.05 Nucleated RBCs # 0.00 Immature Plt Fraction 0.0 - EKG EKG results: interpreted by ERMD, sinus rhythm (97 bpm), no acute changes - Diagnostic Findings Procedure: Chest x-ray: report reviewed by me (Nothing acute. Emphysematous changes), X-ray: report reviewed by me (Left Knee X-ray: No bony abnormality. ) Disposition Clinical Impression: Pulmonary embolus Case discussed with: patient, patient's family Disposition: Still a Patient Condition: Guarded Time of Disposition: 09:38
[2016-12-20] MEDS ORDERED: MAGNESIUM HYDROXIDE SUSP 30 ML UDCUP PO PRN (09:42)
--- NOTE | 2016-12-20 09:46 | EKG Report ---
Stationary ECG Study [facility] ER Test Date: 12/20/2016 6:53:16 AM Pat Name: IMELDA CRUZ Department: Room: Gender: M Rac Specialist: : [id number] Requested by: Aquiles Daly Order Number: [id number] Reading MD: IGOR BARCENAS Intervals [place] Rate: 97 P: 66 OK: 142 QRS: 41 QRSD: 86 T: 51 QT: 336 QTc: 390 Interpretive Statements SINUS RHYTHM Electronically Signed On 12-22-16 07:14:17 CDT by IGOR BARCENAS [email or web address]
[2016-12-20] MEDS: ALBUTEROL/IPRATROPIUM 3 ML NEB RESP TX SCH ×3 (10:00→23:55)
[2016-12-20] MEDS: SODIUM CHLORIDE 0.45% 1,000 ML IV SCH (10:45)
[2016-12-20] MEDS: SIMETHICONE CHEW 80 MG TABLET PO SCH ×3 (13:14→20:39)
--- NOTE | 2016-12-20 13:41 | Internal Med History&Physical ---
Assessment and Plan (1) Pulmonary embolus Status: Acute Current Visit: Yes (2) Perforated viscus Problem details: surgical repair Status: Resolved Current Visit: No (3) COPD (chronic obstructive pulmonary disease) Status: Chronic Current Visit: Yes Qualifiers: COPD type: emphysema (4) History of constipation Status: Chronic Current Visit: No (5) Sinus tachycardia Status: Resolved Current Visit: No History of Present Illness Chief complaint: acute shortness of breath History of present illness: Mr. Otto is a 66 year old male with history of recent bowel perforation and surgical repair, diverticulosis/diverticulitis, COPD with asthmatic bronchitis, HTN, sinus tachycardia, who had been in [facility] until a few weeks ago. He has been doing better. However, he pulled a muscle in left upper leg, and he became acutely sedentary. He presented to ER with acute shortness of breath and found to have PE. Xarelto was started in ER. Home Medications Medication Instructions Recorded Confirmed Type Albuterol Sulfate [Ventolin HFA] 2 puffs PO Q6HR PRN 09/24/16 12/20/16 History Cetirizine Tab [ZyrTEC Tab] 10 mg PO DAILY 09/24/16 12/20/16 History Cyanocobalamin (Vitamin B-12) 1 tablet PO DAILY 09/24/16 12/20/16 History [Vitamin B-12] Tiotropium Br/Olodaterol HCl 2 puffs INH BEDTIME 09/24/16 12/20/16 History [Stiolto Respimat Inhal [place]] amLODIPine [Norvasc] 10 mg PO DAILY 09/24/16 12/20/16 History Acetaminophen Tab [Tylenol Tab] 650 mg PO Q6H PRN #0 tablet 10/03/16 12/20/16 Rx Albuterol/Ipratropium Neb [Duoneb] 3 ml RESP TX RT Q6H #120 10/03/16 12/20/16 Rx Docusate Sodium Cap [Colace Cap] 100 mg PO BID capsule 10/03/16 12/20/16 Rx Famotidine Tab [Pepcid Tab] 20 mg PO BID #60 tablet 10/03/16 12/20/16 Rx Lactobacillus Rhamnosus GG 1 capsule PO BID #60 capsule 10/03/16 12/20/16 Rx [Culturelle] Magnesium Hydroxide Susp [Milk of 30 ml PO DAILY PRN #0 10/03/16 12/20/16 Rx Magnesia] Potassium Chloride Cap/Tab [K Dur] 20 meq PO BID #60 tablet 10/03/16 12/20/16 Rx Propranolol Tab [Inderal Tab] 40 mg PO BID #60 tablet 10/03/16 12/20/16 Rx Simethicone Chew Tab [Mylicon Chew 80 mg PO QID #120 tablet 10/03/16 12/20/16 Rx Tab] HYDROcodone/ACETAMIN 7.5-325 1 tablet PO Q4H PRN #40 tablet 11/03/16 12/20/16 Rx [[place] 7.5-325] Pantoprazole Tab [Protonix Tab] 40 mg PO BID #60 tablet 11/03/16 12/20/16 Rx Metoclopramide Tab [Reglan Tab] 10 mg PO DAILY 12/20/16 12/20/16 History Allergies Allergy/AdvReac Type Severity Reaction Status Date / Time No Known Allergies Allergy Verified 10/22/16 14:48 Medical,Surgical,& Family Hx - Medical History Cardio: History of: Aneurysm (aortic aneurysm), Cardiac Dysrhythmia (sinus tachycardia), Hypertension, Cardiovascular Problems (syncope) Psychological: History of: Depression No history of: Anxiety Disorders, ADHD, Behavior Problems, Bipolar Disorder, Previous Suicide Attempt, Schizophrenia, Violent Behavior, Psychiatric Problems Neurology: History of: Neurological Problems (tremors right hand/arm) No history of: Seizures HEENT: History of: HEENT Problems (sinus drainage; hx nosebleeds) Endocrine: History of: Dyslipidemia Respiratory: History of: Bronchitis, COPD (emphysema), Respiratory Problems ( chronic shortness of breath) Gastrointestinal: History of: GERD, GI Problems (recent bloating) Hematology: History of: Anemia - Surgical History Cardiac Surgeries: Sugical HX of: Cardiac Surgery (aortic aneurysm repair surger ) Neurologic Surgeries: Patient denies: Neurologic Surgery HEENT Surgeries: Patient denies: Thyroid Surgery Abdominal Surgeries: Surgical HX of: Appendectomy, Colonoscopy (Dr. Alvarado), EGD (dilatation) Reproductive Surgeries: Patient denies;: Genitourinary Surgery - Family History Family History: Reports;: Family Cancer - Social History Smoking Status: Former smoker Frequency of Alcohol Use: None Type of Drug Use: None Functional capacity: uses cane/walker - Constitutional Constitutional: Present: fatigue - Cardiovascular Cardiovascular: Absent: chest pain at rest, chest pain with activity - Respiratory Respiratory: Present: dyspnea, dyspnea on exertion - Gastrointestinal Gastrointestinal: Absent: abdominal pain, nausea, vomiting - Musculoskeletal Musculoskeletal: Present: myalgias (left upper leg with movement and weight bearing) Exam - Constitutional Vitals: Period Temp Pulse Resp BP Sys/Peace Pulse Ox Last 24 Hr 97.8 F-98.3 F 87-97 17-24 118-171/73-91 94-100 General appearance: no acute distress - Head Head exam: Present: normocephalic - Eye Eye exam: Present: EOMI - Respiratory Respiratory exam: Present: clear to auscultation bilaterally. Absent: rales, rhonchi, wheezes - Cardiovascular Cardiovascular exam: Present: regular rate and rhythm - GI/Abdominal GI/Abdominal exam: Present: soft. Absent: tenderness - Extremities Exam Extremities exam: Absent: edema - Psychiatric Psychiatric exam: Present: normal mood - Skin Skin exam: Present: warm, dry Results - Labs CBC & BMP: 12/21/16 04:43 12/20/16 07:36 - EKG EKG shows: sinus rhythm - Diagnostic Findings Procedure: Chest x-ray: report reviewed by me, CT - chest: report reviewed by me (right lung) Quality Measures - Stroke Symptom Onset Unknown: No
[2016-12-20] MEDS ORDERED: FUROSEMIDE 20 MG/2 ML VIAL IV ONE (14:41)
[2016-12-20] MEDS: RIVAROXABAN 15 MG TABLET PO SCH (16:38)
[2016-12-20] MEDS: PROPRANOLOL 40 MG TABLET PO SCH (20:39)
[2016-12-20] MEDS: POTASSIUM CHLORIDE 20 MEQ TABLET PO SCH (20:39)
[2016-12-20] MEDS: LACTOBACILLUS RHAMNOSUS GG CAPSULE PO SCH (20:39)
[2016-12-20] MEDS: DOCUSATE SODIUM 100 MG CAPSULE PO SCH (20:40)
[2016-12-20] MEDS: Tiotropium Br/Olodaterol Hcl [Stiolto Respimat Inhal Spray] 2 PU INH SCH (20:44)
[2016-12-21 05:35] LABS: Basophils % 0.2 % (0.0-0.8); Eosinophils # 0.2 10*3/uL (0.0-0.87); Eosinophils % 1.8 % (0.00-10.9); Hematocrit 33.1 VOL% (42.0-52.0); Hemoglobin 11.7 GM/DL (14.0-18.0); Immature Granulocytes % 0.4 %; Immature Granulocytes Absolute 0.04 #; Lymphocytes # 2.1 10*3/uL (1.4-4.0); Mean Corpuscular HGB Conc 35.3 GM/DL (32-36); Mean Corpuscular Hemoglobin 32 PG (27-34); Mean Corpuscular Volume 90.9 FL (87-102); Mean Platelet Volume 9.1 FL (9.6-12.0); Monocytes # 1.6 10*3/uL (0.11-0.8); Monocytes % 16.1 % (1.7-12.7); Neutrophils % 60.5 % (38.7-73.9); Platelet Count 233 T/CUMM (130-400); Red Blood Count 3.64 MC/CUMM (3.8-5.5); Red Cell Distribution Width 14.4 % (9.3-17.3); White Blood Count 9.9 T/CUMM (4-12)
[2016-12-21 06:00] LABS: Band Neutrophils 2 % (0-10); Eosinophils 1 % (0-10); Hypochromasia 1+; Lymphocytes 18 % (20-55); Microcytosis 1+; Platelet Estimate Normal; Segmented Neutrophils 68 % (50-85); Total Cells Counted 100
[2016-12-21 06:08] LABS: Calcium 8.5 MG/DL (8.5-10.1); Osmolality,Calculated 267.4 MOS/KG (273-304); Potassium 3.5 MMOL/L (3.5-5.1)
[2016-12-21] MEDS ORDERED: POTASSIUM CHLORIDE 20 MEQ TABLET PO PRN (06:20)
[2016-12-21] MEDS: SODIUM CHLORIDE 0.45% 1,000 ML IV SCH (06:48)
[2016-12-21] MEDS: ALBUTEROL/IPRATROPIUM 3 ML NEB RESP TX SCH ×3 (07:37→19:33)
--- NOTE | 2016-12-21 08:48 | Pulmonology Consult Note ---
Assessment and Plan (1) COPD (chronic obstructive pulmonary disease) Status: Chronic Assessment and plan: The patient does have significant COPD but is not wheezing at the present time. Will continue with bronchodilator therapy. Current Visit: Yes Qualifiers: COPD type: emphysema (2) Hypertension Status: Chronic Assessment and plan: Patient takes blood pressure medicines but he needs to stay off calcium blockers because of constipation. Current Visit: No Qualifiers: Hypertension type: essential hypertension Qualified Code(s): I10 - Essential (primary) hypertension (3) History of constipation Status: Chronic Assessment and plan: The patient has had chronic problems with his bowels. Current Visit: No (4) Pulmonary embolus Status: Acute Assessment and plan: Patient apparently has DVT of the left leg and has pulmonary emboli. He has been started on Xarelto and is stable. Current Visit: Yes History of Present Illness Chief complaint: Shortness of breath History of present illness: Mr. Otto is a 66 year old white male that has a long history of having COPD. Several months ago he had a perforated gastric ulcer that was repaired. He spent several weeks at [facility]. He has had some chronic problems with gastroparesis and ileus. He says he still does not eat very well. He said he was doing okay but injured his left leg moving some appliances. He said yesterday started having shortness of breath and he came in and was found to have a pulmonary embolus. He says that they told him he had a blood clot in his left leg on Doppler. He has been started on anticoagulation. He says he is comfortable now. He is not having any chest pain or pleurisy. Home Medications Medication Instructions Recorded Confirmed Type Albuterol Sulfate [Ventolin HFA] 2 puffs PO Q6HR PRN 09/24/16 12/20/16 History Cetirizine Tab [ZyrTEC Tab] 10 mg PO DAILY 09/24/16 12/20/16 History Cyanocobalamin (Vitamin B-12) 1 tablet PO DAILY 09/24/16 12/20/16 History [Vitamin B-12] Tiotropium Br/Olodaterol HCl 2 puffs INH BEDTIME 09/24/16 12/20/16 History [Stiolto Respimat Inhal [place]] amLODIPine [Norvasc] 10 mg PO DAILY 09/24/16 12/20/16 History Acetaminophen Tab [Tylenol Tab] 650 mg PO Q6H PRN #0 tablet 10/03/16 12/20/16 Rx Albuterol/Ipratropium Neb [Duoneb] 3 ml RESP TX RT Q6H #120 10/03/16 12/20/16 Rx Docusate Sodium Cap [Colace Cap] 100 mg PO BID capsule 10/03/16 12/20/16 Rx Famotidine Tab [Pepcid Tab] 20 mg PO BID #60 tablet 10/03/16 12/20/16 Rx Lactobacillus Rhamnosus GG 1 capsule PO BID #60 capsule 10/03/16 12/20/16 Rx [Culturelle] Magnesium Hydroxide Susp [Milk of 30 ml PO DAILY PRN #0 10/03/16 12/20/16 Rx Magnesia] Potassium Chloride Cap/Tab [K Dur] 20 meq PO BID #60 tablet 10/03/16 12/20/16 Rx Propranolol Tab [Inderal Tab] 40 mg PO BID #60 tablet 10/03/16 12/20/16 Rx Simethicone Chew Tab [Mylicon Chew 80 mg PO QID #120 tablet 10/03/16 12/20/16 Rx Tab] HYDROcodone/ACETAMIN 7.5-325 1 tablet PO Q4H PRN #40 tablet 11/03/16 12/20/16 Rx [[place] 7.5-325] Pantoprazole Tab [Protonix Tab] 40 mg PO BID #60 tablet 11/03/16 12/20/16 Rx Metoclopramide Tab [Reglan Tab] 10 mg PO DAILY 12/20/16 12/20/16 History Allergies Allergy/AdvReac Type Severity Reaction Status Date / Time No Known Allergies Allergy Verified 10/22/16 14:48 - Constitutional Constitutional: Present: fatigue. Absent: chills, fever(s), weight loss - EENT Eyes: Absent: loss of vision Ears: Absent: decreased hearing Nose, mouth and throat: Absent: dysphagia, headache(s), sinus pressure - Cardiovascular Cardiovascular: Present: dyspnea. Absent: chest pain at rest, edema, orthopnea , palpitations, PND - Respiratory Respiratory: Present: dyspnea. Absent: cough, hemoptysis, pain on inspiration - Gastrointestinal Gastrointestinal: Present: early satiety. Absent: abdominal pain, change in bowel habits, dysphagia, heartburn, nausea, vomiting - Genitourinary Genitourinary: Absent: difficulty urinating, dysuria, hematuria - Musculoskeletal Musculoskeletal: Present: myalgias. Absent: arthralgias - Neurological Neurological: Absent: abnormal speech, focal weakness, paresthesias Exam (Pulmonay) H&P - Constitutional Vitals: Period Temp Pulse Resp BP Sys/Peace Pulse Ox Last 24 Hr 97.0 F-97.8 F 73-97 18-24 116-162/58-90 94-100 General appearance: normal weight, no acute distress (He is comfortable lying in bed) - Head Head exam: Present: normal inspection, normocephalic - Eye Eye exam: Present: EOMI. Absent: scleral icterus Pupils: Present: SERA - ENT ENT exam: Present: normal exam - Neck Neck exam: Present: normal inspection. Absent: lymphadenopathy, thyromegaly - Respiratory Respiratory exam: Present: decreased breath sounds, prolonged expiratory phase. Absent: accessory muscle use, wheezes - Cardiovascular Cardiovascular exam: Present: regular rate and rhythm. Absent: gallop, systolic murmur - GI/Abdominal GI/Abdominal exam: Present: normal bowel sounds, distended, soft. Absent: organomegaly, tenderness - Extremities Exam Extremities exam: Present: other (His legs look okay without obvious phlebitis.) . Absent: calf tenderness, edema - Neurological Exam Neurological exam: Present: alert, oriented X3, CN II-XII intact. Absent: motor sensory deficit - Psychiatric Psychiatric exam: Present: normal affect, normal mood - Skin Skin exam: Present: warm, dry Medical,Surgical,& Family Hx - Medical History Cardio: History of: Aneurysm (aortic aneurysm), Cardiac Dysrhythmia (sinus tachycardia), Hypertension, Cardiovascular Problems (syncope) Psychological: History of: Depression No history of: Anxiety Disorders, ADHD, Behavior Problems, Bipolar Disorder, Previous Suicide Attempt, Schizophrenia, Violent Behavior, Psychiatric Problems Neurology: History of: Neurological Problems (tremors right hand/arm) No history of: Seizures HEENT: History of: HEENT Problems (sinus drainage; hx nosebleeds) Endocrine: History of: Dyslipidemia Respiratory: History of: Bronchitis, COPD (emphysema), Respiratory Problems ( chronic shortness of breath) Gastrointestinal: History of: GERD, GI Problems (recent bloating) Hematology: History of: Anemia - Surgical History Cardiac Surgeries: Sugical HX of: Cardiac Surgery (aortic aneurysm repair surger ) Neurologic Surgeries: Patient denies: Neurologic Surgery HEENT Surgeries: Patient denies: Thyroid Surgery Abdominal Surgeries: Surgical HX of: Appendectomy, Colonoscopy (Dr. Alvarado), EGD (dilatation) Reproductive Surgeries: Patient denies;: Genitourinary Surgery - Family History Family History: Reports;: Family Cancer - Social History Smoking Status: Former smoker Frequency of Alcohol Use: None Type of Drug Use: None Results - Labs CBC & BMP: 12/21/16 04:43 12/21/16 04:43 - Diagnostic Findings Procedure: Chest x-ray: image reviewed by me, report reviewed by me (Chest x- ray shows COPD changes.), CT - chest: image reviewed by me, report reviewed by me (There is a filling defect in the right upper pulmonary artery is consistent with a PE.) Quality Measures - Stroke Symptom Onset Unknown: No
[2016-12-21] MEDS: PANTOPRAZOLE 40 MG TABLET PO SCH (08:51)
[2016-12-21] MEDS: RIVAROXABAN 15 MG TABLET PO SCH ×2 (08:51→18:59)
[2016-12-21] MEDS: POTASSIUM CHLORIDE 20 MEQ TABLET PO SCH ×2 (08:51→21:06)
[2016-12-21] MEDS: LACTOBACILLUS RHAMNOSUS GG CAPSULE PO SCH ×2 (08:51→21:07)
[2016-12-21] MEDS: SIMETHICONE CHEW 80 MG TABLET PO SCH ×4 (08:51→21:06)
[2016-12-21] MEDS: LOSARTAN 25 MG TABLET PO SCH (08:51)
[2016-12-21] MEDS: CYANOCOBALAMIN 500 MCG TABLET PO SCH (08:51)
[2016-12-21] MEDS: PROPRANOLOL 40 MG TABLET PO SCH ×2 (08:51→21:06)
[2016-12-21] MEDS: DOCUSATE SODIUM 100 MG CAPSULE PO SCH ×2 (08:51→21:06)
--- NOTE | 2016-12-21 08:51 | Ultrasound Report ---
History: Acute leg pain. Acute pulmonary embolus Date: 12/21/2016 Study: Left lower extremity color-flow venous Doppler study Comparison exam: No previous venous ultrasound Critical test result: Preliminary verbal report given to Sravanthi LEA at 8:20 AM by the slicer machine operator on behalf of this radiologist Color Doppler, wave form analysis, and compression analysis of the deep veins of the left lower extremity from the common femoral vein level through the popliteal vein level was performed. There is abnormal intraluminal echogenic material compatible with nonoccluding deep venous thrombosis in the left superficial femoral vein. There is occluding thrombus in the left popliteal vein. The left common femoral vein is patent.. Waveform analysis is otherwise unremarkable. Ultrasound images were captured and archived Impression: Deep venous thrombosis left lower extremity PROCEDURE INTERPRETED AT [facility] DEPARTMENT OF RADIOLOGY Final Report Signed by: Dr. Steph Gray
[2016-12-21] MEDS ORDERED: amLODIPine 10 MG TABLET PO SCH (09:00)
[2016-12-21] MEDS ORDERED: FUROSEMIDE 20 MG/2 ML VIAL IV SCH (09:00)
[2016-12-21] MEDS: MORPHINE 2 MG/1 ML SYRINGE IV PRN ×3 (11:10→21:07)
[2016-12-21] MEDS: LIDOCAINE 5% PATCH TRANSDERM SCH (13:25)
--- NOTE | 2016-12-21 13:26 | Internal Med Progress Note ---
Assessment and Plan (1) Pulmonary embolus Status: Acute Current Visit: Yes (2) COPD (chronic obstructive pulmonary disease) Status: Chronic Current Visit: Yes Qualifiers: COPD type: emphysema (3) History of constipation Status: Chronic Current Visit: No (4) DVT (deep venous thrombosis) Status: Acute Current Visit: Yes Internal Medicine - PN: Subj Interval history: Mr. Otto is a 66 year old male with history of recent bowel perforation and surgical repair, diverticulosis/diverticulitis, COPD with asthmatic bronchitis, HTN, sinus tachycardia, who had been in [facility] until a few weeks ago. He has been doing better. However, he pulled a muscle in left upper leg, and he became acutely sedentary. He presented to ER with acute shortness of breath and found to have PE. Xarelto was started in ER. Complaining of left leg pain. Doppler left leg shows DVT popliteal. Ordering lidoderm patch today to apply to left leg 12 hours daily. Exam (Progress Note) - Constitutional Vitals: Period Temp Pulse Resp BP Sys/Peace Pulse Ox Last 24 Hr 97.0 F-98.2 F 73-96 16-26 116-136/58-72 92-100 General appearance: no acute distress - Respiratory Respiratory exam: Present: clear to auscultation bilaterally - Cardiovascular Cardiovascular exam: Present: regular rate and rhythm - GI/Abdominal GI/Abdominal exam: Present: normal bowel sounds, soft. Absent: tenderness - Extremities Exam Extremities exam: Present: other (tenderness to palpation of Left posterior knee ). Absent: edema - Neurological Exam Neurological exam: Present: alert - Psychiatric Psychiatric exam: Present: normal mood - Skin Skin exam: Present: warm, dry Results - Labs CBC & BMP: 12/21/16 04:43 12/21/16 04:43 Quality Measures - Stroke Symptom Onset Unknown: No
[2016-12-21] MEDS ORDERED: FUROSEMIDE 20 MG/2 ML VIAL IV ONE (19:26)
[2016-12-21] MEDS: Tiotropium Br/Olodaterol Hcl [Stiolto Respimat Inhal Spray] 2 PU INH SCH (21:10)
[2016-12-22] MEDS: ALBUTEROL/IPRATROPIUM 3 ML NEB RESP TX SCH ×4 (00:16→21:01)
[2016-12-22] MEDS: SODIUM CHLORIDE 0.45% 1,000 ML IV SCH (01:02)
[2016-12-22 06:24] LABS: Calcium 8.1 MG/DL (8.5-10.1); Osmolality,Calculated 266.4 MOS/KG (273-304); Potassium 4.6 MMOL/L (3.5-5.1)
[2016-12-22] MEDS: RIVAROXABAN 15 MG TABLET PO SCH ×2 (08:58→16:12)
[2016-12-22] MEDS: PROPRANOLOL 40 MG TABLET PO SCH ×2 (08:58→21:25)
[2016-12-22] MEDS: CYANOCOBALAMIN 500 MCG TABLET PO SCH (08:58)
[2016-12-22] MEDS: LOSARTAN 25 MG TABLET PO SCH (08:59)
[2016-12-22] MEDS: SIMETHICONE CHEW 80 MG TABLET PO SCH ×4 (08:59→21:25)
[2016-12-22] MEDS: POTASSIUM CHLORIDE 20 MEQ TABLET PO SCH ×2 (08:59→21:25)
[2016-12-22] MEDS: METOCLOPRAMIDE 10 MG TABLET PO SCH (08:59)
[2016-12-22] MEDS: LACTOBACILLUS RHAMNOSUS GG CAPSULE PO SCH ×2 (09:00→21:24)
[2016-12-22] MEDS: DOCUSATE SODIUM 100 MG CAPSULE PO SCH ×2 (09:00→21:24)
[2016-12-22] MEDS: FUROSEMIDE 40 MG/4 ML VIAL IV SCH (09:00)
[2016-12-22] MEDS: PANTOPRAZOLE 40 MG TABLET PO SCH (09:00)
[2016-12-22] MEDS: LIDOCAINE 5% PATCH TRANSDERM SCH (09:02)
--- NOTE | 2016-12-22 10:50 | Pulmonology Progress Note ---
Pulmonary - PN: Subj Interval history: Patient is a 66-year-old white man that has a long history of COPD. Several months ago he had perforated ulcer and had surgery. He was doing fairly well but said he bumped his left leg recently. Over the weekend he got short of breath and came in was found to have a pulmonary embolus with DVT of his left leg. He has been started on anticoagulation and is feeling better. He said he ate well and is not having any increased shortness of breath. He says his leg does ache some. Overall he appears to be stable. Exam (Progress Note) - Constitutional Vitals: Period Temp Pulse Resp BP Sys/Peace Pulse Ox Last 24 Hr 96.5 F-99.0 F 62-82 16-26 110-139/50-79 90-99 Exam: General appearance: normal weight, no acute distress (He is comfortable lying in bed. He does not appear to be having any respiratory distress.) - Head Head exam: Present: normal inspection, normocephalic - Eye Eye exam: Present: EOMI. Absent: scleral icterus Pupils: Present: SERA - ENT ENT exam: Present: normal exam - Neck Neck exam: Present: normal inspection. Absent: lymphadenopathy, thyromegaly - Respiratory Respiratory exam: Present: decreased breath sounds, prolonged expiratory phase. Absent: accessory muscle use, wheezes - Cardiovascular Cardiovascular exam: Present: regular rate and rhythm. Absent: gallop, systolic murmur - GI/Abdominal GI/Abdominal exam: Present: normal bowel sounds, distended, soft. Absent: organomegaly, tenderness - Extremities Exam Extremities exam: Present: other (His legs look okay without obvious phlebitis. He does not seem to have any swelling). Absent: calf tenderness, edema - Neurological Exam Neurological exam: Present: alert, oriented X3, CN II-XII intact. Absent: motor sensory deficit - Psychiatric Psychiatric exam: Present: normal affect, normal mood - Skin Skin exam: Present: warm, dry Results - Labs CBC & BMP: 12/21/16 04:43 12/22/16 05:24 Assessment and Plan (1) COPD (chronic obstructive pulmonary disease) Status: Chronic Assessment and plan: The patient does have significant COPD but is not wheezing at the present time. Will continue with bronchodilator therapy. He still looks like he is breathing comfortably. Current Visit: Yes Qualifiers: COPD type: emphysema (2) Hypertension Status: Chronic Assessment and plan: Patient takes blood pressure medicines but he needs to stay off calcium blockers because of constipation. Current Visit: No Qualifiers: Hypertension type: essential hypertension Qualified Code(s): I10 - Essential (primary) hypertension (3) History of constipation Status: Chronic Assessment and plan: The patient has had chronic problems with his bowels. He says he is comfortable at present. Current Visit: No (4) Pulmonary embolus Status: Acute Assessment and plan: Patient apparently has DVT of the left leg and has pulmonary emboli. He has been started on Xarelto and is stable. Will let him increase his activity and see how he does. Current Visit: Yes
--- NOTE | 2016-12-22 11:52 | Physician Query Form ---
CLICK EDIT DOCUMENT TO SELECT QUERY ANSWER --> OK --> SIGN Maegan East RN, CCDS Certified Clinical Skin Tanner W) [phone] (f) [phone] [email or web address]: Make your selection(s) from the choices in EACH section by typing an "x" and enter comments in the comment section. Please use your independent medical judgment in providing your response. This request does not imply that any particular answer is desired or expected. CLINICAL INDICATORS: (Providers should not edit this section) The medical record indicates that the patient was admitted with a PE, history of COPD, emphysema, "wears home O2 ", the patient was admitted and placed on 2 liters per NC. Based on the above, could you clarify the appropriate diagnosis, if significant , that supports the above abnormalities and additional evaluation, monitoring, and/or treatment rendered: ( ) Patient is being monitored or treated for CHRONIC respiratory failure ( x) Patient is not being monitored or treated for CHRONIC respiratory failure ( ) Other, please specify: ( ) Clinically unable to determine COMMENTS: PLEASE ALSO DOCUMENT RESPONSE IN PROGRESS NOTES AND/OR DISCHARGE SUMMARY Use of terms such as suspected, likely, or probable (associated with a specific diagnosis that is being evaluated, monitored, or treated as if it exists) are acceptable and can be restated in the discharge summary if not ruled out. MTDD
--- NOTE | 2016-12-22 18:33 | Internal Med Progress Note ---
Assessment and Plan (1) Pulmonary embolus Status: Acute Current Visit: Yes Qualifiers: Pulmonary embolism type: other Chronicity: acute Acute cor pulmonale presence: without acute cor pulmonale Qualified Code(s): I26.99 - Other pulmonary embolism without acute cor pulmonale (2) COPD (chronic obstructive pulmonary disease) Status: Chronic Current Visit: Yes Qualifiers: COPD type: emphysema (3) History of constipation Status: Chronic Current Visit: No (4) DVT (deep venous thrombosis) Status: Acute Current Visit: Yes Qualifiers: DVT location: lower extremity Affected thrombotic vein of extremity: popliteal Chronicity: acute Laterality: left Qualified Code(s): I82.432 - Acute embolism and thrombosis of left popliteal vein Internal Medicine - PN: Subj Interval history: Mr. Otto is a 66 year old male with history of recent bowel perforation and surgical repair, diverticulosis/diverticulitis, COPD with asthmatic bronchitis, HTN, sinus tachycardia, who had been in [place] until a few weeks ago. He has been doing better. However, he pulled a muscle in left upper leg, and he became acutely sedentary. He presented to ER with acute shortness of breath and found to have PE. Xarelto was started in ER. Complaining of left leg pain. Doppler left leg shows DVT popliteal. Ordering lidoderm patch today to apply to left leg 12 hours daily. Complaining of unrelieved left leg pain in popliteal area; re-arranging lidoderm patches for all three patches to posterior leg Also, will give very low dose Fentanyl patch. He needs PT. He wants to stay in bed because of hurting leg. Consulting Dr. Mcintosh to evaluate leg pain. Exam (Progress Note) - Constitutional Vitals: Period Temp Pulse Resp BP Sys/Peace Pulse Ox Last 24 Hr 96.5 F-98.7 F 62-82 16-21 110-131/50-75 95-98 Exam: General appearance: no acute distress - Respiratory Respiratory exam: Present: clear to auscultation bilaterally - Cardiovascular Cardiovascular exam: Present: regular rate and rhythm - GI/Abdominal GI/Abdominal exam: Present: normal bowel sounds, soft. Absent: tenderness - Extremities Exam Extremities exam: Present: other (tenderness to palpation of Left posterior knee ). Absent: edema - Neurological Exam Neurological exam: Present: alert - Psychiatric Psychiatric exam: Present: normal mood - Skin Skin exam: Present: warm, dry Results - Labs CBC & BMP: 12/21/16 04:43 12/22/16 05:24 Quality Measures - Stroke Symptom Onset Unknown: No
[2016-12-22] MEDS ORDERED: fentaNYL 12 MCG/HR PATCH TRANSDERM SCH (19:00)
[2016-12-22] MEDS: FLUTICASONE/SALMETEROL 250-50 DISKUS 14 DOSE INH SCH (21:24)
[2016-12-22] MEDS: fentaNYL 12 MCG/HR PATCH TRANSDERM SCH (21:25)
[2016-12-23] MEDS: ALBUTEROL/IPRATROPIUM 3 ML NEB RESP TX SCH ×4 (00:14→19:24)
[2016-12-23 06:37] LABS: Calcium 8.2 MG/DL (8.5-10.1); Osmolality,Calculated 270.1 MOS/KG (273-304); Potassium 4.2 MMOL/L (3.5-5.1)
[2016-12-23] MEDS: FUROSEMIDE 40 MG/4 ML VIAL IV SCH (09:58)
[2016-12-23] MEDS: FLUTICASONE/SALMETEROL 250-50 DISKUS 14 DOSE INH SCH ×2 (10:01→21:28)
[2016-12-23] MEDS: POTASSIUM CHLORIDE 20 MEQ TABLET PO SCH ×2 (10:02→21:29)
[2016-12-23] MEDS: PROPRANOLOL 40 MG TABLET PO SCH ×2 (10:02→21:29)
[2016-12-23] MEDS: LOSARTAN 25 MG TABLET PO SCH (10:02)
[2016-12-23] MEDS: CYANOCOBALAMIN 500 MCG TABLET PO SCH (10:02)
[2016-12-23] MEDS: LACTOBACILLUS RHAMNOSUS GG CAPSULE PO SCH ×2 (10:03→21:31)
[2016-12-23] MEDS: METOCLOPRAMIDE 10 MG TABLET PO SCH (10:03)
[2016-12-23] MEDS: PANTOPRAZOLE 40 MG TABLET PO SCH (10:03)
[2016-12-23] MEDS: DOCUSATE SODIUM 100 MG CAPSULE PO SCH ×2 (10:03→21:28)
[2016-12-23] MEDS: SIMETHICONE CHEW 80 MG TABLET PO SCH ×4 (10:03→21:31)
[2016-12-23] MEDS: RIVAROXABAN 15 MG TABLET PO SCH ×2 (10:03→16:22)
[2016-12-23] MEDS: LIDOCAINE 5% PATCH TRANSDERM SCH (10:04)
--- NOTE | 2016-12-23 10:53 | Pulmonology Progress Note ---
Pulmonary - PN: Subj Interval history: Patient is a 66-year-old white man that has a long history of COPD. Several months ago he had perforated ulcer and had surgery. He was doing fairly well but said he bumped his left leg recently. Over the weekend he got short of breath and came in was found to have a pulmonary embolus with DVT of his left leg. He has been started on anticoagulation and is feeling better. He said he ate well and is not having any increased shortness of breath. He still is having a lot of leg aching and has not done much activity. Otherwise his breathing is doing okay. His pain medicines are being adjusted. He can go home from a pulmonary standpoint Exam (Progress Note) - Constitutional Vitals: Period Temp Pulse Resp BP Sys/Peace Pulse Ox Last 24 Hr 97.3 F-98.4 F 67-90 15-22 123-135/69-83 92-100 Exam: General appearance: normal weight, no acute distress (He is comfortable lying in bed. He does not appear to be having any respiratory distress.) - Head Head exam: Present: normal inspection, normocephalic - Eye Eye exam: Present: EOMI. Absent: scleral icterus Pupils: Present: SERA - ENT ENT exam: Present: normal exam - Neck Neck exam: Present: normal inspection. Absent: lymphadenopathy, thyromegaly - Respiratory Respiratory exam: Present: decreased breath sounds, prolonged expiratory phase. Absent: accessory muscle use, wheezes - Cardiovascular Cardiovascular exam: Present: regular rate and rhythm. Absent: gallop, systolic murmur - GI/Abdominal GI/Abdominal exam: Present: normal bowel sounds, distended, soft. Absent: organomegaly, tenderness - Extremities Exam Extremities exam: Present: other (His legs look okay without obvious phlebitis. He still says his leg hurts behind his knee.) - Neurological Exam Neurological exam: Present: alert, oriented X3, CN II-XII intact. Absent: motor sensory deficit - Psychiatric Psychiatric exam: Present: normal affect, normal mood - Skin Skin exam: Present: warm, dry Results - Labs CBC & BMP: 12/21/16 04:43 12/23/16 04:38 Assessment and Plan (1) COPD (chronic obstructive pulmonary disease) Status: Chronic Assessment and plan: The patient does have significant COPD but is not wheezing at the present time. Will continue with bronchodilator therapy. His breathing has been quite stable. Current Visit: Yes Qualifiers: COPD type: emphysema (2) Hypertension Status: Chronic Assessment and plan: Patient takes blood pressure medicines but he needs to stay off calcium blockers because of constipation. Current Visit: No Qualifiers: Hypertension type: essential hypertension Qualified Code(s): I10 - Essential (primary) hypertension (3) History of constipation Status: Chronic Assessment and plan: The patient has had chronic problems with his bowels. He says he is comfortable at present. He says he is eating better now. Current Visit: No (4) Pulmonary embolus Status: Acute Assessment and plan: Patient apparently has DVT of the left leg and has pulmonary emboli. He has been started on Xarelto and is stable. He complains of pain behind his left knee. He is tolerating anticoagulation okay. He is not having any breathing problems now. He can go home from a pulmonary standpoint. Current Visit: Yes Qualifiers: Pulmonary embolism type: other Chronicity: acute Acute cor pulmonale presence: without acute cor pulmonale Qualified Code(s): I26.99 - Other pulmonary embolism without acute cor pulmonale
--- NOTE | 2016-12-23 13:13 | Pain Management Consult Note ---
Assessment and Plan (1) Lumbar radiculopathy, acute Problem details: New onset left-sided lumbar radiculopathy 5 days ago after lifting dryer. Status: Acute Assessment and plan: 12/23/2016. The patient was lifting a dryer 5-6 days ago and had the sudden onset of left lower extremity pain. He has had back pain on and off for years with multiple back injuries. Left leg pain is new. Possibly some associated weakness. The pain is a burning discomfort and centers around the left knee. During the workup of this pain is found to have a DVT in the left lower extremity which I think may have been incidental to the lumbar radiculopathy and found secondary to this acute pain that developed from his spine. On exam he has sensorimotor loss of left lower extremity consistent with a left sided mid to lower lumbar radiculopathy. The pain is a burning pain in character which is consistent with a neuropathic pain syndrome, and also resistant to opioids which is typical for neuropathic pain. MRI is medically indicated due to the severity of the symptoms at this time. We will start him on low-dose Neurontin and titrate to effect. Reasonable to consider planning for discharge tomorrow if doing well. Y Current Visit: Yes History of Present Illness Chief complaint: Left leg pain History of present illness: Mr. Otto is a 66 year old male left lower extremity pain, worse left knee. Burning aching discomfort, severe, worse with standing weightbearing. Pain started after lifting a dryer 5-6 days ago. The pain started acutely and has been severe ever since. The pain radiates up to the left buttock and down the left foot. Home Medications Medication Instructions Recorded Confirmed Type Albuterol Sulfate [Ventolin HFA] 2 puffs PO Q6HR PRN 09/24/16 12/20/16 History Cetirizine Tab [ZyrTEC Tab] 10 mg PO DAILY 09/24/16 12/20/16 History Cyanocobalamin (Vitamin B-12) 1 tablet PO DAILY 09/24/16 12/20/16 History [Vitamin B-12] Tiotropium Br/Olodaterol HCl 2 puffs INH BEDTIME 09/24/16 12/20/16 History [Stiolto Respimat Inhal [place]] amLODIPine [Norvasc] 10 mg PO DAILY 09/24/16 12/20/16 History Acetaminophen Tab [Tylenol Tab] 650 mg PO Q6H PRN #0 tablet 10/03/16 12/20/16 Rx Albuterol/Ipratropium Neb [Duoneb] 3 ml RESP TX RT Q6H #120 10/03/16 12/20/16 Rx Docusate Sodium Cap [Colace Cap] 100 mg PO BID capsule 10/03/16 12/20/16 Rx Famotidine Tab [Pepcid Tab] 20 mg PO BID #60 tablet 10/03/16 12/20/16 Rx Lactobacillus Rhamnosus GG 1 capsule PO BID #60 capsule 10/03/16 12/20/16 Rx [Culturelle] Magnesium Hydroxide Susp [Milk of 30 ml PO DAILY PRN #0 10/03/16 12/20/16 Rx Magnesia] Potassium Chloride Cap/Tab [K Dur] 20 meq PO BID #60 tablet 10/03/16 12/20/16 Rx Propranolol Tab [Inderal Tab] 40 mg PO BID #60 tablet 10/03/16 12/20/16 Rx Simethicone Chew Tab [Mylicon Chew 80 mg PO QID #120 tablet 10/03/16 12/20/16 Rx Tab] HYDROcodone/ACETAMIN 7.5-325 1 tablet PO Q4H PRN #40 tablet 11/03/16 12/20/16 Rx [Joseph 7.5-325] Pantoprazole Tab [Protonix Tab] 40 mg PO BID #60 tablet 11/03/16 12/20/16 Rx Metoclopramide Tab [Reglan Tab] 10 mg PO DAILY 12/20/16 12/20/16 History Allergies Allergy/AdvReac Type Severity Reaction Status Date / Time No Known Allergies Allergy Verified 10/22/16 14:48 Medical,Surgical,& Family Hx - Medical History Cardio: History of: Aneurysm (aortic aneurysm), Cardiac Dysrhythmia (sinus tachycardia), Hypertension, Cardiovascular Problems (syncope) Psychological: History of: Depression No history of: Anxiety Disorders, ADHD, Behavior Problems, Bipolar Disorder, Previous Suicide Attempt, Schizophrenia, Violent Behavior, Psychiatric Problems Neurology: History of: Neurological Problems (tremors right hand/arm) No history of: Seizures HEENT: History of: HEENT Problems (sinus drainage; hx nosebleeds) Endocrine: History of: Dyslipidemia Respiratory: History of: Bronchitis, COPD (emphysema), Respiratory Problems ( chronic shortness of breath) Gastrointestinal: History of: GERD, GI Problems (recent bloating) Hematology: History of: Anemia - Surgical History Cardiac Surgeries: Sugical HX of: Cardiac Surgery (aortic aneurysm repair surger ) Neurologic Surgeries: Patient denies: Neurologic Surgery HEENT Surgeries: Patient denies: Thyroid Surgery Abdominal Surgeries: Surgical HX of: Appendectomy, Colonoscopy (Dr. Alvarado), EGD (dilatation) Reproductive Surgeries: Patient denies;: Genitourinary Surgery - Family History Family History: Reports;: Family Cancer - Social History Smoking Status: Former smoker Frequency of Alcohol Use: None Type of Drug Use: None Quality Measures - Stroke Symptom Onset Unknown: No - Constitutional Constitutional: Present: fatigue, weight loss - Gastrointestinal Gastrointestinal: Present: abdominal pain - Musculoskeletal Musculoskeletal: Present: abnormal gait, arthralgias, back pain, joint swelling , muscle cramps - Neurological Neurological: Present: focal weakness, paresthesias Exam - Constitutional Vitals: Period Temp Pulse Resp BP Sys/Peace Pulse Ox Last 24 Hr 97.3 F-98.7 F 67-90 15-22 123-135/59-83 92-100 General appearance: normal weight, mild distress - Head Head exam: Present: normal inspection - Eye Eye exam: Present: EOMI - Respiratory Respiratory exam: Present: clear to auscultation bilaterally - Cardiovascular Cardiovascular exam: Present: RRR - GI/Abdominal GI/Abdominal exam: Present: tenderness - Extremities Exam Extremities exam: Present: calf tenderness, other (Left knee tenderness) - Back Exam Back exam: Present: vertebral tenderness - Neurological Exam Neurological exam: Present: alert, oriented X3, motor sensory deficit (Weakness and sensory loss left lower extremity below the knee) Results - Labs CBC & BMP: 12/21/16 04:43 12/23/16 04:38
--- NOTE | 2016-12-23 14:19 | General Surgery Consult Note ---
Assessment and Plan - Time spent with patient Time spent with patient: Greater than 30 minutes (1) Status post exploratory laparotomy Status: Acute Assessment and plan: 66-year-old white male with multiple medical problems admitted by internal medicine service with pulmonary embolism and left lower extremity DVT. Patient had recently undergone an exploratory laparotomy with Nain patch repair for a perforated duodenal ulcer on 10/22/[address] Spence. Patient was supposed to follow-up in clinic this week. Patient is doing well with no complaints of abdominal pain but he is having early satiety and bloating. Patient will need to follow-up with Dr. Gray in outpatient for EGD to be scheduled. Dr. Spence has seen and examined patient and further recommendations to follow. Current Visit: Yes (2) Pulmonary embolus Status: Acute Current Visit: Yes Qualifiers: Pulmonary embolism type: other Chronicity: acute Acute cor pulmonale presence: without acute cor pulmonale Qualified Code(s): I26.99 - Other pulmonary embolism without acute cor pulmonale (3) DVT (deep venous thrombosis) Status: Acute Current Visit: Yes Qualifiers: DVT location: lower extremity Affected thrombotic vein of extremity: popliteal Chronicity: acute Laterality: left Qualified Code(s): I82.432 - Acute embolism and thrombosis of left popliteal vein (4) Lumbar radiculopathy, acute Problem details: New onset left-sided lumbar radiculopathy 5 days ago after lifting dryer. Status: Acute Current Visit: Yes History of Present Illness Chief complaint: Appointment with Dr. Spence this week History of present illness: Mr. Otto is a 66 year old white male with multiple comorbidities and extensive surgical history admitted by Dr. Wyatt from the emergency room with pulmonary embolism and left lower extremity DVT. Patient is being treated with Xarelto is being followed by pulmonary and now pain management for his left lower extremity pain that appears to be neuropathic pain syndrome in nature from a left sided lumbar radiculopathy. Patient had recently undergone an exploratory laparotomy with Nain patch repair for a perforated duodenal ulcer on 10/22/[address] spence. He had been transferred to [facility] for rehab and further care and had only been home for a few weeks. Patient does not complain of abdominal pain or distention but he is having early satiety and bloating. He is afebrile and vital signs are stable and his labs are relatively normal. Patient's abdomen is soft and nontender and his midline incision is healing well with no signs of infection. Dr. Spence was consulted because patient was to have a follow-up appointment with him this week. Home Medications Medication Instructions Recorded Confirmed Type Albuterol Sulfate [Ventolin HFA] 2 puffs PO Q6HR PRN 09/24/16 12/20/16 History Cetirizine Tab [ZyrTEC Tab] 10 mg PO DAILY 09/24/16 12/20/16 History Cyanocobalamin (Vitamin B-12) 1 tablet PO DAILY 09/24/16 12/20/16 History [Vitamin B-12] Tiotropium Br/Olodaterol HCl 2 puffs INH BEDTIME 09/24/16 12/20/16 History [Stiolto Respimat Inhal [place]] amLODIPine [Norvasc] 10 mg PO DAILY 09/24/16 12/20/16 History Acetaminophen Tab [Tylenol Tab] 650 mg PO Q6H PRN #0 tablet 10/03/16 12/20/16 Rx Albuterol/Ipratropium Neb [Duoneb] 3 ml RESP TX RT Q6H #120 10/03/16 12/20/16 Rx Docusate Sodium Cap [Colace Cap] 100 mg PO BID capsule 10/03/16 12/20/16 Rx Famotidine Tab [Pepcid Tab] 20 mg PO BID #60 tablet 10/03/16 12/20/16 Rx Lactobacillus Rhamnosus GG 1 capsule PO BID #60 capsule 10/03/16 12/20/16 Rx [Culturelle] Magnesium Hydroxide Susp [Milk of 30 ml PO DAILY PRN #0 10/03/16 12/20/16 Rx Magnesia] Potassium Chloride Cap/Tab [K Dur] 20 meq PO BID #60 tablet 10/03/16 12/20/16 Rx Propranolol Tab [Inderal Tab] 40 mg PO BID #60 tablet 10/03/16 12/20/16 Rx Simethicone Chew Tab [Mylicon Chew 80 mg PO QID #120 tablet 10/03/16 12/20/16 Rx Tab] HYDROcodone/ACETAMIN 7.5-325 1 tablet PO Q4H PRN #40 tablet 11/03/16 12/20/16 Rx [Casar 7.5-325] Pantoprazole Tab [Protonix Tab] 40 mg PO BID #60 tablet 11/03/16 12/20/16 Rx Metoclopramide Tab [Reglan Tab] 10 mg PO DAILY 12/20/16 12/20/16 History Allergies Allergy/AdvReac Type Severity Reaction Status Date / Time No Known Allergies Allergy Verified 10/22/16 14:48 Medical,Surgical,& Family Hx - Medical History Cardio: History of: Aneurysm (aortic aneurysm), Cardiac Dysrhythmia (sinus tachycardia), Hypertension, Cardiovascular Problems (syncope) Psychological: History of: Depression No history of: Anxiety Disorders, ADHD, Behavior Problems, Bipolar Disorder, Previous Suicide Attempt, Schizophrenia, Violent Behavior, Psychiatric Problems Neurology: History of: Neurological Problems (tremors right hand/arm) No history of: Seizures HEENT: History of: HEENT Problems (sinus drainage; hx nosebleeds) Endocrine: History of: Dyslipidemia Respiratory: History of: Bronchitis, COPD (emphysema), Respiratory Problems ( chronic shortness of breath) Gastrointestinal: History of: GERD, GI Problems (recent bloating) Hematology: History of: Anemia - Surgical History Cardiac Surgeries: Sugical HX of: Cardiac Surgery (aortic aneurysm repair surger ) Neurologic Surgeries: Patient denies: Neurologic Surgery HEENT Surgeries: Patient denies: Thyroid Surgery Abdominal Surgeries: Surgical HX of: Appendectomy, Colonoscopy (Dr. Alvarado), EGD (dilatation) Reproductive Surgeries: Patient denies;: Genitourinary Surgery - Family History Family History: Reports;: Family Cancer - Social History Smoking Status: Former smoker Frequency of Alcohol Use: None Type of Drug Use: None - Constitutional Constitutional: Present: as per HPI Exam - Constitutional Vitals: Period Temp Pulse Resp BP Sys/Peace Pulse Ox Last 24 Hr 97.3 F-98.7 F 58-90 15-22 123-135/59-83 92-100 Exam: 66-year-old white male, no acute distress, alert and oriented Chest clear CV regular rate and rhythm [place] abdomen soft, nontender, midline incision looks good Extremities no edema Quality Measures - Stroke Symptom Onset Unknown: No Results - Labs CBC & BMP: 12/21/16 04:43 12/23/16 04:38 Lab Results: I have reviewed the past 24 hour labs
[2016-12-23] MEDS: GABAPENTIN 100 MG CAPSULE PO SCH ×2 (16:22→21:29)
--- NOTE | 2016-12-23 20:57 | Internal Med Progress Note ---
Assessment and Plan (1) Pulmonary embolus Status: Acute Current Visit: Yes Qualifiers: Pulmonary embolism type: other Chronicity: acute Acute cor pulmonale presence: without acute cor pulmonale Qualified Code(s): I26.99 - Other pulmonary embolism without acute cor pulmonale (2) COPD (chronic obstructive pulmonary disease) Status: Chronic Current Visit: Yes Qualifiers: COPD type: emphysema (3) History of constipation Status: Chronic Current Visit: No (4) DVT (deep venous thrombosis) Status: Acute Current Visit: Yes Qualifiers: DVT location: lower extremity Affected thrombotic vein of extremity: popliteal Chronicity: acute Laterality: left Qualified Code(s): I82.432 - Acute embolism and thrombosis of left popliteal vein Internal Medicine - PN: Subj Interval history: Mr. Otto is a 66 year old male with history of recent bowel perforation and surgical repair, diverticulosis/diverticulitis, COPD with asthmatic bronchitis, HTN, sinus tachycardia, who had been in [facility] until a few weeks ago. He has been doing better. However, he pulled a muscle in left upper leg, and he became acutely sedentary. He presented to ER with acute shortness of breath and found to have PE. Xarelto was started in ER. Complaining of left leg pain. Doppler left leg shows DVT popliteal. Ordering lidoderm patch today to apply to left leg 12 hours daily. Complaining of unrelieved left leg pain in popliteal area; re-arranging lidoderm patches for all three patches to posterior leg Also, will give very low dose Fentanyl patch. He needs PT. He wants to stay in bed because of hurting leg. Consulting Dr. Mcintosh to evaluate leg pain. He is doing better today, but still not wanting to put a lot of weight on his left leg. Exam (Progress Note) - Constitutional Vitals: Period Temp Pulse Resp BP Sys/Peace Pulse Ox Last 24 Hr 96.4 F-98.7 F 58-90 15-22 127-135/59-83 92-100 Exam: General appearance: no acute distress - Respiratory Respiratory exam: Present: clear to auscultation bilaterally - Cardiovascular Cardiovascular exam: Present: regular rate and rhythm - GI/Abdominal GI/Abdominal exam: Present: normal bowel sounds, soft. Absent: tenderness - Extremities Exam Extremities exam: Present: other (tenderness to palpation of Left posterior knee improving) - Neurological Exam Neurological exam: Present: alert - Psychiatric Psychiatric exam: Present: normal mood - Skin Skin exam: Present: warm, dry Results - Labs CBC & BMP: 12/21/16 04:43 12/24/16 04:09 Quality Measures - Stroke Symptom Onset Unknown: No
[2016-12-23] MEDS: traMADol 50 MG TABLET PO SCH (21:29)
[2016-12-24] MEDS: ACETAMINOPHEN 325 MG TABLET PO PRN ×3 (00:36→17:16)
[2016-12-24] MEDS: ALBUTEROL/IPRATROPIUM 3 ML NEB RESP TX SCH ×4 (01:13→19:28)
[2016-12-24 05:29] LABS: Calcium 7.8 MG/DL (8.5-10.1); Osmolality,Calculated 267.4 MOS/KG (273-304); Potassium 4.3 MMOL/L (3.5-5.1)
--- NOTE | 2016-12-24 08:22 | Pulmonology Progress Note ---
Pulmonary - PN: Subj Interval history: Patient is a 66-year-old white man that has a long history of COPD. Several months ago he had perforated ulcer and had surgery. He was doing fairly well but said he bumped his left leg recently. Over the weekend he got short of breath and came in was found to have a pulmonary embolus with DVT of his left leg. He has been started on anticoagulation and is feeling better. He said he ate well and is not having any increased shortness of breath. He is still complaining of leg pain but is doing a little better now. He does not want to do much activity but I think this is just him. He has never been very energetic. He looks like he is at baseline and can go home from my standpoint. Exam (Progress Note) - Constitutional Vitals: Period Temp Pulse Resp BP Sys/Peace Pulse Ox Last 24 Hr 96.4 F-98.7 F 58-80 18-20 102-144/53-74 92-100 Exam: General appearance: normal weight, no acute distress (He is comfortable lying in bed. He does not appear to be having any respiratory distress.) - Head Head exam: Present: normal inspection, normocephalic - Eye Eye exam: Present: EOMI. Absent: scleral icterus Pupils: Present: SERA - ENT ENT exam: Present: normal exam - Neck Neck exam: Present: normal inspection. Absent: lymphadenopathy, thyromegaly - Respiratory Respiratory exam: Present: He does have distant breath sounds but no wheezing or rales present. - Cardiovascular Cardiovascular exam: Present: regular rate and rhythm. Absent: gallop, systolic murmur - GI/Abdominal GI/Abdominal exam: Present: normal bowel sounds, distended, soft. Absent: organomegaly, tenderness - Extremities Exam Extremities exam: Present: other (His legs look okay without obvious phlebitis. He still says his leg hurts behind his knee.) - Neurological Exam Neurological exam: Present: alert, oriented X3, CN II-XII intact. Absent: motor sensory deficit - Psychiatric Psychiatric exam: Present: normal affect, normal mood - Skin Skin exam: Present: warm, dry Results - Labs CBC & BMP: 12/21/16 04:43 12/24/16 04:09 Assessment and Plan (1) COPD (chronic obstructive pulmonary disease) Status: Chronic Assessment and plan: The patient does have significant COPD but is not wheezing at the present time. Will continue with bronchodilator therapy. His breathing has been quite stable. Current Visit: Yes Qualifiers: COPD type: emphysema (2) Hypertension Status: Chronic Assessment and plan: Patient has a stable blood pressure now and is doing fairly well. Current Visit: No Qualifiers: Hypertension type: essential hypertension Qualified Code(s): I10 - Essential (primary) hypertension (3) History of constipation Status: Chronic Assessment and plan: The patient has had chronic problems with his bowels. He says he is eating a little better and having bowel movements now. Current Visit: No (4) Pulmonary embolus Status: Acute Assessment and plan: Patient apparently has DVT of the left leg and has pulmonary emboli. He has been started on Xarelto and is stable. He complains of pain behind his left knee. He is tolerating anticoagulation okay. He is not having any breathing problems now. Overall he appears stable and can go home at any time. Current Visit: Yes Qualifiers: Pulmonary embolism type: other Chronicity: acute Acute cor pulmonale presence: without acute cor pulmonale Qualified Code(s): I26.99 - Other pulmonary embolism without acute cor pulmonale
[2016-12-24] MEDS: LIDOCAINE 5% PATCH TRANSDERM SCH (09:48)
[2016-12-24] MEDS: CYANOCOBALAMIN 500 MCG TABLET PO SCH (09:48)
[2016-12-24] MEDS: FUROSEMIDE 40 MG/4 ML VIAL IV SCH (09:48)
[2016-12-24] MEDS: METOCLOPRAMIDE 10 MG TABLET PO SCH (09:48)
[2016-12-24] MEDS: LACTOBACILLUS RHAMNOSUS GG CAPSULE PO SCH ×2 (09:48→21:37)
[2016-12-24] MEDS: GABAPENTIN 100 MG CAPSULE PO SCH ×3 (09:48→21:36)
[2016-12-24] MEDS: LOSARTAN 25 MG TABLET PO SCH (09:49)
[2016-12-24] MEDS: traMADol 50 MG TABLET PO SCH ×3 (09:49→17:16)
[2016-12-24] MEDS: PANTOPRAZOLE 40 MG TABLET PO SCH (09:49)
[2016-12-24] MEDS: PROPRANOLOL 40 MG TABLET PO SCH ×2 (09:50→21:37)
[2016-12-24] MEDS: RIVAROXABAN 15 MG TABLET PO SCH ×2 (09:51→17:16)
[2016-12-24] MEDS: POTASSIUM CHLORIDE 20 MEQ TABLET PO SCH ×2 (09:51→21:36)
[2016-12-24] MEDS: SIMETHICONE CHEW 80 MG TABLET PO SCH ×5 (09:51→21:40)
[2016-12-24] MEDS: DOCUSATE SODIUM 100 MG CAPSULE PO SCH ×2 (09:51→21:36)
[2016-12-24] MEDS: FLUTICASONE/SALMETEROL 250-50 DISKUS 14 DOSE INH SCH ×2 (09:51→21:42)
--- NOTE | 2016-12-24 15:18 | Magnetic Resonance Report ---
MR lumbar spine wo con Indication: Pain Comparison: None Technique: Multiplanar MRI imaging of the lumbar spine was performed without the use of intravenous contrast. Findings: Chronic appearing compression deformity of T12 with approximate 50% height loss. Mild posterior protrusion of cortex with mild spinal canal narrowing at this level. There is osseous fusion of T11 and T12. Mild marginal vertebral body osteophyte formation noted at several levels. Infrarenal abdominal aortic aneurysm measuring up to 4 cm. Intervertebral disc space levels: L1-L2: Disc desiccation. Minimal diffuse disc bulge without significant spinal canal or neuroforaminal narrowing. Mild posterior facet and ligamentum flavum hypertrophy. L2-L3: Disc desiccation and mild loss of disc space height. Mild diffuse disc bulge with posterior facet and ligamentum flavum hypertrophy. Minimal spinal canal and bilateral neuroforaminal narrowing. L3-L4: Moderate loss of disc space height. Diffuse disc bulge noted at this level with small superimposed posterior central disc protrusion. There is moderate spinal canal narrowing as well as moderate right and [id number] left neuroforaminal narrowing. Posterior facet and ligamentum flavum hypertrophy. L4-L5: Moderate loss of disc space height. Diffuse disc bulge noted at this level with moderate spinal canal narrowing. There is posterior facet and ligamentum flavum hypertrophy. Moderate to severe bilateral neuroforaminal narrowing. L5-S1: No significant disc bulge, neuroforaminal narrowing or spinal canal stenosis. IMPRESSION: Degenerative change of the lumbar spine with spinal canal and neuroforaminal narrowing as detailed above.Chronic appearing compression deformity of T12 with approximate 50% height loss. Mild posterior protrusion of cortex with mild spinal canal narrowing at this level. There is osseous fusion of T11 and T12. Infrarenal abdominal aortic aneurysm measuring up to 4 cm. PROCEDURE INTERPRETED AT [facility] DEPARTMENT OF RADIOLOGY Final Report Signed by: Dr Cristiano Lao
--- NOTE | 2016-12-24 17:27 | Pain Management Progress Note ---
Assessment and Plan (1) Lumbar radiculopathy, acute Problem details: New onset left-sided lumbar radiculopathy 5 days ago after lifting dryer. Status: Acute Assessment and plan: 12/24/2016. Overall the patient is about the same. He continues to complain of pain left lower extremity. Worst pain behind the left knee however extends from the buttock to the foot. It is in a radicular pattern. He does have deficits in the lower left lower extremity are mild. MRI demonstrates multilevel pathology with degenerative disc disease at L4-5 level there is significant severe foraminal narrowing. I do think that he should do well with conservative treatment and certainly at this point will try to avoid all surgical options. Once stable from his DVT and would consider injection therapy , however meantime we will continue careful medical management. Will place him on low-dose opioid as needed understanding that he has a history of recent ileus and will watch recurrent constipation symptoms. Also will titrate Neurontin further. Plan to see him in the clinic in 2-3 weeks. y 12/23/2016. The patient was lifting a dryer 5-6 days ago and had the sudden onset of left lower extremity pain. He has had back pain on and off for years with multiple back injuries. Left leg pain is new. Possibly some associated weakness. The pain is a burning discomfort and centers around the left knee. During the workup of this pain is found to have a DVT in the left lower extremity which I think may have been incidental to the lumbar radiculopathy and found secondary to this acute pain that developed from his spine. On exam he has sensorimotor loss of left lower extremity consistent with a left sided mid to lower lumbar radiculopathy. The pain is a burning pain in character which is consistent with a neuropathic pain syndrome, and also resistant to opioids which is typical for neuropathic pain. MRI is medically indicated due to the severity of the symptoms at this time. We will start him on low-dose Neurontin and titrate to effect. Reasonable to consider planning for discharge tomorrow if doing well. Y Current Visit: Yes Pain - Subjective Interval history: Continued left lower extremity pain burning aching pain Exam - Constitutional Vitals: Period Temp Pulse Resp BP Sys/Peace Pulse Ox Last 24 Hr 96.5 F-97.7 F 68-80 18-20 102-144/53-79 90-100 - Back Exam Back exam: Present: vertebral tenderness - Neurological Exam Neurological exam: Present: alert, oriented X3, motor sensory deficit (Left lower extremity) Results - Labs CBC & BMP: 12/21/16 04:43 12/24/16 04:09 Quality Measures - Stroke Symptom Onset Unknown: No Specialty Discharge - Follow Up or Referrals Follow up with: Miguelangel Gray MD [Physician] - 01/01/17 2:15 pm
--- NOTE | 2016-12-24 22:11 | Internal Med Progress Note ---
Assessment and Plan (1) Pulmonary embolus Status: Acute Current Visit: Yes Qualifiers: Pulmonary embolism type: other Chronicity: acute Acute cor pulmonale presence: without acute cor pulmonale Qualified Code(s): I26.99 - Other pulmonary embolism without acute cor pulmonale (2) COPD (chronic obstructive pulmonary disease) Status: Chronic Current Visit: Yes Qualifiers: COPD type: emphysema (3) History of constipation Status: Chronic Current Visit: No (4) DVT (deep venous thrombosis) Status: Acute Current Visit: Yes Qualifiers: DVT location: lower extremity Affected thrombotic vein of extremity: popliteal Chronicity: acute Laterality: left Qualified Code(s): I82.432 - Acute embolism and thrombosis of left popliteal vein Internal Medicine - PN: Subj Interval history: Mr. Otto is a 66 year old male with history of recent bowel perforation and surgical repair, diverticulosis/diverticulitis, COPD with asthmatic bronchitis, HTN, sinus tachycardia, who had been in [facility] until a few weeks ago. He has been doing better. However, he pulled a muscle in left upper leg, and he became acutely sedentary. He presented to ER with acute shortness of breath and found to have PE. Xarelto was started in ER. Complaining of left leg pain. Doppler left leg shows DVT popliteal. Ordering lidoderm patch today to apply to left leg 12 hours daily. Complaining of unrelieved left leg pain in popliteal area; re-arranging lidoderm patches for all three patches to posterior leg Also, will give very low dose Fentanyl patch. He needs PT. He wants to stay in bed because of hurting leg. Consulting Dr. Mcintosh to evaluate leg pain. He is doing better today, but still not wanting to put a lot of weight on his left leg. He will have PT tomorrow, then discharge to home health to continue PT there. Discussed at bedside that knee pain will improve over a period of days. Exam (Progress Note) - Constitutional Vitals: Period Temp Pulse Resp BP Sys/Peace Pulse Ox Last 24 Hr 96.5 F-97.7 F 65-80 17-20 102-144/53-79 90-99 Exam: General appearance: no acute distress - Respiratory Respiratory exam: Present: clear to auscultation bilaterally - Cardiovascular Cardiovascular exam: Present: regular rate and rhythm - GI/Abdominal GI/Abdominal exam: Present: normal bowel sounds, soft. Absent: tenderness - Extremities Exam Extremities exam: Present: other (tenderness to palpation of Left posterior knee slowly improving) - Neurological Exam Neurological exam: Present: alert - Psychiatric Psychiatric exam: Present: normal mood - Skin Skin exam: Present: warm, dry Results - Labs CBC & BMP: 12/25/16 04:52 12/24/16 04:09 Quality Measures - Stroke Symptom Onset Unknown: No Specialty Discharge - Follow Up or Referrals Follow up with: Miguelangel Gray MD [Physician] - 01/01/17 2:15 pm
[2016-12-25] MEDS: ALBUTEROL/IPRATROPIUM 3 ML NEB RESP TX SCH ×2 (00:47→07:07)
[2016-12-25 05:49] LABS: Basophils % 0.3 % (0.0-0.8); Eosinophils # 0.5 10*3/uL (0.0-0.87); Hematocrit 31.6 VOL% (42.0-52.0); Hemoglobin 11.1 GM/DL (14.0-18.0); Immature Granulocytes % 0.5 %; Immature Granulocytes Absolute 0.04 #; Lymphocytes # 2.7 10*3/uL (1.4-4.0); Lymphocytes % 31.2 % (21.2-54.2); Mean Corpuscular HGB Conc 35.1 GM/DL (32-36); Mean Corpuscular Hemoglobin 32 PG (27-34); Mean Corpuscular Volume 91.1 FL (87-102); Mean Platelet Volume 9.3 FL (9.6-12.0); Monocytes # 0.9 10*3/uL (0.11-0.8); Monocytes % 10.2 % (1.7-12.7); Neutrophils # 4.5 10*3/uL (1.4-7.4); Neutrophils % 51.8 % (38.7-73.9); Platelet Count 313 T/CUMM (130-400); Red Blood Count 3.47 MC/CUMM (3.8-5.5); Red Cell Distribution Width 14.2 % (9.3-17.3); White Blood Count 8.7 T/CUMM (4-12)
--- NOTE | 2016-12-25 08:22 | Discharge Summary ---
Hospital Course - Hospital Course Hospital Course: Mr. Otto is a 66 year old male with history of recent bowel perforation and surgical repair, diverticulosis/diverticulitis, COPD with asthmatic bronchitis, HTN, sinus tachycardia, who had been in [facility] until a few weeks ago. He has been doing better. However, he pulled a muscle in left upper leg, and he became acutely sedentary. He presented to ER with acute shortness of breath and found to have PE. Xarelto was started in ER. Doppler left leg shows DVT popliteal. Ordering lidoderm patch today to apply to left leg 12 hours daily. Also, he has tramadol at home to take as needed. Will discharge to home for Home Health to help with PT/OT. Will continue current dose of Xarelto for another two weeks then will take a single daily dose for up to six months. Diagnosis - Discharge Diagnosis (1) Pulmonary embolus Status: Acute (2) COPD (chronic obstructive pulmonary disease) Status: Chronic (3) History of constipation Status: Chronic (4) DVT (deep venous thrombosis) Status: Acute Specialty Discharge - Follow Up or Referrals Follow up with: Miguelangel Gray MD [Physician] - 01/01/17 2:15 pm Laila Wyatt DO [Primary Care Provider] - Discharge Plan - Discharge Data Disposition: Home Health Service Condition at Discharge: Stable Discharge Diet: low fat, low cholesterol Activity: as per physical therapy, increase activity as tolerated - Discharge Medications New Lidocaine 5% Patch [Lidoderm 5% Patch] 3 patch TRANSDERM DAILY #30 patch Losartan [Cozaar] 25 mg PO DAILY #30 tablet Rivaroxaban [Xarelto] 15 mg PO BID W/MEALS #30 tablet Continue Tiotropium Br/Olodaterol HCl [Stiolto Respimat Inhal [place]] 2 puffs INH BEDTIME Cetirizine Tab [ZyrTEC Tab] 10 mg PO DAILY Albuterol Sulfate [Ventolin HFA] 2 puffs PO Q6HR PRN PRN Reason: Shortness Of Breath Albuterol/Ipratropium Neb [Duoneb] 3 ml RESP TX RT Q6H #120 Docusate Sodium Cap [Colace Cap] 100 mg PO BID capsule Lactobacillus Rhamnosus GG [Culturelle] 1 capsule PO BID #60 capsule Magnesium Hydroxide Susp [Milk of Magnesia] 30 ml PO DAILY PRN #0 PRN Reason: Constipation Propranolol Tab [Inderal Tab] 40 mg PO BID #60 tablet Simethicone Chew Tab [Mylicon Chew Tab] 80 mg PO QID #120 tablet HYDROcodone/ACETAMIN 7.5-325 [[place] 7.5-325] 1 tablet PO Q4H PRN #40 tablet PRN Reason: Pain Moderate To Severe (4-10) Cyanocobalamin (Vitamin B-12) [Vitamin B-12] 1 tablet PO DAILY Acetaminophen Tab [Tylenol Tab] 650 mg PO Q6H PRN #0 tablet PRN Reason: Fever > 100.4 Or Headache Famotidine Tab [Pepcid Tab] 20 mg PO BID #60 tablet Potassium Chloride Cap/Tab [K [place]] 20 meq PO BID #60 tablet Pantoprazole Tab [Protonix Tab] 40 mg PO BID #60 tablet Metoclopramide Tab [Reglan Tab] 10 mg PO DAILY Discontinued amLODIPine [Norvasc] 10 mg PO DAILY - Follow Up or Referral Follow Up: Miguelangel Gray MD [Physician] - 01/01/17 2:15 pm Laila Wyatt DO [Primary Care Provider] - - Forms/Instructions Additional Discharge Instructions: He will need Home Health PT/OT. He will take Xarelto 15 mg bid for two more weeks, then 20 mg daily thereafter. Please call in new meds that could not be escribed to pharmacy (not listed) in discharge med list. [facility] is in home med list, but he should use that sparingly. Follow up with Dr. Becki Wyatt within 1-2 weeks. Exam - Constitutional Vitals: Period Temp Pulse Resp BP Sys/Peace Pulse Ox Last 24 Hr 96.5 F-98.2 F 65-74 17-22 120-147/65-79 90-99 Exam: General appearance: no acute distress - Respiratory Respiratory exam: Present: clear to auscultation bilaterally - Cardiovascular Cardiovascular exam: Present: regular rate and rhythm - GI/Abdominal GI/Abdominal exam: Present: normal bowel sounds, soft. Absent: tenderness - Extremities Exam Extremities exam: Present: tenderness to left knee improving - Neurological Exam Neurological exam: Present: alert - Psychiatric Psychiatric exam: Present: normal mood - Skin Skin exam: Present: warm, dry Discharge Results Labs on day of discharge: Labs from last 24 hours 12/25/16 04:52 WBC 8.7 RBC 3.47 L Hgb 11.1 L Hct 31.6 L MCV 91.1 MCH 32 MCHC 35.1 RDW 14.2 Plt Count 313 MPV 9.3 L Neut % (Auto) 51.8 Lymph % (Auto) 31.2 [place] % (Auto) 10.2 Eos % (Auto) 6.0 Baso % (Auto) 0.3 Neut # (Auto) 4.5 Lymph # (Auto) 2.7 [place] # (Auto) 0.9 H Eos # (Auto) 0.5 Baso # (Auto) 0.0 Immature Gran % 0.5 Nucleated RBC % 0.0 Immature Gran # 0.04 Nucleated RBCs # 0.00 Immature Plt Fraction 0.0 DS: Provider Date of admission: 12/20/16 09:38 Primary care physician: Laila Wyatt DO Attending physician on admission: Laila Wyatt DO Consults: 12/20/16 09:39 Consult to Case Mgmt/Social Srvs [CONS] Routine Reason for Case Mgmt/Social Srvs: Discharge Planning 12/20/16 10:41 Consult to Dietitian [CONS] Routine Reason for Dietitian: Dietary Consult Consult to Pastoral Services [CONS] Routine Comment: Pastoral Screen: Request Field Checker Visit Pastoral Screen Source of Request: Patient 12/21/16 06:15 Consult to Physician [CONS] Routine Comment: acute PE Consulting Provider: Kamaljit Wyatt Person Notified: Dr Cecil Wyatt Date Notified: 12/21/16 Time Notified: 08:00 Consult Notification Comment: in person will see pt todat 12/22/16 18:37 Consult to Physical Therapy [CONS] Routine Reason for Physical Therapy: Evaluate and Treat Consult Comment: new DVT behind left knee and painful Consult to Physician [CONS] Routine Comment: will miss clinic appointment this week Consulting Provider: Marc Skaggs 12/22/16 18:38 Consult to Physician [CONS] Routine Comment: left knee pain from DVT and not wanting to walk Consulting Provider: Armando Mcintosh Person Notified: SHEILA Date Notified: 12/23/16 Time Notified: 08:52 Discharging clinician: Laila Wyatt DO Expected date of discharge: 12/25/16
--- NOTE | 2016-12-25 08:40 | Pulmonology Progress Note ---
Pulmonary - PN: Subj Interval history: Patient is a 66-year-old white man that has a long history of COPD. Several months ago he had perforated ulcer and had surgery. He was doing fairly well but said he bumped his left leg recently. Over the weekend he got short of breath and came in was found to have a pulmonary embolus with DVT of his left leg. He has been started on anticoagulation and is feeling better. He said he ate well and is not having any increased shortness of breath. His left leg pain is much better today and he says he feels better. He says he feels like going home today. Exam (Progress Note) - Constitutional Vitals: Period Temp Pulse Resp BP Sys/Peace Pulse Ox Last 24 Hr 96.5 F-98.2 F 65-74 17-22 120-147/65-79 90-99 Exam: General appearance: normal weight, no acute distress (He is comfortable lying in bed. He does not appear to be having any respiratory distress.) - Head Head exam: Present: normal inspection, normocephalic - Eye Eye exam: Present: EOMI. Absent: scleral icterus Pupils: Present: SERA - ENT ENT exam: Present: normal exam - Neck Neck exam: Present: normal inspection. Absent: lymphadenopathy, thyromegaly - Respiratory Respiratory exam: Present: He does have distant breath sounds but no wheezing or rales present. His lungs sound reasonably clear now. - Cardiovascular Cardiovascular exam: Present: regular rate and rhythm. Absent: gallop, systolic murmur - GI/Abdominal GI/Abdominal exam: Present: normal bowel sounds, distended, soft. Absent: organomegaly, tenderness - Extremities Exam Extremities exam: Present: other (His legs look okay without obvious phlebitis. His leg pain is better.) - Neurological Exam Neurological exam: Present: alert, oriented X3, CN II-XII intact. Absent: motor sensory deficit - Psychiatric Psychiatric exam: Present: normal affect, normal mood - Skin Skin exam: Present: warm, dry Results - Labs CBC & BMP: 12/25/16 04:52 12/24/16 04:09 Assessment and Plan (1) COPD (chronic obstructive pulmonary disease) Status: Chronic Assessment and plan: The patient does have significant COPD but is not wheezing at the present time. His respiratory status is stable he will continue with present therapy. Current Visit: Yes Qualifiers: COPD type: emphysema (2) Hypertension Status: Chronic Assessment and plan: Patient has a stable blood pressure now and is doing fairly well. Current Visit: No Qualifiers: Hypertension type: essential hypertension Qualified Code(s): I10 - Essential (primary) hypertension (3) History of constipation Status: Chronic Assessment and plan: The patient has had chronic problems with his bowels. He says he is eating a little better and having bowel movements now. Current Visit: No (4) Pulmonary embolus Status: Acute Assessment and plan: Patient apparently has DVT of the left leg and has pulmonary emboli. He has been started on Xarelto and is stable. He has DVT in his left leg is better. He will need to continue his anticoagulation for 3-4 months at least. He says he feels like going home today. Current Visit: Yes Qualifiers: Pulmonary embolism type: other Chronicity: acute Acute cor pulmonale presence: without acute cor pulmonale Qualified Code(s): I26.99 - Other pulmonary embolism without acute cor pulmonale Specialty Discharge - Follow Up or Referrals Follow up with: Miguelangel Gray MD [Physician] - 01/01/17 2:15 pm
[2016-12-25] MEDS: RIVAROXABAN 15 MG TABLET PO SCH (09:16)
[2016-12-25] MEDS: POTASSIUM CHLORIDE 20 MEQ TABLET PO SCH (09:16)
[2016-12-25] MEDS: PROPRANOLOL 40 MG TABLET PO SCH (09:16)
[2016-12-25] MEDS: DOCUSATE SODIUM 100 MG CAPSULE PO SCH (09:16)
[2016-12-25] MEDS: PANTOPRAZOLE 40 MG TABLET PO SCH (09:16)
[2016-12-25] MEDS: METOCLOPRAMIDE 10 MG TABLET PO SCH (09:16)
[2016-12-25] MEDS: CYANOCOBALAMIN 500 MCG TABLET PO SCH (09:16)
[2016-12-25] MEDS: LOSARTAN 25 MG TABLET PO SCH (09:17)
[2016-12-25] MEDS: FUROSEMIDE 40 MG/4 ML VIAL IV SCH (09:17)
[2016-12-25] MEDS: GABAPENTIN 100 MG CAPSULE PO SCH ×2 (09:17→14:14)
[2016-12-25] MEDS: SIMETHICONE CHEW 80 MG TABLET PO SCH ×2 (09:17→14:14)
[2016-12-25] MEDS: LIDOCAINE 5% PATCH TRANSDERM SCH (09:17)
[2016-12-25] MEDS: LACTOBACILLUS RHAMNOSUS GG CAPSULE PO SCH (09:17)
[2016-12-25] MEDS: FLUTICASONE/SALMETEROL 250-50 DISKUS 14 DOSE INH SCH (09:18)
[2016-12-25] MEDS: fentaNYL 12 MCG/HR PATCH TRANSDERM SCH (09:18)
[2016-12-25 12:08] VITALS: BP 153/79
== END 2016-12-25 15:54 | disposition home health service (06) | DRG 176 ==
LOC: EDBD → EDUNIT# → N.ED 06:47 → N.EDINP 09:38 → N.2E 10:20
PROVIDERS: ADMIT Internal Medicine; ATTEND Internal Medicine

== ENCOUNTER 2016-12-26 20:15 | Inpatient (IN) ==
[2016-12-26] MEDS ORDERED: PIPERACILLIN/TAZOBACTAM 3,375 MG in SODIUM CHLORIDE 0.9% 100 ML IV STA (20:41)
[2016-12-26] MEDS ORDERED: VANCOMYCIN INJ 1,000 MG in SODIUM CHLORIDE 0.9% 250 ML IV STA (20:41)
[2016-12-26] MEDS ORDERED: ALBUTEROL/IPRATROPIUM 3 ML NEB RESP TX STA (20:44)
[2016-12-26] MEDS ORDERED: VANCOMYCIN 1,000 MG VIAL ONE (20:53)
[2016-12-26] MEDS ORDERED: SODIUM CHLORIDE 0.9% 100 ML IV ONE (20:53)
[2016-12-26] MEDS ORDERED: PIPERACILLIN/TAZOBACTAM 3,375 MG VIAL IV ONE (20:53)
[2016-12-26 21:05] LABS: Basophils % 0.2 % (0.0-0.8); Eosinophils # 0.4 10*3/uL (0.0-0.87); Eosinophils % 2.6 % (0.00-10.9); Hematocrit 34.2 VOL% (42.0-52.0); Hemoglobin 11.8 GM/DL (14.0-18.0); Immature Granulocytes % 0.6 %; Immature Granulocytes Absolute 0.08 #; Lymphocytes % 14.5 % (21.2-54.2); Mean Corpuscular HGB Conc 34.5 GM/DL (32-36); Mean Corpuscular Hemoglobin 32 PG (27-34); Mean Corpuscular Volume 91.4 FL (87-102); Mean Platelet Volume 9.1 FL (9.6-12.0); Monocytes # 1.1 10*3/uL (0.11-0.8); Monocytes % 7.7 % (1.7-12.7); Neutrophils # 10.2 10*3/uL (1.4-7.4); Neutrophils % 74.4 % (38.7-73.9); Platelet Count 392 T/CUMM (130-400); Red Blood Count 3.74 MC/CUMM (3.8-5.5); Red Cell Distribution Width 14.2 % (9.3-17.3); White Blood Count 13.7 T/CUMM (4-12)
[2016-12-26 21:10] LABS: INR 1.1; PT Patient Result 11.4 SECS
[2016-12-26 21:13] LABS: Albumin 2.7 G/DL (3.4-5.0); Bilirubin,Total 0.5 MG/DL (0.2-1.0); Calcium 8.9 MG/DL (8.5-10.1); Magnesium 1.7 MG/DL (1.8-2.4); Osmolality,Calculated 267.7 MOS/KG (273-304); Potassium 4.3 MMOL/L (3.5-5.1); Total Protein 7.2 G/DL (6.4-8.3)
[2016-12-26 21:16] LABS: ABG Base Excess 3.2 MMOL/L (-2.5-2.5); ABG HCO3 26.5 MMOL/L (20-26); ABG Oxygen Saturation 95.9 % (95-100); ABG PH 7.485 (7.35-7.45); ABG PO2 79.6 MM HG (80-95); ABG TCO2 27.6 MMOL/L (23-27)
--- NOTE | 2016-12-26 23:26 | Emergency Department Note ---
Shine Thompson Manpreet, am scribing for, and in the presence of, Bharathi Peña MD 20:44. Casey Thompson Frederick, MD, personally performed the services described in this documentation, ascribed by Wilton Riojas in my presence, and it is both accurate and complete 326 . Arrival - Arrival Chief Complaint: Shortness of Breath Stated Complaint: sob ED Nursing Triage Note: Pt brought in by EMS with c/o SOB. Pt states he was just discharged on yesterday from [facility] with the same complaint. Pt in no distress up triage. Mode of Arrival: Stretcher Limitations: No Limitations Source: Patient - History of Present Illness HPI Narrative: Pt is a 66 y/o male who is brought to the ED via EMS for CC of SOB. Pt was discharged yesterday from [facility]. Pt had an MRI performed on 12/18/16 which reviled blood clots in his leg and lung for which he was hospitalized. Pt is on Xarelto, home O2, and nebulizer. Pt c/o productive cough with green-cortes phlegm, fever, and CP when coughing. No other pains/complaints reported to the ED. Consistency: constant Severity: moderate Severity scale (1-10): 3 Allergies/Adverse Reactions: Allergies Allergy/AdvReac Type Severity Reaction Status Date / Time No Known Allergies Allergy Verified 12/26/16 20:25 Home Medications: Home Medications Medication Instructions Recorded Confirmed Type Albuterol Sulfate [Ventolin HFA] 2 puffs PO Q6HR PRN 09/24/16 12/20/16 History Cetirizine Tab [ZyrTEC Tab] 10 mg PO DAILY 09/24/16 12/20/16 History Cyanocobalamin (Vitamin B-12) 1 tablet PO DAILY 09/24/16 12/20/16 History [Vitamin B-12] Tiotropium Br/Olodaterol HCl 2 puffs INH BEDTIME 09/24/16 12/20/16 History [Stiolto Respimat Inhal [place]] Acetaminophen Tab [Tylenol Tab] 650 mg PO Q6H PRN #0 tablet 10/03/16 12/20/16 Rx Albuterol/Ipratropium Neb [Duoneb] 3 ml RESP TX RT Q6H #120 10/03/16 12/20/16 Rx Docusate Sodium Cap [Colace Cap] 100 mg PO BID capsule 10/03/16 12/20/16 Rx Famotidine Tab [Pepcid Tab] 20 mg PO BID #60 tablet 10/03/16 12/20/16 Rx Lactobacillus Rhamnosus GG 1 capsule PO BID #60 capsule 10/03/16 12/20/16 Rx [Culturelle] Magnesium Hydroxide Susp [Milk of 30 ml PO DAILY PRN #0 10/03/16 12/20/16 Rx Magnesia] Potassium Chloride Cap/Tab [K Dur] 20 meq PO BID #60 tablet 10/03/16 12/20/16 Rx Propranolol Tab [Inderal Tab] 40 mg PO BID #60 tablet 10/03/16 12/20/16 Rx Simethicone Chew Tab [Mylicon Chew 80 mg PO QID #120 tablet 10/03/16 12/20/16 Rx Tab] HYDROcodone/ACETAMIN 7.5-325 1 tablet PO Q4H PRN #40 tablet 11/03/16 12/20/16 Rx [[place] 7.5-325] Pantoprazole Tab [Protonix Tab] 40 mg PO BID #60 tablet 11/03/16 12/20/16 Rx Metoclopramide Tab [Reglan Tab] 10 mg PO DAILY 12/20/16 12/20/16 History Lidocaine 5% Patch [Lidoderm 5% 3 patch TRANSDERM DAILY #30 patch 12/25/16 Rx Patch] Losartan [Cozaar] 25 mg PO DAILY #30 tablet 12/25/16 Rx Rivaroxaban [Xarelto] 15 mg PO BID W/MEALS #30 tablet 12/25/16 Rx Review of System - Review of System 12 point system: reviewed and no additional remarkable complaints except as stated - Review of System Constitutional: Present: chills, fever. Absent: diaphoresis Head/Ears/Nose/Throat: Absent: sore throat Respiratory: Present: cough (Productive cough), respiratory distress. Absent: wheezing Cardiovascular: Present: chest pain Gastrointestinal: Absent: abdominal pain, nausea, vomiting, diarrhea Genitourinary male: Absent: dysuria, frequency, hematuria Musculoskeletal: Absent: back pain Neurological: Absent: headache, weakness, numbness, paresthesias Medical,Surgical,& Family Hx - Medical History Cardio: History of: Aneurysm (aortic aneurysm), Cardiac Dysrhythmia (sinus tachycardia), Hypertension, Cardiovascular Problems (syncope) Psychological: History of: Depression No history of: Anxiety Disorders, ADHD, Behavior Problems, Bipolar Disorder, Previous Suicide Attempt, Schizophrenia, Violent Behavior, Psychiatric Problems Neurology: History of: Neurological Problems (tremors right hand/arm) No history of: Seizures HEENT: History of: HEENT Problems (sinus drainage; hx nosebleeds) Endocrine: History of: Dyslipidemia Respiratory: History of: Bronchitis, COPD (emphysema), Respiratory Problems ( chronic shortness of breath) Gastrointestinal: History of: GERD, GI Problems (recent bloating) Hematology: History of: Anemia - Surgical History Cardiac Surgeries: Sugical HX of: Cardiac Surgery (aortic aneurysm repair surger ) Neurologic Surgeries: Patient denies: Neurologic Surgery HEENT Surgeries: Patient denies: Thyroid Surgery Abdominal Surgeries: Surgical HX of: Appendectomy, Colonoscopy (Dr. Alvarado), EGD (dilatation) Reproductive Surgeries: Patient denies;: Genitourinary Surgery - Family History Family History: Reports;: Family Cancer - Social History Smoking Status: Former smoker Frequency of Alcohol Use: None Type of Drug Use: None Exam Vital Signs: Vital Signs Temperature 101.4 F H 12/26/16 20:21 Pulse Rate 98 H 12/26/16 20:42 Respiratory Rate 23 12/26/16 20:42 Blood Pressure 144/80 12/26/16 20:21 O2 Sat by Pulse Oximetry 92 L 12/26/16 20:21 - General General appearance: alert - Head Head exam: Present: atraumatic, normocephalic, normal inspection - Eye Eye exam: Present: normal appearance, PERRL, EOMI - ENT ENT exam: Present: normal exam, normal oropharynx, mucous membranes moist, TM's normal bilaterally - Neck Neck exam: Present: normal inspection, full ROM, trachea midline. Absent: tenderness, lymphadenopathy - Chest Chest inspection: Present: normal inspection, symmetric chest wall rise. Absent : tenderness - Respiratory Respiratory exam: Present: wheezes (Mild bilat wheezes). Absent: normal lung sounds bilaterally, accessory muscle use, respiratory distress - Cardiovascular Cardiovascular exam: Present: regular rate, normal rhythm, normal heart sounds. Absent: murmur, rubs - Abdominal Exam Abdominal exam: Present: soft, normal bowel sounds. Absent: distention, tenderness - Extremities Exam Extremities exam: Present: normal inspection, full ROM. Absent: tenderness - Back Exam Back exam: Present: normal inspection, full ROM. Absent: tenderness - Neurological Exam Neurological exam: Present: alert, oriented X3, CN II-XII intact, reflexes normal - Psychiatric Psychiatric exam: Present: normal affect, normal mood - Skin Skin exam: Present: warm, dry, intact, normal color. Absent: pallor Results - Labs CBC & BMP: 12/26/16 20:02 12/26/16 20:02 Lab Results: I have reviewed the patients labs Labs: Laboratory Tests 12/26/16 12/26/16 12/26/16 20:02 20:02 20:02 WBC 13.7 H D RBC 3.74 L Hgb 11.8 L Hct 34.2 L MCV 91.4 MCH 32 MCHC 34.5 Plt Count 392 D MPV 9.1 L Neut % (Auto) 74.4 H Lymph % (Auto) 14.5 L Neut # (Auto) 10.2 H [place] # (Auto) 1.1 H INR 1.1 PT Patient/Control Mix 11.4 ABG pH ABG pCO2 ABG pO2 ABG HCO3 ABG Total CO2 ABG O2 Saturation ABG Base Excess Sodium 131 L Potassium 4.3 Chloride 95 L Carbon Dioxide 30 Anion Gap 10.3 BUN 23 H Creatinine 1.40 H GFR Calculation 54 BUN/Creatinine Ratio 16.00 Glucose 127 H Calculated Osmolality 267.7 L Calcium 8.9 Magnesium 1.7 L AST 28 B-Natriuretic Peptide Albumin 2.7 L Globulin 4.5 H Albumin/Globulin Ratio 0.6 L Laboratory Tests 12/26/16 12/26/16 20:02 21:10 ABG pH 7.485 H ABG pCO2 36.0 ABG pO2 79.6 L ABG HCO3 26.5 H ABG Total CO2 27.6 H ABG O2 Saturation 95.9 ABG Base Excess 3.2 H B-Natriuretic Peptide 132 H
[2016-12-27] MEDS ORDERED: MAGNESIUM HYDROXIDE SUSP 30 ML UDCUP PO PRN (00:46)
[2016-12-27] MEDS ORDERED: ALBUTEROL 2.5 MG/3 ML NEB RESP TX PRN (00:46)
[2016-12-27] MEDS: ALBUTEROL/IPRATROPIUM 3 ML NEB RESP TX SCH ×4 (03:41→20:12)
--- NOTE | 2016-12-27 05:42 | Family Practice History&Phys ---
Assessment and Plan (1) COPD exacerbation Status: Acute Assessment and plan: Day 1 of vancomycin and Zosyn, continue nebulizers, DuoNeb's, was also put on Solu-Medrol thisAM, Blood cultures, sputum cultures done, awaiting results Follow pulmonology recommendations 2. PE, DVT: Continue Xarelto. 3. Hypertension, stable continue antihypertensives. 4. Will transfer to monitored bed today, Current Visit: Yes (2) DVT (deep venous thrombosis) Status: Acute Current Visit: Yes Qualifiers: DVT location: lower extremity Affected thrombotic vein of extremity: popliteal Chronicity: acute Laterality: left Qualified Code(s): I82.432 - Acute embolism and thrombosis of left popliteal vein (3) Pulmonary embolus Status: Acute Current Visit: No Qualifiers: Pulmonary embolism type: other Chronicity: acute Acute cor pulmonale presence: without acute cor pulmonale Qualified Code(s): I26.99 - Other pulmonary embolism without acute cor pulmonale (4) Hypertension Status: Chronic Current Visit: Yes Qualifiers: Hypertension type: essential hypertension Qualified Code(s): I10 - Essential (primary) hypertension History of Present Illness Chief complaint: Shortness of breath History of present illness: Mr. Otto is a 66 year old male PCP: Dr. Wyatt, Patient was brought to the ER on 12/26/2016 for shortness of breath by EMS. Admitted for COPD exacerbation, History obtained from the patient, Patient is complaining of shortness of breath since 5 to 6 days, with productive sputum greenish yellow in color. Shortness of breath on exertion as well as at rest, along with wheezing. Had fever since 1 day, intermittently. No chills or sweating. Feeling fatigued, intermittent dizziness especially on getting up from the bed, has decreased appetite. pt last hospital admission from 12/20/2016 to 12/25/2016, was diagnosed with PE and DVT was discharged on Xarelto, on home oxygen and nebulization treatments with inhalers. Patient has history of COPD, aortic aneurysm, cardiac dysrhythmia, hypertension , hyperlipidemia, depression, Patient is a former smoker. Home Medications Medication Instructions Recorded Confirmed Type Albuterol Sulfate [Ventolin HFA] 2 puffs PO Q6HR PRN 09/24/16 12/27/16 History Cetirizine Tab [ZyrTEC Tab] 10 mg PO DAILY 09/24/16 12/27/16 History Cyanocobalamin (Vitamin B-12) 1 tablet PO DAILY 09/24/16 12/27/16 History [Vitamin B-12] Tiotropium Br/Olodaterol HCl 2 puffs INH BEDTIME 09/24/16 12/27/16 History [Stiolto Respimat Inhal [place]] Acetaminophen Tab [Tylenol Tab] 650 mg PO Q6H PRN #0 tablet 10/03/16 12/27/16 Rx Albuterol/Ipratropium Neb [Duoneb] 3 ml RESP TX RT Q6H #120 10/03/16 12/27/16 Rx Docusate Sodium Cap [Colace Cap] 100 mg PO BID capsule 10/03/16 12/27/16 Rx Potassium Chloride Cap/Tab [K Dur] 20 meq PO BID #60 tablet 10/03/16 12/27/16 Rx Propranolol Tab [Inderal Tab] 40 mg PO BID #60 tablet 10/03/16 12/27/16 Rx Simethicone Chew Tab [Mylicon Chew 80 mg PO QID #120 tablet 10/03/16 12/27/16 Rx Tab] HYDROcodone/ACETAMIN 7.5-325 1 tablet PO Q4H PRN #40 tablet 11/03/16 12/27/16 Rx [[place] 7.5-325] Metoclopramide Tab [Reglan Tab] 10 mg PO DAILY 12/20/16 12/27/16 History Lidocaine 5% Patch [Lidoderm 5% 3 patch TRANSDERM DAILY #30 patch 12/25/1612/27 Rx Patch] Losartan [Cozaar] 25 mg PO DAILY #30 tablet 12/25/16 12/27/16 Rx Rivaroxaban [Xarelto] 15 mg PO BID W/MEALS #30 tablet 12/25/16 12/27/16 Rx Allergies Allergy/AdvReac Type Severity Reaction Status Date / Time No Known Allergies Allergy Verified 12/26/16 20:25 - Constitutional Constitutional: Present: as per HPI - EENT Eyes: Present: as per HPI - Cardiovascular Cardiovascular: Present: as per HPI - Respiratory Respiratory: Present: as per HPI - Gastrointestinal Gastrointestinal: Present: as per HPI - Genitourinary Genitourinary: Present: as per HPI - Musculoskeletal Musculoskeletal: Present: as per HPI - Neurological Neurological: Present: as per HPI - Psychiatric Psychiatric: Present: as per HPI - Endocrine Endocrine: Present: as per HPI - Hematologic/Lymphatic Hematologic/Lymphatic: Present: as per HPI Medical,Surgical,& Family Hx - Medical History Cardio: History of: Aneurysm (aortic aneurysm), Cardiac Dysrhythmia (sinus tachycardia), Hypertension, Cardiovascular Problems (syncope) Psychological: History of: Depression No history of: Anxiety Disorders, ADHD, Behavior Problems, Bipolar Disorder, Previous Suicide Attempt, Schizophrenia, Violent Behavior, Psychiatric Problems Neurology: History of: Neurological Problems (tremors right hand/arm) No history of: Seizures HEENT: History of: HEENT Problems (sinus drainage; hx nosebleeds) Endocrine: History of: Dyslipidemia Respiratory: History of: Bronchitis, COPD (emphysema), Pulmonary Embolism, Pneumonia, Respiratory Problems (chronic shortness of breath) Gastrointestinal: History of: GERD, GI Problems (recent bloating) Hematology: History of: Anemia Other: History of: Miscellaneous Medical Problems (Left Leg DVT) - Surgical History Cardiac Surgeries: Sugical HX of: Cardiac Surgery (aortic aneurysm repair surger ) Neurologic Surgeries: Patient denies: Neurologic Surgery HEENT Surgeries: Patient denies: Thyroid Surgery Abdominal Surgeries: Surgical HX of: Abdominal Surgery (gastric ulcer perforation in 2017), Appendectomy, Colonoscopy (Dr. Alvarado), EGD (dilatation) Reproductive Surgeries: Patient denies;: Genitourinary Surgery - Family History Family History: Reports;: Family Cancer - Social History Smoking Status: Former smoker Frequency of Alcohol Use: None Type of Drug Use: None Exam - Constitutional Vitals: Period Temp Pulse Resp BP Sys/Peace Pulse Ox Last 24 Hr 98.0 F-101.4 F 69-98 14-23 126-144/68-90 92-100 Exam: GENERAL APPEARANCE: alert and oriented, fatigued male patient, lying in the bed , wearing nasal cannula with 2 L oxygen. HEENT: normal. EYES: extraocular movement intact (EOMI), conjunctiva clear, normal. NECK/THYROID: neck supple, full range of motion, no cervical lymphadenopathy, no thyromegaly. HEART: regular rate and rhythm, no murmurs, rubs, gallops. LUNGS: Bilateral rhonchi with mild wheezes, more at the lung bases. ABDOMEN: soft, nontender, nondistended, no organomegaly , bowel sounds present. EXTREMITIES: 2+ pitting pedal edema on the left lower extremity. ( History of DVT) NEUROLOGIC: alert and oriented, cranial nerves 2-12 grossly intact, Skin: Has dry scaly skin at facial area with underlying mild erythema, ( history of eczema), no active discharge Results - Labs CBC & BMP: 12/26/16 20:02 12/26/16 20:02 Lab Results: I have reviewed the past 24 hour labs - Impressions Reviewed chest x-ray image, EKG
--- NOTE | 2016-12-27 06:45 | EKG Report ---
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
--- NOTE | 2016-12-27 07:06 | Pulmonology Consult Note ---
Assessment and Plan (1) COPD exacerbation Status: Resolved Assessment and plan: He has developed fever to 101.4, green sputum, increased dyspnea, wheezing. These are new since previous admission. This is an acute exacerbation of COPD. Patient is on vancomycin and Zosyn. Also on nebulizers with DuoNeb. Will add Solu-Medrol. ABGs look okay. Not in respiratory failure. Patient could go to the floor. Current Visit: No (2) Pulmonary embolus Status: Acute Assessment and plan: Had a right pulmonary embolus a little over a week ago. He is on Xarelto 15 mg twice daily. This is good coverage. Also had DVT of the left leg. This explains the unilateral swelling. Current Visit: No Qualifiers: Pulmonary embolism type: other Chronicity: acute Acute cor pulmonale presence: without acute cor pulmonale Qualified Code(s): I26.99 - Other pulmonary embolism without acute cor pulmonale (3) DVT (deep venous thrombosis) Status: Acute Assessment and plan: DVT of left leg. On Xarelto. Needs another 2 weeks or so of 15 mg twice daily. Then reduce to 20 mg daily. Current Visit: No Qualifiers: DVT location: lower extremity Affected thrombotic vein of extremity: popliteal Chronicity: acute Laterality: left Qualified Code(s): I82.432 - Acute embolism and thrombosis of left popliteal vein History of Present Illness Chief complaint: Shortness of breath History of present illness: Mr. Otto is a 66 year old male who was here about a week ago. He had a perforated gastric ulcer several months ago and had a prolonged hospitalization at that time. He does have COPD and was a smoker until 2 years ago. He had a chronic cough and sputum production and is on oxygen at home. He came in about a week ago and was found to have a pulmonary embolus to his right lung. Also had DVT in the left leg. He was started on Xarelto. He said he really was still short of breath when he went home but he came back in the next day more short of breath. He is now coughing up green sputum. No chest pain. He has had a low-grade fever. Home Medications Medication Instructions Recorded Confirmed Type Albuterol Sulfate [Ventolin HFA] 2 puffs PO Q6HR PRN 09/24/16 12/27/16 History Cetirizine Tab [ZyrTEC Tab] 10 mg PO DAILY 09/24/16 12/27/16 History Cyanocobalamin (Vitamin B-12) 1 tablet PO DAILY 09/24/16 12/27/16 History [Vitamin B-12] Tiotropium Br/Olodaterol HCl 2 puffs INH BEDTIME 09/24/16 12/27/16 History [Stiolto Respimat Inhal [place]] Acetaminophen Tab [Tylenol Tab] 650 mg PO Q6H PRN #0 tablet 10/03/16 12/27/16 Rx Albuterol/Ipratropium Neb [Duoneb] 3 ml RESP TX RT Q6H #120 10/03/16 12/27/16 Rx Docusate Sodium Cap [Colace Cap] 100 mg PO BID capsule 10/03/16 12/27/16 Rx Potassium Chloride Cap/Tab [K Dur] 20 meq PO BID #60 tablet 10/03/16 12/27/16 Rx Propranolol Tab [Inderal Tab] 40 mg PO BID #60 tablet 10/03/16 12/27/16 Rx Simethicone Chew Tab [Mylicon Chew 80 mg PO QID #120 tablet 10/03/16 12/27/16 Rx Tab] HYDROcodone/ACETAMIN 7.5-325 1 tablet PO Q4H PRN #40 tablet 11/03/16 12/27/16 Rx [[place] 7.5-325] Metoclopramide Tab [Reglan Tab] 10 mg PO DAILY 12/20/16 12/27/16 History Lidocaine 5% Patch [Lidoderm 5% 3 patch TRANSDERM DAILY #30 patch 12/25/1612/27 Rx Patch] Losartan [Cozaar] 25 mg PO DAILY #30 tablet 12/25/16 12/27/16 Rx Rivaroxaban [Xarelto] 15 mg PO BID W/MEALS #30 tablet 12/25/16 12/27/16 Rx Allergies Allergy/AdvReac Type Severity Reaction Status Date / Time No Known Allergies Allergy Verified 12/26/16 20:25 12 point system: reviewed and no additional remarkable complaints except as stated - Constitutional Constitutional: Present: fatigue - Cardiovascular Cardiovascular: Present: dyspnea, dyspnea on exertion, edema (In the left leg) - Respiratory Respiratory: Present: cough, dyspnea, dyspnea on exertion, wheezing, change in phlegm color (Sputum is green) - Musculoskeletal Musculoskeletal: Present: myalgias Exam (Pulmonay) H&P - Constitutional Vitals: Period Temp Pulse Resp BP Sys/Peace Pulse Ox Last 24 Hr 98.0 F-101.4 F 69-98 14-23 126-155/68-90 92-100 Exam: Patient is alert oriented vital signs normal. O2 sat 100% on 2 L. Pupils react to light. Throat is clear. Wearing nasal oxygen. Neck is supple no bruits. Chest shows bilateral expiratory wheezes and scattered rhonchi. Heart normal rate and rhythm no murmurs. Abdomen soft nontender no masses. Extremities no clubbing or cyanosis. He has 2+ edema in the left leg. No edema in the right leg. Left calf is a little tender. Medical,Surgical,& Family Hx - Medical History Cardio: History of: Aneurysm (aortic aneurysm), Cardiac Dysrhythmia (sinus tachycardia), Hypertension, Cardiovascular Problems (syncope) Psychological: History of: Depression No history of: Anxiety Disorders, ADHD, Behavior Problems, Bipolar Disorder, Previous Suicide Attempt, Schizophrenia, Violent Behavior, Psychiatric Problems Neurology: History of: Neurological Problems (tremors right hand/arm) No history of: Seizures HEENT: History of: HEENT Problems (sinus drainage; hx nosebleeds) Endocrine: History of: Dyslipidemia Respiratory: History of: Bronchitis, COPD (emphysema), Pulmonary Embolism, Pneumonia, Respiratory Problems (chronic shortness of breath) Gastrointestinal: History of: GERD, GI Problems (recent bloating) Hematology: History of: Anemia Other: History of: Miscellaneous Medical Problems (Left Leg DVT) - Surgical History Cardiac Surgeries: Sugical HX of: Cardiac Surgery (aortic aneurysm repair surger ) Neurologic Surgeries: Patient denies: Neurologic Surgery HEENT Surgeries: Patient denies: Thyroid Surgery Abdominal Surgeries: Surgical HX of: Abdominal Surgery (gastric ulcer perforation in 2017), Appendectomy, Colonoscopy (Dr. Alvarado), EGD (dilatation) Reproductive Surgeries: Patient denies;: Genitourinary Surgery - Family History Family History: Reports;: Family Cancer - Social History Smoking Status: Former smoker Frequency of Alcohol Use: None Type of Drug Use: None Results - Labs CBC & BMP: 12/26/16 20:02 12/26/16 20:02 Lab Results: I have reviewed the past 24 hour labs - Diagnostic Findings Procedure: Chest x-ray: image reviewed by me (Hyperinflation. Nonspecific interstitial scarring. No acute infiltrates.)
[2016-12-27] MEDS: PROPRANOLOL 40 MG TABLET PO SCH ×2 (08:43→21:02)
[2016-12-27] MEDS: CETIRIZINE 10 MG TABLET PO SCH (08:43)
[2016-12-27] MEDS: DOCUSATE SODIUM 100 MG CAPSULE PO SCH ×2 (08:43→21:02)
[2016-12-27] MEDS: LACTOBACILLUS RHAMNOSUS GG CAPSULE PO SCH ×2 (08:44→21:02)
[2016-12-27] MEDS: PANTOPRAZOLE 40 MG TABLET PO SCH ×2 (08:44→21:02)
[2016-12-27] MEDS: POTASSIUM CHLORIDE 20 MEQ TABLET PO SCH ×2 (08:46→21:02)
[2016-12-27] MEDS: SIMETHICONE CHEW 80 MG TABLET PO SCH ×4 (08:47→21:02)
[2016-12-27] MEDS: LOSARTAN 25 MG TABLET PO SCH (08:47)
[2016-12-27] MEDS: RIVAROXABAN 15 MG TABLET PO SCH ×2 (08:47→16:38)
[2016-12-27] MEDS: methylPREDNISolone SOD SUC 40 MG/1 ML VIAL IV SCH ×3 (08:50→23:42)
[2016-12-27] MEDS: LIDOCAINE 5% PATCH TRANSDERM SCH (08:57)
[2016-12-27] MEDS ORDERED: CYANOCOBALAMIN 500 MCG TABLET PO SCH (09:00)
[2016-12-27] MEDS ORDERED: FAMOTIDINE 20 MG TABLET PO SCH (09:00)
--- NOTE | 2016-12-27 09:55 | XRay Report ---
Portable chest Date: 12/26/2016 Clinical history: Shortness of breath Comparison: 12/20/2016 Technique: Portable AP sitting chest Findings: The heart is borderline in size with arterial calcifications. The lungs are over expanded with chronic scarring. Stable mediastinum with degenerative changes. Impression: Bullous emphysema with chronic scarring. PROCEDURE INTERPRETED AT [facility], [place] DEPARTMENT OF RADIOLOGY Final Report Signed by: Dr. Afua Lagunas
[2016-12-27] MEDS: SODIUM CHLORIDE 0.45% 1,000 ML IV SCH (15:36)
[2016-12-27] MEDS: IPRATROPIUM 500 MCG/2.5 ML NEB RESP TX SCH (20:11)
[2016-12-28] MEDS: ALBUTEROL/IPRATROPIUM 3 ML NEB RESP TX SCH ×4 (00:47→19:19)
[2016-12-28] MEDS: SODIUM CHLORIDE 0.45% 1,000 ML IV SCH ×3 (03:41→10:04)
[2016-12-28 06:31] LABS: Basophils % 0.1 % (0.0-0.8); Hematocrit 33.8 VOL% (42.0-52.0); Hemoglobin 11.3 GM/DL (14.0-18.0); Immature Granulocytes % 0.8 %; Immature Granulocytes Absolute 0.07 #; Lymphocytes # 1.2 10*3/uL (1.4-4.0); Lymphocytes % 14.8 % (21.2-54.2); Mean Corpuscular HGB Conc 33.4 GM/DL (32-36); Mean Corpuscular Hemoglobin 31 PG (27-34); Mean Corpuscular Volume 92.9 FL (87-102); Mean Platelet Volume 9.3 FL (9.6-12.0); Monocytes # 0.6 10*3/uL (0.11-0.8); Monocytes % 6.7 % (1.7-12.7); Neutrophils # 6.4 10*3/uL (1.4-7.4); Neutrophils % 77.6 % (38.7-73.9); Platelet Count 444 T/CUMM (130-400); Red Blood Count 3.64 MC/CUMM (3.8-5.5); Red Cell Distribution Width 13.9 % (9.3-17.3); White Blood Count 8.3 T/CUMM (4-12)
[2016-12-28] MEDS: methylPREDNISolone SOD SUC 40 MG/1 ML VIAL IV SCH ×3 (06:59→23:46)
[2016-12-28 07:05] LABS: Calcium 9.3 MG/DL (8.5-10.1); Magnesium 2.2 MG/DL (1.8-2.4); Osmolality,Calculated 271.4 MOS/KG (273-304); Potassium 4.6 MMOL/L (3.5-5.1)
[2016-12-28] MEDS: IPRATROPIUM 500 MCG/2.5 ML NEB RESP TX SCH ×4 (07:48→19:19)
[2016-12-28] MEDS: LACTOBACILLUS RHAMNOSUS GG CAPSULE PO SCH ×2 (08:37→21:02)
[2016-12-28] MEDS: PANTOPRAZOLE 40 MG TABLET PO SCH ×2 (08:38→21:03)
[2016-12-28] MEDS: POTASSIUM CHLORIDE 20 MEQ TABLET PO SCH ×2 (08:38→21:03)
[2016-12-28] MEDS: SIMETHICONE CHEW 80 MG TABLET PO SCH ×4 (08:38→21:03)
[2016-12-28] MEDS: CETIRIZINE 10 MG TABLET PO SCH (08:38)
[2016-12-28] MEDS: DOCUSATE SODIUM 100 MG CAPSULE PO SCH ×2 (08:38→21:01)
[2016-12-28] MEDS: LOSARTAN 25 MG TABLET PO SCH (08:38)
[2016-12-28] MEDS: RIVAROXABAN 15 MG TABLET PO SCH ×2 (08:38→18:12)
[2016-12-28] MEDS: PROPRANOLOL 40 MG TABLET PO SCH ×2 (08:38→21:03)
[2016-12-28] MEDS: LIDOCAINE 5% PATCH TRANSDERM SCH (08:38)
--- NOTE | 2016-12-28 09:27 | Family Practice Progress Note ---
Family Practice - PN: Subj Interval history: PCP: Dr. Wyatt. Patient admitted for COPD exacerbation, recent PE, history of DVT, hypertension Patient seen and examined, on the fifth floor, ambulating well Patient mentions overall he is feeling better than yesterday. His chest pain improved,has cough on and off Still, No fever, nausea, vomiting, headaches, dizziness. No overnight events reported by the nurse Exam (Progress Note) - Constitutional Vitals: Period Temp Pulse Resp BP Sys/Peace Pulse Ox Last 24 Hr 97.2 F-98.6 F 62-93 18-22 121-138/69-77 92-100 Exam: GENERAL APPEARANCE: alert and oriented, pleasant, in no acute distress, ambulating well in the room HEENT: normal. EYES: extraocular movement intact (EOMI), conjunctiva clear, normal. NECK/THYROID: neck supple, full range of motion, no cervical lymphadenopathy, no thyromegaly. HEART: regular rate and rhythm, no murmurs, rubs, gallops. LUNGS: Left basal rhonchi with mild wheezes, ABDOMEN: soft, nontender, nondistended, no organomegaly , bowel sounds present. EXTREMITIES: 1+ pitting pedal edema on the left lower extremity. ( History of DVT) NEUROLOGIC: alert and oriented, cranial nerves 2-12 grossly intact, Results - Labs CBC & BMP: 12/28/16 05:09 12/28/16 05:09 Lab Results: I have reviewed the past 24 hour labs - Impressions Blood culture from 12/26/2016 no growth for 1 day, influenza type a and B- from , sputum culture from 12/27/2016 normal marcos for 24 hours Assessment and Plan (1) COPD exacerbation Status: Acute Assessment and plan: Day 2 of vancomycin and Zosyn, continue nebulizers, DuoNeb's, Solu-Medrol, Follow pulmonology recommendations 2. Will decrease IV fluids 3. PE, DVT: Continue Xarelto. 4. Hypertension, stable continue antihypertensives. 5. Possible discharge in 1-2 days, if patient is stable. Current Visit: Yes (2) DVT (deep venous thrombosis) Status: Acute Current Visit: Yes Qualifiers: DVT location: lower extremity Affected thrombotic vein of extremity: popliteal Chronicity: acute Laterality: left Qualified Code(s): I82.432 - Acute embolism and thrombosis of left popliteal vein (3) Pulmonary embolus Status: Acute Current Visit: No Qualifiers: Pulmonary embolism type: other Chronicity: acute Acute cor pulmonale presence: without acute cor pulmonale Qualified Code(s): I26.99 - Other pulmonary embolism without acute cor pulmonale (4) Hypertension Status: Chronic Current Visit: Yes Qualifiers: Hypertension type: essential hypertension Qualified Code(s): I10 - Essential (primary) hypertension
[2016-12-28] MEDS: PIPERACILLIN/TAZOBACTAM 3,375 MG in SODIUM CHLORIDE 0.9% 100 ML IV SCH ×2 (10:04→18:12)
--- NOTE | 2016-12-28 10:17 | Pulmonology Progress Note ---
Pulmonary - PN: Subj Interval history: This 66-year-old white male was recently here with a diagnosis of a pulmonary embolus. He went home and came back with acute bronchitis and bronchospasm. He does have COPD with exacerbation. He is feeling better today. Still having some coughing and wheezing. His left leg is swelling and somewhat painful. He does have DVT in the left leg noted on venous Dopplers last admission Exam (Progress Note) - Constitutional Vitals: Period Temp Pulse Resp BP Sys/Peace Pulse Ox Last 24 Hr 97.2 F-98.6 F 62-93 18-22 121-138/69-77 92-100 Exam: Patient is alert oriented afebrile. Pupils react to light. Throat is clear. Neck supple no bruits. Chest reveals some bilateral expiratory rhonchi. Equal breath sounds. Heart normal rate and rhythm no murmurs. Abdomen soft nontender no masses. Extremities no clubbing cyanosis. He does have 1+ edema in the left leg. Left calf is somewhat tender. Results - Labs CBC & BMP: 12/28/16 05:09 12/28/16 05:09 Lab Results: I have reviewed the past 24 hour labs Assessment and Plan (1) COPD exacerbation Status: Acute Assessment and plan: He has developed fever to 101.4, green sputum, increased dyspnea, wheezing. These are new since previous admission. This is an acute exacerbation of COPD. Patient is on vancomycin and Zosyn. Also on nebulizers with DuoNeb. Will add Solu-Medrol. ABGs look okay. Not in respiratory failure. Patient could go to the floor. 12/28/16 patient is still having some bronchospasm. We will continue with Zosyn. I do not think he needs vancomycin. Sputum culture is pending. Current Visit: Yes (2) Pulmonary embolus Status: Acute Assessment and plan: Had a right pulmonary embolus a little over a week ago. He is on Xarelto 15 mg twice daily. This is good coverage. Also had DVT of the left leg. This explains the unilateral swelling. 12/28/16 continuing Xarelto 15 mg twice daily. Will need at least 6 months of treatment. Current Visit: No Qualifiers: Pulmonary embolism type: other Chronicity: acute Acute cor pulmonale presence: without acute cor pulmonale Qualified Code(s): I26.99 - Other pulmonary embolism without acute cor pulmonale (3) DVT (deep venous thrombosis) Status: Acute Assessment and plan: DVT of left leg. On Xarelto. Needs another 2 weeks or so of 15 mg twice daily. Then reduce to 20 mg daily. 12/28/2016 again the treatment is with Xarelto. Patient is to keep his left leg elevated as much as possible. He is okay to ambulate. Current Visit: Yes Qualifiers: DVT location: lower extremity Affected thrombotic vein of extremity: popliteal Chronicity: acute Laterality: left Qualified Code(s): I82.432 - Acute embolism and thrombosis of left popliteal vein
[2016-12-28] MEDS: ACETAMINOPHEN 325 MG TABLET PO PRN (23:43)
[2016-12-29] MEDS: ALBUTEROL/IPRATROPIUM 3 ML NEB RESP TX SCH ×4 (00:56→19:05)
[2016-12-29] MEDS: PIPERACILLIN/TAZOBACTAM 3,375 MG in SODIUM CHLORIDE 0.9% 100 ML IV SCH ×4 (01:23→17:08)
[2016-12-29] MEDS: SODIUM CHLORIDE 0.45% 1,000 ML IV SCH (06:34)
--- NOTE | 2016-12-29 06:48 | Physician Query Form ---
CLICK EDIT DOCUMENT TO SELECT QUERY ANSWER --> OK --> SIGN Maegan East RN, CCDS Certified Clinical Women'S Garment [employer]itter W) [phone] (f) [phone] [email or web address] PROVIDERS: Make your selection(s) from the choices in EACH section by typing an "x" and enter comments in the comment section. Please use your independent medical judgment in providing your response. This request does not imply that any particular answer is desired or expected. CLINICAL INDICATORS: (Providers should not edit this section) The medical record indicates that the patient was admitted with COPD exacerbation, "on oxygen at home", the patient was admitted and placed on 2 liters per NC. Based on the above, could you clarify the appropriate diagnosis, if significant , that supports the above abnormalities and additional evaluation, monitoring, and/or treatment rendered: ( x) Patient was monitored or treated for chronic respiratory failure ( ) Patient was not monitored or treated for chronic respiratory failure ( ) Other, please specify: ( ) Clinically unable to determine COMMENTS: PLEASE ALSO DOCUMENT RESPONSE IN PROGRESS NOTES AND/OR DISCHARGE SUMMARY Use of terms such as suspected, likely, or probable (associated with a specific diagnosis that is being evaluated, monitored, or treated as if it exists) are acceptable and can be restated in the discharge summary if not ruled out. MTDD
[2016-12-29] MEDS: methylPREDNISolone SOD SUC 40 MG/1 ML VIAL IV SCH ×3 (07:13→23:50)
[2016-12-29] MEDS: PROPRANOLOL 40 MG TABLET PO SCH ×2 (09:46→20:39)
[2016-12-29] MEDS: SIMETHICONE CHEW 80 MG TABLET PO SCH ×4 (09:47→20:39)
[2016-12-29] MEDS: LIDOCAINE 5% PATCH TRANSDERM SCH (09:47)
[2016-12-29] MEDS: PANTOPRAZOLE 40 MG TABLET PO SCH ×2 (09:47→20:39)
[2016-12-29] MEDS: CETIRIZINE 10 MG TABLET PO SCH (09:47)
[2016-12-29] MEDS: POTASSIUM CHLORIDE 20 MEQ TABLET PO SCH ×2 (09:47→20:39)
[2016-12-29] MEDS: RIVAROXABAN 15 MG TABLET PO SCH ×2 (09:47→17:02)
[2016-12-29] MEDS: DOCUSATE SODIUM 100 MG CAPSULE PO SCH ×2 (09:47→20:39)
[2016-12-29] MEDS: LOSARTAN 25 MG TABLET PO SCH (09:47)
[2016-12-29] MEDS: LACTOBACILLUS RHAMNOSUS GG CAPSULE PO SCH ×2 (09:47→20:39)
--- NOTE | 2016-12-29 12:52 | Pulmonology Progress Note ---
Pulmonary - PN: Subj Interval history: The patient is a 66-year-old white man that has COPD and came in last week with a DVT and pulmonary embolus. He was fairly stable and was started on anticoagulation. He complained of a lot of left leg pain but he did not have much swelling. His breathing was actually fairly stable. He went home and came back the next day or so complaining that he was coughing and congested. He was told he might have mild pneumonia. He has been started on antibiotics. He looks about the same and is comfortable. He is not having any chest pain. He was coughing up some yellow sputum. He had a temp of about 99.4. His breathing is about the same. Exam (Progress Note) - Constitutional Vitals: Period Temp Pulse Resp BP Sys/Peace Pulse Ox Last 24 Hr 97.5 F-98.0 F 60-80 16-20 116-160/65-80 93-99 General appearance: normal weight, no acute distress - Head Head exam: Present: normal inspection, normocephalic - Eye Eye exam: Present: EOMI. Absent: scleral icterus Pupils: Present: SERA - ENT ENT exam: Present: normal exam - Neck Neck exam: Present: normal inspection. Absent: lymphadenopathy, thyromegaly - Respiratory Respiratory exam: Present: decreased breath sounds, prolonged expiratory phase, other (His lungs sound okay without definite consolidation.). Absent: wheezes - Cardiovascular Cardiovascular exam: Present: regular rate and rhythm. Absent: gallop, systolic murmur - GI/Abdominal GI/Abdominal exam: Present: normal bowel sounds, distended, soft. Absent: organomegaly, tenderness - Extremities Exam Extremities exam: Present: other (The left leg looks okay without definite phlebitis.). Absent: calf tenderness, edema - Neurological Exam Neurological exam: Present: alert, oriented X3, CN II-XII intact. Absent: motor sensory deficit - Psychiatric Psychiatric exam: Present: normal affect, normal mood - Skin Skin exam: Present: warm, dry Results - Labs CBC & BMP: 12/28/16 05:09 12/28/16 05:09 - Diagnostic Findings Procedure: Chest x-ray: image reviewed by me, report reviewed by me (Chest x- ray shows COPD changes and there may be slight infiltrate in the right base.) Assessment and Plan (1) COPD exacerbation Status: Acute Assessment and plan: The patient comes back with a little more shortness of breath and was felt to have at least some bronchitis or possible pneumonia. He is back on IV medications. He looks reasonably stable at present. Current Visit: Yes (2) Hypertension Status: Chronic Assessment and plan: His blood pressure and heart rate are under control. Current Visit: Yes Qualifiers: Hypertension type: essential hypertension Qualified Code(s): I10 - Essential (primary) hypertension (3) Pulmonary embolus Status: Acute Assessment and plan: The patient looks like he is breathing comfortably and will continue Xarelto. Current Visit: No Qualifiers: Pulmonary embolism type: other Chronicity: acute Acute cor pulmonale presence: without acute cor pulmonale Qualified Code(s): I26.99 - Other pulmonary embolism without acute cor pulmonale (4) DVT (deep venous thrombosis) Status: Acute Assessment and plan: The patient's leg looks a little better and will continue anticoagulation. Current Visit: Yes Qualifiers: DVT location: lower extremity Affected thrombotic vein of extremity: popliteal Chronicity: acute Laterality: left Qualified Code(s): I82.432 - Acute embolism and thrombosis of left popliteal vein (5) Lumbar radiculopathy, acute Problem details: New onset left-sided lumbar radiculopathy 5 days ago after lifting dryer. Status: Acute Assessment and plan: The patient has had some chronic pain issues. Current Visit: No
--- NOTE | 2016-12-29 19:44 | Internal Med Progress Note ---
Assessment and Plan (1) COPD exacerbation Status: Acute Current Visit: Yes (2) COPD (chronic obstructive pulmonary disease) Status: Chronic Current Visit: Yes Qualifiers: COPD type: emphysema (3) Hypertension Status: Chronic Current Visit: Yes Qualifiers: Hypertension type: essential hypertension Qualified Code(s): I10 - Essential (primary) hypertension (4) Chronic fatigue Problem details: improved Status: Chronic Current Visit: Yes (5) History of constipation Status: Chronic Current Visit: Yes (6) Pulmonary embolus Status: Chronic Current Visit: Yes Qualifiers: Pulmonary embolism type: other Chronicity: acute Acute cor pulmonale presence: without acute cor pulmonale Qualified Code(s): I26.99 - Other pulmonary embolism without acute cor pulmonale (7) DVT (deep venous thrombosis) Status: Chronic Current Visit: Yes Qualifiers: DVT location: lower extremity Affected thrombotic vein of extremity: popliteal Chronicity: acute Laterality: left Qualified Code(s): I82.432 - Acute embolism and thrombosis of left popliteal vein Internal Medicine - PN: Subj Interval history: This is a 66 year old male with history of COPD/emphysema, HTN, chronic constipation, recent bowel perforation and partial colectomy, recent DVT/PE and on Xarelto, who is now here with pneumonia. He reports feeling better now with antibiotic and breathing treatments. Exam (Progress Note) - Constitutional Vitals: Period Temp Pulse Resp BP Sys/Peace Pulse Ox Last 24 Hr 96.4 F-98.0 F 60-76 16-20 130-160/70-80 93-99 General appearance: no acute distress - Head Head exam: Present: normocephalic - Eye Eye exam: Present: EOMI - Respiratory Respiratory exam: Present: clear to auscultation bilaterally - Cardiovascular Cardiovascular exam: Present: regular rate and rhythm - GI/Abdominal GI/Abdominal exam: Present: normal bowel sounds, soft. Absent: tenderness - Extremities Exam Extremities exam: Absent: edema - Neurological Exam Neurological exam: Present: alert, oriented X3 - Psychiatric Psychiatric exam: Present: normal mood - Skin Skin exam: Present: warm, dry Results - Labs CBC & BMP: 12/30/16 05:55 12/30/16 05:55
[2016-12-30] MEDS: ALBUTEROL/IPRATROPIUM 3 ML NEB RESP TX SCH ×4 (01:10→19:30)
[2016-12-30] MEDS: PIPERACILLIN/TAZOBACTAM 3,375 MG in SODIUM CHLORIDE 0.9% 100 ML IV SCH ×3 (01:42→17:17)
[2016-12-30] MEDS: SODIUM CHLORIDE 0.45% 1,000 ML IV SCH (06:15)
[2016-12-30 07:25] LABS: Basophils % 0.1 % (0.0-0.8); Hematocrit 33.7 VOL% (42.0-52.0); Hemoglobin 11.4 GM/DL (14.0-18.0); Immature Granulocytes % 3.5 %; Immature Granulocytes Absolute 0.51 #; Lymphocytes # 1.6 10*3/uL (1.4-4.0); Mean Corpuscular HGB Conc 33.8 GM/DL (32-36); Mean Corpuscular Hemoglobin 32 PG (27-34); Mean Corpuscular Volume 93.6 FL (87-102); Monocytes # 0.8 10*3/uL (0.11-0.8); Monocytes % 5.4 % (1.7-12.7); Neutrophils # 11.7 10*3/uL (1.4-7.4); Platelet Count 457 T/CUMM (130-400); Red Cell Distribution Width 14.5 % (9.3-17.3); White Blood Count 14.6 T/CUMM (4-12)
[2016-12-30 07:53] LABS: Hypochromasia Slight; Lymphocytes 11 % (20-55); Platelet Estimate Adequate; Segmented Neutrophils 82 % (50-85); Total Cells Counted 100
[2016-12-30 08:04] LABS: Albumin 2.6 G/DL (3.4-5.0); Bilirubin,Total 0.4 MG/DL (0.2-1.0); Calcium 9.3 MG/DL (8.5-10.1); Osmolality,Calculated 277.1 MOS/KG (273-304); Potassium 5.3 MMOL/L (3.5-5.1); Total Protein 6.8 G/DL (6.4-8.3)
--- NOTE | 2016-12-30 08:58 | Pulmonology Progress Note ---
Pulmonary - PN: Subj Interval history: The patient is a 66-year-old white man that has COPD and came in last week with a DVT and pulmonary embolus. He was fairly stable and was started on anticoagulation. He complained of a lot of left leg pain but he did not have much swelling. His breathing was actually fairly stable. He went home and came back the next day or so complaining that he was coughing and congested. He was told he might have mild pneumonia. He has been started on antibiotics. He says he feels better and is having less cough and shortness of breath. He is starting to move around a little better. Exam (Progress Note) - Constitutional Vitals: Period Temp Pulse Resp BP Sys/Peace Pulse Ox Last 24 Hr 96.4 F-98.7 F 62-76 16-20 100-148/64-76 94-100 Exam: General appearance: normal weight, no acute distress, he looks quite comfortable today. - Head Head exam: Present: normal inspection, normocephalic - Eye Eye exam: Present: EOMI. Absent: scleral icterus Pupils: Present: SERA - ENT ENT exam: Present: normal exam - Neck Neck exam: Present: normal inspection. Absent: lymphadenopathy, thyromegaly - Respiratory Respiratory exam: Present: He has diminished breath sounds but is moving air okay without any wheezing now. - Cardiovascular Cardiovascular exam: Present: regular rate and rhythm. Absent: gallop, systolic murmur - GI/Abdominal GI/Abdominal exam: Present: normal bowel sounds, distended, soft. Absent: organomegaly, tenderness - Extremities Exam Extremities exam: Present: other (The left leg looks okay without definite phlebitis.). Absent: calf tenderness, edema - Neurological Exam Neurological exam: Present: alert, oriented X3, CN II-XII intact. Absent: motor sensory deficit - Psychiatric Psychiatric exam: Present: normal affect, normal mood - Skin Skin exam: Present: warm, dry Results - Labs CBC & BMP: 12/30/16 05:55 12/30/16 05:55 Assessment and Plan (1) COPD exacerbation Status: Acute Assessment and plan: The patient comes back with a little more shortness of breath and was felt to have at least some bronchitis or possible pneumonia. He is back on IV medications. He says he is feeling better overall and is breathing better. Current Visit: Yes (2) Hypertension Status: Chronic Assessment and plan: His blood pressure and heart rate are under control. Current Visit: Yes Qualifiers: Qualified Code(s): I10 - Essential (primary) hypertension (3) Pulmonary embolus Status: Acute Assessment and plan: The patient looks like he is breathing comfortably and will continue Xarelto. Current Visit: No Qualifiers: Qualified Code(s): I26.99 - Other pulmonary embolism without acute cor pulmonale (4) DVT (deep venous thrombosis) Status: Acute Assessment and plan: The patient's leg looks a little better and will continue anticoagulation. Current Visit: Yes Qualifiers: Qualified Code(s): I82.432 - Acute embolism and thrombosis of left popliteal vein (5) Lumbar radiculopathy, acute Problem details: New onset left-sided lumbar radiculopathy 5 days ago after lifting dryer. Status: Acute Assessment and plan: The patient has had some chronic pain issues. Current Visit: No
[2016-12-30] MEDS: SIMETHICONE CHEW 80 MG TABLET PO SCH ×4 (09:06→20:59)
[2016-12-30] MEDS: RIVAROXABAN 15 MG TABLET PO SCH ×2 (09:06→17:17)
[2016-12-30] MEDS: DOCUSATE SODIUM 100 MG CAPSULE PO SCH ×2 (09:06→20:59)
[2016-12-30] MEDS: CETIRIZINE 10 MG TABLET PO SCH (09:06)
[2016-12-30] MEDS: POTASSIUM CHLORIDE 20 MEQ TABLET PO SCH ×2 (09:06→20:10)
[2016-12-30] MEDS: methylPREDNISolone SOD SUC 40 MG/1 ML VIAL IV SCH ×3 (09:06→20:59)
[2016-12-30] MEDS: LOSARTAN 25 MG TABLET PO SCH (09:06)
[2016-12-30] MEDS: PANTOPRAZOLE 40 MG TABLET PO SCH ×2 (09:06→20:59)
[2016-12-30] MEDS: PROPRANOLOL 40 MG TABLET PO SCH ×2 (09:07→20:59)
[2016-12-30] MEDS: LIDOCAINE 5% PATCH TRANSDERM SCH (09:07)
[2016-12-30] MEDS: LACTOBACILLUS RHAMNOSUS GG CAPSULE PO SCH ×2 (09:07→20:59)
--- NOTE | 2016-12-30 22:07 | Internal Med Progress Note ---
Assessment and Plan (1) COPD exacerbation Status: Acute Current Visit: Yes (2) COPD (chronic obstructive pulmonary disease) Status: Chronic Current Visit: Yes Qualifiers: COPD type: emphysema (3) Hypertension Status: Chronic Current Visit: Yes Qualifiers: Hypertension type: essential hypertension Qualified Code(s): I10 - Essential (primary) hypertension (4) Chronic fatigue Problem details: improved Status: Chronic Current Visit: Yes (5) History of constipation Status: Chronic Current Visit: Yes (6) Pulmonary embolus Status: Chronic Current Visit: Yes Qualifiers: Pulmonary embolism type: other Chronicity: acute Acute cor pulmonale presence: without acute cor pulmonale Qualified Code(s): I26.99 - Other pulmonary embolism without acute cor pulmonale (7) DVT (deep venous thrombosis) Status: Chronic Current Visit: Yes Qualifiers: DVT location: lower extremity Affected thrombotic vein of extremity: popliteal Chronicity: acute Laterality: left Qualified Code(s): I82.432 - Acute embolism and thrombosis of left popliteal vein Internal Medicine - PN: Subj Interval history: This is a 66 year old male with history of COPD/emphysema, HTN, chronic constipation, recent bowel perforation and partial colectomy, recent DVT/PE and on Xarelto, who is now here with pneumonia. He reports feeling better now with antibiotic and breathing treatments. He reports not feeling well today, but was not wearing oxygen nasal cannula when seen on rounds. Exam (Progress Note) - Constitutional Vitals: Period Temp Pulse Resp BP Sys/Peace Pulse Ox Last 24 Hr 96.2 F-98.7 F 57-89 17-20 136-169/68-84 94-100 Exam: General appearance: no acute distress - Respiratory Respiratory exam: Present: clear to auscultation bilaterally - Cardiovascular Cardiovascular exam: Present: regular rate and rhythm - GI/Abdominal GI/Abdominal exam: Present: normal bowel sounds - Extremities Exam Extremities exam: Absent: edema - Neurological Exam Neurological exam: Present: alert, oriented X3 - Psychiatric Psychiatric exam: Present: normal mood - Skin Skin exam: Present: warm, dry Results - Labs CBC & BMP: 12/30/16 05:55 12/30/16 05:55 - EKG EKG shows: sinus rhythm (monitor strips)
[2016-12-31] MEDS: ACETAMINOPHEN 325 MG TABLET PO PRN (00:06)
[2016-12-31] MEDS: PIPERACILLIN/TAZOBACTAM 3,375 MG in SODIUM CHLORIDE 0.9% 100 ML IV SCH ×3 (00:44→16:31)
[2016-12-31] MEDS: ALBUTEROL/IPRATROPIUM 3 ML NEB RESP TX SCH ×4 (00:56→19:17)
[2016-12-31 06:34] LABS: Basophils # 0.1 10*3/uL (0.0-0.2); Basophils % 0.3 % (0.0-0.8); Hemoglobin 11.5 GM/DL (14.0-18.0); Immature Granulocytes % 5.2 %; Immature Granulocytes Absolute 0.78 #; Lymphocytes # 2.1 10*3/uL (1.4-4.0); Mean Corpuscular HGB Conc 33.8 GM/DL (32-36); Mean Corpuscular Hemoglobin 32 PG (27-34); Mean Corpuscular Volume 93.7 FL (87-102); Mean Platelet Volume 8.8 FL (9.6-12.0); Monocytes # 1.3 10*3/uL (0.11-0.8); Monocytes % 8.6 % (1.7-12.7); NRBC # 0.02 10*3/uL; Neutrophils # 10.9 10*3/uL (1.4-7.4); Neutrophils % 71.9 % (38.7-73.9); Platelet Count 440 T/CUMM (130-400); Red Blood Count 3.63 MC/CUMM (3.8-5.5); Red Cell Distribution Width 14.3 % (9.3-17.3); White Blood Count 15.1 T/CUMM (4-12)
[2016-12-31 07:04] LABS: Osmolality,Calculated 280.1 MOS/KG (273-304); Potassium 4.6 MMOL/L (3.5-5.1)
[2016-12-31 07:09] LABS: Spherocytes 1+
--- NOTE | 2016-12-31 09:08 | Pulmonology Progress Note ---
Pulmonary - PN: Subj Interval history: The patient is a 66-year-old white man that has COPD and came in last week with a DVT and pulmonary embolus. He was fairly stable and was started on anticoagulation. He complained of a lot of left leg pain but he did not have much swelling. His breathing was actually fairly stable. He went home and came back the next day or so complaining that he was coughing and congested. He was told he might have mild pneumonia. He has been started on antibiotics. He says he still does not feel that well. He says his left leg aches all the time. He says he is coughing up a little more sputum now. His shortness of breath comes and goes. Overall he looks about the same. Exam (Progress Note) - Constitutional Vitals: Period Temp Pulse Resp BP Sys/Peace Pulse Ox Last 24 Hr 96.2 F-97.6 F 59-89 18-20 138-158/69-93 95-99 Exam: General appearance: normal weight, no acute distress, he looks quite comfortable today. He is sitting up eating breakfast in no distress. - Head Head exam: Present: normal inspection, normocephalic - Eye Eye exam: Present: EOMI. Absent: scleral icterus Pupils: Present: SERA - ENT ENT exam: Present: normal exam - Neck Neck exam: Present: normal inspection. Absent: lymphadenopathy, thyromegaly - Respiratory Respiratory exam: Present: He has diminished breath sounds but is moving air okay without any wheezing now. I do not hear any definite consolidation. - Cardiovascular Cardiovascular exam: Present: regular rate and rhythm. Absent: gallop, systolic murmur - GI/Abdominal GI/Abdominal exam: Present: normal bowel sounds, distended, soft. Absent: organomegaly, tenderness - Extremities Exam Extremities exam: Present: other (The left leg looks okay without definite phlebitis.). Absent: calf tenderness, edema - Neurological Exam Neurological exam: Present: alert, oriented X3, CN II-XII intact. Absent: motor sensory deficit - Psychiatric Psychiatric exam: Present: normal affect, normal mood - Skin Skin exam: Present: warm, dry Results - Labs CBC & BMP: 12/31/16 05:58 12/31/16 05:58 Assessment and Plan (1) COPD exacerbation Status: Acute Assessment and plan: The patient comes back with a little more shortness of breath and was felt to have at least some bronchitis or possible pneumonia. He is back on IV medications. He was better for a day or 2 but says he is short of breath again. He says he is coughing up some yellow sputum. I will check a sputum culture. Current Visit: Yes (2) Hypertension Status: Chronic Assessment and plan: His blood pressure and heart rate are under control. Current Visit: Yes Qualifiers: Hypertension type: essential hypertension Qualified Code(s): I10 - Essential (primary) hypertension (3) Pulmonary embolus Status: Chronic Assessment and plan: The patient looks like he is breathing comfortably and will continue Xarelto. Current Visit: Yes Qualifiers: Pulmonary embolism type: other Chronicity: acute Acute cor pulmonale presence: without acute cor pulmonale Qualified Code(s): I26.99 - Other pulmonary embolism without acute cor pulmonale (4) DVT (deep venous thrombosis) Status: Chronic Assessment and plan: The patient's leg looks a little better and will continue anticoagulation. He has some pain in his left leg but I doubt this is due to phlebitis. He does have some chronic back pain. Current Visit: Yes Qualifiers: DVT location: lower extremity Affected thrombotic vein of extremity: popliteal Chronicity: acute Laterality: left Qualified Code(s): I82.432 - Acute embolism and thrombosis of left popliteal vein (5) Lumbar radiculopathy, acute Problem details: New onset left-sided lumbar radiculopathy 5 days ago after lifting dryer. Status: Acute Assessment and plan: The patient has had some chronic pain issues. Current Visit: No
[2016-12-31] MEDS: PROPRANOLOL 40 MG TABLET PO SCH ×2 (09:10→20:37)
[2016-12-31] MEDS: LACTOBACILLUS RHAMNOSUS GG CAPSULE PO SCH ×2 (09:11→20:39)
[2016-12-31] MEDS: SIMETHICONE CHEW 80 MG TABLET PO SCH ×4 (09:11→20:38)
[2016-12-31] MEDS: PANTOPRAZOLE 40 MG TABLET PO SCH ×2 (09:11→20:38)
[2016-12-31] MEDS: CETIRIZINE 10 MG TABLET PO SCH (09:11)
[2016-12-31] MEDS: DOCUSATE SODIUM 100 MG CAPSULE PO SCH ×2 (09:11→20:38)
[2016-12-31] MEDS: LOSARTAN 25 MG TABLET PO SCH (09:11)
[2016-12-31] MEDS: RIVAROXABAN 15 MG TABLET PO SCH ×2 (09:11→16:22)
[2016-12-31] MEDS: LIDOCAINE 5% PATCH TRANSDERM SCH (09:13)
[2016-12-31] MEDS: methylPREDNISolone SOD SUC 40 MG/1 ML VIAL IV SCH ×2 (09:14→20:38)
--- NOTE | 2016-12-31 13:06 | Pain Management Consult Note ---
Assessment and Plan (1) Lumbar radiculopathy, acute Problem details: New onset left-sided lumbar radiculopathy 5 days ago after lifting dryer. Status: Acute Assessment and plan: 12/31/2016. The patient has a left lower extremity radiculopathy. This started approximately around the time of lifting a dryer at home. He has a history of DVTs as well. He has had severe left leg pain ever since lifting dryer does go up into his back. He reports numbness and tingling left lower extremity. The pain is a throbbing aching deep pain. Also since developed pneumonia he reports "hurting all over". He will need ongoing analgesic therapy, will add Lyrica for the neuropathic component of the pain at a very low dose. He is anticoagulated and at this time not a candidate for injection therapy. I will follow closely with you. y Current Visit: No History of Present Illness Chief complaint: Left lower extremity pain History of present illness: Mr. Otto is a 66 year old male with left lower extremity pain, this started after lifting a dryer at home 2-3 weeks ago. The pain is a constant throbbing aching pain. Also over the past 5 days he reports that it hurts "all over". Home Medications Medication Instructions Recorded Confirmed Type Albuterol Sulfate [Ventolin HFA] 2 puffs PO Q6HR PRN 09/24/16 12/27/16 History Cetirizine Tab [ZyrTEC Tab] 10 mg PO DAILY 09/24/16 12/27/16 History Cyanocobalamin (Vitamin B-12) 1 tablet PO DAILY 09/24/16 12/27/16 History [Vitamin B-12] Tiotropium Br/Olodaterol HCl 2 puffs INH BEDTIME 09/24/16 12/27/16 History [Stiolto Respimat Inhal [place]] Acetaminophen Tab [Tylenol Tab] 650 mg PO Q6H PRN #0 tablet 10/03/16 12/27/16 Rx Albuterol/Ipratropium Neb [Duoneb] 3 ml RESP TX RT Q6H #120 10/03/16 12/27/16 Rx Docusate Sodium Cap [Colace Cap] 100 mg PO BID capsule 10/03/16 12/27/16 Rx Potassium Chloride Cap/Tab [K Dur] 20 meq PO BID #60 tablet 10/03/16 12/27/16 Rx Propranolol Tab [Inderal Tab] 40 mg PO BID #60 tablet 10/03/16 12/27/16 Rx Simethicone Chew Tab [Mylicon Chew 80 mg PO QID #120 tablet 10/03/16 12/27/16 Rx Tab] HYDROcodone/ACETAMIN 7.5-325 1 tablet PO Q4H PRN #40 tablet 11/03/16 12/27/16 Rx [Noxen 7.5-325] Metoclopramide Tab [Reglan Tab] 10 mg PO DAILY 12/20/16 12/27/16 History Lidocaine 5% Patch [Lidoderm 5% 3 patch TRANSDERM DAILY #30 patch 12/25/1612/27 Rx Patch] Losartan [Cozaar] 25 mg PO DAILY #30 tablet 12/25/16 12/27/16 Rx Rivaroxaban [Xarelto] 15 mg PO BID W/MEALS #30 tablet 12/25/16 12/27/16 Rx Allergies Allergy/AdvReac Type Severity Reaction Status Date / Time No Known Allergies Allergy Verified 12/26/16 20:25 Medical,Surgical,& Family Hx - Medical History Cardio: History of: Aneurysm (aortic aneurysm), Cardiac Dysrhythmia (sinus tachycardia), Hypertension, Cardiovascular Problems (syncope) Psychological: History of: Depression No history of: Anxiety Disorders, ADHD, Behavior Problems, Bipolar Disorder, Previous Suicide Attempt, Schizophrenia, Violent Behavior, Psychiatric Problems Neurology: History of: Neurological Problems (tremors right hand/arm) No history of: Seizures HEENT: History of: HEENT Problems (sinus drainage; hx nosebleeds) Endocrine: History of: Dyslipidemia Respiratory: History of: Bronchitis, COPD (emphysema), Pulmonary Embolism, Pneumonia, Respiratory Problems (chronic shortness of breath) Gastrointestinal: History of: GERD, GI Problems (recent bloating) Hematology: History of: Anemia Other: History of: Miscellaneous Medical Problems (Left Leg DVT) - Surgical History Cardiac Surgeries: Sugical HX of: Cardiac Surgery (aortic aneurysm repair surger ) Neurologic Surgeries: Patient denies: Neurologic Surgery HEENT Surgeries: Patient denies: Thyroid Surgery Abdominal Surgeries: Surgical HX of: Abdominal Surgery (gastric ulcer perforation in 2017), Appendectomy, Colonoscopy (Dr. Alvarado), EGD (dilatation) Reproductive Surgeries: Patient denies;: Genitourinary Surgery - Family History Family History: Reports;: Family Cancer - Social History Smoking Status: Former smoker Frequency of Alcohol Use: None Type of Drug Use: None - Constitutional Constitutional: Present: daytime sleepiness, fatigue - Musculoskeletal Musculoskeletal: Present: abnormal gait, arthralgias, back pain, muscle cramps, muscle weakness (Left lower extremity) - Neurological Neurological: Present: focal weakness (Left lower extremity), numbness (Left lower extremity), paresthesias (Left lower extremity) Exam - Constitutional Vitals: Period Temp Pulse Resp BP Sys/Peace Pulse Ox Last 24 Hr 96.2 F-97.7 F 59-89 18-20 140-158/69-93 95-100 General appearance: normal weight - Eye Eye exam: Present: EOMI - Respiratory Respiratory exam: Present: rhonchi - Cardiovascular Cardiovascular exam: Present: RRR - GI/Abdominal GI/Abdominal exam: Present: normal bowel sounds - Back Exam Back exam: Present: vertebral tenderness - Neurological Exam Neurological exam: Present: alert, oriented X3, abnormal gait, motor sensory deficit (Left lower extremity L4-5) Results - Labs CBC & BMP: 12/31/16 05:58 12/31/16 05:58
[2016-12-31] MEDS: PREGABALIN 25 MG CAPSULE PO SCH ×2 (16:20→20:37)
--- NOTE | 2016-12-31 18:11 | Internal Med Progress Note ---
Assessment and Plan (1) COPD exacerbation Status: Acute Current Visit: Yes (2) COPD (chronic obstructive pulmonary disease) Status: Chronic Current Visit: Yes Qualifiers: COPD type: emphysema (3) Hypertension Status: Chronic Current Visit: Yes Qualifiers: Hypertension type: essential hypertension Qualified Code(s): I10 - Essential (primary) hypertension (4) Chronic fatigue Problem details: improved Status: Chronic Current Visit: Yes (5) History of constipation Status: Chronic Current Visit: Yes (6) Pulmonary embolus Status: Chronic Current Visit: Yes Qualifiers: Pulmonary embolism type: other Chronicity: acute Acute cor pulmonale presence: without acute cor pulmonale Qualified Code(s): I26.99 - Other pulmonary embolism without acute cor pulmonale (7) DVT (deep venous thrombosis) Status: Chronic Current Visit: Yes Qualifiers: DVT location: lower extremity Affected thrombotic vein of extremity: popliteal Chronicity: acute Laterality: left Qualified Code(s): I82.432 - Acute embolism and thrombosis of left popliteal vein Internal Medicine - PN: Subj Interval history: This is a 66 year old male with history of COPD/emphysema, HTN, chronic constipation, recent bowel perforation and partial colectomy, recent DVT/PE and on Xarelto, who is now here with pneumonia. He reports feeling better now with antibiotic and breathing treatments. He reports not feeling well today, but was not wearing oxygen nasal cannula when seen on rounds. Overall doing better. 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 Exam (Progress Note) - Constitutional Vitals: Period Temp Pulse Resp BP Sys/Peace Pulse Ox Last 24 Hr 96.2 F-97.9 F 61-86 18-20 130-158/69-93 95-100 Exam: General appearance: no acute distress - Respiratory Respiratory exam: Present: clear to auscultation bilaterally - Cardiovascular Cardiovascular exam: Present: regular rate and rhythm - GI/Abdominal GI/Abdominal exam: Present: normal bowel sounds - Extremities Exam Extremities exam: Absent: edema - Neurological Exam Neurological exam: Present: alert, oriented X3 - Psychiatric Psychiatric exam: Present: normal mood - Skin Skin exam: Present: warm, dry Results - Labs CBC & BMP: 12/31/16 05:58 12/31/16 05:58
[2017-01-01] MEDS: PIPERACILLIN/TAZOBACTAM 3,375 MG in SODIUM CHLORIDE 0.9% 100 ML IV SCH ×3 (00:41→16:44)
[2017-01-01] MEDS: ALBUTEROL/IPRATROPIUM 3 ML NEB RESP TX SCH ×4 (01:06→19:03)
--- NOTE | 2017-01-01 07:20 | XRay Report ---
XR chest 1V portable Indication: COPD. Chest one view: Comparison 12/26/2016. Heart size is normal. Mediastinal contours unremarkable. Marked coarsening of the interstitium of both lungs is again shown although it is decreased atelectasis of the lung bases when compared to the previous exam. No new infiltrates. Impression: Decreased bibasilar atelectasis. Otherwise no change with continued diffuse interstitial lung disease. PROCEDURE INTERPRETED AT [facility] [place] DEPARTMENT OF RADIOLOGY Final Report Signed by: Greg Hendrix M.D.
[2017-01-01] MEDS: LIDOCAINE 5% PATCH TRANSDERM SCH ×2 (08:59→09:04)
[2017-01-01] MEDS: methylPREDNISolone SOD SUC 40 MG/1 ML VIAL IV SCH ×2 (09:00→21:56)
[2017-01-01] MEDS: PREGABALIN 25 MG CAPSULE PO SCH ×3 (09:00→21:56)
[2017-01-01] MEDS: DOCUSATE SODIUM 100 MG CAPSULE PO SCH ×2 (09:01→20:35)
[2017-01-01] MEDS: LOSARTAN 25 MG TABLET PO SCH (09:01)
[2017-01-01] MEDS: RIVAROXABAN 15 MG TABLET PO SCH ×2 (09:01→16:44)
[2017-01-01] MEDS: PROPRANOLOL 40 MG TABLET PO SCH ×2 (09:01→20:36)
[2017-01-01] MEDS: SIMETHICONE CHEW 80 MG TABLET PO SCH ×4 (09:01→20:36)
[2017-01-01] MEDS: LACTOBACILLUS RHAMNOSUS GG CAPSULE PO SCH ×2 (09:01→20:37)
[2017-01-01] MEDS: CETIRIZINE 10 MG TABLET PO SCH (09:01)
[2017-01-01] MEDS: PANTOPRAZOLE 40 MG TABLET PO SCH ×2 (09:01→20:35)
--- NOTE | 2017-01-01 09:31 | Pulmonology Progress Note ---
Pulmonary - PN: Subj Interval history: The patient is a 66-year-old white man that has COPD and came in last week with a DVT and pulmonary embolus. He was fairly stable and was started on anticoagulation. He complained of a lot of left leg pain but he did not have much swelling. His breathing was actually fairly stable. He went home and came back the next day or so complaining that he was coughing and congested. He was told he might have mild pneumonia. He has been started on antibiotics. He says he is feeling better today and having less cough and congestion. His chest x-ray looks clear today. He apparently is feeling a little better as he is not complaining of leg pain today. Overall he seems to be stable now. Exam (Progress Note) - Constitutional Vitals: Period Temp Pulse Resp BP Sys/Peace Pulse Ox Last 24 Hr 96.6 F-98.2 F 55-80 16-20 130-148/69-78 94-99 Exam: General appearance: normal weight, no acute distress, he looks quite comfortable today. He is sitting up eating breakfast in no distress. - Head Head exam: Present: normal inspection, normocephalic - Eye Eye exam: Present: EOMI. Absent: scleral icterus Pupils: Present: SERA - ENT ENT exam: Present: normal exam - Neck Neck exam: Present: normal inspection. Absent: lymphadenopathy, thyromegaly - Respiratory Respiratory exam: Present: He has diminished breath sounds but is moving air okay without any wheezing now. His lungs sound fairly clear today. - Cardiovascular Cardiovascular exam: Present: regular rate and rhythm. Absent: gallop, systolic murmur - GI/Abdominal GI/Abdominal exam: Present: normal bowel sounds, distended, soft. Absent: organomegaly, tenderness - Extremities Exam Extremities exam: Present: other (The left leg looks okay without definite phlebitis.). Absent: calf tenderness, edema - Neurological Exam Neurological exam: Present: alert, oriented X3, CN II-XII intact. Absent: motor sensory deficit - Psychiatric Psychiatric exam: Present: normal affect, normal mood - Skin Skin exam: Present: warm, dry Results - Labs CBC & BMP: 12/31/16 05:58 12/31/16 05:58 - Diagnostic Findings Procedure: Chest x-ray: image reviewed by me, report reviewed by me (Chest x- ray is clear without infiltrates.) Assessment and Plan (1) COPD exacerbation Status: Acute Assessment and plan: The patient comes back with a little more shortness of breath and was felt to have at least some bronchitis or possible pneumonia. He is back on IV medications. He feels like his breathing is better and his chest x-ray is clear now. Overall he has improved. He should be able to go home soon. Current Visit: Yes (2) Hypertension Status: Chronic Assessment and plan: His blood pressure and heart rate are under control. Current Visit: Yes Qualifiers: Hypertension type: essential hypertension Qualified Code(s): I10 - Essential (primary) hypertension (3) Pulmonary embolus Status: Chronic Assessment and plan: The patient looks like he is breathing comfortably and will continue Xarelto. He is not having any shortness of breath now. Current Visit: Yes Qualifiers: Pulmonary embolism type: other Chronicity: acute Acute cor pulmonale presence: without acute cor pulmonale Qualified Code(s): I26.99 - Other pulmonary embolism without acute cor pulmonale (4) DVT (deep venous thrombosis) Status: Chronic Assessment and plan: The patient's leg looks a little better and will continue anticoagulation. He has some pain in his left leg but I doubt this is due to phlebitis. He does have some chronic back pain. Current Visit: Yes Qualifiers: DVT location: lower extremity Affected thrombotic vein of extremity: popliteal Chronicity: acute Laterality: left Qualified Code(s): I82.432 - Acute embolism and thrombosis of left popliteal vein (5) Lumbar radiculopathy, acute Problem details: New onset left-sided lumbar radiculopathy 5 days ago after lifting dryer. Status: Acute Assessment and plan: The patient has had some chronic pain issues. He has been evaluated by pain management. Current Visit: No
--- NOTE | 2017-01-01 12:31 | Pain Management Progress Note ---
Assessment and Plan (1) Lumbar radiculopathy, acute Problem details: New onset left-sided lumbar radiculopathy 5 days ago after lifting dryer. Status: Acute Assessment and plan: 01/01/2017. The patient's pain control has improved. He has less leg pain. He slept through the night last night which she was not able to do the night before. He is only been on the Lyrica for less than 24 hours and will continue to watch him closely. At this time no further recommendations, I do agree with discharge planning. We will plan to see him in follow-up after discharge. n 12/31/2016. The patient has a left lower extremity radiculopathy. This started approximately around the time of lifting a dryer at home. He has a history of DVTs as well. He has had severe left leg pain ever since lifting dryer does go up into his back. He reports numbness and tingling left lower extremity. The pain is a throbbing aching deep pain. Also since developed pneumonia he reports "hurting all over". He will need ongoing analgesic therapy, will add Lyrica for the neuropathic component of the pain at a very low dose. He is anticoagulated and at this time not a candidate for injection therapy. I will follow closely with you. y Current Visit: No Pain - Subjective Interval history: Improved pain control left lower extremity Exam - Constitutional Vitals: Period Temp Pulse Resp BP Sys/Peace Pulse Ox Last 24 Hr 96.6 F-98.2 F 55-80 16-20 130-148/70-78 94-99 - Back Exam Back exam: Present: vertebral tenderness - Neurological Exam Neurological exam: Present: motor sensory deficit Results - Labs CBC & BMP: 12/31/16 05:58 12/31/16 05:58
--- NOTE | 2017-01-01 20:08 | Internal Med Progress Note ---
Assessment and Plan (1) COPD exacerbation Status: Resolved Current Visit: Yes (2) COPD (chronic obstructive pulmonary disease) Status: Chronic Current Visit: Yes Qualifiers: COPD type: emphysema (3) Hypertension Status: Chronic Current Visit: Yes Qualifiers: Hypertension type: essential hypertension Qualified Code(s): I10 - Essential (primary) hypertension (4) Chronic fatigue Problem details: improved Status: Chronic Current Visit: Yes (5) History of constipation Status: Chronic Current Visit: Yes (6) Pulmonary embolus Status: Chronic Current Visit: Yes Qualifiers: Pulmonary embolism type: other Chronicity: acute Acute cor pulmonale presence: without acute cor pulmonale Qualified Code(s): I26.99 - Other pulmonary embolism without acute cor pulmonale (7) DVT (deep venous thrombosis) Status: Chronic Current Visit: Yes Qualifiers: DVT location: lower extremity Affected thrombotic vein of extremity: popliteal Chronicity: acute Laterality: left Qualified Code(s): I82.432 - Acute embolism and thrombosis of left popliteal vein Internal Medicine - PN: Subj Interval history: This is a 66 year old male with history of COPD/emphysema, HTN, chronic constipation, recent bowel perforation and partial colectomy, recent DVT/PE and on Xarelto, who is now here with pneumonia. He reports feeling better now with antibiotic and breathing treatments. He reports not feeling well today, but was not wearing oxygen nasal cannula when seen on rounds. Overall doing better. 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 Feeling better and lungs clear, but he doesn't want to go home, yet. Exam (Progress Note) - Constitutional Vitals: Period Temp Pulse Resp BP Sys/Peace Pulse Ox Last 24 Hr 96.6 F-98.2 F 55-80 16-20 125-148/70-78 94-99 Exam: General appearance: no acute distress - Respiratory Respiratory exam: Present: clear to auscultation bilaterally - Cardiovascular Cardiovascular exam: Present: regular rate and rhythm - GI/Abdominal GI/Abdominal exam: Present: normal bowel sounds - Extremities Exam Extremities exam: Absent: edema - Neurological Exam Neurological exam: Present: alert, oriented X3 - Psychiatric Psychiatric exam: Present: normal mood - Skin Skin exam: Present: warm, dry Results - Labs CBC & BMP: 12/31/16 05:58 12/31/16 05:58
[2017-01-02] MEDS: PIPERACILLIN/TAZOBACTAM 3,375 MG in SODIUM CHLORIDE 0.9% 100 ML IV SCH ×3 (00:39→16:46)
[2017-01-02] MEDS: ALBUTEROL/IPRATROPIUM 3 ML NEB RESP TX SCH ×4 (01:11→20:13)
[2017-01-02 06:15] LABS: Basophils # 0.1 10*3/uL (0.0-0.2); Basophils % 0.3 % (0.0-0.8); Eosinophils % 0.1 % (0.00-10.9); Hematocrit 34.4 VOL% (42.0-52.0); Hemoglobin 11.6 GM/DL (14.0-18.0); Immature Granulocytes % 6.6 %; Immature Granulocytes Absolute 0.95 #; Lymphocytes # 2.2 10*3/uL (1.4-4.0); Mean Corpuscular HGB Conc 33.7 GM/DL (32-36); Mean Corpuscular Hemoglobin 32 PG (27-34); Mean Platelet Volume 8.9 FL (9.6-12.0); Monocytes # 0.8 10*3/uL (0.11-0.8); Monocytes % 5.5 % (1.7-12.7); Neutrophils # 10.4 10*3/uL (1.4-7.4); Neutrophils % 72.5 % (38.7-73.9); Platelet Count 460 T/CUMM (130-400); Red Blood Count 3.62 MC/CUMM (3.8-5.5); Red Cell Distribution Width 14.7 % (9.3-17.3); White Blood Count 14.3 T/CUMM (4-12)
[2017-01-02 06:49] LABS: Albumin 2.5 G/DL (3.4-5.0); Bilirubin,Total 0.8 MG/DL (0.2-1.0); Calcium 8.9 MG/DL (8.5-10.1); Osmolality,Calculated 281.8 MOS/KG (273-304); Potassium 4.9 MMOL/L (3.5-5.1); Total Protein 6.3 G/DL (6.4-8.3)
[2017-01-02 07:16] LABS: Band Neutrophils 3 % (0-10); Hypochromasia Slight; Lymphocytes 10 % (20-55); Platelet Estimate Adequate; Segmented Neutrophils 81 % (50-85); Total Cells Counted 100
--- NOTE | 2017-01-02 08:49 | Pulmonology Progress Note ---
Pulmonary - PN: Subj Interval history: The patient is a 66-year-old white man that has COPD and came in last week with a DVT and pulmonary embolus. He was fairly stable and was started on anticoagulation. He complained of a lot of left leg pain but he did not have much swelling. His breathing was actually fairly stable. He went home and came back the next day or so complaining that he was coughing and congested. He was told he might have mild pneumonia. He has been started on antibiotics. He continues to improve and looks better today. He says his breathing is better and his leg pain has improved. His chest x-ray is clear. His lungs sound reasonably clear. He says he is going to try to move around more today. Exam (Progress Note) - Constitutional Vitals: Period Temp Pulse Resp BP Sys/Peace Pulse Ox Last 24 Hr 96.6 F-98.0 F 57-76 18-20 111-168/66-85 93-99 Exam: General appearance: normal weight, no acute distress, he looks quite comfortable today. He is sitting up eating breakfast in no distress. - Head Head exam: Present: normal inspection, normocephalic - Eye Eye exam: Present: EOMI. Absent: scleral icterus Pupils: Present: SERA - ENT ENT exam: Present: normal exam - Neck Neck exam: Present: normal inspection. Absent: lymphadenopathy, thyromegaly - Respiratory Respiratory exam: Present: He has fairly good air movement with no wheezing today. - Cardiovascular Cardiovascular exam: Present: regular rate and rhythm. Absent: gallop, systolic murmur - GI/Abdominal GI/Abdominal exam: Present: normal bowel sounds, distended, soft. Absent: organomegaly, tenderness - Extremities Exam Extremities exam: Present: other (The left leg looks okay without definite phlebitis.). Absent: calf tenderness, edema - Neurological Exam Neurological exam: Present: alert, oriented X3, CN II-XII intact. Absent: motor sensory deficit - Psychiatric Psychiatric exam: Present: normal affect, normal mood - Skin Skin exam: Present: warm, dry Results - Labs CBC & BMP: 01/02/17 04:49 01/02/17 04:49 Assessment and Plan (1) COPD exacerbation Status: Resolved Assessment and plan: The patient comes back with a little more shortness of breath and was felt to have at least some bronchitis or possible pneumonia. He is back on IV medications. He feels like his breathing is better and his chest x-ray is clear now. He continues to do well and should be able to go home at any time. Please call if needed over the weekend . Current Visit: Yes (2) Hypertension Status: Chronic Assessment and plan: His blood pressure and heart rate are under control. Current Visit: Yes Qualifiers: Hypertension type: essential hypertension Qualified Code(s): I10 - Essential (primary) hypertension (3) Pulmonary embolus Status: Chronic Assessment and plan: The patient looks like he is breathing comfortably and will continue Xarelto. He is not having any shortness of breath now. Current Visit: Yes Qualifiers: Pulmonary embolism type: other Chronicity: acute Acute cor pulmonale presence: without acute cor pulmonale Qualified Code(s): I26.99 - Other pulmonary embolism without acute cor pulmonale (4) DVT (deep venous thrombosis) Status: Chronic Assessment and plan: The patient's leg looks a little better and will continue anticoagulation. His leg pain seems to be much better now. Current Visit: Yes Qualifiers: DVT location: lower extremity Affected thrombotic vein of extremity: popliteal Chronicity: acute Laterality: left Qualified Code(s): I82.432 - Acute embolism and thrombosis of left popliteal vein (5) Lumbar radiculopathy, acute Problem details: New onset left-sided lumbar radiculopathy 5 days ago after lifting dryer. Status: Acute Assessment and plan: The patient has had some chronic pain issues. He seems to be doing better on present medicines. Current Visit: No
[2017-01-02] MEDS: PROPRANOLOL 40 MG TABLET PO SCH ×2 (09:37→22:00)
[2017-01-02] MEDS: methylPREDNISolone SOD SUC 40 MG/1 ML VIAL IV SCH ×2 (09:37→22:01)
[2017-01-02] MEDS: SIMETHICONE CHEW 80 MG TABLET PO SCH ×4 (09:37→22:00)
[2017-01-02] MEDS: PREGABALIN 25 MG CAPSULE PO SCH ×3 (09:37→22:14)
[2017-01-02] MEDS: LACTOBACILLUS RHAMNOSUS GG CAPSULE PO SCH ×2 (09:38→22:01)
[2017-01-02] MEDS: RIVAROXABAN 15 MG TABLET PO SCH ×2 (09:38→16:10)
[2017-01-02] MEDS: DOCUSATE SODIUM 100 MG CAPSULE PO SCH ×2 (09:38→22:00)
[2017-01-02] MEDS: PANTOPRAZOLE 40 MG TABLET PO SCH ×2 (09:38→22:02)
[2017-01-02] MEDS: LIDOCAINE 5% PATCH TRANSDERM SCH (09:38)
[2017-01-02] MEDS: LOSARTAN 25 MG TABLET PO SCH (09:38)
[2017-01-02] MEDS: CETIRIZINE 10 MG TABLET PO SCH (09:38)
--- NOTE | 2017-01-02 22:01 | Internal Med Progress Note ---
Assessment and Plan (1) COPD exacerbation Status: Resolved Current Visit: Yes (2) COPD (chronic obstructive pulmonary disease) Status: Chronic Current Visit: Yes Qualifiers: COPD type: emphysema (3) Hypertension Status: Chronic Current Visit: Yes Qualifiers: Hypertension type: essential hypertension Qualified Code(s): I10 - Essential (primary) hypertension (4) Chronic fatigue Problem details: improved Status: Chronic Current Visit: Yes (5) History of constipation Status: Chronic Current Visit: Yes (6) Pulmonary embolus Status: Chronic Current Visit: Yes Qualifiers: Pulmonary embolism type: other Chronicity: acute Acute cor pulmonale presence: without acute cor pulmonale Qualified Code(s): I26.99 - Other pulmonary embolism without acute cor pulmonale (7) DVT (deep venous thrombosis) Status: Chronic Current Visit: Yes Qualifiers: DVT location: lower extremity Affected thrombotic vein of extremity: popliteal Chronicity: acute Laterality: left Qualified Code(s): I82.432 - Acute embolism and thrombosis of left popliteal vein Internal Medicine - PN: Subj Interval history: This is a 66 year old male with history of COPD/emphysema, HTN, chronic constipation, recent bowel perforation and partial colectomy, recent DVT/PE and on Xarelto, who is now here with pneumonia. He reports feeling better now with antibiotic and breathing treatments. He reports not feeling well today, but was not wearing oxygen nasal cannula when seen on rounds. Overall doing better. Discussed with patient and daughter about longterm care , and she wants to try to care for him at home and with home health. Feeling better and lungs clear, and he is ready to go home tomorrow. He is requesting hospital bed. Exam (Progress Note) - Constitutional Vitals: Period Temp Pulse Resp BP Sys/Peace Pulse Ox Last 24 Hr 96.6 F-97.8 F 57-70 18-20 120-168/66-85 93-99 Exam: General appearance: no acute distress - Respiratory Respiratory exam: Present: clear to auscultation bilaterally - Cardiovascular Cardiovascular exam: Present: regular rate and rhythm - GI/Abdominal GI/Abdominal exam: Present: normal bowel sounds - Extremities Exam Extremities exam: Absent: edema - Neurological Exam Neurological exam: Present: alert, oriented X3 - Psychiatric Psychiatric exam: Present: normal mood - Skin Skin exam: Present: warm, dry Results - Labs CBC & BMP: 01/02/17 04:49 01/02/17 04:49
--- NOTE | 2017-01-02 23:46 | Discharge Summary ---
Hospital Course - Hospital Course Hospital Course: This is a 66 year old male with history of COPD/emphysema, HTN, chronic constipation, recent bowel perforation and partial colectomy, recent DVT/PE and on Xarelto, who is now here with pneumonia. He reports feeling better now with antibiotic and breathing treatments. He reports not feeling well today, but was not wearing oxygen nasal cannula when seen on rounds. Overall doing better. 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 Feeling better and lungs clear, and he is ready to go home. He is requesting hospital bed. Also, he will have PT/OT with Home Health. Diagnosis - Discharge Diagnosis (1) COPD exacerbation Status: Resolved (2) COPD (chronic obstructive pulmonary disease) Status: Chronic (3) Hypertension Status: Chronic (4) Chronic fatigue Status: Chronic (5) History of constipation Status: Chronic (6) Pulmonary embolus Status: Chronic (7) DVT (deep venous thrombosis) Status: Chronic Discharge Plan - Discharge Data Disposition: Home Health Service Condition at Discharge: Stable Discharge Diet: regular diet Activity: as per physical therapy, increase activity as tolerated - Discharge Medications New Magnesium Hydroxide Susp [Milk of Magnesia] 30 ml PO DAILY PRN PRN Reason: Constipation Pantoprazole Tab [Protonix Tab] 40 mg PO BID tablet Pregabalin [Lyrica] 25 mg PO TID capsule Simethicone Chew Tab [Mylicon Chew Tab] 80 mg PO QID tablet Lactobacillus Rhamnosus GG [Culturelle] 1 capsule PO BID capsule Continue Tiotropium Br/Olodaterol HCl [Stiolto Respimat Inhal [place]] 2 puffs INH BEDTIME Cetirizine Tab [ZyrTEC Tab] 10 mg PO DAILY Albuterol Sulfate [Ventolin HFA] 2 puffs PO Q6HR PRN PRN Reason: Shortness Of Breath Albuterol/Ipratropium Neb [Duoneb] 3 ml RESP TX RT Q6H #120 Docusate Sodium Cap [Colace Cap] 100 mg PO BID capsule Propranolol Tab [Inderal Tab] 40 mg PO BID #60 tablet Simethicone Chew Tab [Mylicon Chew Tab] 80 mg PO QID #120 tablet HYDROcodone/ACETAMIN 7.5-325 [[place] 7.5-325] 1 tablet PO Q4H PRN #40 tablet PRN Reason: Pain Moderate To Severe (4-10) Lidocaine 5% Patch [Lidoderm 5% Patch] 3 patch TRANSDERM DAILY #30 patch Losartan [Cozaar] 25 mg PO DAILY #30 tablet Cyanocobalamin (Vitamin B-12) [Vitamin B-12] 1 tablet PO DAILY Acetaminophen Tab [Tylenol Tab] 650 mg PO Q6H PRN #0 tablet PRN Reason: Fever > 100.4 Or Headache Metoclopramide Tab [Reglan Tab] 10 mg PO DAILY Changed Rivaroxaban [Xarelto] 20 mg PO AC BREAKFAST #30 tablet Discontinued Potassium Chloride Cap/Tab [K Dur] 20 meq PO BID #60 tablet - Follow Up or Referral Follow Up: Laila Wyatt DO [Primary Care Provider] - - Forms/Instructions Additional Discharge Instructions: He can be discharged after breakfast to home with home health; 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 Exam - Constitutional Vitals: Period Temp Pulse Resp BP Sys/Peace Pulse Ox Last 24 Hr 96.6 F-97.6 F 57-70 18-20 120-168/66-85 94-99 Exam: General appearance: no acute distress - Respiratory Respiratory exam: Present: clear to auscultation bilaterally - Cardiovascular Cardiovascular exam: Present: regular rate and rhythm - GI/Abdominal GI/Abdominal exam: Present: normal bowel sounds - Extremities Exam Extremities exam: Absent: edema - Neurological Exam Neurological exam: Present: alert, oriented X3 - Psychiatric Psychiatric exam: Present: normal mood - Skin Skin exam: Present: warm, dry Discharge Results Procedures and tests throughout hospitalization: Pending Orders 01/01/17 06:49 Sputum Culture and Gram Stain Routine 01/01/17 18:12 Blood Culture Routine Labs on day of discharge: Labs from last 24 hours 01/02/17 01/02/17 04:49 04:49 WBC 14.3 H RBC 3.62 L Hgb 11.6 L Hct 34.4 L MCV 95.0 MCH 32 MCHC 33.7 RDW 14.7 Plt Count 460 H MPV 8.9 L Neut % (Auto) 72.5 Lymph % (Auto) 15.0 L [place] % (Auto) 5.5 Eos % (Auto) 0.1 Baso % (Auto) 0.3 Neut # (Auto) 10.4 H Lymph # (Auto) 2.2 [place] # (Auto) 0.8 Eos # (Auto) 0.0 Baso # (Auto) 0.1 Total Counted 100 Immature Gran % 6.6 Nucleated RBC % 0.0 Immature Gran # 0.95 Segmented Neutrophils 81 Band Neutrophils 3 Lymphocytes 10 L Monocytes 6 Nucleated RBCs # 0.00 Platelet Estimate Adequate Immature Plt Fraction 0.0 Hypochromasia Slight Sodium 137 Potassium 4.9 Chloride 99 Carbon Dioxide 31 Anion Gap 11.9 BUN 32 H Creatinine 1.30 GFR Calculation 60 BUN/Creatinine Ratio 24.00 H Glucose 132 H Calculated Osmolality 281.8 Calcium 8.9 Total Bilirubin 0.80 AST 62 H ALT 94 H Alkaline Phosphatase 56 Total Protein 6.3 L Albumin 2.5 L Globulin 3.8 H Albumin/Globulin Ratio 0.6 L Preliminary micro results at discharge 01/01/17 18:12 Blood Culture - Preliminary Blood No growth at 1 day 01/01/17 18:21 Blood Culture - Preliminary Blood No growth at 1 day 01/01/17 06:49 Sputum Culture - Preliminary Sputum Normal Pooja at 24 hours DS: Provider Date of admission: 12/27/16 00:22 Primary care physician: Laila Wyatt DO Attending physician on admission: Laila Wyatt DO Consults: 12/27/16 01:58 Consult to Dietitian [CONS] Routine Reason for Dietitian: Dietary Consult 12/31/16 11:31 Consult to Physician [CONS] Routine Comment: pain management pt known to you Consulting Provider: Armando Mcintosh Person Notified: Susi Date Notified: 12/31/16 Time Notified: 11:42 01/02/17 15:56 Consult to Case Mgmt/Social Srvs [CONS] Routine Reason for Case Mgmt/Social Srvs: Equipment Consult Comment: Hospital Bed Discharging clinician: Laila Wyatt DO Expected date of discharge: 01/03/17
[2017-01-03] MEDS: ALBUTEROL/IPRATROPIUM 3 ML NEB RESP TX SCH ×2 (01:05→07:33)
[2017-01-03] MEDS: PIPERACILLIN/TAZOBACTAM 3,375 MG in SODIUM CHLORIDE 0.9% 100 ML IV SCH ×2 (04:15→08:49)
--- NOTE | 2017-01-03 07:42 | Family Practice Progress Note ---
Family Practice - PN: Subj Interval history: Patient is doing well this morning and is ready for discharge. Patient does have significant issues with reflux and does need a hospital bed to keep the head of his bed elevated. Patient states she is not having any chest pain or shortness of breath this morning. Exam (Progress Note) - Constitutional Vitals: Period Temp Pulse Resp BP Sys/Peace Pulse Ox Last 24 Hr 97.0 F-97.8 F 58-77 18-20 110-127/63-80 94-99 Exam: Objective a well-developed gentleman in no acute distress he is awake alert and able to give good history. Cardiovascular: Heart rates regular without murmurs. Respiratory: Lungs clear to auscultation bilaterally. Abdomen: Abdomen soft and nontender to palpation. Results - Labs CBC & BMP: 01/02/17 04:49 01/02/17 04:49 Lab Results: I have reviewed the past 24 hour labs Assessment and Plan (1) Pulmonary embolus Status: Chronic Assessment and plan: 01/03/2017: Patient is anticoagulated adequately and is no longer dyspneic. Current Visit: Yes Qualifiers: Pulmonary embolism type: other Chronicity: acute Acute cor pulmonale presence: without acute cor pulmonale Qualified Code(s): I26.99 - Other pulmonary embolism without acute cor pulmonale (2) DVT (deep venous thrombosis) Status: Chronic Current Visit: Yes Qualifiers: DVT location: lower extremity Affected thrombotic vein of extremity: popliteal Chronicity: acute Laterality: left Qualified Code(s): I82.432 - Acute embolism and thrombosis of left popliteal vein Specialty Discharge - Follow Up or Referrals Follow up with: Laila Wyatt DO [Primary Care Provider] -
[2017-01-03 07:55] VITALS: BP 138/69
[2017-01-03] MEDS: PREGABALIN 25 MG CAPSULE PO SCH (08:46)
[2017-01-03] MEDS: PROPRANOLOL 40 MG TABLET PO SCH (08:46)
[2017-01-03] MEDS: DOCUSATE SODIUM 100 MG CAPSULE PO SCH (08:46)
[2017-01-03] MEDS: CETIRIZINE 10 MG TABLET PO SCH (08:46)
[2017-01-03] MEDS: SIMETHICONE CHEW 80 MG TABLET PO SCH (08:46)
[2017-01-03] MEDS: PANTOPRAZOLE 40 MG TABLET PO SCH (08:46)
[2017-01-03] MEDS: RIVAROXABAN 15 MG TABLET PO SCH (08:46)
[2017-01-03] MEDS: LIDOCAINE 5% PATCH TRANSDERM SCH (08:47)
[2017-01-03] MEDS: LOSARTAN 25 MG TABLET PO SCH (08:47)
[2017-01-03] MEDS: methylPREDNISolone SOD SUC 40 MG/1 ML VIAL IV SCH (08:47)
[2017-01-03] MEDS: LACTOBACILLUS RHAMNOSUS GG CAPSULE PO SCH (08:47)
== END 2017-01-03 10:19 | disposition home health service (06) | DRG 190 ==
LOC: EDBD → EDUNIT# → N.ED 20:15 → N.EDINP 12-27 00:22 → N.ICU 12-27 00:40 → N.5E 12-27 15:05
PROVIDERS: ADMIT Internal Medicine; ATTEND Internal Medicine

== ENCOUNTER 2017-11-30 00:57 | Inpatient (IN) ==
[2017-12-03 06:52] VITALS: BP 181/95
== END 2017-12-03 09:50 | disposition home health service (06) | DRG 192 ==
LOC: N.ED 00:57 → N.EDINP 01:48 → N.3E 02:10
PROVIDERS: ADMIT Internal Medicine; ATTEND Internal Medicine

== ENCOUNTER 2018-04-05 17:46 | Observation (INO) ==
[2018-04-05] MEDS ORDERED: diphenhydrAMINE 25 MG/10 ML UDCUP ONE (17:48)
[2018-04-05] MEDS ORDERED: ALBUTEROL/IPRATROPIUM 3 ML NEB RESP TX STA (18:35)
[2018-04-05] MEDS ORDERED: methylPREDNISolone SOD SUC 125 MG/2 ML VIAL IV STA (18:35)
[2018-04-05] MEDS ORDERED: CEFEPIME IV STA (18:36)
[2018-04-05] MEDS ORDERED: SODIUM CHLORIDE 0.9% IV STA (18:36)
[2018-04-05 18:51] LABS: Basophils % 0.3 % (0.0-0.8); Eosinophils # 0.2 10*3/uL (0.0-0.87); Eosinophils % 1.5 % (0.00-10.9); Hemoglobin 14.3 GM/DL (14.0-18.0); Immature Granulocytes % 0.4 %; Immature Granulocytes Absolute 0.06 #; Lymphocytes # 1.8 10*3/uL (1.4-4.0); Mean Corpuscular HGB Conc 33.3 GM/DL (32-36); Mean Corpuscular Hemoglobin 30 PG (27-34); Mean Corpuscular Volume 91.3 FL (87-102); Mean Platelet Volume 9.2 FL (9.6-12.0); Monocytes # 1.3 10*3/uL (0.11-0.8); Monocytes % 8.4 % (1.7-12.7); Neutrophils # 11.6 10*3/uL (1.4-7.4); Neutrophils % 77.4 % (38.7-73.9); Platelet Count 211 T/CUMM (130-400); Red Blood Count 4.71 MC/CUMM (3.8-5.5); Red Cell Distribution Width 12.7 % (9.3-17.3); White Blood Count 14.9 T/CUMM (4-12)
[2018-04-05 19:06] LABS: Albumin 3.8 G/DL (3.4-5.0); Bilirubin,Total 0.6 MG/DL (0.2-1.0); Calcium 8.9 MG/DL (8.5-10.1); Osmolality,Calculated 278.5 MOS/KG (273-304); Total Protein 8.2 G/DL (6.4-8.3)
[2018-04-05] MEDS ORDERED: SODIUM CHLORIDE 0.9% 1,000 ML IV STA (20:38)
[2018-04-05] MEDS ORDERED: ONDANSETRON 4 MG/2 ML VIAL IV PRN (21:49)
[2018-04-05] MEDS ORDERED: ACETAMINOPHEN 325 MG TABLET PO PRN (21:49)
[2018-04-05] MEDS ORDERED: cefTRIAXone 1,000 MG in SYRINGE 1 EACH IV SCH (22:00)
[2018-04-05 22:03] LABS: Apearance,Urine CLEAR (Clear); Bilirubin,Urine Negative (Negative); Blood, Urine Small mg/dL (Negative); Glucose,Urine (UA) Negative (Negative); Ketones,Urine Negative (Negative); Mucus,Urine Occasional /LPF (Occasional); Nitrite,Urine Negative (Negative); Protein,Urine >=500 MG/DL; RBC,Urine 1 /HPF (0-4); Squamous Epithelial Cell,Urine Occasional /HPF (0-10); Urine Color Yellow (Yellow); Urine Specific Gravity 1.014 (1.001-1.035); Urine Urobilinogen < 2.0 EU/DL (0.2-1.0); WBC,Urine 2 /HPF (0-6)
[2018-04-05] MEDS: ALBUTEROL/IPRATROPIUM 3 ML NEB RESP TX SCH (23:22)
[2018-04-06] MEDS: ALBUTEROL/IPRATROPIUM 3 ML NEB RESP TX SCH ×5 (02:28→19:11)
[2018-04-06] MEDS ORDERED: methylPREDNISolone SOD SUC 125 MG/2 ML VIAL IV SCH (08:00)
[2018-04-06] MEDS: PANTOPRAZOLE 40 MG TABLET PO SCH (08:58)
[2018-04-06] MEDS: DOCUSATE SODIUM 100 MG CAPSULE PO SCH ×2 (08:58→21:20)
[2018-04-06] MEDS ORDERED: DOCUSATE SODIUM 100 MG CAPSULE PO PRN (16:35)
[2018-04-06] MEDS: LORATADINE 10 MG TABLET PO SCH (16:54)
[2018-04-06] MEDS: ASPIRIN EC 81 MG TABLET PO SCH (16:54)
[2018-04-06 17:00] LABS: Basophils % 0.1 % (0.0-0.8); Hematocrit 39.8 VOL% (42.0-52.0); Hemoglobin 13.3 GM/DL (14.0-18.0); Immature Granulocytes % 0.8 %; Immature Granulocytes Absolute 0.11 #; Lymphocytes # 1.2 10*3/uL (1.4-4.0); Lymphocytes % 8.8 % (21.2-54.2); Mean Corpuscular HGB Conc 33.4 GM/DL (32-36); Mean Corpuscular Hemoglobin 30 PG (27-34); Mean Corpuscular Volume 90.9 FL (87-102); Mean Platelet Volume 9.3 FL (9.6-12.0); Monocytes # 0.4 10*3/uL (0.11-0.8); Monocytes % 3.2 % (1.7-12.7); Neutrophils % 87.1 % (38.7-73.9); Platelet Count 196 T/CUMM (130-400); Red Blood Count 4.38 MC/CUMM (3.8-5.5); Red Cell Distribution Width 12.9 % (9.3-17.3); White Blood Count 13.7 T/CUMM (4-12)
[2018-04-06 17:20] LABS: Calcium 8.9 MG/DL (8.5-10.1); Osmolality,Calculated 279.8 MOS/KG (273-304)
[2018-04-06] MEDS: BUDESONIDE 0.25 MG/2 ML NEB RESP TX SCH (19:11)
[2018-04-06] MEDS ORDERED: TAMSULOSIN 0.4 MG CAPSULE PO SCH (21:00)
[2018-04-06] MEDS ORDERED: MIRTAZAPINE 30 MG TABLET PO SCH (21:00)
[2018-04-06] MEDS: PROPRANOLOL 40 MG TABLET PO SCH (21:20)
[2018-04-06] MEDS: methylPREDNISolone SOD SUC 125 MG/2 ML VIAL IV SCH (21:21)
[2018-04-07] MEDS: ALBUTEROL/IPRATROPIUM 3 ML NEB RESP TX SCH ×3 (00:09→07:30)
[2018-04-07 04:39] LABS: Basophils % 0.1 % (0.0-0.8); Hematocrit 39.6 VOL% (42.0-52.0); Immature Granulocytes % 0.8 %; Immature Granulocytes Absolute 0.13 #; Lymphocytes # 1.4 10*3/uL (1.4-4.0); Lymphocytes % 8.4 % (21.2-54.2); Mean Corpuscular HGB Conc 32.8 GM/DL (32-36); Mean Corpuscular Hemoglobin 30 PG (27-34); Mean Corpuscular Volume 90.4 FL (87-102); Mean Platelet Volume 9.3 FL (9.6-12.0); Monocytes # 0.6 10*3/uL (0.11-0.8); Monocytes % 3.8 % (1.7-12.7); Neutrophils # 14.6 10*3/uL (1.4-7.4); Neutrophils % 86.9 % (38.7-73.9); Platelet Count 216 T/CUMM (130-400); Red Blood Count 4.38 MC/CUMM (3.8-5.5); White Blood Count 16.8 T/CUMM (4-12)
[2018-04-07 04:57] LABS: Osmolality,Calculated 283.5 MOS/KG (273-304); Potassium 4.1 MMOL/L (3.5-5.1)
[2018-04-07] MEDS: BUDESONIDE 0.25 MG/2 ML NEB RESP TX SCH (07:30)
[2018-04-07 08:30] VITALS: BP 181/97
[2018-04-07] MEDS: methylPREDNISolone SOD SUC 125 MG/2 ML VIAL IV SCH (09:05)
[2018-04-07] MEDS: ASPIRIN EC 81 MG TABLET PO SCH (09:06)
[2018-04-07] MEDS: PANTOPRAZOLE 40 MG TABLET PO SCH (09:06)
[2018-04-07] MEDS: DOCUSATE SODIUM 100 MG CAPSULE PO SCH (09:06)
[2018-04-07] MEDS: LORATADINE 10 MG TABLET PO SCH (09:06)
[2018-04-07] MEDS: PROPRANOLOL 40 MG TABLET PO SCH (09:06)
== END 2018-04-07 10:31 | disposition home health service (06) ==
LOC: N.ED 17:46 → N.EDINP 17:46 → N.5E 23:00
PROVIDERS: ADMIT Internal Medicine; ATTEND Internal Medicine